=== PATIENT | female | born 1950 | race Caucasian/White ===

== ENCOUNTER 2024-04-08 13:55 | Inpatient (IN) | payer OTHER, MEDICARE ==
--- NOTE | 2024-04-08 14:28 | ED ---
General Adult HPI - General Chief complaint: Neuro Symptoms/Deficit Stated complaint: AMS Time Seen by Provider: 04/08/24 14:03 Source: patient, family Mode of arrival: wheelchair Limitations: no limitations - History of Present Illness Initial comments: Dictation was produced using [employer] dictation software. please excuse any grammatical, word or spelling errors. Chief Complaint: 73-year-old female presents to the emergency department for memory loss History of Present Illness: Patient 73-year-old female. History of present illness obtained from son at the bedside. Apparently couple months ago patient suffered a fall with intracranial bleed. Since then she was [facility]. She has been followed up with neurologist. Patient is pending MRI. Apparently there was concern of patient's memory loss and they were instructed to bring the patient to the ER should she have any worsening symptoms. Patient has been much more forgetful especially as of late. Patient denies any complaints. The ROS documented in this emergency department record has been reviewed and confirmed by me. Those systems with pertinent positive or negative responses have been documented in the HPI. All other systems are other negative and/or noncontributory. - Related Data Home Medications Medication Instructions Recorded Confirmed Albuterol Inhaler [Ventolin Hfa 2 puff INHALATION RT-Q6H PRN 04/08/24 04/08/24 Inhaler] Diphenoxylate HCl/Atropine 1 tab PO QID PRN 04/08/24 04/08/24 [Lomotil 2.5-0.025 mg Tablet] Donepezil [Aricept] 5 mg PO HS 04/08/24 04/08/24 Droxidopa 400 mg PO TID 04/08/24 04/08/24 FLUoxetine HCL 80 mg PO DAILY 04/08/24 04/08/24 Famotidine [Pepcid] 20 mg PO BID 04/08/24 04/08/24 Midodrine HCl [ProAmatine] 10 mg PO TID 04/08/24 04/08/24 Mirtazapine 30 mg PO HS 04/08/24 04/08/24 Rosuvastatin [Crestor] 20 mg PO DAILY 04/08/24 04/08/24 levETIRAcetam [Keppra] 500 mg PO Q12HR 04/08/24 04/08/24 Allergies Allergy/AdvReac Type Severity Reaction Status Date / Time cephalexin [From Keflex] Allergy Rash/Hives Verified 04/08/24 18:10 ciprofloxacin [From Cipro] Allergy Rash/Hives Verified 04/08/24 18:10 iodine Allergy Rash/Hives Verified 04/08/24 18:10 Review of Systems ROS Statement: Those systems with pertinent positive or pertinent negative responses have been documented in the HPI. ROS Other: All systems not noted in ROS Statement are negative. Past Medical History Past Medical History: Cancer, Dementia, Diabetes Mellitus, Hyperlipidemia, Hypertension Additional Past Medical History / Comment(s): tremors, traumatic brain injury Past Surgical History: Appendectomy, Cholecystectomy, Hysterectomy Additional Past Surgical History / Comment(s): left kidney removed Past Psychological History: Depression Smoking Status: Former smoker Past Alcohol Use History: None Reported Past Drug Use History: None Reported General Exam - General Exam Comments Initial Comments: PHYSICAL EXAM: General Impression: Alert and oriented x3, not in acute distress HEENT: Normocephalic atraumatic, extra-ocular movements intact, pupils equal and reactive to light bilaterally, mucous membranes moist. Cardiovascular: Heart regular rate and rhythm Chest: Able to complete full sentences, no retractions, no tachypnea Abdomen: abdomen soft, non-tender, non-distended, no organomegaly Musculoskeletal: Pulses present and equal in all extremities, no peripheral beltran ma Motor: no focal deficits noted Neurological: CN II-XII grossly intact, no focal motor or sensory deficits noted Skin: Intact with no visualized rashes Psych: Normal affect and mood Limitations: no limitations Course Vital Signs 04/08/24 04/08/24 13:59 17:11 Temperature 97.6 F Pulse Rate 62 48 L Respiratory 20 18 Rate Blood Pressure 113/72 173/79 O2 Sat by Pulse 98 100 Oximetry Medical Decision Making - Medical Decision Making Was pt. sent in by a medical professional or institution (, PA, GAS BLENDER, urgent care, hospital, or prison...) When possible be specific @ -No Did you speak to anyone other than the patient for history (EMS, parent, family, police, friend...)? What history was obtained from this source @ -History obtained from family at the bedside Did you review nursing and triage notes (agree or disagree)? Why? @ -I reviewed and agree with nursing and triage notes Were old charts reviewed (outside hosp., previous admission, EMS record, old EKG, old radiological studies, urgent care reports/EKG's, prison records)? Report findings @ -No old charts were reviewed Differential Diagnosis (chest pain, altered mental status, abdominal pain women, abdominal pain men, vaginal bleeding, musculoskeletal, weakness, fever, dyspnea, syncope, headache, dizziness, GI bleed, back pain, seizure, CVA, palpatations, mental health)? @ -Differential Altered Mental Status: Hypoglycemia, DKA, hypercapnia, ETOH, overdose, CO poisoning, trauma, myxedema coma, HTN encephalopathy, infection, encephalitis, psychosis, intercranial hemorrhage, hepatic encephalopathy, meningitis, CVA, this is not meant to be an all-inclusive list EKG interpreted by me (3pts min.). @ -None done X-rays interpreted by me (1pt min.). @ -None done CT interpreted by me (1pt min.). @ -CT Scan of brain shows no acute processes U/S interpreted by me (1pt. min.). @ -None done What testing was considered but not performed or refused? (CT, X-rays, U/S, labs)? Why? @ -None What meds were considered but not given or refused? Why? @ -None Was smoking cessation discussed for >3mins.? @ -No Were there social determinants of health that impacted care today? How? (Homelessness, low income, unemployed, alcoholism, drug addiction, transportation, low edu. Level, literacy, decrease access to med. care, usp, rehab)? @ -No Was there de-escalation of care discussed even if they declined (Discuss DNR or withdrawal of care, Hospice)? DNR status @ -No What co-morbidities impacted this encounter? (DM, HTN, Smoking, COPD, CAD, Cancer, CVA, ARF, Chemo, Hep., AIDS, mental health diagnosis, sleep apnea, morbid obesity)? @ -None Was patient admitted / discharged? Hospital course, mention meds given and route, prescriptions, significant lab abnormalities, going to OR and other pertinent info. @ -73-year-old female presents to the emergency department for worsening mentation. Vital signs upon arrival are within acceptable limits. Patient has no focal neurologic deficits. Laboratory evaluation obtained leukopenia 2.8, hemoglobin 9.6 plate count of 111. Suggest pancytopenia. Patient shows creatinine 2.61. His unclear what is patient's normal baseline renal function. Urinalysis positive for UTI. Ceftriaxone despite being allergy she does not have any severe reaction to it. Patient will be monitored in the ER. Patient will be admitted consultation to cardiology, neurology and nephrology Did you discuss the management of the patient with other professionals (professionals i.e. , PA, GAS BLENDER, lab, RT, psych nurse, long term care social worker, air traffic control supervisor, teacher, education officer, window caser)? Give summary @ -Discussed with hospitalist for admission Was critical care preformed (if so, how long)? @ -No Undiagnosed new problem with uncertain prognosis? @ -No Drug Therapy requiring intensive monitoring for toxicity (Heparin, Nitro, Insulin, Cardizem)? @ -No Were any procedures done? @ -No Diagnosis/symptom? Acute, or Chronic, or Acute on Chronic? Uncomplicated (without systemic symptoms) or Complicated (systemic symptoms)? @ -Altered mental status, UTI, acute kidney injury, pancytopenia Side effects of treatment? @ -No Exacerbation, Progression, or Severe Exacerbation? @ -No Poses a threat to life or bodily function? How? (Chest pain, USA, CT, pneumonia, PE, COPD, DKA, ARF, appy, cholecystitis, CVA, Diverticulitis, Homicidal, Suicidal, threat to staff... and all critical care pts) @ -yes - Lab Data Result diagrams: 04/08/24 14:47 04/08/24 14:47 Lab Results 04/08/24 04/08/24 04/08/24 Range/Units 14:47 14:47 14:47 WBC 2.8 L (3.8-10.6) k/uL RBC 3.08 L (3.80-5.40) m/uL Hgb 9.6 L (11.4-16.0) gm/dL Hct 29.1 L (34.0-46.0) % MCV 94.5 (80.0-100.0) fL MCH 31.1 (25.0-35.0) pg MCHC 32.9 (31.0-37.0) g/dL RDW 13.7 (11.5-15.5) % Plt Count 111 L (150-450) k/uL MPV 8.3 Neutrophils % (Manual) 5 % Lymphocytes % (Manual) 74 % Monocytes % (Manual) 15 % Eosinophils % (Manual) 6 % Basophils % (Manual) 1 % Neutrophils # (Manual) 0.14 L* (1.3-7.7) k/uL Lymphocytes # (Manual) 2.07 (1.0-4.8) k/uL Monocytes # (Manual) 0.42 (0-1.0) k/uL Eosinophils # (Manual) 0.17 (0-0.7) k/uL Basophils # (Manual) 0.03 (0-0.2) k/uL Nucleated RBCs 0 (0-0) /100 WBC Manual Slide Review Performed Hypochromasia Slight Sodium 145 (137-145) mmol/L Potassium 3.5 (3.5-5.1) mmol/L Chloride 114 H (98-107) mmol/L Carbon Dioxide 27 (22-30) mmol/L Anion Gap 4 mmol/L BUN 28 H (7-17) mg/dL Creatinine 2.61 H (0.52-1.04) mg/dL Est GFR (CKD-EPI)AfAm 21 (>60 ml/min/1.73 sqM) Est GFR (CKD-EPI)NonAf 18 (>60 ml/min/1.73 sqM) Glucose 97 (74-99) mg/dL Calcium 9.4 (8.4-10.2) mg/dL Troponin I <0.012 (0.000-0.034) ng/mL Urine Color Urine Appearance (Clear) Urine pH (5.0-8.0) Ur Specific [place] (1.001-1.035) Urine Protein (Negative) Urine Glucose (UA) (Negative) Urine Ketones (Negative) Urine Blood (Negative) Urine Nitrite (Negative) Urine Bilirubin (Negative) Urine Urobilinogen (<2.0) mg/dL Ur Leukocyte Esterase (Negative) Urine RBC (0-5) /hpf Urine WBC (0-5) /hpf Ur Squamous Epith Cells (0-4) /hpf Urine Bacteria (None) /hpf Urine Mucus (None) /hpf 04/08/24 Range/Units 17:19 WBC (3.8-10.6) k/uL RBC (3.80-5.40) m/uL Hgb (11.4-16.0) gm/dL Hct (34.0-46.0) % MCV (80.0-100.0) fL MCH (25.0-35.0) pg MCHC (31.0-37.0) g/dL RDW (11.5-15.5) % Plt Count (150-450) k/uL MPV Neutrophils % (Manual) % Lymphocytes % (Manual) % Monocytes % (Manual) % Eosinophils % (Manual) % Basophils % (Manual) % Neutrophils # (Manual) (1.3-7.7) k/uL Lymphocytes # (Manual) (1.0-4.8) k/uL Monocytes # (Manual) (0-1.0) k/uL Eosinophils # (Manual) (0-0.7) k/uL Basophils # (Manual) (0-0.2) k/uL Nucleated RBCs (0-0) /100 WBC Manual Slide Review Hypochromasia Sodium (137-145) mmol/L Potassium (3.5-5.1) mmol/L Chloride (98-107) mmol/L Carbon Dioxide (22-30) mmol/L Anion Gap mmol/L BUN (7-17) mg/dL Creatinine (0.52-1.04) mg/dL Est GFR (CKD-EPI)AfAm (>60 ml/min/1.73 sqM) Est GFR (CKD-EPI)NonAf (>60 ml/min/1.73 sqM) Glucose (74-99) mg/dL Calcium (8.4-10.2) mg/dL Troponin I (0.000-0.034) ng/mL Urine Color Light Yellow Urine Appearance Cloudy H (Clear) Urine pH 6.0 (5.0-8.0) Ur Specific [place] 1.022 (1.001-1.035) Urine Protein 1+ H (Negative) Urine Glucose (UA) Trace H (Negative) Urine Ketones Negative (Negative) Urine Blood Negative (Negative) Urine Nitrite Positive H (Negative) Urine Bilirubin Negative (Negative) Urine Urobilinogen <2.0 (<2.0) mg/dL Ur Leukocyte Esterase Negative (Negative) Urine RBC <1 (0-5) /hpf Urine WBC 5 (0-5) /hpf Ur Squamous Epith Cells 8 H (0-4) /hpf Urine Bacteria Many H (None) /hpf Urine Mucus Rare H (None) /hpf Disposition Clinical Impression: AMS (altered mental status) Disposition: ADMITTED IP TO THIS HOSP Condition: Fair Referrals: None,Stated [Primary Care Provider] - 1-2 days Decision Time: 18:38
[2024-04-08 15:09] LABS: HCT 29.1 % (34.0-46.0); HGB 9.6 gm/dL (11.4-16.0); Hypochromasia Slight; MCH 31.1 pg (25.0-35.0); MCHC 32.9 g/dL (31.0-37.0); MCV 94.5 fL (80.0-100.0); Mean Platelet Volume 8.3; Platelet Count 111 k/uL (150-450); RBC 3.08 m/uL (3.80-5.40); RDW 13.7 % (11.5-15.5); WBC 2.8 k/uL (3.8-10.6)
[2024-04-08 15:22] LABS: African American GFR (CKD) 21 (>60 ml/min/1.73 sqM); Anion Gap 4 mmol/L; Blood Urea Nitrogen 28 mg/dL (7-17); Calcium 9.4 mg/dL (8.4-10.2); Carbon Dioxide 27 mmol/L (22-30); Chloride 114 mmol/L (98-107); Glucose 97 mg/dL (74-99); Non-African American GFR(CKD) 18 (>60 ml/min/1.73 sqM); Potassium 3.5 mmol/L (3.5-5.1); Sodium 145 mmol/L (137-145)
[2024-04-08 15:41] LABS: Nucleated Red Blood Cells 0 /100 WBC (0-0)
[2024-04-08 15:45] LABS: Basophils # (M) 0.03 k/uL (0-0.2); Eosinophils # (M) 0.17 k/uL (0-0.7); Lymphocytes # (M) 2.07 k/uL (1.0-4.8); Monocytes # (M) 0.42 k/uL (0-1.0); Neutrophils # (M) 0.14 k/uL (1.3-7.7); Neutrophils % (M) 5 %; Total Cells Counted 200
--- NOTE | 2024-04-08 15:50 | CT ---
EXAMINATION TYPE: CT brain wo con DATE OF EXAM: 04/08/2024 COMPARISON: None INDICATION: memory loss/confusion DLP: 1080.2 mGycm, Automated exposure control for dose reduction was used. CONTRAST: None CT of the brain is performed utilizing 3 mm thick sections through the posterior fossa and 3 mm thick sections through the remaining calvarium. Study is performed within 24 hours of arrival to the hosp ital. No abnormal hyperdensity is present to suggest an acute intracranial hemorrhage. No mass lesion is evident. No acute infarcts are evident. Confluent periventricular white matter hypodensity is present, likely chronic white matter ischemic changes. Ventricles and sulci are prominent for the patient age. Paranasal sinuses and mastoid air cells within the oecwp-ra-nghe are clear. IMPRESSION: 1. No acute intracranial process. Follow up MRI can be performed as clinically indicated. 2. Chronic appearing periventricular white matter confluent ischemic type changes with atrophy.
[2024-04-08 17:44] LABS: Appearance,Urine Cloudy (Clear); Bacteria,Urine Many /hpf; Bilirubin,Urine Negative (Negative); Blood,Urine Negative (Negative); Color,Urine Light Yellow; Glucose,Urine (UA) Trace (Negative); Ketones,Urine Negative (Negative); Leukocyte Esterase,Urine Negative (Negative); Mucus,Urine Rare /hpf; Nitrite,Urine Positive (Negative); Protein,Urine 1+ (Negative); RBC,Urine <1 /hpf (0-5); Specific Gravity,Urine 1.022 (1.001-1.035); Squamous Epithelial Cell,Urine 8 /hpf (0-4); Urobilinogen,Urine <2.0 mg/dL (<2.0); WBC,Urine 5 /hpf (0-5)
[2024-04-08] MEDS ORDERED: NALOXONE 0.4 MG/ML 1 ML VIAL IV PRN (18:38)
[2024-04-08] MEDS: cefTRIAXone IN SWFI 1,000 MG/10 ML SYRINGE IVP STA (18:55)
[2024-04-08] MEDS: SODIUM CHLORIDE 0.9% 1,000 ML IV SCH (19:58)
--- NOTE | 2024-04-08 22:26 | P.HPIM ---
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 Most of patient history was given by son that was accompanied at bedside. The son states he noticed a rapid decline in mentation for the past week and a half. States that she would tend to forget things within 5 minutes. He spoke to a neurologist and they wanted to get an brain MRI scheduled for next week, but was advised to come to the ED if patient keeps declining. Son and patient were worried that she may have a UTI but patient denies any urinary symptoms. denies fever, abd pain , hematuria, frequency or dysuria . Patient denies any chest pain, shortness of breath, new focal neuro deficits ,nausea, vomiting, trauma, abdominal pain. Review of systems: Pertinent positives and negatives as discussed in HPI, a complete review of systems was performed and all other systems are negative. Social history: Tobacco: Former smoker Alcohol: Denies alcohol Recreational drugs: Denies illicit drug use Travel: No recent travel Occupation: Retired Physical examination: Vitals: T 97.6 F, SC 50, RR 19, BP 101/55, SaO2 100% on room air General: non toxic, no distress, appears at stated age Derm: no unusual rashes/lesions, warm Head: atraumatic, normocephalic, symmetric Eyes: EOMI, anicteric sclera, pupils equal round reactive to light ENT: Nose and ears atraumatic Cardiovascular: S1S2 bradycardia , no murmur, positive dorsalis pedis pulse bilateral, no peripheral edema Lungs: CTA bilateral, no rhonchi, no rales, no accessory muscle use Abdominal: soft, nontender to palpation, no guarding Ext: muscle strength 4 out of 5 in all 4 extremities grossly, no gross muscle atrophy, Neuro: CN II-XII grossly intact, no gross focal neuro deficits Psych: alert to person and place, not to time. patient waxes and wanes. Assessment/Plan: Patient is a 73-year-old female with dementia, type 2 diabetes, hypertension, CML (in remission) left renal cancer s/p resection, per patient son, neurology recommended obtaining MRI of the brain to rule out mets, if she continues to have a decline in her cognitive abilities, which , per the patient son, she has been demonstrating by increase forgetfulness, generalized weakness, and becoming remarkably slow in her responses and actions, I discussed the case with ED doc and I accepted the admission for VAUGHN, possible UTI and further neurologic workup and evaluation. with an anticipated length of stay < 2 midnight patient does not normally receive her care at our facility, and we have no prior records on her for comparison Active #. Acute metabolic encephalopathy, unclear etiology Septic versus medication induced versus metabolic versus uremic Vitals unremarkable History of dementia Brain CT showed no acute intracranial process. Chronic appearing periventricular white matter confluent ischemic type changes with atrophy UA inconclusive due to high squamous epithelial cell, will repeat UA Patient denies any urinary symptoms Was given 1 g Rocephin IVP once in the ED, will continue to monitor off antibiotics until repeat UA and possibly cultures. Patient allergic to Cephalexin with hives and rashes. Brain MRI ordered Neurology consulted neuro checks fall precautions #. Acute kidney injury History of left kidney nephrectomy due to cancer Patient euvolemic BUN 28, creatinine 2.61 both elevated, unknown baseline Hold nephrotoxic medications increase NS 0.9% to 75 cc per hour Intake output Heart healthy diet Renal/bladder ultrasound ordered Nephrology consulted monitor urine output follow up renal function K 3.5 unremarkable #. 1st degree AV block #. Sinus bradycardia EKG independently interpreted showed normal sinus rhythm first-degree AV block Pulse rate 50 Troponin <0.012 Monitor on telemetry Cardiology consulted #. Pancytopenia Hgb 9.6, WBC 2.8, platelet 111 Likely due to history of CML Continue to monitor CBC Chronic #. Type 2 diabetes, well-controlled Hold home oral medication Monitor glucose insulin sliding scale low scale #. Hypertension #. Hyperlipidemia Continue home medications DVT prophylaxis: Lovenox 40 SQ F: NS at 75 cc/hr E: Replete electrolytes as needed N: Heart healthy diet A: Fall precaution CODE STATUS: Full code Discussed with: Patient Anticipated discharge place: Home Past Medical History Past Medical History: Cancer, Dementia, Diabetes Mellitus, Hyperlipidemia, Hypertension Additional Past Medical History / Comment(s): tremors, traumatic brain injury Past Surgical History: Appendectomy, Cholecystectomy, Hysterectomy Additional Past Surgical History / Comment(s): left kidney removed Past Psychological History: Depression Smoking Status: Former smoker Past Alcohol Use History: None Reported Past Drug Use History: None Reported Medications and Allergies Home Medications Medication Instructions Recorded Confirmed Type Albuterol Inhaler [Ventolin Hfa 2 puff INHALATION RT-Q6H PRN 04/08/24 04/08/24 History Inhaler] Diphenoxylate HCl/Atropine 1 tab PO QID PRN 04/08/24 04/08/24 History [Lomotil 2.5-0.025 mg Tablet] Donepezil [Aricept] 5 mg PO HS 04/08/24 04/08/24 History Droxidopa 400 mg PO TID 04/08/24 04/08/24 History FLUoxetine HCL 80 mg PO DAILY 04/08/24 04/08/24 History Famotidine [Pepcid] 20 mg PO BID 04/08/24 04/08/24 History Midodrine HCl [ProAmatine] 10 mg PO TID 04/08/24 04/08/24 History Mirtazapine 30 mg PO HS 04/08/24 04/08/24 History Rosuvastatin [Crestor] 20 mg PO DAILY 04/08/24 04/08/24 History levETIRAcetam [Keppra] 500 mg PO Q12HR 04/08/24 04/08/24 History Allergies Allergy/AdvReac Type Severity Reaction Status Date / Time cephalexin [From Keflex] Allergy Rash/Hives Verified 04/08/24 18:10 ciprofloxacin [From Cipro] Allergy Rash/Hives Verified 04/08/24 18:10 iodine Allergy Rash/Hives Verified 04/08/24 18:10 Physical Exam Vitals: Vital Signs Temp Pulse Resp BP Pulse Ox 04/08/24 19:27 64 18 113/64 90 L 04/08/24 17:11 48 L 18 173/79 100 04/08/24 13:59 97.6 F 62 20 113/72 98 Intake and Output 04/08/24 04/08/24 04/08/24 06:59 14:59 22:59 Other: Weight 68.039 kg Results CBC & Chem 7: 04/08/24 14:47 04/08/24 14:47 Labs: Abnormal Lab Results - Last 24 Hours (Table) 04/08/24 04/08/24 04/08/24 Range/Units 14:47 14:47 17:19 WBC 2.8 L (3.8-10.6) k/uL RBC 3.08 L (3.80-5.40) m/uL Hgb 9.6 L (11.4-16.0) gm/dL Hct 29.1 L (34.0-46.0) % Plt Count 111 L (150-450) k/uL Neutrophils # (Manual) 0.14 L* (1.3-7.7) k/uL Chloride 114 H (98-107) mmol/L BUN 28 H (7-17) mg/dL Creatinine 2.61 H (0.52-1.04) mg/dL Urine Appearance Cloudy H (Clear) Urine Protein 1+ H (Negative) Urine Glucose (UA) Trace H (Negative) Urine Nitrite Positive H (Negative) Ur Squamous Epith Cells 8 H (0-4) /hpf Urine Bacteria Many H (None) /hpf Urine Mucus Rare H (None) /hpf Assessment and Plan Assessment: I independently saw and examined the patient , I discussed the case with the resident, reviewed the H&P and A&P and amended the note where necessary
[2024-04-08] MEDS: DROXIDOPA 200 MG PO SCH (23:38)
[2024-04-08] MEDS ORDERED: DEXTROSE 50% SYRINGE 50 ML IVP PRN ×2 (23:46)
[2024-04-08] MEDS: FAMOTIDINE 20 MG TAB PO SCH (23:48)
[2024-04-08] MEDS: MIRTAZAPINE 15 MG TAB PO SCH (23:48)
[2024-04-08] MEDS: levETIRAcetam 500 MG TAB PO SCH (23:48)
[2024-04-09 00:02] LABS: Glucose,Whole Blood 101 mg/dL (70-110)
[2024-04-09 06:48] LABS: Appearance,Urine Clear (Clear); Bilirubin,Urine Negative (Negative); Blood,Urine Negative (Negative); Color,Urine Colorless; Glucose,Urine (UA) Trace (Negative); Ketones,Urine Negative (Negative); Leukocyte Esterase,Urine Negative (Negative); Nitrite,Urine Negative (Negative); Protein,Urine Trace (Negative); Specific Gravity,Urine 1.015 (1.001-1.035); Urobilinogen,Urine <2.0 mg/dL (<2.0)
[2024-04-09] MEDS: INSULIN ASPART (NovoLOG) 100 UNIT/ML VIAL SQ SCH (08:04)
[2024-04-09 08:05] LABS: Glucose,Whole Blood 67 mg/dL (70-110)
[2024-04-09] MEDS: FLUoxetine HCL 20 MG CAP PO SCH (09:54)
[2024-04-09] MEDS: MIDODRINE 5 MG TAB PO SCH (09:54)
[2024-04-09] MEDS: ATORVASTATIN 40 MG TAB PO SCH (09:55)
--- NOTE | 2024-04-09 10:17 | P.CRDCN ---
History of Present Illness Consult date: 04/09/24 Reason for Consult (text): Bradycardia History of present illness: This is a 73-year-old female with prior history of seizure disorder, hyperli pidemia, hypotension, dementia. We have been asked to evaluate the patient for bradycardia. Noted that heart rates during the night were documented down to 42 bpm but no rhythm strips are available to review. Blood pressure 104/60, pulse ox 98% on room air. Apparently, patient had a fall with intracranial bleed several months ago. There was some concern about patient's memory loss and decided to bring her in to the emergency center. Apparently patient has been more forgetful. Patient is not on any heart rate rate control medications. Patient denies any chest pain. EKG: Sinus rhythm with first-degree block, ventricular rate 62 bpm CAT scan of the brain showed no acute intracranial process. Laboratory studies: WBC 2.8, hemoglobin 9.6, platelet count 111. BUN 28 creatinine 2.61, potassium 3.5. Troponin negative x 1. Home cardiac medications: Crestor 20 mg daily, patient is also on midodrine 10 mg 3 times daily. Review Of Systems: At the time of my exam: CONSTITUTIONAL: Denies fever or chills. HEENT: Denies blurred vision, vision changes, or eye pain. Denies hemoptysis CARDIOVASCULAR: Denies chest pain. Denies orthopnea. Denies PND. Denies palpitations RESPIRATORY: Denies shortness of breath. GASTROINTESTINAL: Denies abdominal pain. Denies nausea or vomiting. HEMATOLOGIC: Denies bleeding disorders. GENITOURINARY: Denies any blood in urine. SKIN: Denies puritis. Denies rash. Physical examination: Gen: This is a 73-year-old female in no acute distress VS: reviewed HEENT: Head is atraumatic, normocephalic. Pupils equal, round. Sclerae is anicteric. NECK: Supple. No JVD. LUNGS: Clear to auscultation. No wheezes or rhonchi. No intercostal retractions. HEART: Regular rate and rhythm. No murmur. ABDOMEN: Soft No tenderness. EXTREMITIES: No pedal edema. No calf tenderness. NEUROLOGICAL: Patient is awake, alert. Assessment: Consult for bradycardia, no evidence of bradycardia Seizure disorder Recent intracranial bleed Memory loss Hypotension on midodrine Hyperlipidemia Plan: Resume patient's home cardiac medications Discontinue Aricept Obtain TSH and free T4 Telemetry monitoring Obtain 2-D echocardiogram and Doppler study to assess cardiac structure and function Further recommendations to follow based upon clinical course Thank you kindly for this consultation. Nurse practitioner note has been reviewed, I agree with documented findings and plan of care. Patient was seen and examined. Past Medical History Past Medical History: Cancer, Dementia, Diabetes Mellitus, Hyperlipidemia, Hypertension Additional Past Medical History / Comment(s): tremors, traumatic brain injury Past Surgical History: Appendectomy, Cholecystectomy, Hysterectomy Additional Past Surgical History / Comment(s): left kidney removed Past Psychological History: Depression Smoking Status: Former smoker Past Alcohol Use History: None Reported Past Drug Use History: None Reported Medications and Allergies Home Medications Medication Instructions Recorded Confirmed Type Albuterol Inhaler [Ventolin Hfa 2 puff INHALATION RT-Q6H PRN 04/08/24 04/08/24 History Inhaler] Diphenoxylate HCl/Atropine 1 tab PO QID PRN 04/08/24 04/08/24 History [Lomotil 2.5-0.025 mg Tablet] Donepezil [Aricept] 5 mg PO HS 04/08/24 04/08/24 History Droxidopa 400 mg PO TID 04/08/24 04/08/24 History FLUoxetine HCL 80 mg PO DAILY 04/08/24 04/08/24 History Famotidine [Pepcid] 20 mg PO BID 04/08/24 04/08/24 History Midodrine HCl [ProAmatine] 10 mg PO TID 04/08/24 04/08/24 History Mirtazapine 30 mg PO HS 04/08/24 04/08/24 History Rosuvastatin [Crestor] 20 mg PO DAILY 04/08/24 04/08/24 History levETIRAcetam [Keppra] 500 mg PO Q12HR 04/08/24 04/08/24 History Allergies Allergy/AdvReac Type Severity Reaction Status Date / Time cephalexin [From Keflex] Allergy Rash/Hives Verified 04/08/24 18:10 ciprofloxacin [From Cipro] Allergy Rash/Hives Verified 04/08/24 18:10 iodine Allergy Rash/Hives Verified 04/08/24 18:10 Physical Exam Vitals: Vital Signs Temp Pulse Resp BP Pulse Ox 04/09/24 06:33 46 L 18 143/72 98 04/09/24 06:21 97.7 F 04/09/24 05:00 42 L 15 141/66 99 04/09/24 04:00 42 L 16 136/67 100 04/09/24 03:00 42 L 16 119/69 99 04/09/24 02:00 48 L 18 129/66 97 04/09/24 01:00 51 L 16 141/102 96 04/09/24 00:00 16 113/67 98 04/08/24 23:04 98.5 F 50 L 18 113/67 99 04/08/24 23:00 47 L 16 112/64 98 04/08/24 22:00 49 L 19 110/59 98 04/08/24 21:00 50 L 18 101/55 100 04/08/24 20:57 52 L 19 101/55 99 04/08/24 20:56 50 L 19 101/55 100 04/08/24 19:27 64 18 113/64 90 L 04/08/24 17:11 48 L 18 173/79 100 04/08/24 13:59 97.6 F 62 20 113/72 98 Results 04/08/24 14:47 04/08/24 14:47 Cardiac Enzymes 04/08/24 Range/Units 14:47 Troponin I <0.012 (0.000-0.034) ng/mL CBC 04/08/24 Range/Units 14:47 WBC 2.8 L (3.8-10.6) k/uL RBC 3.08 L (3.80-5.40) m/uL Hgb 9.6 L (11.4-16.0) gm/dL Hct 29.1 L (34.0-46.0) % Plt Count 111 L (150-450) k/uL Comprehensive Metabolic Panel 04/08/24 Range/Units 14:47 Sodium 145 (137-145) mmol/L Potassium 3.5 (3.5-5.1) mmol/L Chloride 114 H (98-107) mmol/L Carbon Dioxide 27 (22-30) mmol/L BUN 28 H (7-17) mg/dL Creatinine 2.61 H (0.52-1.04) mg/dL Glucose 97 (74-99) mg/dL Calcium 9.4 (8.4-10.2) mg/dL Current Medications Generic Name Dose Route Start Last Admin Trade Name Tommyq PRN Reason Stop Dose Admin Acetaminophen 650 mg 04/08/24 23:28 Acetaminophen Tab 325 Mg Tab PO Q4HR PRN Fever and/ or Pain Atorvastatin Calcium 40 mg 04/09/24 09:00 Atorvastatin 40 Mg Tab PO DAILY DEE Dextrose/Water 25 ml 04/08/24 23:46 Dextrose 50% Syringe 50 Ml IVP PER PROTOCOL PRN Hypoglycemia Protocol Dextrose/Water 50 ml 04/08/24 23:46 Dextrose 50% Syringe 50 Ml IVP PER PROTOCOL PRN Hypoglycemia Protocol Famotidine 20 mg 04/08/24 23:30 04/08/24 23:48 Famotidine 20 Mg Tab PO 20 mg Q48H DEE Administration Fluoxetine HCl 80 mg 04/09/24 09:00 Fluoxetine Hcl 20 Mg Cap PO DAILY [facility] Sodium Chloride 1,000 mls @ 75 mls/hr 04/08/24 18:45 04/08/24 19:58 Saline 0.9% IV 20 mls/hr .[id number] DEE Administration Insulin Aspart 0 unit 04/09/24 07:30 04/09/24 08:04 Insulin Aspart (Novolog) 100 Unit/Ml Vial SQ Not Given ACHS [facility] Protocol Levetiracetam 500 mg 04/08/24 23:30 04/08/24 23:48 Levetiracetam 500 Mg Tab PO 500 mg Q12HR DEE Administration Midodrine 10 mg 04/09/24 07:30 Midodrine 5 Mg Tab PO AC-TID [facility] Mirtazapine 30 mg 04/08/24 23:30 04/08/24 23:48 Mirtazapine 15 Mg Tab PO 30 mg HS DEE Administration Naloxone HCl 0.2 mg 04/08/24 18:38 Naloxone 0.4 Mg/Ml 1 Ml Vial IV Q2M PRN Opioid Reversal Non-Formulary Medication 400 mg 04/08/24 23:30 04/08/24 23:38 Droxidopa [Droxidopa] PO Not Given TID [facility] 04/08/24 14:47 04/08/24 14:47
[2024-04-09 11:13] LABS: BUN/Creat Ratio 9.68 Ratio (12.00-20.00); Blood Urea Nitrogen 24.2 mg/dL (9.0-27.0); Calcium 9.3 mg/dL (8.7-10.3); Carbon Dioxide 22.8 mmol/L (21.6-31.8); Chloride 114 mmol/L (96-109); Glucose 81 mg/dL (70-110); Potassium 4.1 mmol/L (3.5-5.5); Sodium 150 mmol/L (135-145)
[2024-04-09 11:54] LABS: Glucose,Whole Blood 96 mg/dL (70-110)
--- NOTE | 2024-04-09 12:03 | P.NPCON ---
History of Present Illness - Reason for Consult acute renal failure - History of Present Illness patient is a 73-year-old female with history of hypertension, hyperlipidemia and seizure disorder who is admitted to the hospital with history of mental status changes. Apparently patient has been more forgetful as outpatient. She She was also noted to have bradycardia with heart rate in the 40s. Serum creatinine was 2.61. No previous labs available for comparison. No hypotension noted.. Heart rate noted in the 40s. Patient has been voiding. No NSAIDs noted on home med list. Patient is maintained on IV fluids. Review of Systems as per HPI Past Medical History Past Medical History: Cancer, Dementia, Diabetes Mellitus, Hyperlipidemia, Hypertension Additional Past Medical History / Comment(s): tremors, traumatic brain injury Past Surgical History: Appendectomy, Cholecystectomy, Hysterectomy Additional Past Surgical History / Comment(s): left kidney removed Past Psychological History: Depression Smoking Status: Former smoker Past Alcohol Use History: None Reported Past Drug Use History: None Reported Medications and Allergies Home Medications Medication Instructions Recorded Confirmed Type Albuterol Inhaler [Ventolin Hfa 2 puff INHALATION RT-Q6H PRN 04/08/24 04/08/24 History Inhaler] Diphenoxylate HCl/Atropine 1 tab PO QID PRN 04/08/24 04/08/24 History [Lomotil 2.5-0.025 mg Tablet] Donepezil [Aricept] 5 mg PO HS 04/08/24 04/08/24 History Droxidopa 400 mg PO TID 04/08/24 04/08/24 History FLUoxetine HCL 80 mg PO DAILY 04/08/24 04/08/24 History Famotidine [Pepcid] 20 mg PO BID 04/08/24 04/08/24 History Midodrine HCl [ProAmatine] 10 mg PO TID 04/08/24 04/08/24 History Mirtazapine 30 mg PO HS 04/08/24 04/08/24 History Rosuvastatin [Crestor] 20 mg PO DAILY 04/08/24 04/08/24 History levETIRAcetam [Keppra] 500 mg PO Q12HR 04/08/24 04/08/24 History Allergies Allergy/AdvReac Type Severity Reaction Status Date / Time cephalexin [From Keflex] Allergy Rash/Hives Verified 04/08/24 18:10 ciprofloxacin [From Cipro] Allergy Rash/Hives Verified 04/08/24 18:10 iodine Allergy Rash/Hives Verified 04/08/24 18:10 Physical Exam Vitals: Vital Signs Temp Pulse Resp BP Pulse Ox 04/09/24 10:00 61 20 104/60 98 04/09/24 09:00 60 20 114/67 99 04/09/24 06:33 46 L 18 143/72 98 04/09/24 06:21 97.7 F 04/09/24 05:00 42 L 15 141/66 99 04/09/24 04:00 42 L 16 136/67 100 04/09/24 03:00 42 L 16 119/69 99 04/09/24 02:00 48 L 18 129/66 97 04/09/24 01:00 51 L 16 141/102 96 04/09/24 00:00 16 113/67 98 04/08/24 23:04 98.5 F 50 L 18 113/67 99 04/08/24 23:00 47 L 16 112/64 98 04/08/24 22:00 49 L 19 110/59 98 04/08/24 21:00 50 L 18 101/55 100 04/08/24 20:57 52 L 19 101/55 99 04/08/24 20:56 50 L 19 101/55 100 04/08/24 19:27 64 18 113/64 90 L 04/08/24 17:11 48 L 18 173/79 100 04/08/24 13:59 97.6 F 62 20 113/72 98 patient is awake, comfortable, no acute distress. Examination of the heart S1 and S2 Examination of the lungs bilateral breath sounds are heard Abdomen is soft nontender Examination of lower extremity shows no significant edema [employer] exam shows patient is moving all 4 extremities. Results - Lab Results Most recent lab results Calcium 9.3 mg/dL (8.7-10.3) 04/09/24 06:54 04/08/24 14:47 04/09/24 06:54 Assessment and Plan Assessment: 1. Acute kidney injury, ATN secondary to some degree of hypoperfusion in the setting of bradycardia. No previous labs available for comparison. 2. Rule out chronic kidney disease. 3. Bradycardia being followed by cardiology. 4. Mental status changes with increased forgetfulness 5. History of fall few months ago, details not available Plan: continue with IV fluids. Check ultrasound of the kidneys. Repeat labs in a.m. Try to obtain previous labs to assess patient's baseline renal function. Thank you for the consultation. We will continue to follow the patient with you during her hospitalization
--- NOTE | 2024-04-09 12:39 | US ---
EXAMINATION TYPE: US kidneys/renal and bladder DATE OF EXAM: 04/09/2024 COMPARISON: NONE CLINICAL INDICATION: Female, 73 years old with history of chandrika; Left nephrectomy October 2023 due to can cer; Patient denies any signs, symptoms, or other relevant history EXAM MEASUREMENTS: Right Kidney: 10.5 x 4.8 x 5.4 cm Left Kidney: Surgically absent cm Post Void Residual Volume: NA mL Right Kidney: Prominent renal pelvis Left Kidney: Surgically absent Bladder: No bladder wall thickening or calculus. Bilateral Jets seen: Right jet seen; let not seen due to surgery Normal Post Void Residual: NA Right renal cortical echogenicity and thickness maintained. IMPRESSION: Post left nephrectomy. No evidence of right-sided hydronephrosis, renal mass or nephrolithiasis.
[2024-04-09] MEDS: DEXTROSE 5% IN WATER 1,000 ML IV SCH (12:43)
--- NOTE | 2024-04-09 14:37 | P.PN ---
Subjective Progress Note Date: 04/09/24 Subjective: Patient seen and examined at the bedside. Denies any new complaints All Systems reviewed and pertinent positives and negatives noted in HPI, all other symptoms are negative Objective: Vital signs reviewed. General: non toxic, no distress, appears at stated age Derm: no unusual rashes/lesions, warm Head: atraumatic, normocephalic, symmetric Eyes: EOMI, anicteric sclera, pupils equal round reactive to light ENT: Nose and ears atraumatic Cardiovascular: S1S2 bradycardia , no murmur, positive dorsalis pedis pulse bilateral, no peripheral edema Lungs: CTA bilateral, no rhonchi, no rales, no accessory muscle use Abdominal: soft, nontender to palpation, no guarding Ext: muscle strength 4 out of 5 in all 4 extremities grossly, no gross muscle atrophy, Neuro: CN II-XII grossly intact, no gross focal neuro deficits Psych: alert to person and place, and time. patient waxes and wanes. cannot spell word HOUSE backwards Data reviewed today: Labs: Sodium 150, potassium 4.1, chloride 114, bicarb 22.8, BUN 24.2, creatinine 2.5, EGFR 20, glucose 67 UA: Trace urine protein and urine glucose Images: Renal and bladder ultrasound no evidence of right-sided hydronephrosis, renal mass or nephrolithiasis. Post left nephrectomy Assessment and Plan: Patient is a 73-year-old female with dementia, type 2 diabetes, hypertension, CML (in remission), left renal cancer s/p resection admitted to the hospital for rapidly progressive cognitive dysfunction. Patient is admitted for altered mental status, VAUGHN, bradycardia and further neurologic workup and evaluation. Cardiology, neurology and nephrology on board Patient does not normally receive her care at our facility, and we have no prior records on her for comparison Active #Acute metabolic encephalopathy, unclear etiology History of seizures Septic versus medication induced versus metabolic versus uremic versus seizures Vitals unremarkable History of dementia Brain CT showed no acute intracranial process. Chronic appearing periventricular white matter confluent ischemic type changes with atrophy Repeat UA is unremarkable Patient denies any urinary symptoms Brain MRI ordered Neurology consulted neuro checks fall precautions Seizure precautions Ordered EEG Check vitamin B12 Continue oral Keppra 500 twice daily #Acute kidney injury versus chronic kidney disease History of left kidney nephrectomy due to cancer Patient euvolemic BUN 24, creatinine 2.5 both elevated, unknown baseline Hold nephrotoxic medications Intake output Heart healthy diet Renal and bladder ultrasound no evidence of right-sided hydronephrosis, renal mass or nephrolithiasis. Nephrology consulted monitor urine output follow up renal function with BMP in a.m. K 4.1 unremarkable #Hypernatremia Sodium 150 Free water deficit of 1.1 L: Continue with D5W drip at 100 cc/h (total volume to infuse is 1 L) Monitor BMP #1st degree AV block #Sinus bradycardia EKG independently interpreted showed normal sinus rhythm first-degree AV block Pulse rate 50 Troponin <0.012 Monitor on telemetry Cardiology consulted; note reviewed:Discontinue Aricept, ordered TSH and free T4, echocardiogram #Pancytopenia History of CML Hgb 9.6, WBC 2.8, platelet 111 Continue to monitor CBC Chronic #Type 2 diabetes, well-controlled Hold home oral medication Monitor glucose insulin sliding scale low scale #Hypertension Blood pressure stable and within normal limits #Hyperlipidemia Continue home medications DVT prophylaxis: Lovenox 40 SQ F: D5 W drip at 100 cc/h E: Replete electrolytes as needed N: Heart healthy diet A: Fall precaution and seizure precautions CODE STATUS: Full code Discussed with: Patient Anticipated discharge place: Home I have seen and evaluated the patient today. Discussed with the resident and ag ree with the residents finding and plan as documented in the resident's note. Changes highlighted in blue font. Objective - Vital Signs Vital signs: Vital Signs Temp 97.7 F 04/09/24 06:21 Pulse 46 L 04/09/24 06:33 Resp 18 04/09/24 06:33 BP 143/72 04/09/24 06:33 Pulse Ox 98 04/09/24 06:33 FiO2 Intake & Output 04/08/24 04/09/24 04/09/24 18:59 06:59 18:59 Weight 68.039 kg - Labs CBC & Chem 7: 04/08/24 14:47 04/09/24 06:54 Labs: Abnormal Lab Results - Last 24 Hours (Table) 04/08/24 04/08/24 04/08/24 Range/Units 14:47 14:47 17:19 WBC 2.8 L (3.8-10.6) k/uL RBC 3.08 L (3.80-5.40) m/uL Hgb 9.6 L (11.4-16.0) gm/dL Hct 29.1 L (34.0-46.0) % Plt Count 111 L (150-450) k/uL Neutrophils # (Manual) 0.14 L* (1.3-7.7) k/uL Chloride 114 H (98-107) mmol/L BUN 28 H (7-17) mg/dL Creatinine 2.61 H (0.52-1.04) mg/dL Urine Appearance Cloudy H (Clear) Urine Protein 1+ H (Negative) Urine Glucose (UA) Trace H (Negative) Urine Nitrite Positive H (Negative) Ur Squamous Epith Cells 8 H (0-4) /hpf Urine Bacteria Many H (None) /hpf Urine Mucus Rare H (None) /hpf 04/09/24 Range/Units 06:17 WBC (3.8-10.6) k/uL RBC (3.80-5.40) m/uL Hgb (11.4-16.0) gm/dL Hct (34.0-46.0) % Plt Count (150-450) k/uL Neutrophils # (Manual) (1.3-7.7) k/uL Chloride (98-107) mmol/L BUN (7-17) mg/dL Creatinine (0.52-1.04) mg/dL Urine Appearance (Clear) Urine Protein Trace H (Negative) Urine Glucose (UA) Trace H (Negative) Urine Nitrite (Negative) Ur Squamous Epith Cells (0-4) /hpf Urine Bacteria (None) /hpf Urine Mucus (None) /hpf
[2024-04-09 16:38] LABS: Glucose,Whole Blood 160 mg/dL (70-110)
[2024-04-09 20:35] LABS: Glucose,Whole Blood 93 mg/dL (70-110)
[2024-04-10 06:31] LABS: Glucose,Whole Blood 71 mg/dL (70-110)
[2024-04-10 07:05] LABS: Glucose,Whole Blood 102 mg/dL (70-110)
[2024-04-10 08:19] LABS: African American GFR (CKD) 21 (>60 ml/min/1.73 sqM); Anion Gap 7 mmol/L; Blood Urea Nitrogen 27 mg/dL (7-17); Calcium 9.4 mg/dL (8.4-10.2); Carbon Dioxide 25 mmol/L (22-30); Chloride 109 mmol/L (98-107); Glucose 135 mg/dL (74-99); Non-African American GFR(CKD) 18 (>60 ml/min/1.73 sqM); Potassium 3.1 mmol/L (3.5-5.1); Sodium 141 mmol/L (137-145)
[2024-04-10] MEDS: POTASSIUM CHLORIDE ER 10 MEQ TAB.ER.PRT PO STA (08:59)
[2024-04-10] MEDS ORDERED: ENOXAPARIN 40 MG/0.4 ML SYRINGE SQ SCH (09:00)
[2024-04-10 09:05] LABS: HCT 28.2 % (34.0-46.0); HGB 8.8 gm/dL (11.4-16.0); Hypochromasia Slight; MCH 29.7 pg (25.0-35.0); MCHC 31.2 g/dL (31.0-37.0); Mean Platelet Volume 8.9; Platelet Count 131 k/uL (150-450); RBC 2.97 m/uL (3.80-5.40); RDW 13.8 % (11.5-15.5); WBC 2.2 k/uL (3.8-10.6)
--- NOTE | 2024-04-10 11:12 | CA ---
Transthoracic Echo Report Name: Raquel Fisher Age: 73 Gender: F : 1950 Exam Date: 04/10/2024 09:22 Exam Location: [facility] Ht (in): 63 Wt (lb): 150 Ordering Physician: Celena Ragland Attending/Referring Phys: [id number], [employer] Officer Wilda Villarreal RDCS Procedure CPT: Indications: LVF Cardiac Hx: Technical Quality: Fair Contrast 1: Total Dose (mL): Contrast 2: Total Dose (mL): MEASUREMENTS (Male / Female) Normal Values 2D ECHO LV Diastolic Diameter PLAX 3.2 cm 4.2 - 5.9 / 3.9 - 5.3 cm LV Systolic Diameter PLAX 2.2 cm IVS Diastolic Thickness 1.9 cm 0.6 - 1.0 / 0.6 - 0.9 cm LVPW Diastolic Thickness 1.5 cm 0.6 - 1.0 / 0.6 - 0.9 cm LV Relative Wall Thickness 1.1 LA Volume 27.0 cm??? 18 - 58 / 22 - 52 cm??? LA Volume Index 15.4 cm???/m??? 16 - 28 cm???/m??? DOPPLER AV Peak Velocity 133.9 cm/s AV Peak Gradient 7.2 mmHg AV Mean Velocity 93.4 cm/s AV Mean Gradient 3.8 mmHg AV Velocity Time Integral 21.6 cm AI Peak Velocity 372.6 cm/s AI Peak Gradient 55.5 mmHg AI Pressure Half Time 828.0 ms LVOT Peak Velocity 96.9 cm/s LVOT Peak Gradient 3.8 mmHg LVOT Velocity Time Integral 15.6 cm MV Area PHT 3.4 cm??? Mitral E Point Velocity 79.2 cm/s Mitral A Point Velocity 75.6 cm/s Mitral E to A Ratio 1.0 MV Deceleration Time 222.8 ms MV E' Velocity 4.8 cm/s Mitral E to MV E' Ratio 16.4 TR Peak Velocity 124.5 cm/s TR Peak Gradient 6.2 mmHg FINDINGS Left Ventricle Moderately increased left ventricular wall thickness. Left ventricular cavity size normal. Normal left ventricular systolic function with no obvious regional wall motion abnormalities. Left ventricular ejection fraction is estimated at 55-60 %. Grade 1 diastolic dysfunction. Right Ventricle Right ventricle not well visualized. Right Atrium Right atrium not well visualized. Left Atrium Normal left atrial size. Mitral Valve Mitral valve thickened. Mild mitral annular calcification. Mild mitral regurgitation. Aortic Valve Aortic valve not well visualized. No aortic stenosis. Mild aortic regurgitation. Tricuspid Valve Structurally normal tricuspid valve. Mild tricuspid regurgitation. Pulmonic Valve Pulmonic valve not well visualized. Pericardium No pericardial effusion. Echo free space anterior to the right ventricle likely represents a fat pad. Aorta Mild aortic dilatation at the level of the sinuses of valsalva (root). CONCLUSIONS Technically difficult study. Grossly left ventricular size and systolic function is normal. Mild mitral and tricuspid and trivial aortic insufficiency noted. No pericardial effusion possible fat pad Previewed by: Dr. David Goss MD (Electronically Signed) Final Date: 10 April 2024 11:12
--- NOTE | 2024-04-10 11:22 | P.PN ---
Subjective Progress Note Date: 04/10/24 Patient seen and examined at the bedside. No acute events overnight. Patient denies any new complaints. All Systems reviewed and pertinent positives and negatives noted in HPI, all other symptoms are negative Objective: Vital signs reviewed. General: non toxic, no distress, appears at stated age Derm: no unusual rashes/lesions, warm Head: atraumatic, normocephalic, symmetric Eyes: EOMI, anicteric sclera, pupils equal round reactive to light ENT: Nose and ears atraumatic Cardiovascular: S1S2 bradycardia , no murmur, positive dorsalis pedis pulse bilateral, no peripheral edema Lungs: CTA bilateral, no rhonchi, no rales, no accessory muscle use Abdominal: soft, nontender to palpation, no guarding Ext: muscle strength 4 out of 5 in all 4 extremities grossly, no gross muscle atrophy, Neuro: CN II-XII grossly intact, no gross focal neuro deficits Psych: alert to person and place, and time. patient waxes and wanes. cannot spell word HOUSE backwards Data reviewed today: Labs: WBC 2.2, hemoglobin 8.8, hematocrit 28.2, platelet count 131, sodium 141, potassium 3.1, chloride 109, bicarb 25, BUN 27, creatinine 2.61 Images: No new imaging Assessment and Plan: Patient is a 73-year-old female with dementia, type 2 diabetes, hypertension, CML (in remission), left renal cancer s/p resection admitted to the hospital for rapidly progressive cognitive dysfunction. Patient is admitted for altered mental status, VAUGHN, bradycardia and further neurologic workup and evaluation. Cardiology, neurology and nephrology on board Patient does not normally receive her care at our facility, and we have no prior records on her for comparison Will call son/family to establish her baseline mentation. Active #Acute metabolic encephalopathy, unclear etiology History of seizures Septic versus medication induced versus metabolic versus uremic versus seizures Vitals unremarkable History of dementia Brain CT showed no acute intracranial process. Chronic appearing periventricular white matter confluent ischemic type changes with atrophy Repeat UA is unremarkable Patient denies any urinary symptoms Neurology following Brain MRI ordered MRI C-spine ordered neuro checks fall precautions Seizure precautions Ordered EEG Check vitamin B12 Continue oral Keppra 500 twice daily #Acute kidney injury versus chronic kidney disease History of left kidney nephrectomy due to cancer Patient euvolemic BUN 27, creatinine 2.61 both elevated, unknown baseline Hold nephrotoxic medications Intake output Heart healthy diet Renal and bladder ultrasound no evidence of right-sided hydronephrosis, renal mass or nephrolithiasis. Nephrology consulted monitor urine output follow up renal function with BMP in a.m. #Hypokalemia Potassium 3.1 Ordered potassium chloride 10 mEq P.o. once stat Monitor BMP and mag tomorrow a.m. #Hypernatremia (resolved) Sodium 141 Monitor BMP #1st degree AV block #Sinus bradycardia, asymptomatic EKG independently interpreted showed normal sinus rhythm first-degree AV block Pulse rate 50 Troponin <0.012 Monitor on telemetry Cardiology consulted; note reviewed:Discontinue Aricept, ordered TSH and free T4, echocardiogram pending #Pancytopenia History of CML Continue to monitor CBC Chronic #Type 2 diabetes, well-controlled Hold home oral medication Monitor glucose insulin sliding scale low scale #Hypertension Blood pressure stable and within normal limits #Hyperlipidemia Continue home medications DVT prophylaxis: Lovenox 40 SQ F: None E: Replete electrolytes as needed N: Heart healthy diet A: Fall precaution and seizure precautions CODE STATUS: Full code Discussed with: Patient Anticipated discharge place: Home I have seen and evaluated the patient today. Discussed with the resident and agree with the residents finding and plan as documented in the resident's note. Changes highlighted in blue font. Objective - Vital Signs Vital signs: Vital Signs Temp 98.3 F 04/10/24 01:49 Pulse 62 04/10/24 01:49 Resp 16 04/10/24 01:49 BP 109/62 04/10/24 01:49 Pulse Ox 98 04/10/24 01:49 FiO2 Intake & Output 04/09/24 04/09/24 04/10/24 06:59 18:59 06:59 Intake Total 480 Output Total 700 Balance 480 -700 Weight 68.039 kg Intake: Oral 480 Output: Urine 700 Other: # Voids 2 - Labs CBC & Chem 7: 04/10/24 07:18 04/10/24 07:18 Labs: Abnormal Lab Results - Last 24 Hours (Table) 04/09/24 04/09/24 04/09/24 Range/Units 06:17 06:54 08:03 Sodium 150 H (135-145) mmol/L Chloride 114 H (96-109) mmol/L Anion Gap 13.20 H (4.00-12.00) mmol/L Creatinine 2.5 H (0.6-1.5) mg/dL Est GFR (CKD-EPI) 20 L (>=60) BUN/Creatinine Ratio 9.68 L (12.00-20.00) Ratio POC Glucose (mg/dL) 67 L (70-110) mg/dL Urine Protein Trace H (Negative) Urine Glucose (UA) Trace H (Negative) 04/09/24 Range/Units 16:37 Sodium (135-145) mmol/L Chloride (96-109) mmol/L Anion Gap (4.00-12.00) mmol/L Creatinine (0.6-1.5) mg/dL Est GFR (CKD-EPI) (>=60) BUN/Creatinine Ratio (12.00-20.00) Ratio POC Glucose (mg/dL) 160 H (70-110) mg/dL Urine Protein (Negative) Urine Glucose (UA) (Negative)
--- NOTE | 2024-04-10 11:50 | P.PN ---
Subjective Progress Note Date: 04/10/24 Reason for Consult (text): Bradycardia History of present illness: This is a 73-year-old female with prior history of seizure disorder, hyperlipidemia, hypotension, dementia. We have been asked to evaluate the patient for bradycardia. Noted that heart rates during the night were documented down to 42 bpm but no rhythm strips are available to review. Blood pressure 104/60, pulse ox 98% on room air. Apparently, patient had a fall with intracranial bleed several months ago. There was some concern about patient's memory loss and decided to bring her in to the emergency center. Apparently patient has been more forgetful. Patient is not on any heart rate rate control medications. Patient denies any chest pain. EKG: Sinus rhythm with first-degree block, ventricular rate 62 bpm CAT scan of the brain showed no acute intracranial process. Laboratory studies: WBC 2.8, hemoglobin 9.6, platelet count 111. BUN 28 creatinine 2.61, potassium 3.5. Troponin negative x 1. Home cardiac medications: Crestor 20 mg daily, patient is also on midodrine 10 mg 3 times daily. 04/10 Patient is seen today on the observation unit. Yesterday we discontinued Aricept. Heart rate has been running in the 50s and 60s on telemetry. 7. Echocardiogram reveals EF of 55 to 60%, technically difficult study, mild MR and TR, trivial AI, no pericardial effusion Physical examination: Gen: This is a 73-year-old female in no acute distress VS: reviewed HEENT: Head is atraumatic, normocephalic. Pupils equal, round. Sclerae is anicteric. NECK: Supple. No JVD. LUNGS: Clear to auscultation. No wheezes or rhonchi. No intercostal retractions. HEART: Regular rate and rhythm. No murmur. ABDOMEN: Soft No tenderness. EXTREMITIES: No pedal edema. No calf tenderness. NEUROLOGICAL: Patient is awake, alert. Assessment: Consult for bradycardia, no evidence of bradycardia Seizure disorder Recent intracranial bleed Memory loss Hypotension on midodrine Hyperlipidemia History of left nephrectomy Plan: Continue patient's home cardiac medications Discontinue Aricept No further cardiac workup at this time Cardiology will sign off this case and follow on an as-needed basis. Please reconsult for any new concerns. Patient may follow-up in the office in one to 2 weeks. Nurse practitioner note has been reviewed, I agree with documented findings and plan of care. Patient was seen and examined. Objective - Vital Signs Vital signs: Vital Signs Temp 98.0 F 04/10/24 08:00 Pulse 68 04/10/24 08:00 Resp 18 04/10/24 08:00 BP 101/56 04/10/24 08:00 Pulse Ox 100 04/10/24 08:00 FiO2 Intake & Output 04/09/24 04/10/24 04/10/24 18:59 06:59 18:59 Intake Total 480 Output Total 700 Balance 480 -700 Weight 68.039 kg Intake: Oral 480 Output: Urine 700 Other: # Voids 2 - Labs CBC & Chem 7: 04/10/24 07:18 04/10/24 07:18 Labs: Abnormal Lab Results - Last 24 Hours (Table) 04/09/24 04/09/24 04/10/24 Range/Units 06:54 16:37 07:18 Sodium 150 H (135-145) mmol/L Potassium 3.1 L (3.5-5.1) mmol/L Chloride 114 H 109 H (96-109) mmol/L Anion Gap 13.20 H (4.00-12.00) mmol/L BUN 27 H (7-17) mg/dL Creatinine 2.5 H 2.61 H (0.6-1.5) mg/dL Est GFR (CKD-EPI) 20 L (>=60) BUN/Creatinine Ratio 9.68 L (12.00-20.00) Ratio Glucose 135 H (74-99) mg/dL POC Glucose (mg/dL) 160 H (70-110) mg/dL
[2024-04-10 11:59] LABS: Glucose,Whole Blood 70 mg/dL (70-110)
--- NOTE | 2024-04-10 12:24 | P.PN ---
Subjective patient is seen for follow-up for acute kidney injury versus chronic kidney disease. No previous labs available for comparison. Status post IV fluids on initial admission. Tolerating oral intake. serum creatinine at 2.6 mg/dL. Patient has voided. Objective - Vital Signs Vital signs: Vital Signs Temp 98.0 F 04/10/24 08:00 Pulse 68 04/10/24 08:00 Resp 18 04/10/24 08:00 BP 101/56 04/10/24 08:00 Pulse Ox 100 04/10/24 08:00 FiO2 Intake & Output 04/09/24 04/10/24 04/10/24 18:59 06:59 18:59 Intake Total 480 Output Total 700 Balance 480 -700 Weight 68.039 kg Intake: Oral 480 Output: Urine 700 Other: # Voids 2 - Exam patient is awake, comfortable, no acute distress. Examination of the heart S1 and S2 Examination of the lungs bilateral breath sounds are heard Abdomen is soft nontender Examination of lower extremity shows no significant edema RN CLINICAL RESEARCH exam shows patient is moving all 4 extremities. - Labs CBC & Chem 7: 04/10/24 07:18 04/10/24 07:18 Labs: Abnormal Lab Results - Last 24 Hours (Table) 04/09/24 04/10/24 04/10/24 Range/Units 16:37 07:18 07:18 WBC 2.2 L (3.8-10.6) k/uL RBC 2.97 L (3.80-5.40) m/uL Hgb 8.8 L (11.4-16.0) gm/dL Hct 28.2 L (34.0-46.0) % Plt Count 131 L (150-450) k/uL Potassium 3.1 L (3.5-5.1) mmol/L Chloride 109 H (98-107) mmol/L BUN 27 H (7-17) mg/dL Creatinine 2.61 H (0.52-1.04) mg/dL Glucose 135 H (74-99) mg/dL POC Glucose (mg/dL) 160 H (70-110) mg/dL Assessment and Plan Assessment: 1. Acute kidney injury, ATN secondary to some degree of hypoperfusion in the setting of bradycardia. No previous labs available for comparison. UA is benign, no evidence of obstruction on ultrasound. 2. Rule out chronic kidney disease. 3. Bradycardia being followed by cardiology. 4. Mental status changes with increased forgetfulness 5. History of fall few months ago, details not available Plan: resume IV fluids. Patient will need follow-up as outpatient for possible underlying chronic kidney disease. Continue to encourage increased oral intake.
--- NOTE | 2024-04-10 12:26 | P.CNNES ---
History of Present Illness Consult date: 04/09/24 Requesting physician: Ajith Villareal Reason for Consult: AMS History of Present Illness: Patient is a 73-year-old female came to the hospital yesterday at 1:55 PM for progressive cognitive decline. Patient's son and [id number] are also present, who provided with a detailed history. Patient's son mentions that patient is losing memory exponentially in the last 1-1/2 to 2 weeks. She has been diagnosed with beginning stage of dementia by neurologist Dr. Mike Weems, and started her on Aricept on 04/03/2024. An EEG was performed at [facility] about 4 days ago, which revealed generalized slowing, but left more than right. No seizure activity was seen. CT head was normal. Patient was recommended MRI of the brain and cervical spine, but that could not be done inpatient because of getting worse, now came to the hospital.. Patient's son mentions that she has problems with "working memory" for last couple months. She would be confused with fine details. Patient has stopped driving, because she would drive over the parking spot. Her friends has also noticed that her memory is not right, as last Monday patient's son dropped her to her friend's house, and she would not play games which she always did, and she would be confused about the TV shows. Patient's son has noticed that her memory gets better and worse at times. She has weakness in the legs, difficulty from whe elchair to couch. No reported history of strokes or TIA. Vital signs on arrival blood pressure 113/72, pulse is 62 temperature 97.6. Blood test shows WBC 2.8 hemoglobin 9.6, platelets 111. Electrolytes are normal, BUN 28 creatinine 2.61. Hemoglobin A1c 5.2. Troponin negative. UA shows positive nitrite, and negative leukocytes esterase. Many bacteria. 8 squamous epithelial cells. Repeat sodium is 150 BUN 24.2 and creatinine 2.5. Repeat UA is negative. CT head revealed no acute intracranial process. Chronic appearing periventricular white matter confluent ischemic type changes with atrophy. I personally reviewed CT head, agree with the findings. On my review, there is slight prominence of the ventricles. EKG shows sinus rhythm with first-degree AV block. Home medications include Pepcid, Prozac 80 mg, Crestor 20 mg, donepezil 5 mg, droxidopa 400 mg 3 times daily Keppra 5 mg every 12 hour, mirtazapine 30 mg at bedtime, midodrine 10 mg 3 times daily and albuterol. Patient's son mentioned that she was diagnosed with "absent seizures" in the past in . She was placed on some seizure medication, but she stopped having seizure. She was without seizure medication for almost 30 years. Until about 6 months ago patient had a seizure-like spell while at her oncologist office, and she was started back on Keppra 500 mg twice daily. She has not had any more seizures since then. Patient's son describes her seizures as she would not respond, and if someone was to touch her, she would get terrified like "7-year-old". When she comes out off it, she has no memory of it. The event would last about 3 to 5 minutes. Patient has history of hypertension, denies diabetes. Patient has smoked 1 pack/day for 40 years, quit in 2009. Denies any alcohol use. Patient has history of subdural hematoma in November 2023, which was treated conservatively. Patient has history of left complete nephrectomy for renal cancer, in October 2023. 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 Review of Systems All pertinent positive and negatives mentioned in HPI. Patient denies any chest pain, shortness of breath. No fever or chills. No headaches at this time. Past Medical History Past Medical History: Cancer, Dementia, Diabetes Mellitus, Hyperlipidemia, Hypertension Additional Past Medical History / Comment(s): tremors, traumatic brain injury Past Surgical History: Appendectomy, Cholecystectomy, Hysterectomy Additional Past Surgical History / Comment(s): left kidney removed Past Psychological History: Depression Smoking Status: Former smoker Past Alcohol Use History: None Reported Past Drug Use History: None Reported Medications and Allergies Home Medications Medication Instructions Recorded Confirmed Type Albuterol Inhaler [Ventolin Hfa 2 puff INHALATION RT-Q6H PRN 04/08/24 04/08/24 History Inhaler] Diphenoxylate HCl/Atropine 1 tab PO QID PRN 04/08/24 04/08/24 History [Lomotil 2.5-0.025 mg Tablet] Donepezil [Aricept] 5 mg PO HS 04/08/24 04/08/24 History Droxidopa 400 mg PO TID 04/08/24 04/08/24 History FLUoxetine HCL 80 mg PO DAILY 04/08/24 04/08/24 History Famotidine [Pepcid] 20 mg PO BID 04/08/24 04/08/24 History Midodrine HCl [ProAmatine] 10 mg PO TID 04/08/24 04/08/24 History Mirtazapine 30 mg PO HS 04/08/24 04/08/24 History Rosuvastatin [Crestor] 20 mg PO DAILY 04/08/24 04/08/24 History levETIRAcetam [Keppra] 500 mg PO Q12HR 04/08/24 04/08/24 History Allergies Allergy/AdvReac Type Severity Reaction Status Date / Time cephalexin [From Keflex] Allergy Rash/Hives Verified 04/08/24 18:10 ciprofloxacin [From Cipro] Allergy Rash/Hives Verified 04/08/24 18:10 iodine Allergy Rash/Hives Verified 04/08/24 18:10 Physical Examination - Vital Signs Vital Signs: Vital Signs Temp Pulse Resp BP Pulse Ox 04/09/24 13:59 52 L 18 118/62 97 04/09/24 11:41 98.0 F 49 L 16 117/71 97 04/09/24 10:00 61 20 104/60 98 04/09/24 09:00 60 20 114/67 99 04/09/24 06:33 46 L 18 143/72 98 04/09/24 06:21 97.7 F 04/09/24 05:00 42 L 15 141/66 99 04/09/24 04:00 42 L 16 136/67 100 04/09/24 03:00 42 L 16 119/69 99 04/09/24 02:00 48 L 18 129/66 97 04/09/24 01:00 51 L 16 141/102 96 04/09/24 00:00 16 113/67 98 04/08/24 23:04 98.5 F 50 L 18 113/67 99 04/08/24 23:00 47 L 16 112/64 98 04/08/24 22:00 49 L 19 110/59 98 04/08/24 21:00 50 L 18 101/55 100 04/08/24 20:57 52 L 19 101/55 99 09/02/24 20:56 50 L 19 101/55 100 04/08/24 19:27 64 18 113/64 90 L 04/08/24 17:11 48 L 18 173/79 100 Patient is an elderly female, in no acute distress. Patient is alert awake. Patient states it is October, then said it is not October and then said was probably January. She believes it is 2022 but then with prompting was able to say is 24. She knows that she is in [facility] in [place]. Regarding president, she says "it is not Trump". On prompting, she was able to tell and recognize Javier Blair. Speech and language functions are normal. Patient can name and repeat very well. No aphasia or dysarthria. Attention, concentration is intact and fund of knowledge is limited patient has. Positive visual spatial apraxia, mildly positive palmomental reflex on the left. Patient has mild right left confusion. On cranial nerve examination, pupils are equal, round and reacting to light, visual dasilva are full on confrontation, with no neglect on double simultaneous stimulation. Extraocular muscles are intact with no nystagmus. Face is symmetric, tongue protrudes to the midline. Palatal elevation and sensation normal, hearing and shoulder shrug normal, facial sensation normal. On muscle strength testing, there is no pronator drift and the strength is normal in arms and legs distally and proximally. Deep tendon reflexes are symmetric to all over in the arms and legs, except left ankle which is trace related to previous torn left Achilles tendon. Sensory to touch is equal with no neglect on double simultaneous stimulation. Cerebellar function showed no ataxia for zyjfec-my-ecjo testing. No dysdiadochokinesia. No ataxia for [id number] testing on either side. Tone and bulk of muscles normal. Gait deferred.. On general examination, there is no carotid bruit or murmur, S1-S2 audible. Chest is clear on consultation. Abdomen is soft nontender. No organomegaly, bowel sounds present. Peripheral pulses are present. No peripheral edema. Results - Laboratory Findings CBC and BMP: 04/10/24 07:18 04/10/24 07:18 Abnormal Lab Findings: Abnormal Labs 04/08/24 04/08/24 04/08/24 14:47 14:47 17:19 WBC 2.8 L RBC 3.08 L Hgb 9.6 L Hct 29.1 L Plt Count 111 L Neutrophils # (Manual) 0.14 L* Sodium Chloride 114 H Anion Gap BUN 28 H Creatinine 2.61 H Est GFR (CKD-EPI) BUN/Creatinine Ratio POC Glucose (mg/dL) Urine Appearance Cloudy H Urine Protein 1+ H Urine Glucose (UA) Trace H Urine Nitrite Positive H Ur Squamous Epith Cells 8 H Urine Bacteria Many H Urine Mucus Rare H 04/09/24 04/09/24 04/09/24 06:17 06:54 08:03 WBC RBC Hgb Hct Plt Count Neutrophils # (Manual) Sodium 150 H Chloride 114 H Anion Gap 13.20 H BUN Creatinine 2.5 H Est GFR (CKD-EPI) 20 L BUN/Creatinine Ratio 9.68 L POC Glucose (mg/dL) 67 L Urine Appearance Urine Protein Trace H Urine Glucose (UA) Trace H Urine Nitrite Ur Squamous Epith Cells Urine Bacteria Urine Mucus Assessment and Plan Assessment: * Rapidly progressive cognitive decline for last 1-1/2 to 2 weeks, unclear cause. Rule out structural abnormality. Rule out toxic metabolic encephalopathy due to reasons mentioned below. * Recent history of left nephrectomy for renal cell carcinoma, in October 2023 * History of CML, in remission * History of recurrent falls * History of seizures in , has been in remission for 30 years, off medication, but had recurrence of seizure x 1, about 6 months ago. Patient started on Keppra. No seizures recurrence thereafter. * Acute on chronic renal insufficiency * Hypertension * Ex tobacco use Plan: * MRI of the brain with and without contrast, if no medical contraindications. * MRI of the cervical spine without contrast * Patient declined EEG. She had an EEG performed at [facility] 4 days ago, which reported generalized slowing, with left hemispheric more than right. No epileptiform activity was reported. * 2D echo * B12, TSH * Other management as per IM and other specialties. * Discussed with patient's son and [id number]-[id number] in detail. * PT OT, evaluate gait. * Neurology will follow. Thank you for the consult. Time with Patient: Greater than 30
[2024-04-10] MEDS: ENOXAPARIN 30 MG/0.3 ML SYRINGE SQ SCH (13:29)
[2024-04-10 16:49] LABS: Glucose,Whole Blood 100 mg/dL (70-110)
--- NOTE | 2024-04-10 18:28 | P.PN ---
Subjective Progress Note Date: 04/10/24 Patient was seen for a follow-up. Patient is laying comfortably in the bed. Family members were not present. Patient admits to having some memory difficulties, cannot remember sometimes, but is "okay". Objective - Vital Signs Vital signs: Vital Signs Temp 98.1 F 04/10/24 14:00 Pulse 72 04/10/24 14:00 Resp 16 04/10/24 14:00 BP 100/56 04/10/24 14:00 Pulse Ox 100 04/10/24 14:00 FiO2 Intake & Output 04/09/24 04/10/24 04/10/24 18:59 06:59 18:59 Intake Total 480 Output Total 700 Balance 480 -700 Weight 68.039 kg Intake: Oral 480 Output: Urine 700 Other: # Voids 2 - Exam Patient is alert and awake in no distress. Patient states it is April and the year is 2023. She knows she is in [facility] in [place]. Speech and language functions are normal. Rest of the examination is unchanged. - Labs CBC & Chem 7: 04/10/24 07:18 04/10/24 07:18 Labs: Abnormal Lab Results - Last 24 Hours (Table) 04/09/24 04/10/24 04/10/24 Range/Units 16:37 07:18 07:18 WBC 2.2 L (3.8-10.6) k/uL RBC 2.97 L (3.80-5.40) m/uL Hgb 8.8 L (11.4-16.0) gm/dL Hct 28.2 L (34.0-46.0) % Plt Count 131 L (150-450) k/uL Potassium 3.1 L (3.5-5.1) mmol/L Chloride 109 H (98-107) mmol/L BUN 27 H (7-17) mg/dL Creatinine 2.61 H (0.52-1.04) mg/dL Glucose 135 H (74-99) mg/dL POC Glucose (mg/dL) 160 H (70-110) mg/dL Assessment and Plan Assessment: * Rapidly progressive cognitive decline for last 1-1/2 to 2 weeks, unclear cause. Rule out structural abnormality. Rule out toxic metabolic encephalopathy due to reasons mentioned below. * Recent history of left nephrectomy for renal cell carcinoma, in October 2023 * History of CML, in remission * History of recurrent falls * History of seizures in , has been in remission for 30 years, off medication, but had recurrence of seizure x 1, about 6 months ago. Patient started on Keppra. No seizures recurrence thereafter. * Acute on chronic renal insufficiency * Hypertension * Ex tobacco use Plan: * MRI of the brain and cervical spine are completed, results pending. * Patient declined EEG. She had an EEG performed at [facility] 4 days ago, which reported generalized slowing, with left hemispheric more than right. No epileptiform activity was reported. * 2D echo revealed technically difficult study. Moderately increased left ventricular wall thickness. No obvious regional wall motion abnormalities. LVEF 55 to 60%. Grade 1 diastolic dysfunction. Normal left atrial size. * Hemoglobin A1c 5.2, TSH 1.77. B12 pending. * Continue Keppra 500 mg twice daily for history of seizure disorder. * Continue donepezil 5 mg. * Other management as per IM and other specialties. * PT OT, evaluate gait.
[2024-04-10 20:31] LABS: Glucose,Whole Blood 106 mg/dL (70-110)
[2024-04-10] MEDS: DONEPEZIL 5 MG TAB PO SCH (20:36)
[2024-04-10] MEDS: ACETAMINOPHEN TAB 325 MG TAB PO PRN (20:37)
[2024-04-11 06:11] LABS: Glucose,Whole Blood 86 mg/dL (70-110)
[2024-04-11 08:26] LABS: African American GFR (CKD) 20 (>60 ml/min/1.73 sqM); Anion Gap 5 mmol/L; Blood Urea Nitrogen 33 mg/dL (7-17); Calcium 9.4 mg/dL (8.4-10.2); Carbon Dioxide 26 mmol/L (22-30); Chloride 111 mmol/L (98-107); Glucose 79 mg/dL (74-99); Magnesium 1.9 mg/dL (1.6-2.3); Non-African American GFR(CKD) 17 (>60 ml/min/1.73 sqM); Potassium 3.6 mmol/L (3.5-5.1); Sodium 142 mmol/L (137-145)
--- NOTE | 2024-04-11 11:32 | P.PN ---
Subjective patient is seen for follow-up for acute kidney injury versus chronic kidney disease. No previous labs available for comparison. History of left nephrectomy in October 2023 Status post IV fluids on initial admission. Tolerating oral intake. serum creatinine at 2.7 mg/dL. Patient has voided. Objective - Vital Signs Vital signs: Vital Signs Temp 98.2 F 04/11/24 07:57 Pulse 55 L 04/11/24 07:57 Resp 16 04/11/24 07:57 BP 108/62 04/11/24 07:57 Pulse Ox 99 04/11/24 07:57 FiO2 Intake & Output 04/10/24 04/11/24 04/11/24 18:59 06:59 18:59 Intake Total 960 Output Total 200 300 Balance 760 -300 Intake: Oral 960 Output: Urine 200 300 Other: Voiding Method Bedside Commode Bedside Commode # Voids 3 - Exam patient is awake, comfortable, no acute distress. Examination of the heart S1 and S2 Examination of the lungs bilateral breath sounds are heard Abdomen is soft nontender Examination of lower extremity shows no significant edema SALES AND SERVICE CONSULTANT exam shows patient is moving all 4 extremities. - Labs CBC & Chem 7: 04/10/24 07:18 04/11/24 07:51 Labs: Abnormal Lab Results - Last 24 Hours (Table) 04/11/24 Range/Units 07:51 Chloride 111 H (98-107) mmol/L BUN 33 H (7-17) mg/dL Creatinine 2.71 H (0.52-1.04) mg/dL Assessment and Plan Assessment: 1. Acute kidney injury, ATN secondary to some degree of hypoperfusion in the setting of bradycardia. Solitary kidney. No previous labs available for comparison. UA is benign, no evidence of obstruction on ultrasound. 2. Chronic kidney disease, baseline renal function not known 3. Bradycardia being followed by cardiology. 4. Mental status changes with increased forgetfulness 5. History of fall few months ago, details not available 6. History of left nephrectomy few months ago Plan: resume IV fluids. Try to obtain baseline renal function. If renal function is at baseline patient could be discharged from nephrology standpoint. Patient will need follow-up as outpatient for possible underlying chronic kidney disease. Continue to encourage increased oral intake.
[2024-04-11 11:47] LABS: Glucose,Whole Blood 95 mg/dL (70-110)
--- NOTE | 2024-04-11 11:58 | P.PN ---
Subjective Progress Note Date: 04/11/24 Patient seen and examined at the bedside. No acute events overnight. Patient denies any new complaints. All Systems reviewed and pertinent positives and negatives noted in HPI, all other symptoms are negative Objective: Vital signs reviewed. General: non toxic, no distress, appears at stated age Derm: no unusual rashes/lesions, warm Head: atraumatic, normocephalic, symmetric Eyes: EOMI, anicteric sclera, pupils equal round reactive to light ENT: Nose and ears atraumatic Cardiovascular: S1S2 bradycardia , no murmur, positive dorsalis pedis pulse bilateral, no peripheral edema Lungs: CTA bilateral, no rhonchi, no rales, no accessory muscle use Abdominal: soft, nontender to palpation, no guarding Ext: muscle strength 4 out of 5 in all 4 extremities grossly, no gross muscle atrophy, Neuro: CN II-XII grossly intact, no gross focal neuro deficits Psych: alert to person and place, and time. patient waxes and wanes. cannot spell word HOUSE backwards Data reviewed today: Labs: Sodium 142, potassium 4.6, chloride 111, bicarb 26, BUN 33, creatinine 2.7, glucose 86, calcium 9.4, magnesium 1.9 Images: Brain/cervical MRIs showed remote injury to the left occipital/parietal region, no evidence of disc herniation or significant spinal canal stenosis, no acute changes Assessment and Plan: Patient is a 73-year-old female with dementia, type 2 diabetes, hypertension, CML (in remission), left renal cancer s/p resection admitted to the hospital for rapidly progressive cognitive dysfunction. Patient is admitted for altered mental status, VAUGHN, bradycardia and further neurologic workup and evaluation. Cardiology, neurology and nephrology on board Patient does not normally receive her care at our facility, and we have no prior records on her for comparison Will call son/family to establish her baseline mentation. Active #Acute metabolic encephalopathy, unclear etiology History of seizures Septic versus medication induced versus metabolic versus uremic versus seizures Vitals unremarkable History of dementia Brain CT showed no acute intracranial process. Chronic appearing periventricular white matter confluent ischemic type changes with atrophy Repeat UA is unremarkable Patient denies any urinary symptoms Neurology following Brain MRI/C-spine MRI does not show any acute process neuro checks fall precautions Seizure precautions EEG performed at [facility] prior to this hospital admission shows generalized slowing with left hemispheric more than right. No epileptiform a ctivity was reported. Vitamin B12 is 664.0 Continue oral Keppra 500 twice daily Continue with donepezil 5 mg p.o. at bedtime Physical therapy ordered #Acute kidney injury versus chronic kidney disease History of left kidney nephrectomy due to cancer Patient euvolemic Creatinine elevated, unknown baseline, however her creatinine levels since admission has been around 2.5-2.6 Hold nephrotoxic medications Intake output Heart healthy diet Renal and bladder ultrasound no evidence of right-sided hydronephrosis, renal mass or nephrolithiasis. Nephrology note reviewed monitor urine output follow up renal function with BMP in a.m. Continue with IV normal saline at 75 cc/h per nephrology #Hypokalemia (resolved) Potassium 3.6 Monitor BMP and mag tomorrow a.m. #Hypernatremia (resolved) Sodium 141 Monitor BMP #1st degree AV block #Sinus bradycardia, asymptomatic EKG independently interpreted showed normal sinus rhythm first-degree AV block Pulse rate 50 Troponin <0.012 Monitor on telemetry Cardiology following #Pancytopenia History of CML Continue to monitor CBC Chronic #Type 2 diabetes, well-controlled Hold home oral medication Monitor glucose insulin sliding scale low scale #Hypertension Blood pressure stable and within normal limits #Hyperlipidemia Continue home medications DVT prophylaxis: Subcu heparin F: IV normal saline 75 cc/h E: Replete electrolytes as needed N: Heart healthy diet A: Fall precaution and seizure precautions CODE STATUS: Full code Discussed with: Patient Anticipated discharge place: Home I have seen and evaluated the patient today. Discussed with the resident and agree with the residents finding and plan as documented in the resident's note. Changes highlighted in blue font. Objective - Vital Signs Vital signs: Vital Signs Temp 97.7 F 04/11/24 01:04 Pulse 58 L 04/11/24 01:04 Resp 16 04/11/24 01:04 BP 110/63 04/11/24 01:04 Pulse Ox 100 04/11/24 01:04 FiO2 Intake & Output 04/10/24 04/10/24 04/11/24 06:59 18:59 06:59 Intake Total 960 Output Total 700 200 300 Balance -700 760 -300 Weight 68.039 kg Intake: Oral 960 Output: Urine 700 200 300 Other: Voiding Method Bedside Commode # Voids 3 - Labs CBC & Chem 7: 04/10/24 07:18 04/11/24 07:51 Labs: Abnormal Lab Results - Last 24 Hours (Table) 04/10/24 04/10/24 Range/Units 07:18 07:18 WBC 2.2 L (3.8-10.6) k/uL RBC 2.97 L (3.80-5.40) m/uL Hgb 8.8 L (11.4-16.0) gm/dL Hct 28.2 L (34.0-46.0) % Plt Count 131 L (150-450) k/uL Potassium 3.1 L (3.5-5.1) mmol/L Chloride 109 H (98-107) mmol/L BUN 27 H (7-17) mg/dL Creatinine 2.61 H (0.52-1.04) mg/dL Glucose 135 H (74-99) mg/dL
--- NOTE | 2024-04-11 12:11 | MR ---
EXAMINATION TYPE: MR brain/cspine wo DATE OF EXAM: 04/10/2024 1:17 PM CLINICAL INDICATION: Female, 73 years old with history of Memory loss, Memory loss, weakness, falls. COMPARISON: 04/08/2024. TECHNIQUE: Multi planar, multi sequence imaging was performed through the brain including: T1, T2, Inversion rec overy, Diffusion weighted imaging, and gradient echo imaging. No gadolinium was given. Multi planar, multi sequence imaging was performed utilizing: T1-weighted, T2-weighted, and turbo inv ersion recovery imaging of the cervical spine. IV Contrast: cc FINDINGS: Remote injury to the left occipital/parietal region with T2 shine through on diffusion-weig hted imaging. The gil-white junctions, ventricular system, basal cisterns appear unremarkable. Patchy areas of h igh T2 signal intensity are seen within the periventricular white matter. Midline structures show no abnormality. Diffusion-weighted imaging shows no evidence of restricted diffusion. The susceptibility weighted images do not reveal any evidence for micro-hemorrhage. The bone marrow signal is within normal limits. Paranasal sinuses and mastoid air cells: No significant paranasal sinus disease. Visualized orbits: Orbital contents are intact. Alignment: The cervical vertebral bodies have preserved heights. Postsurgical alignment cervical spin e. Bones: Bone signal is within normal limits. No abnormal bone marrow edema on inversion recovery seque nces. Post fixation changes to C4 C5 C6 and C7. There is osseous fusion at these levels. Mild facet j oint arthropathy and disc space narrowing at the nonsurgical levels. Cord: The spinal cord is unremarkable with regards to their signal intensity and morphology. Discs: Intervertebral disc signal is maintained. C2-C3: No significant disc pathology. The spinal canal is patent. No neural foraminal stenosis. C3-C4: A disc osteophyte complex is present with mild spinal canal stenosis. No neural foraminal mara nosis. C4-C5: The spinal canal is patent. No neural foraminal stenosis. C5-C6: The spinal canal is patent. No neural foraminal stenosis. C6-C7: The spinal canal is patent. No neural foraminal stenosis. C7-T1: No significant disc pathology. The spinal canal is patent. No neural foraminal stenosis. Other: None. IMPRESSION: 1. No evidence for disc herniation or significant spinal canal stenosis. 2. Postsurgical changes to the spine with mild disc degeneration with associated osteoarthritic house ges. 3. No evidence of intracranial mass or acute/subacute infarct. 4. Nonspecific white matter changes, likely secondary to small vessel ischemic disease.
[2024-04-11] MEDS: DROXIDOPA 200 MG PO SCH (13:19)
[2024-04-11] MEDS: SODIUM CHLORIDE 0.9% 1,000 ML IV SCH (13:22)
--- NOTE | 2024-04-11 15:17 | P.PN ---
Subjective Progress Note Date: 04/11/24 Patient was seen for a follow-up. Patient is laying comfortably in the bed. Family members were not present. Patient denies any headache or dizziness. Offers no complaints. Objective - Vital Signs Vital signs: Vital Signs Temp 98.2 F 04/11/24 07:57 Pulse 55 L 04/11/24 07:57 Resp 16 04/11/24 07:57 BP 108/62 04/11/24 07:57 Pulse Ox 99 04/11/24 07:57 FiO2 Intake & Output 04/10/24 04/11/24 04/11/24 18:59 06:59 18:59 Intake Total 960 Output Total 200 300 Balance 760 -300 Intake: Oral 960 Output: Urine 200 300 Other: Voiding Method Bedside Commode Bedside Commode # Voids 3 - Exam Patient is alert and awake in no distress. Patient states it is April and the year is 2023. She knows she is in [facility] in [place]. Speech and language functions are normal. Patient's visual dasilva are full, no neglect on double simultaneous stimulation. Extraocular muscles are intact. Face is symmetric. On muscle strength testing there is no pronator drift. And the strength is normal in arms and legs, distally and proximally. Sensations are equal. - Labs CBC & Chem 7: 04/10/24 07:18 04/11/24 07:51 Labs: Abnormal Lab Results - Last 24 Hours (Table) 04/11/24 Range/Units 07:51 Chloride 111 H (98-107) mmol/L BUN 33 H (7-17) mg/dL Creatinine 2.71 H (0.52-1.04) mg/dL Assessment and Plan Assessment: * Rapidly progressive cognitive decline for last 1-1/2 to 2 weeks. MRI of the brain revealed possible subacute to chronic stroke involving the left posterior parietal region. PML also in the differential. Radiologist concerned about PRES, but her sodium is normal, blood pressure is completely normal. * Recent history of left nephrectomy for renal cell carcinoma, in October 2023 * History of CML, in remission * History of recurrent falls * History of seizures in , has been in remission for 30 years, off medication, but had recurrence of seizure x 1, about 6 months ago. Patient started on Keppra. No seizures recurrence thereafter. * Acute on chronic renal insufficiency * Hypertension * Ex tobacco use Plan: * MRI of the brain reported as no evidence of intracranial mass or acute/subacute infarct. Nonspecific white matter changes, likely secondary to small vessel ischemic disease. I personally reviewed MRI, and it appears t here is an abnormal signal on DWI and FLAIR signal in the left posterior parietal region. However ADC mapping revealed also hyperintensity. Differential diagnosis included subacute to chronic CVA, versus PML from her history of immunosuppression from CML. I spoke to Dr. Sarmiento, who discussed with Dr. Corley as well. They agreed with abnormal signal, and concerned about CVA. They also reported some tubular structure noted along the dura on the left. MRV of the brain was recommended. Also recommended MRI of the brain with contrast if cleared by nephrology. In my review, there was some c oncern about possible small subdural hematoma, but radiologist do not believe any evidence of subdural hematoma. * I spoke to the pug machine operator, who will review the records and let us know if patient can have MRI of the brain with contrast. * Patient started on aspirin 81 mg and Plavix 75 mg by internal medicine based upon above results. * MRI of the cervical spine revealed no evidence for disc herniation or significant spinal canal stenosis. Postsurgical changes to the spine with mild disc degeneration with associated osteoarthritic changes. * Patient declined EEG. She had an EEG performed at [facility] 4 days ago, which reported generalized slowing, with left hemispheric more than right. No epileptiform activity was reported. * 2D echo revealed technically difficult study. Moderately increased left ventricular wall thickness. No obvious regional wall motion abnormalities. LVEF 55 to 60%. Grade 1 diastolic dysfunction. Normal left atrial size. * Hemoglobin A1c 5.2, TSH 1.77. B12 644 normal. * Continue Keppra 500 mg twice daily for history of seizure disorder. * Continue donepezil 5 mg. * Other management as per IM and other specialties. * PT OT, evaluate gait. Time with Patient: Greater than 30
[2024-04-11] MEDS: ASPIRIN 81 MG PO SCH (16:12)
[2024-04-11] MEDS: HEPARIN SODIUM,PORCINE 5,000 UNIT/ML 1 ML VIAL SQ SCH (16:12)
[2024-04-11] MEDS: CLOPIDOGREL 75 MG TAB PO SCH (16:12)
[2024-04-11 16:36] LABS: Glucose,Whole Blood 151 mg/dL (70-110)
[2024-04-11 21:09] LABS: Glucose,Whole Blood 102 mg/dL (70-110)
[2024-04-12 06:36] LABS: Glucose,Whole Blood 118 mg/dL (70-110)
[2024-04-12 06:36] LABS: African American GFR (CKD) 18 (>60 ml/min/1.73 sqM); Anion Gap 7 mmol/L; Blood Urea Nitrogen 39 mg/dL (7-17); Calcium 9.3 mg/dL (8.4-10.2); Carbon Dioxide 26 mmol/L (22-30); Chloride 111 mmol/L (98-107); Glucose 74 mg/dL (74-99); Non-African American GFR(CKD) 15 (>60 ml/min/1.73 sqM); Potassium 3.9 mmol/L (3.5-5.1); Sodium 144 mmol/L (137-145)
[2024-04-12 06:36] LABS: Glucose,Whole Blood 86 mg/dL (70-110)
[2024-04-12 07:13] LABS: HCT 28.2 % (34.0-46.0); HGB 9.3 gm/dL (11.4-16.0); MCH 31.3 pg (25.0-35.0); MCHC 32.9 g/dL (31.0-37.0); MCV 95.2 fL (80.0-100.0); Mean Platelet Volume 8.9; Platelet Count 76 k/uL (150-450); RBC 2.96 m/uL (3.80-5.40); RDW 14.1 % (11.5-15.5); WBC 2.9 k/uL (3.8-10.6)
[2024-04-12 08:45] LABS: Band Neutrophils % 2 %; Eosinophils # (M) 0.17 k/uL (0-0.7); Lymphocytes # (M) 2.35 k/uL (1.0-4.8); Monocytes # (M) 0.12 k/uL (0-1.0); Neutrophils % (M) 7 %
[2024-04-12 08:46] LABS: Nucleated Red Blood Cells 0 /100 WBC (0-0); Total Cells Counted 100
[2024-04-12 11:32] LABS: Glucose,Whole Blood 120 mg/dL (70-110)
--- NOTE | 2024-04-12 12:42 | MR ---
EXAMINATION TYPE: MR venography head wo con DATE OF EXAM: 04/12/2024 12:30 PM CLINICAL INDICATION: Female, 73 years old with history of CVA, r/o sinus thrombosis; COMPARISON: MRI previous day TECHNIQUE: MRV of the brain was performed utilizing two-dimensional [id number]-[id number] technique. FINDINGS: There is no evidence of venous occlusion or collateral circulation. There is no evidence of sinus th rombosis. Other findings are high T1 signal lesions in the dural space series 201 image 4 as well as multiple l esions along the dura on the left which demonstrate high FLAIR signal and high T2 signal these have s omewhat tubular structure. IMPRESSION: No evidence of venous sinus thrombosis. There remains abnormal high signal along the cerebral cortex on the left possibly relating to slow flow within the cortical veins with cortical vein thrombosis no t excluded. Short-term follow-up recommended.
--- NOTE | 2024-04-12 14:19 | P.PN ---
Subjective patient is seen for follow-up for acute kidney injury versus chronic kidney disease. No previous labs available for comparison. History of left nephrectomy in October 2023 Status post IV fluids on initial admission. Tolerating oral intake. serum creatinine increased to 2.9 mg/dL. Discussed with neurology yesterday regarding possible need for gadolinium for MRI/MRA. Even though the newer generation of gadolinium contrast agents are much less ne phrotoxic, given the patient's advanced renal failure and worsening renal function this may be not an ideal contrast agent. We could consider CT angiogram with IV iodinated contrast if absolutely indicated. Objective - Vital Signs Vital signs: Vital Signs Temp 97.7 F 04/12/24 07:07 Pulse 60 04/12/24 07:07 Resp 17 04/12/24 07:07 BP 127/72 04/12/24 07:07 Pulse Ox 100 04/12/24 07:07 FiO2 Intake & Output 04/11/24 04/12/24 04/12/24 18:59 06:59 18:59 Intake Total 750 Balance 750 Intake: Intake, IV Titration 750 Amount Sodium Chloride 0.9% 1, 750 000 ml @ 75 mls/hr IV . [id number] [facility] Rx#:[id number] Other: Voiding Method Bedside Commode # Voids 1 - Exam patient is awake, comfortable, no acute distress. Examination of the heart S1 and S2 Examination of the lungs bilateral breath sounds are heard Abdomen is soft nontender Examination of lower extremity shows no significant edema COST CLERK exam shows patient is moving all 4 extremities. - Labs CBC & Chem 7: 04/12/24 05:07 04/12/24 05:07 Labs: Abnormal Lab Results - Last 24 Hours (Table) 04/11/24 04/12/24 04/12/24 Range/Units 16:35 05:07 05:07 WBC 2.9 L (3.8-10.6) k/uL RBC 2.96 L (3.80-5.40) m/uL Hgb 9.3 L (11.4-16.0) gm/dL Hct 28.2 L (34.0-46.0) % Plt Count 76 L (150-450) k/uL Neutrophils # (Manual) 0.20 L* (1.3-7.7) k/uL Chloride 111 H (98-107) mmol/L BUN 39 H (7-17) mg/dL Creatinine 2.96 H (0.52-1.04) mg/dL POC Glucose (mg/dL) 151 H (70-110) mg/dL 04/12/24 04/12/24 Range/Units 06:34 11:31 WBC (3.8-10.6) k/uL RBC (3.80-5.40) m/uL Hgb (11.4-16.0) gm/dL Hct (34.0-46.0) % Plt Count (150-450) k/uL Neutrophils # (Manual) (1.3-7.7) k/uL Chloride (98-107) mmol/L BUN (7-17) mg/dL Creatinine (0.52-1.04) mg/dL POC Glucose (mg/dL) 118 H 120 H (70-110) mg/dL Assessment and Plan Assessment: 1. Acute kidney injury, ATN secondary to some degree of hypoperfusion in the setting of bradycardia. Solitary kidney. No previous labs available for comparison. UA is benign, no evidence of obstruction on ultrasound.. Patient is maintained on IVfluids 2. Chronic kidney disease, baseline renal function not known. No urine retention. 3. Bradycardia being followed by cardiology. 4. Mental status changes with increased forgetfulness, being followed by neurology with need for possible MRA and gadolinium based contrast 5. History of fall few months ago, details not available 6. History of left nephrectomy few months ago Plan: continue with IV fluids. Recommend to avoid gadolinium based contrast given the advanced renal failure and worsening acute kidney injury. We can consider using CT angiogram with iodinated IV contrast if absolutely indicated.
--- NOTE | 2024-04-12 15:23 | P.PN ---
Subjective Progress Note Date: 04/12/24 Patient seen and examined at the bedside. No acute events overnight. Patient denies any new complaints. All Systems reviewed and pertinent positives and negatives noted in HPI, all other symptoms are negative Objective: Vital signs reviewed. General: non toxic, no distress, appears at stated age Derm: no unusual rashes/lesions, warm Head: atraumatic, normocephalic, symmetric Eyes: EOMI, anicteric sclera, pupils equal round reactive to light ENT: Nose and ears atraumatic Cardiovascular: S1S2 bradycardia , no murmur, positive dorsalis pedis pulse bilateral, no peripheral edema Lungs: CTA bilateral, no rhonchi, no rales, no accessory muscle use Abdominal: soft, nontender to palpation, no guarding Ext: muscle strength 4 out of 5 in all 4 extremities grossly, no gross muscle atrophy, Neuro: CN II-XII grossly intact, no gross focal neuro deficits Psych: alert to person and place, and time. patient waxes and wanes. cannot spell word HOUSE backwards Data reviewed today: Labs: WBC 2.9, hemoglobin 9.3, hematocrit 28.2, MCV 95.2, platelet count 76, band neutrophils 2, neutrophil count 0.2 Sodium 144, potassium 3.9, chloride under 11, bicarb 26, anion gap 7, BUN 39, creatinine 2.96, GFR 15, glucose 74. Images: Brain MRV shows no evidence of venous sinus thrombosis. Abnormal high signal along the cerebral cortex on the left possibly relating to slow flow within the cortical veins with cortical vein thrombosis not excluded. Assessment and Plan: Patient is a 73-year-old female with dementia, type 2 diabetes, hypertension, CML (in remission), left renal cancer s/p resection admitted to the hospital for rapidly progressive cognitive dysfunction. Patient is admitted for altered mental status, VAUGHN, bradycardia and further neurologic workup and evaluation. Cardiology, neurology, nephrology and heme-onc on board Active #Acute metabolic encephalopathy, resolved #History of seizures, stable #History of CML, in remission #History of dementia #Subacute left parietal region CVA Brain CT showed no acute intracranial process. Chronic appearing periventricular white matter confluent ischemic type changes with atrophy Brain/cervical MRIs showed remote injury to the left occipital/parietal region, no evidence of disc herniation or significant spinal canal stenosis, no acute changes MRV shows no evidence of venous sinus thrombosis Repeat UA is unremarkable Patient denies any urinary symptoms neuro checks fall precautions Seizure precautions EEG performed at [facility] prior to this hospital admission shows generalized slowing with left hemispheric more than right. No epileptiform activity was reported. Vitamin B12 is 664.0 Continue oral Keppra 500 twice daily Continue with donepezil 5 mg p.o. at bedtime Physical therapy recommending home care Discussed with neurology, outpatient follow-up of brain MRI in 2 to 3 months or earlier if needed Likely need event monitor to rule out A-fib as a cause of ischemic CVA #Pancytopenia severe neutropenia Bandemia History of CML WBC 2.9, RBC 2.96, platelet count 76, band neutrophils 2, neutrophil count 0.2 Oncology consulted Continue to monitor CBC #Acute kidney injury versus chronic kidney disease History of left kidney nephrectomy due to cancer Creatinine level trending upward to 2.96 unknown baseline, however her creatinine levels since admission has been around 2.5-2.6 Hold nephrotoxic medications Intake output Heart healthy diet Renal and bladder ultrasound no evidence of right-sided hydronephrosis, renal mass or nephrolithiasis. Nephrology note reviewed monitor urine output follow up renal function with BMP in a.m. Continue with IV normal saline at 75 cc/h per nephrology #Hypokalemia (resolved) Potassium 3.9 Monitor BMP and mag tomorrow a.m. #Hypernatremia (resolved) Sodium 144 Monitor BMP #1st degree AV block #Sinus bradycardia, asymptomatic EKG independently interpreted showed normal sinus rhythm first-degree AV block Pulse rate 50 Troponin <0.012 Monitor on telemetry Cardiology following Chronic #Type 2 diabetes, well-controlled Hold home oral medication Monitor glucose insulin sliding scale low scale #Hypertension Blood pressure stable and within normal limits #Hyperlipidemia Continue home medications DVT prophylaxis: Subcu heparin F: IV normal saline 75 cc/h E: Replete electrolytes as needed N: Heart healthy diet A: Fall precaution and seizure precautions CODE STATUS: Full code Discussed with: Patient Anticipated discharge place: Home I have seen and evaluated the patient today. Discussed with the resident and agree with the residents finding and plan as documented in the resident's note. Changes highlighted in blue font. Objective - Vital Signs Vital signs: Vital Signs Temp 97.7 F 04/12/24 07:07 Pulse 60 04/12/24 07:07 Resp 17 04/12/24 07:07 BP 127/72 04/12/24 07:07 Pulse Ox 100 04/12/24 07:07 FiO2 Intake & Output 04/11/24 04/12/24 04/12/24 18:59 06:59 18:59 Intake Total 750 Balance 750 Intake: Intake, IV Titration 750 Amount Sodium Chloride 0.9% 1, 750 000 ml @ 75 mls/hr IV . [id number] DEE Rx#:[id number] Other: Voiding Method Bedside Commode # Voids 1 - Labs CBC & Chem 7: 04/12/24 05:07 04/12/24 05:07 Labs: Abnormal Lab Results - Last 24 Hours (Table) 04/11/24 04/12/24 04/12/24 Range/Units 16:35 05:07 05:07 WBC 2.9 L (3.8-10.6) k/uL RBC 2.96 L (3.80-5.40) m/uL Hgb 9.3 L (11.4-16.0) gm/dL Hct 28.2 L (34.0-46.0) % Plt Count 76 L (150-450) k/uL Neutrophils # (Manual) 0.20 L* (1.3-7.7) k/uL Chloride 111 H (98-107) mmol/L BUN 39 H (7-17) mg/dL Creatinine 2.96 H (0.52-1.04) mg/dL POC Glucose (mg/dL) 151 H (70-110) mg/dL 04/12/24 04/12/24 Range/Units 06:34 11:31 WBC (3.8-10.6) k/uL RBC (3.80-5.40) m/uL Hgb (11.4-16.0) gm/dL Hct (34.0-46.0) % Plt Count (150-450) k/uL Neutrophils # (Manual) (1.3-7.7) k/uL Chloride (98-107) mmol/L BUN (7-17) mg/dL Creatinine (0.52-1.04) mg/dL POC Glucose (mg/dL) 118 H 120 H (70-110) mg/dL
[2024-04-12 16:00] LABS: Partial Thromboplastin Time 24.1 sec (22.0-30.0); Prothrombin Time 10.5 sec (10.0-12.5)
--- NOTE | 2024-04-12 16:03 | P.CONS ---
History of Present Illness - Reason for Consult Consult date: 04/12/24 neutropenia, hx CLL Requesting physician: Alvarez Zamudio - Chief Complaint Confusion - History of Present Illness Patient is a 73 year old female with a history of CLL. Consult placed for neutropenia. Pt states she follows with Dr. Myers at [facility]. She states she follows up every couple months, and her disease has been stable, but stated "my blood counts are always low." She can not recall if she has been on treatment for her CLL. Per pt she had a fall causing an intracranial bleed, and has been in a nursing facilty and missed her last f/u with her oncologist. Patient presented to emergency room for progressing cognitive decline over the last 1 to 2 weeks. Patient states yesterday she is was looking at her phone for hours and forgot how to turn it on. Patient denies slurred speech, facial droop and unilateral weakness. On admission CT brain showed no acute intercranial processes. MRI brain was obtained and addended report revealed high T1 signal lesions in the dural space as well as multiple lesions along the dura on the left which demonstrate high FLAIR signal. And findings within the left posterior parietal region is felt to represent ischemia. Neurology is following and MRV has been ordered. Labs reviewed, WBC 2.9, ANC 200, otherwise differential showing no significant abnormalities. Hemoglobin 9.3, MCV 95.2, platelets 76,000. Upon review of EMR there are no previous labs to trend. Patient was also noted to have a VAUGHN, creatinine 2.96, GFR 15. Review of Systems 10 point ROS is negative except as stated in the HPI Past Medical History Past Medical History: Cancer, Dementia, Diabetes Mellitus, Hyperlipidemia, Hypertension Additional Past Medical History / Comment(s): tremors, traumatic brain injury History of Any Multi-Drug Resistant Organisms: None Reported Past Surgical History: Appendectomy, Cholecystectomy, Hysterectomy Additional Past Surgical History / Comment(s): left kidney removed Past Anesthesia/Blood Transfusion Reactions: No Reported Reaction Past Psychological History: Depression Smoking Status: Former smoker Past Alcohol Use History: None Reported Past Drug Use History: None Reported Medications and Allergies Home Medications Medication Instructions Recorded Confirmed Type Albuterol Inhaler [Ventolin Hfa 2 puff INHALATION RT-Q6H PRN 04/08/24 04/08/24 History Inhaler] Diphenoxylate HCl/Atropine 1 tab PO QID PRN 04/08/24 04/08/24 History [Lomotil 2.5-0.025 mg Tablet] Donepezil [Aricept] 5 mg PO HS 04/08/24 04/08/24 History Droxidopa 400 mg PO TID 04/08/24 04/08/24 History FLUoxetine HCL 80 mg PO DAILY 04/08/24 04/08/24 History Famotidine [Pepcid] 20 mg PO BID 04/08/24 04/08/24 History Midodrine HCl [ProAmatine] 10 mg PO TID 04/08/24 04/08/24 History Mirtazapine 30 mg PO HS 04/08/24 04/08/24 History Rosuvastatin [Crestor] 20 mg PO DAILY 04/08/24 04/08/24 History levETIRAcetam [Keppra] 500 mg PO Q12HR 04/08/24 04/08/24 History Allergies Allergy/AdvReac Type Severity Reaction Status Date / Time cephalexin [From Keflex] Allergy Rash/Hives Verified 04/08/24 18:10 ciprofloxacin [From Cipro] Allergy Rash/Hives Verified 04/08/24 18:10 iodine Allergy Rash/Hives Verified 04/08/24 18:10 Physical Exam Vitals: Vital Signs Temp Pulse Pulse Resp BP Pulse Ox 04/12/24 07:07 97.7 F 60 17 127/72 100 04/12/24 02:00 98.2 F 60 18 135/71 100 04/11/24 18:44 98.2 F 56 L 17 133/66 99 Intake and Output 04/11/24 04/12/24 04/12/24 22:59 06:59 14:59 Intake Total 750 Balance 750 Intake: Intake, IV Titration 750 Amount Sodium Chloride 0.9% 1, 750 000 ml @ 75 mls/hr IV . [id number] DEE Rx#:[id number] Other: # Voids 1 - Constitutional General appearance: average body habitus, no acute distress - EENT Eyes: anicteric sclerae, EOMI ENT: hearing grossly normal - Respiratory Respiratory: bilateral: CTA - Cardiovascular Rhythm: regular Heart sounds: normal: S1, S2 - Gastrointestinal General gastrointestinal: soft, no tenderness - Integumentary Integumentary: no cyanotic, no jaundiced - Neurologic grossly intact, A&Ox3, but has some short term memory issues with recalling medical history - Musculoskeletal Musculoskeletal: strength equal bilaterally - Psychiatric Psychiatric: A&O x's 3 Results CBC & Chem 7: 04/12/24 05:07 04/12/24 05:07 Labs: Abnormal Lab Results - Last 24 Hours (Table) 04/11/24 04/12/24 04/12/24 Range/Units 16:35 05:07 05:07 WBC 2.9 L (3.8-10.6) k/uL RBC 2.96 L (3.80-5.40) m/uL Hgb 9.3 L (11.4-16.0) gm/dL Hct 28.2 L (34.0-46.0) % Plt Count 76 L (150-450) k/uL Neutrophils # (Manual) 0.20 L* (1.3-7.7) k/uL Chloride 111 H (98-107) mmol/L BUN 39 H (7-17) mg/dL Creatinine 2.96 H (0.52-1.04) mg/dL POC Glucose (mg/dL) 151 H (70-110) mg/dL 04/12/24 04/12/24 Range/Units 06:34 11:31 WBC (3.8-10.6) k/uL RBC (3.80-5.40) m/uL Hgb (11.4-16.0) gm/dL Hct (34.0-46.0) % Plt Count (150-450) k/uL Neutrophils # (Manual) (1.3-7.7) k/uL Chloride (98-107) mmol/L BUN (7-17) mg/dL Creatinine (0.52-1.04) mg/dL POC Glucose (mg/dL) 118 H 120 H (70-110) mg/dL CT Scan - head: report reviewed MRI - head: report reviewed Assessment and Plan (1) CLL (chronic lymphocytic leukemia) Current Visit: Yes Status: Acute Priority: Medium Code(s): C91.10 - CHRONIC LYMPHOCYTIC LEUK OF B-CELL TYPE NOT ACHIEVE REMIS SNOMED Code(s): 90225382 (2) VAUGHN (acute kidney injury) Current Visit: Yes Status: Acute Priority: High Code(s): N17.9 - ACUTE KIDNEY FAILURE, UNSPECIFIED SNOMED Code(s): 08961492 (3) AMS (altered mental status) Current Visit: Yes Status: Acute Priority: High Code(s): R41.82 - ALTERED MENTAL STATUS, UNSPECIFIED SNOMED Code(s): 729995902 Plan: CLL Presented to the ER for decline in cognition. MRI showing lesions within dura and possible ischemia in the left posterior parietal region. Patient reports she has have had CLL for years and follows with Dr. Myers at [facility]. She states she follows up every couple months, and her disease has been stable, but stated, "my blood counts are always low." She can not recall if she has been on treatment for her CLL. Per pt she had a fall causing an intracranial bleed, and has been in a nursing facility and missed her last f/u with her oncologist. -Labs reviewed, WBC 2.9, ANC 200, otherwise differential showing no significant abnormalities. Hemoglobin 9.3, MCV 95.2, platelets 76,000. Upon review of EMR there are no previous labs to trend -Will obtain anemia labs, paraproteinemia workup, and DIC labs -Will request records from her oncologist to further review diagnosis, recent labs and treatment plan -Continue to monitor CBC. No need for G-CSF at this time attests: I have seen and examined patient, performed H&P, developed impression and plan of care. Discussed with dictator. Agree with documentation, dictated as a scribe
[2024-04-12 16:52] LABS: Glucose,Whole Blood 115 mg/dL (70-110)
[2024-04-12 19:18] LABS: % Iron Saturation 25.78 (12.00-45.00)
--- NOTE | 2024-04-12 20:44 | P.PN ---
Subjective Progress Note Date: 04/12/24 Patient was seen for a follow-up. Patient is laying comfortably in the bed. Family members were not present. Patient denies any headache or dizziness. Offers no complaints. Objective - Vital Signs Vital signs: Vital Signs Temp 98.2 F 04/12/24 19:32 Pulse 70 04/12/24 19:32 Resp 16 04/12/24 19:32 BP 107/65 04/12/24 19:32 Pulse Ox 99 04/12/24 19:32 FiO2 Intake & Output 04/12/24 04/12/24 04/13/24 06:59 18:59 06:59 Output Total 75 Balance -75 Output: Post Void Residual 75 Other: # Voids 2 - Exam Patient is alert and awake in no distress. Patient states it is April and the year is 2023. She knows she is in [facility] in [place]. Speech and language functions are normal. Patient's visual dasivla are full, no neglect on double simultaneous stimulation. Extraocular muscles are intact. Face is symmetric. On muscle strength testing there is no pronator drift. And the strength is normal in arms and legs, distally and proximally. Sensations are equal. - Labs CBC & Chem 7: 04/12/24 05:07 04/12/24 05:07 Labs: Abnormal Lab Results - Last 24 Hours (Table) 04/12/24 04/12/24 04/12/24 Range/Units 05:07 05:07 06:34 WBC 2.9 L (3.8-10.6) k/uL RBC 2.96 L (3.80-5.40) m/uL Hgb 9.3 L (11.4-16.0) gm/dL Hct 28.2 L (34.0-46.0) % Plt Count 76 L (150-450) k/uL Neutrophils # (Manual) 0.20 L* (1.3-7.7) k/uL Chloride 111 H (98-107) mmol/L BUN 39 H (7-17) mg/dL Creatinine 2.96 H (0.52-1.04) mg/dL POC Glucose (mg/dL) 118 H (70-110) mg/dL TIBC (228-460) UG/DL Transferrin (204.0-354.0) mg/dL Ferritin (10.0-291.0) ng/mL 04/12/24 04/12/24 04/12/24 Range/Units 11:31 15:32 16:51 WBC (3.8-10.6) k/uL RBC (3.80-5.40) m/uL Hgb (11.4-16.0) gm/dL Hct (34.0-46.0) % Plt Count (150-450) k/uL Neutrophils # (Manual) (1.3-7.7) k/uL Chloride (98-107) mmol/L BUN (7-17) mg/dL Creatinine (0.52-1.04) mg/dL POC Glucose (mg/dL) 120 H 115 H (70-110) mg/dL TIBC 225 L (228-460) UG/DL Transferrin 161.0 L (204.0-354.0) mg/dL Ferritin 384.0 H (10.0-291.0) ng/mL Assessment and Plan Assessment: * Rapidly progressive cognitive decline for last 1-1/2 to 2 weeks. MRI of the brain revealed possible subacute to chronic stroke involving the left posterior parietal region. PML also in the differential. Radiologist concerned about PRES, but her sodium is normal, blood pressure is completely normal. * Recent history of left nephrectomy for renal cell carcinoma, in October 2023 * History of CML, in remission * History of recurrent falls * History of seizures in , has been in remission for 30 years, off medication, but had recurrence of seizure x 1, about 6 months ago. Patient started on Keppra. No seizures recurrence thereafter. * Acute on chronic renal insufficiency * Hypertension * Ex tobacco use Plan: * MRI of the brain reported as no evidence of intracranial mass or acute/subacute infarct. Nonspecific white matter changes, likely secondary to small vessel ischemic disease. I personally reviewed MRI, and it appears there is an abnormal signal on DWI and FLAIR signal in the left posterior parietal region. However ADC mapping revealed also hyperintensity. Differential diagnosis included subacute to chronic CVA, versus PML from her history of immunosuppression from CML. I spoke to Dr. Sarmiento, who discussed with Dr. Corley as well. They agreed with abnormal signal, and concerned about CVA. They also reported some tubular structure noted along the dura on the left. MRV of the brain was recommended. * MRV of the brain revealed no evidence of venous sinus thrombosis. There remains abnormal high signal along the cerebral cortex on the left, possibly relating to slow flow within the cortical veins with cortical vein thrombosis not excluded. Short-term follow-up recommended. * I spoke to the pharmacist hospital, did not recommend MRI of the brain with contrast because of deteriorating renal functions. * Patient started on aspirin 81 mg and Plavix 75 mg by internal medicine based upon above results. * Recommend patient undergo a follow-up MRI of the brain (if possible with and without contrast) in 3 months, earlier if needed. * Recommend patient follow-up with neurologist outpatient. * MRI of the cervical spine revealed no evidence for disc herniation or significant spinal canal stenosis. Postsurgical changes to the spine with mild disc degeneration with associated osteoarthritic changes. * Patient declined EEG. She had an EEG performed at [facility] 4 days ago, which reported generalized slowing, with left hemispheric more than right. No epileptiform activity was reported. * 2D echo revealed technically difficult study. Moderately increased left ventricular wall thickness. No obvious regional wall motion abnormalities. LVEF 55 to 60%. Grade 1 diastolic dysfunction. Normal left atrial size. * Hemoglobin A1c 5.2, TSH 1.77. B12 644 normal. * Continue Keppra 500 mg twice daily for history of seizure disorder. * Continue donepezil 5 mg. * Other management as per IM and other specialties. * PT OT, evaluate gait. * Dr. Magdy Vyas to resume neurology service from the morning.
[2024-04-12 20:57] LABS: Glucose,Whole Blood 128 mg/dL (70-110)
[2024-04-13 05:46] LABS: Glucose,Whole Blood 80 mg/dL (70-110)
[2024-04-13 05:51] LABS: HCT 24.2 % (34.0-46.0); HGB 8.2 gm/dL (11.4-16.0); Hypochromasia Slight; MCH 31.9 pg (25.0-35.0); MCHC 33.8 g/dL (31.0-37.0); MCV 94.5 fL (80.0-100.0); Mean Platelet Volume 8.3; RBC 2.56 m/uL (3.80-5.40); RDW 13.8 % (11.5-15.5); WBC 2.1 k/uL (3.8-10.6)
[2024-04-13 06:11] LABS: Platelet Count 70 k/uL (150-450)
[2024-04-13 06:23] LABS: African American GFR (CKD) 21 (>60 ml/min/1.73 sqM); Anion Gap 5 mmol/L; Blood Urea Nitrogen 39 mg/dL (7-17); Calcium 8.9 mg/dL (8.4-10.2); Carbon Dioxide 24 mmol/L (22-30); Chloride 114 mmol/L (98-107); Glucose 77 mg/dL (74-99); Magnesium 1.8 mg/dL (1.6-2.3); Non-African American GFR(CKD) 18 (>60 ml/min/1.73 sqM); Sodium 143 mmol/L (137-145)
[2024-04-13 06:48] LABS: Neutrophils % (M) 2 %
[2024-04-13 06:50] LABS: Basophils # (M) 0.02 k/uL (0-0.2); Eosinophils # (M) 0.17 k/uL (0-0.7); Monocytes # (M) 0.17 k/uL (0-1.0); Nucleated Red Blood Cells 0 /100 WBC (0-0); Total Cells Counted 100
[2024-04-13 06:52] LABS: Neutrophils # (M) 0.04 k/uL (1.3-7.7)
[2024-04-13 06:54] LABS: RBC Morphology Normal
[2024-04-13 08:35] VITALS: RESP 18
[2024-04-13 11:26] LABS: Immunoglobulin M 79.6 mg/dL (40.0-280.0)
[2024-04-13 11:45] LABS: Glucose,Whole Blood 91 mg/dL (70-110)
--- NOTE | 2024-04-13 13:19 | P.PN ---
Subjective patient is seen for follow-up for acute kidney injury versus chronic kidney disease. No previous labs available for comparison. History of left nephrectomy in October 2023 Status post IV fluids on initial admission. Tolerating oral intake. Discussed with neurology regarding possible need for gadolinium for MRI/MRA. Even though the newer generation of gadolinium contrast agents are much less nephrotoxic, given the patient's advanced renal failure and worsening renal function this may be not an ideal contrast agent. We could consider CT shady ogram with IV iodinated contrast if absolutely indicated. Serum creatinine decreased to 2.5 today. Son is present at bedside and states that patient follows with Dr. Aguilera from nephrology. Objective - Vital Signs Vital signs: Vital Signs Temp 97.8 F 04/13/24 07:19 Pulse 66 04/13/24 07:19 Resp 18 04/13/24 07:19 BP 119/72 04/13/24 07:19 Pulse Ox 100 04/13/24 07:19 FiO2 Intake & Output 04/12/24 04/13/24 04/13/24 18:59 06:59 18:59 Output Total 75 200 Balance -75 -200 Output: Urine 200 Post Void Residual 75 Other: Voiding Method Toilet # Voids 2 1 1 # Bowel Movements 1 - Exam patient is awake, comfortable, no acute distress. Examination of the heart S1 and S2 Examination of the lungs bilateral breath sounds are heard Abdomen is soft nontender Examination of lower extremity shows no significant edema [employer] exam shows patient is moving all 4 extremities. - Labs CBC & Chem 7: 04/13/24 05:26 04/13/24 05:26 Labs: Abnormal Lab Results - Last 24 Hours (Table) 04/12/24 04/12/24 04/12/24 Range/Units 15:32 16:51 20:56 WBC (3.8-10.6) k/uL RBC (3.80-5.40) m/uL Hgb (11.4-16.0) gm/dL Hct (34.0-46.0) % Plt Count (150-450) k/uL Neutrophils # (Manual) (1.3-7.7) k/uL Chloride (98-107) mmol/L BUN (7-17) mg/dL Creatinine (0.52-1.04) mg/dL POC Glucose (mg/dL) 115 H 128 H (70-110) mg/dL TIBC 225 L (228-460) UG/DL Transferrin 161.0 L (204.0-354.0) mg/dL Ferritin 384.0 H (10.0-291.0) ng/mL IgG (700.0-1600.0) mg/dL 04/13/24 04/13/24 04/13/24 Range/Units 05:26 05:26 05:26 WBC 2.1 L (3.8-10.6) k/uL RBC 2.56 L (3.80-5.40) m/uL Hgb 8.2 L (11.4-16.0) gm/dL Hct 24.2 L (34.0-46.0) % Plt Count 70 L (150-450) k/uL Neutrophils # (Manual) 0.04 L* (1.3-7.7) k/uL Chloride 114 H (98-107) mmol/L BUN 39 H (7-17) mg/dL Creatinine 2.59 H (0.52-1.04) mg/dL POC Glucose (mg/dL) (70-110) mg/dL TIBC (228-460) UG/DL Transferrin (204.0-354.0) mg/dL Ferritin (10.0-291.0) ng/mL IgG 373.0 L (700.0-1600.0) mg/dL Assessment and Plan Assessment: 1. Acute kidney injury, ATN secondary to some degree of hypoperfusion in the setting of bradycardia. Solitary kidney. No previous labs available for comparison. Patient follows with Dr. Aguilera as outpatient. UA is benign, no evidence of obstruction on ultrasound.. Patient is maintained on IVfluids 2. Chronic kidney disease, baseline renal function not known. No urine retention. 3. Bradycardia being followed by cardiology. 4. Mental status changes with increased forgetfulness, being followed by neurology with need for possible MRA and gadolinium based contrast 5. History of fall few months ago, details not available 6. History of left nephrectomy few months ago Plan: Okay to discharge patient from nephrology standpoint. Maintain close follow-up as outpatient with her primary residential team leader. Recommend to avoid gadolinium based contrast given the advanced renal failure and worsening acute kidney injury. We can consider using CT angiogram with iodinated IV contrast if absolutely indicated.
--- NOTE | 2024-04-13 13:41 | P.DS ---
Providers Date of admission: 04/08/24 18:38 Expected date of discharge: 04/13/24 Attending physician: Mario Owens MD Consults: 04/08/24 18:38 Consult Physician Routine Consulting Provider: Alvaro Norris Consult Reason/Comments: bradycardia Do you want consulting provider notified?: Yes Consult Physician Routine Consulting Provider: Danny Wray Consult Reason/Comments: ams Do you want consulting provider notified?: Yes 04/08/24 18:39 Consult Physician Routine Consulting Provider: Janiya Richardson Consult Reason/Comments: vaughn Do you want consulting provider notified?: Yes 04/12/24 10:27 Consult Physician Routine Consulting Provider: Tomas Jacobson Consult Reason/Comments: neutropenic, hx of CML Do you want consulting provider notified?: Yes Primary care physician: Stated None Hospital Course: Discharge Diagnosis: 1. Acute metabolic encephalopathy 2. Suspected subacute left parietal region CVA 3. History of CLL, in remission 4. History of dementia 5. History of seizure 6. Pancytopenia 7. Severe neutropenia 8. VAUGHN on CKD 9. Hypokalemia 10. Hypernatremia 11. First-degree AV block Hospital Course: 73-year-old female with dementia, type 2 diabetes, hypertension, CLL in remission, left renal cancer status post resection was admitted to the hospital on 04/08/2024 for rapidly progressive urinary dysfunction. WBC 2.8, hemoglobin 9.6, hematocrit 29.1, platelet count 111, neutrophil count 0.14. Sodium 145, potassium 3.5, chloride 114, bicarb 27, BUN 28, creatinine 2.61. Patient is admitted for acute metabolic encephalopathy and acute kidney injury. Brain CT on 04/08/2024 showed no acute intracranial process. Chronic appearing periventricular white matter confluent ischemic type changes with atrophy. Renal ultrasound on 04/09/2023 showed no evidence of right-sided hydronephrosis, renal mass or nephrolithiasis. EKG showed sinus rhythm with first-degree AV block. Neurology, nephrology, cardiology were consulted. Echocardiogram on 04/10/2024 showed ejection fraction of 55 to 60% with normal left ventricular systolic function with no obvious regional wall motion abnormalities. Cardiology signed off with no further recommendations. In the interim, patient continues show improvement. Her renal function tests continue to improve. Her baseline creatinine at this admission was established as 2.5. Brain/cervical MRIs showed recent left parietal occipital region CVA, no evidence of disc herniation or significant spinal canal stenosis, no acute changes. MRV shows no evidence of venous sinus thrombosis. No clear etiology was established behind acute metabolic encephalopathy. However, patient returned to her baseline mentation. Patient to follow-up with oncology outpatient for CLL. Stable to be discharged. She will continue dual antiplatelet for 90 days, and then continue aspirin. Further neurological workup to be done outpatient. She needs repeat MRI in 3 months. Patient is advised to follow-up with oncology within 1 week, neurology within 1 week, nephrology within 1 week and PCP within 1 week Patient advised to continue his regular home medications and new medication clopidogrel 75 mg p.o. and aspirin 81 mg. Patient is provided with instructions/handouts on CKD, CLL and encephalopathy. Patient to be discharged home with home health services. Vital signs reviewed. Gen: in no apparent distress, resting comfortably in bed Eyes: PERRL, no scleral injection or icterus HENT: normocephalic, atraumatic, good hearing acuity, moist mucous membranes Neck: full range of motion Resp: CTAB, no rales, rhonchi, or wheezes CVS: normal S1 and S2, no murmurs, rubs or gallops, no edema GI: soft, NTTP, ND, no hepatosplenomegaly : no suprapubic tenderness, no CVAT, de souza catheter is not present MSK: no clubbing, no cyanosis, no noted contractures of extremities Skin: no noted rashes, petechiae; temperature of skin is appropriate Neuro: moving all extremities without signs of weakness, CN II-XII intact Psych: cooperative, euthymic mood, insight and judgment intact A total of 33 minutes of time were spent preparing this complex discharge summary. Patient was discharged on 04/13/2024 at 1219. I have seen and evaluated the patient today. Discussed with the resident and agree with the residents finding and plan as documented in the resident's note. Changes highlighted in blue font. Patient Condition at Discharge: Stable Plan - Discharge Summary Discharge Rx Participant: Yes New Discharge Prescriptions: New Clopidogrel [Plavix] 75 mg PO DAILY #90 tab Aspirin 81 mg PO DAILY #90 tab Continue Famotidine [Pepcid] 20 mg PO BID FLUoxetine HCL 80 mg PO DAILY Rosuvastatin [Crestor] 20 mg PO DAILY Donepezil [Aricept] 5 mg PO HS Droxidopa 400 mg PO TID Diphenoxylate HCl/Atropine [Lomotil 2.5-0.025 mg Tablet] 1 tab PO QID PRN PRN Reason: Diarrhea levETIRAcetam [Keppra] 500 mg PO Q12HR Mirtazapine 30 mg PO HS Midodrine HCl [ProAmatine] 10 mg PO TID Albuterol Inhaler [Ventolin Hfa Inhaler] 2 puff INHALATION RT-Q6H PRN PRN Reason: Shortness Of Breath Discharge Medication List Albuterol Inhaler [Ventolin Hfa Inhaler] 2 puff INHALATION RT-Q6H PRN 04/08/24 [History] Diphenoxylate HCl/Atropine [Lomotil 2.5-0.025 mg Tablet] 1 tab PO QID PRN 04/08/24 [History] Donepezil [Aricept] 5 mg PO HS 04/08/24 [History] Droxidopa 400 mg PO TID 04/08/24 [History] FLUoxetine HCL 80 mg PO DAILY 04/08/24 [History] Famotidine [Pepcid] 20 mg PO BID 04/08/24 [History] Midodrine HCl [ProAmatine] 10 mg PO TID 04/08/24 [History] Mirtazapine 30 mg PO HS 04/08/24 [History] Rosuvastatin [Crestor] 20 mg PO DAILY 04/08/24 [History] levETIRAcetam [Keppra] 500 mg PO Q12HR 04/08/24 [History] Aspirin 81 mg PO DAILY #90 tab 04/13/24 [Rx] Clopidogrel [Plavix] 75 mg PO DAILY #90 tab 04/13/24 [Rx] Follow up Appointment(s)/Referral(s): Tomas Jacobson [STAFF PHYSICIAN] - 1 Week Janiya Richardson MD [STAFF PHYSICIAN] - 1 Week Shad Duron MD [REFERRING] - 1 Week [facility] [NON-STAFF] - As Needed August Madison MD [REFERRING] - As Needed Patient Instructions/Handouts: Chronic Kidney Disease (DC), Chronic Lymphocytic Leukemia (DC), Encephalopathy (DC) Activity/Diet/Wound Care/Special Instructions: Please see your PCP, neurology, oncology, and nephrology. Discharge/Stand Alone Forms: Who Do I Call?, Adult Foster Fpc List, Assisted Living Facilities, Area PCPs Discharge Disposition: HOME WITH HOME HEALTH SERVICES
[2024-04-13 14:31] VITALS: TEMP 98.1
[2024-04-13 16:31] VITALS: BP 106/64; PULSE 64
[2024-04-13 16:40] LABS: Glucose,Whole Blood 111 mg/dL (70-110)
[2024-04-16 15:26] LABS: Albumin 3.05 g/dL (3.80-4.90); Free Kappa Lt Chain Qnt, Serum 20.34 mg/dL (0.33-1.94); Free Lambda Lt Chain Qnt, Seru 2.46 mg/dL (0.57-2.63)
== END 2024-04-13 18:42 | disposition home health service (06) | DRG 70 ==
LOC: EC 13:55 → 4SSUR 18:38 → 1SOBS 04-09 13:40 → 4SSUR 04-11 17:28
PROVIDERS: ADMIT Family Medicine; ATTEND Family Medicine
DX: G93.41 Metabolic encephalopathy (principal); N17.0 Acute kidney failure with tubular necrosis; D61.818 Other pancytopenia; E87.0 Hyperosmolality and hypernatremia; F03.93 Unspecified dementia, unspecified severity, with mood disturbance; C91.11 Chronic lymphocytic leukemia of B-cell type in remission; G40.909 Epilepsy, unspecified, not intractable, without status epilepticus; I95.9 Hypotension, unspecified; E11.22 Type 2 diabetes mellitus with diabetic chronic kidney disease; I12.9 Hypertensive chronic kidney disease with stage 1 through stage 4 chronic kidney disease, or unspecified chronic kidney disease; N18.9 Chronic kidney disease, unspecified; F32.A Depression, unspecified; I44.0 Atrioventricular block, first degree; E78.5 Hyperlipidemia, unspecified; E87.6 Hypokalemia; Z90.5 Acquired absence of kidney; Z88.1 Allergy status to other antibiotic agents; Z79.899 Other long term (current) drug therapy; Z79.02 Long term (current) use of antithrombotics/antiplatelets; Z79.82 Long term (current) use of aspirin; Z85.528 Personal history of other malignant neoplasm of kidney; Z87.891 Personal history of nicotine dependence; Z87.820 Personal history of traumatic brain injury; Z86.73 Personal history of transient ischemic attack (TIA), and cerebral infarction without residual deficits; Z90.710 Acquired absence of both cervix and uterus; Z91.81 History of falling; Z79.84 Long term (current) use of oral hypoglycemic drugs
CPT/HCPCS: 36415; 70450; 70544; 70551; 72141; 76770; 80048; 81001; 81003; 82607; 82728; 82747; 82784; 83036; 83540; 83550; 83735; 83883; 84165; 84443; 84484; 85025; 85384; 85610; 85730; 86334; 93005; 93306; 96361; 96374; 99285

== ENCOUNTER 2024-05-15 21:46 | Inpatient (IN) | payer OTHER, MEDICARE ==
--- NOTE | 2024-05-15 22:04 | ED ---
General Adult HPI - General Chief complaint: Fall Stated complaint: AMS Time Seen by Provider: 05/15/24 21:48 Source: EMS Mode of arrival: EMS - History of Present Illness Initial comments: Dictation was produced using [employer] dictation software. please excuse any grammatical, word or spelling errors. Chief Complaint: 74-year-old female presents with altered mental status History of Present Illness: Patient 74-year-old female with significant comorbidities presents to the emergency department by EMS from senior living. Apparently EMS was called for altered mental status. EMS noted upon arrival that patient did have a hematoma to her front forehead. Is unclear if patient had fallen. According to EMS patient is evaluated daily around the time when she gets vitals. Apparently she does have some meaningful conversation. She was having vitals done at the senior living today and she was found to be lethargic. She was when EMS was called. EMS states that patient had normal vitals and normal blood sugar. Per EMS patient was last at baseline around 7 PM. It is unclear what patient's normal baseline is. She does have history of dementia. Per EMS patient is verbal but unclear if patient is comprehensive Unable to obtain ROS secondary to mental status - Related Data Home Medications Medication Instructions Recorded Confirmed Albuterol Inhaler [Ventolin Hfa 2 puff INHALATION RT-Q6H PRN 04/08/24 04/08/24 Inhaler] Diphenoxylate HCl/Atropine 1 tab PO QID PRN 04/08/24 04/08/24 [Lomotil 2.5-0.025 mg Tablet] Donepezil [Aricept] 5 mg PO HS 04/08/24 04/08/24 Droxidopa 400 mg PO TID 04/08/24 04/08/24 FLUoxetine HCL 80 mg PO DAILY 04/08/24 04/08/24 Famotidine [Pepcid] 20 mg PO BID 04/08/24 04/08/24 Midodrine HCl [ProAmatine] 10 mg PO TID 04/08/24 04/08/24 Mirtazapine 30 mg PO HS 04/08/24 04/08/24 Rosuvastatin [Crestor] 20 mg PO DAILY 04/08/24 04/08/24 levETIRAcetam [Keppra] 500 mg PO Q12HR 04/08/24 04/08/24 Previous Rx's Medication Instructions Recorded Aspirin 81 mg PO DAILY #90 tab 04/13/24 Clopidogrel [Plavix] 75 mg PO DAILY #90 tab 04/13/24 Allergies Allergy/AdvReac Type Severity Reaction Status Date / Time cephalexin [From Keflex] Allergy Rash/Hives Verified 05/15/24 21:59 ciprofloxacin [From Cipro] Allergy Rash/Hives Verified 05/15/24 21:59 iodine Allergy Rash/Hives Verified 05/15/24 21:59 Review of Systems ROS Statement: Those systems with pertinent positive or pertinent negative responses have been documented in the HPI. ROS Other: All systems not noted in ROS Statement are negative. Past Medical History Past Medical History: Cancer, Dementia, Diabetes Mellitus, Hyperlipidemia, Hypertension Additional Past Medical History / Comment(s): tremors, traumatic brain injury History of Any Multi-Drug Resistant Organisms: None Reported Past Surgical History: Appendectomy, Cholecystectomy, Hysterectomy Additional Past Surgical History / Comment(s): left kidney removed Past Anesthesia/Blood Transfusion Reactions: No Reported Reaction Past Psychological History: Depression Smoking Status: Former smoker Past Alcohol Use History: None Reported Past Drug Use History: None Reported General Exam - General Exam Comments Initial Comments: PHYSICAL EXAM: General Impression: Malaise, lethargic, responsive to noxious stimuli HEENT: Small 2 x 2 cm hematoma over the right forehead extra-ocular movements intact, pupils equal and reactive to light bilaterally, mucous membranes moist. Cardiovascular: Heart regular rate and rhythm Chest: no retractions, no tachypnea Abdomen: abdomen soft, non-tender, non-distended, no organomegaly Musculoskeletal: Pulses present and equal in all extremities, no peripheral edema Motor: no focal deficits noted Neurological: CN II-XII grossly intact, no focal motor or sensory deficits noted Skin: Intact with no visualized rashes Psych: Normal affect and mood Course Vital Signs 05/15/24 21:51 Temperature 97 F L Pulse Rate 56 L Respiratory 20 Rate Blood Pressure 114/83 O2 Sat by Pulse 100 Oximetry EKG Findings - EKG Comments: EKG Findings:: My EKG interpretation: Ventricular rate 56, sinus bradycardia, period of old 222, QRS 89, QTc 447. No CA prolongation, no QTC prolongation, no ST or T-wave changes noted. EKG compared to 2023 showing no changes. Overall, this EKG is unremarkable Medical Decision Making - Medical Decision Making Was pt. sent in by a medical professional or institution (, PA, [employer], urgent care, hospital, or senior living...) When possible be specific @ -long-term Did you speak to anyone other than the patient for history (EMS, parent, family, police, friend...)? What history was obtained from this source @ -EMS as described above Did you review nursing and triage notes (agree or disagree)? Why? @ -I reviewed and agree with nursing and triage notes Were old charts reviewed (outside hosp., previous admission, EMS record, old EKG, old radiological studies, urgent care reports/EKG's, senior living records)? Report findings @ -No old charts were reviewed Differential Diagnosis (chest pain, altered mental status, abdominal pain women, abdominal pain men, vaginal bleeding, musculoskeletal, weakness, fever, dyspnea, syncope, headache, dizziness, GI bleed, back pain, seizure, CVA, palpatations, mental health)? @ -Differential Altered Mental Status: Hypoglycemia, DKA, hypercapnia, ETOH, overdose, CO poisoning, trauma, myxedema coma, HTN encephalopathy, infection, encephalitis, psychosis, intercranial h emorrhage, hepatic encephalopathy, meningitis, CVA, this is not meant to be an all-inclusive list EKG interpreted by me (3pts min.). @ -See above X-rays interpreted by me (1pt min.). @ -Chest x-ray, pelvis x-ray, hip x-ray shows no acute processes CT interpreted by me (1pt min.). @ -Brain and C-spine shows no acute processes U/S interpreted by me (1pt. min.). @ -None done What testing was considered but not performed or refused? (CT, X-rays, U/S, labs)? Why? @ -None What meds were considered but not given or refused? Why? @ -None Was smoking cessation discussed for >3mins.? @ -No Were there social determinants of health that impacted care today? How? (Homelessness, low income, unemployed, alcoholism, drug addiction, transportation, low edu. Level, literacy, decrease access to med. care, care home, rehab)? @ -No Was there de-escalation of care discussed even if they declined (Discuss DNR or withdrawal of care, Hospice)? DNR status @ -No What co-morbidities impacted this encounter? (DM, HTN, Smoking, COPD, CAD, Cancer, CVA, ARF, Chemo, Hep., AIDS, mental health diagnosis, sleep apnea, morbid obesity)? @ -mental debility Was patient admitted / discharged? Hospital course, mention meds given and route, prescriptions, significant lab abnormalities, going to OR and other pertinent info. @ -74-year-old female with worsening mental debility presents to the ER for alleged fall. Patient was activated level 2 trauma due to signs of head injury and altered mental status. EMS provides history present illness states that she did appear to be altered and minimally arousable. She did however slightly improved. She had normal vitals and blood glucose prehospital. Vital signs u kenyon arrival are within acceptable limits. Patient moving all extremities grossly. It is unclear what patient's normal baseline is. After several minutes in the ER she is reevaluated found to be back to normal baseline. Family at the bedside states that she has been having these episodes with no cause. Laboratory evaluation is unremarkable. Slight UTI with 14 white blood cells. Patient given ceftriaxone will be admitted to observation for monitoring. With hospitalist for admission Did you discuss the management of the patient with other professionals (professionals i.e. , PA, [employer], lab, RT, psych nurse, social worker psychiatric, industrial relations analyst, teacher, military source operations officer, test case developer)? Give summary @ -See above Was critical care preformed (if so, how long)? @ -Yes, 33 minutes for activated level 2 trauma Undiagnosed new problem with uncertain prognosis? @ -No Drug Therapy requiring intensive monitoring for toxicity (Heparin, Nitro, Insulin, Cardizem)? @ -No Were any procedures done? @ -No Diagnosis/symptom? Acute, or Chronic, or Acute on Chronic? Uncomplicated (without systemic symptoms) or Complicated (systemic symptoms)? @ -Altered mental status Side effects of treatment? @ -No Exacerbation, Progression, or Severe Exacerbation? @ -No Poses a threat to life or bodily function? How? (Chest pain, USA, IA, pneumonia, PE, COPD, DKA, ARF, appy, cholecystitis, CVA, Diverticulitis, Homicidal, Suicidal, threat to staff... and all critical care pts) @ -No - Lab Data Result diagrams: 05/15/24 21:55 05/15/24 21:55 Lab Results 05/15/24 05/15/24 05/15/24 Range/Units 21:54 21:55 21:55 WBC 6.4 (3.8-10.6) k/uL RBC 2.99 L (3.80-5.40) m/uL Hgb 9.8 L D (11.4-16.0) gm/dL Hct 28.3 L (34.0-46.0) % MCV 94.7 (80.0-100.0) fL MCH 32.7 (25.0-35.0) pg MCHC 34.5 (31.0-37.0) g/dL RDW 15.4 (11.5-15.5) % Plt Count 104 L (150-450) k/uL MPV 8.8 Neutrophils % (Manual) 34 % Band Neuts % (Manual) 2 % Lymphocytes % (Manual) 57 % Monocytes % (Manual) 5 % Eosinophils % (Manual) 2 % Neutrophils # (Manual) 2.30 (1.3-7.7) k/uL Lymphocytes # (Manual) 3.65 (1.0-4.8) k/uL Monocytes # (Manual) 0.32 (0-1.0) k/uL Eosinophils # (Manual) 0.13 (0-0.7) k/uL Nucleated RBCs 0 (0-0) /100 WBC Manual Slide Review Performed Ovalocytes Present PT (10.0-12.5) sec INR (<1.2) APTT (22.0-30.0) sec Sodium 145 (137-145) mmol/L Potassium 4.4 (3.5-5.1) mmol/L Chloride 114 H (98-107) mmol/L Carbon Dioxide 23 (22-30) mmol/L Anion Gap 8 mmol/L BUN 43 H (7-17) mg/dL Creatinine 2.79 H (0.52-1.04) mg/dL Est GFR (CKD-EPI)AfAm 19 (>60 ml/min/1.73 sqM) Est GFR (CKD-EPI)NonAf 16 (>60 ml/min/1.73 sqM) Glucose 94 (74-99) mg/dL POC Glucose (mg/dL) 88 (70-110) mg/dL POC Glu Smoking Pipe Driller And [employer]er ID Demond Candi Plasma Lactic Acid El (0.7-2.0) mmol/L Calcium 10.0 (8.4-10.2) mg/dL Magnesium 1.9 (1.6-2.3) mg/dL Total Bilirubin 0.5 (0.2-1.3) mg/dL AST 21 (14-36) U/L ALT 23 (4-34) U/L Alkaline Phosphatase 57 (38-126) U/L Troponin I (0.000-0.034) ng/mL Total Protein 6.5 (6.3-8.2) g/dL Albumin 4.4 (3.5-5.0) g/dL Urine Color Urine Appearance (Clear) Urine pH (5.0-8.0) Ur Specific [place] (1.001-1.035) Urine Protein (Negative) Urine Glucose (UA) (Negative) Urine Ketones (Negative) Urine Blood (Negative) Urine Nitrite (Negative) Urine Bilirubin (Negative) Urine Urobilinogen (<2.0) mg/dL Ur Leukocyte Esterase (Negative) Urine RBC (0-5) /hpf Urine WBC (0-5) /hpf Ur Squamous Epith Cells (0-4) /hpf Urine Bacteria (None) /hpf Urine Mucus (None) /hpf 05/15/24 05/15/24 05/15/24 Range/Units 21:55 21:55 21:55 WBC (3.8-10.6) k/uL RBC (3.80-5.40) m/uL Hgb (11.4-16.0) gm/dL Hct (34.0-46.0) % MCV (80.0-100.0) fL MCH (25.0-35.0) pg MCHC (31.0-37.0) g/dL RDW (11.5-15.5) % Plt Count (150-450) k/uL MPV Neutrophils % (Manual) % Band Neuts % (Manual) % Lymphocytes % (Manual) % Monocytes % (Manual) % Eosinophils % (Manual) % Neutrophils # (Manual) (1.3-7.7) k/uL Lymphocytes # (Manual) (1.0-4.8) k/uL Monocytes # (Manual) (0-1.0) k/uL Eosinophils # (Manual) (0-0.7) k/uL Nucleated RBCs (0-0) /100 WBC Manual Slide Review Ovalocytes PT 10.0 (10.0-12.5) sec INR 0.9 (<1.2) APTT 19.6 L (22.0-30.0) sec Sodium (137-145) mmol/L Potassium (3.5-5.1) mmol/L Chloride (98-107) mmol/L Carbon Dioxide (22-30) mmol/L Anion Gap mmol/L BUN (7-17) mg/dL Creatinine (0.52-1.04) mg/dL Est GFR (CKD-EPI)AfAm (>60 ml/min/1.73 sqM) Est GFR (CKD-EPI)NonAf (>60 ml/min/1.73 sqM) Glucose (74-99) mg/dL POC Glucose (mg/dL) (70-110) mg/dL POC Glu Smoking Pipe Driller And [employer]er ID Plasma Lactic Acid El 1.0 (0.7-2.0) mmol/L Calcium (8.4-10.2) mg/dL Magnesium (1.6-2.3) mg/dL Total Bilirubin (0.2-1.3) mg/dL AST (14-36) U/L ALT (4-34) U/L Alkaline Phosphatase (38-126) U/L Troponin I <0.012 (0.000-0.034) ng/mL Total Protein (6.3-8.2) g/dL Albumin (3.5-5.0) g/dL Urine Color Urine Appearance (Clear) Urine pH (5.0-8.0) Ur Specific [place] (1.001-1.035) Urine Protein (Negative) Urine Glucose (UA) (Negative) Urine Ketones (Negative) Urine Blood (Negative) Urine Nitrite (Negative) Urine Bilirubin (Negative) Urine Urobilinogen (<2.0) mg/dL Ur Leukocyte Esterase (Negative) Urine RBC (0-5) /hpf Urine WBC (0-5) /hpf Ur Squamous Epith Cells (0-4) /hpf Urine Bacteria (None) /hpf Urine Mucus (None) /hpf 05/15/24 Range/Units 22:04 WBC (3.8-10.6) k/uL RBC (3.80-5.40) m/uL Hgb (11.4-16.0) gm/dL Hct (34.0-46.0) % MCV (80.0-100.0) fL MCH (25.0-35.0) pg MCHC (31.0-37.0) g/dL RDW (11.5-15.5) % Plt Count (150-450) k/uL MPV Neutrophils % (Manual) % Band Neuts % (Manual) % Lymphocytes % (Manual) % Monocytes % (Manual) % Eosinophils % (Manual) % Neutrophils # (Manual) (1.3-7.7) k/uL Lymphocytes # (Manual) (1.0-4.8) k/uL Monocytes # (Manual) (0-1.0) k/uL Eosinophils # (Manual) (0-0.7) k/uL Nucleated RBCs (0-0) /100 WBC Manual Slide Review Ovalocytes PT (10.0-12.5) sec INR (<1.2) APTT (22.0-30.0) sec Sodium (137-145) mmol/L Potassium (3.5-5.1) mmol/L Chloride (98-107) mmol/L Carbon Dioxide (22-30) mmol/L Anion Gap mmol/L BUN (7-17) mg/dL Creatinine (0.52-1.04) mg/dL Est GFR (CKD-EPI)AfAm (>60 ml/min/1.73 sqM) Est GFR (CKD-EPI)NonAf (>60 ml/min/1.73 sqM) Glucose (74-99) mg/dL POC Glucose (mg/dL) (70-110) mg/dL POC Glu Smoking Pipe Driller And Threader ID Plasma Lactic Acid El (0.7-2.0) mmol/L Calcium (8.4-10.2) mg/dL Magnesium (1.6-2.3) mg/dL Total Bilirubin (0.2-1.3) mg/dL AST (14-36) U/L ALT (4-34) U/L Alkaline Phosphatase (38-126) U/L Troponin I (0.000-0.034) ng/mL Total Protein (6.3-8.2) g/dL Albumin (3.5-5.0) g/dL Urine Color Colorless Urine Appearance Clear (Clear) Urine pH 6.0 (5.0-8.0) Ur Specific [place] 1.014 (1.001-1.035) Urine Protein Trace H (Negative) Urine Glucose (UA) Negative (Negative) Urine Ketones Negative (Negative) Urine Blood Negative (Negative) Urine Nitrite Negative (Negative) Urine Bilirubin Negative (Negative) Urine Urobilinogen <2.0 (<2.0) mg/dL Ur Leukocyte Esterase Small H (Negative) Urine RBC 2 (0-5) /hpf Urine WBC 14 H (0-5) /hpf Ur Squamous Epith Cells 3 (0-4) /hpf Urine Bacteria Rare H (None) /hpf Urine Mucus Rare H (None) /hpf Disposition Clinical Impression: AMS (altered mental status), UTI (urinary tract infection) Disposition: [facility] Condition: Fair Referrals: None,Stated [Primary Care Provider] - 1-2 days Decision Time: 00:08
[2024-05-15 22:05] LABS: Glucose,Whole Blood 88 mg/dL (70-110)
[2024-05-15 22:15] LABS: HCT 28.3 % (34.0-46.0); MCH 32.7 pg (25.0-35.0); MCHC 34.5 g/dL (31.0-37.0); MCV 94.7 fL (80.0-100.0); Mean Platelet Volume 8.8; Platelet Count 104 k/uL (150-450); RBC 2.99 m/uL (3.80-5.40); RDW 15.4 % (11.5-15.5); WBC 6.4 k/uL (3.8-10.6)
[2024-05-15 22:19] LABS: Appearance,Urine Clear (Clear); Bacteria,Urine Rare /hpf; Bilirubin,Urine Negative (Negative); Blood,Urine Negative (Negative); Color,Urine Colorless; Glucose,Urine (UA) Negative (Negative); Ketones,Urine Negative (Negative); Leukocyte Esterase,Urine Small (Negative); Mucus,Urine Rare /hpf; Nitrite,Urine Negative (Negative); Protein,Urine Trace (Negative); RBC,Urine 2 /hpf (0-5); Specific Gravity,Urine 1.014 (1.001-1.035); Squamous Epithelial Cell,Urine 3 /hpf (0-4); Urobilinogen,Urine <2.0 mg/dL (<2.0); WBC,Urine 14 /hpf (0-5)
--- NOTE | 2024-05-15 22:21 | XR ---
EXAMINATION TYPE: XR pelvis AP view DATE OF EXAM: 05/15/2024 CLINICAL HISTORY: Fall with altered mental status TECHNIQUE: A single AP view of the pelvis is obtained. COMPARISON: None. FINDINGS: There is no acute displaced fracture evident in the pelvis. Moderate to severe narrowing o f both hip joints is seen. Pubic symphysis is intact. Some vascular calcification overlies the pelvis . IMPRESSION: There is no acute displaced fracture in the pelvis. [facility], , 05/15/2024 10:19 PM
--- NOTE | 2024-05-15 22:22 | XR ---
EXAMINATION TYPE: XR chest 1V portable DATE OF EXAM: 05/15/2024 COMPARISON: NONE HISTORY: Fall with altered mental status TECHNIQUE: Single frontal view of the chest is obtained. FINDINGS: There is no focal air space opacity, pleural effusion, or pneumothorax seen. The cardiac silhouette size is within normal limits with ectatic and atherosclerotic thoracic aorta is seen. Surg ical changes in the cervical spine are present. IMPRESSION: No acute cardiopulmonary process. [facility], , 05/15/2024 10:19 PM
[2024-05-15 22:24] LABS: HGB 9.8 gm/dL (11.4-16.0)
--- NOTE | 2024-05-15 22:27 | CT ---
EXAMINATION TYPE: CT brain cspine wo con DATE OF EXAM: 05/15/2024 COMPARISON: CT brain April 08, 2024 HISTORY: Fall. AMS. CT DLP: 1324.7 mGycm. Automated Exposure Control for Dose Reduction was Utilized. TECHNIQUE: CT scan of the head and cervical spine are performed without contrast. FINDINGS: There is no acute intracranial hemorrhage or midline shift identified. Mild ventricular a nd sulcal prominence redemonstrated. Moderate to severe low-attenuation in the deep and periventricul ar white matter is redemonstrated. 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 The calvar ium is intact. Cervical spine is visualized in its entirety from C1 through upper thoracic levels and demonstrates s atisfactory alignment without evidence of acute fracture or dislocation. Prevertebral soft tissue ap pears within normal limits. The C1-C2 articulation is within normal limits on the coronal images. T here is anterior fusion plate C4-C7 levels. There is moderate disc space narrowing at C3-C4 level. Ax ial images show multilevel uncovertebral facet degenerative changes more prominent on the left. Lung apices show no pneumothorax. Patchy areas of groundglass opacity in the right upper lung are noted. C orrelate clinically for developing infectious process. IMPRESSION: 1. There is no acute fracture or dislocation evident in the cervical spine. 2. No acute intracranial hemorrhage or midline shift is seen. [facility], , 05/15/2024 10:24 PM
[2024-05-15 22:28] LABS: INR 0.9 (<1.2)
[2024-05-15 22:33] LABS: Partial Thromboplastin Time 19.6 sec (22.0-30.0)
[2024-05-15 22:41] LABS: Band Neutrophils % 2 %; Eosinophils # (M) 0.13 k/uL (0-0.7); Lymphocytes # (M) 3.65 k/uL (1.0-4.8); Monocytes # (M) 0.32 k/uL (0-1.0); Neutrophils % (M) 34 %; Nucleated Red Blood Cells 0 /100 WBC (0-0); Total Cells Counted 100
[2024-05-15 22:42] LABS: Ovalocytes Present
[2024-05-15 22:45] LABS: ALT 23 U/L (4-34); AST 21 U/L (14-36); African American GFR (CKD) 19 (>60 ml/min/1.73 sqM); Albumin 4.4 g/dL (3.5-5.0); Alkaline Phosphatase 57 U/L (38-126); Anion Gap 8 mmol/L; Blood Urea Nitrogen 43 mg/dL (7-17); Carbon Dioxide 23 mmol/L (22-30); Chloride 114 mmol/L (98-107); Glucose 94 mg/dL (74-99); Magnesium 1.9 mg/dL (1.6-2.3); Non-African American GFR(CKD) 16 (>60 ml/min/1.73 sqM); Potassium 4.4 mmol/L (3.5-5.1); Sodium 145 mmol/L (137-145); Total Bilirubin 0.5 mg/dL (0.2-1.3); Total Protein 6.5 g/dL (6.3-8.2)
--- NOTE | 2024-05-15 23:40 | XR ---
EXAMINATION TYPE: XR Hip Limited RT DATE OF EXAM: 05/15/2024 CLINICAL HISTORY: Hip pain TECHNIQUE: Single AP view of the right hip is obtained. COMPARISON: Pelvic x-ray earlier today. FINDINGS: There is no acute displaced fracture in the right hip. Overlying clothing or blanket mater ial is present. Moderate to severe axial joint space loss is again seen. IMPRESSION: As above. [facility], , 05/15/2024 11:37 PM
[2024-05-15] MEDS ORDERED: HYDROcodone/APAP 5-325MG 1 EACH TAB PO PRN (23:57)
[2024-05-15] MEDS ORDERED: NALOXONE 0.4 MG/ML 1 ML VIAL IV PRN (23:57)
[2024-05-16] MEDS: cefTRIAXone IN SWFI 1,000 MG/10 ML SYRINGE IVP STA (00:02)
[2024-05-16] MEDS: HYDROcodone/APAP 5-325MG 1 EACH TAB PO STA (00:04)
[2024-05-16] MEDS: SODIUM CHLORIDE 0.9% 1,000 ML IV SCH ×2 (00:07→12:03)
[2024-05-16 02:27] LABS: Glucose,Whole Blood 81 mg/dL (70-110)
[2024-05-16] MEDS ORDERED: ALBUTEROL HFA INHALER INHALATION PRN (08:07)
[2024-05-16] MEDS ORDERED: DIPHENOX-ATROP 2.5-0.025 MG 1 EACH TAB PO PRN (08:07)
--- NOTE | 2024-05-16 08:14 | P.HPIM ---
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 Patient has recent admission at the beginning of last month with similar symptoms of being altered. During time of interview patient was unaccompanied by any family, could only give minimal history. Per ER note EMS was called to the patient's detention for altered mental status and upon arrival found she had a hematoma on the front of her forehead. It was unclear if she had fallen. Per ER notes patient is able to have some meaningful conversation but yesterday when she was having her vitals done she was found to be lethargic. Per ER note EMS reported the patient had normal vitals and blood sugars when they arrived. They also report the patient was at her baseline mentation around 7 PM yesterday. In the ED patient received pelvic, chest, and hip x-ray which showed no acute fracture. Patient also received an EKG which showed sinus bradycardia with a ventricular rate of 56. Patient also received a head/cervical spine CT which showed no acute fracture or dislocation evident in the cervical spine nor acute intracranial hemorrhage or midline shift seen. Labs in the ED were significant for hemoglobin 9.8, MCV 94.7, sodium 145, potassium 4.4, chloride 114, BUN 43, creatinine 2.79, troponin less than 0.012. UA in the ED showed trace protein, small leukocyte esterase, 14 urine WBC, rare bacteria and mucus. Review of systems: Unable to obtain ROS secondary to mental status. Social history: Tobacco: Former smoker Alcohol: Denies alcohol Physical examination: General: non toxic, no distress, appears at stated age Derm: no unusual rashes/lesions, warm Head: atraumatic, normocephalic, symmetric Eyes: EOMI, anicteric sclera, pupils equal round reactive to light ENT: Nose and ears atraumatic Cardiovascular: S1S2 bradycardia , no murmur, positive dorsalis pedis pulse bilateral, no peripheral edema Lungs: CTA bilateral, no rhonchi, no rales, no accessory muscle use Abdominal: soft, nontender to palpation, no guarding Ext: muscle strength 4 out of 5 in all 4 extremities grossly, no gross muscle atrophy, Neuro: CN II-XII grossly intact, no gross focal neuro deficits Psych: alert to person and place, not to time. patient waxes and wanes. Assessment/Plan: Patient is a 73-year-old female with dementia, type 2 diabetes, hypertension, CML (in remission) left renal cancer s/p resection presents from the detention with altered mental status. Patient had similar symptoms on previous admission for which she was treated for altered mental status and VAUGHN. On the previous admission they were not able to find a source of the altered mental status, but with steady hydration throughout the admission her mental status returned to baseline. We will continue to hydrate the patient and monitor her vitals and monitor her mentation to see if there are improvements. Active # Acute metabolic encephalopathy, unclear etiology Septic versus medication induced versus metabolic versus uremic Vitals unremarkable History of dementia Brain CT showed no acute intracranial process. UA showed trace protein, small leukocyte esterase, urine WBC 14, rare bacteria, and rare mucus. Patient denies any urinary symptoms Was given 1 g Rocephin IVP once in the ED, will continue to monitor off antibiotics. Patient allergic to Cephalexin with hives and rashes. Neurology consulted Neuro checks Fall precautions # Acute kidney injury History of left kidney nephrectomy due to cancer Patient euvolemic BUN 43, creatinine 2.79 both elevated, baseline from last admission on 04/10 was creatinine 2.5 Hold nephrotoxic medications Continue NS 75 cc/h Monitor intake output Heart healthy diet Renal/bladder ultrasound ordered Monitor urine output Follow up renal function K 4.5 unremarkable # 1st degree AV block # Sinus bradycardia EKG independently interpreted showed normal sinus rhythm first-degree AV block Echo from 04/10/2024 showed ejection fraction of 55 to 60% with normal left ventricular systolic function and no obvious regional wall motion abnormalities, was seen by cardiology here during last visit Pulse rate 56 Troponin <0.012 Monitor on telemetry # Pancytopenia Hgb 9.8 platelet 104 Likely due to history of CML Continue to monitor CBC Chronic #Type 2 diabetes, well-controlled Hold home oral medication Monitor glucose Insulin sliding scale low scale # Hypertension # Hyperlipidemia Continue home medications DVT prophylaxis: Lovenox 40 SQ F: NS at 75 cc/hr E: Replete electrolytes as needed N: Heart healthy diet A: Fall precaution CODE STATUS: Full code Discussed with: Patient Anticipated discharge place: skilled nursing Dispo: Pending clinical course Attestation I have seen and examined this patient with my resident , discussed the same with the resident/TRENT, and agree with the dictator's assessment and plan as written Dr. Anjum kimbrough Past Medical History Past Medical History: Cancer, Dementia, Diabetes Mellitus, Hyperlipidemia, Hypertension Additional Past Medical History / Comment(s): tremors, traumatic brain injury History of Any Multi-Drug Resistant Organisms: None Reported Past Surgical History: Appendectomy, Cholecystectomy, Hysterectomy Additional Past Surgical History / Comment(s): left kidney removed Past Anesthesia/Blood Transfusion Reactions: No Reported Reaction Past Psychological History: Depression Smoking Status: Former smoker Past Alcohol Use History: None Reported Past Drug Use History: None Reported Medications and Allergies Home Medications Medication Instructions Recorded Confirmed Type Albuterol Inhaler [Ventolin Hfa 2 puff INHALATION RT-Q6H PRN 04/08/24 05/16/24 H istory Inhaler] Diphenoxylate HCl/Atropine 1 tab PO QID PRN 04/08/24 05/16/24 History [Lomotil 2.5-0.025 mg Tablet] Donepezil [Aricept] 5 mg PO HS 04/08/24 05/16/24 History Droxidopa 400 mg PO TID@0800,1400,2200 04/08/24 05/16/24 History FLUoxetine HCL 80 mg PO DAILY 04/08/24 05/16/24 History Famotidine [Pepcid] 20 mg PO BID 04/08/24 05/16/24 History Midodrine HCl [ProAmatine] 10 mg PO TID@0700,1300,1800 04/08/24 05/16/24 History Mirtazapine 30 mg PO HS 04/08/24 05/16/24 History levETIRAcetam [Keppra] 500 mg PO BID 04/08/24 05/16/24 History Aspirin 81 mg PO DAILY #90 tab 04/13/24 05/16/24 Rx Clopidogrel [Plavix] 75 mg PO DAILY #90 tab 04/13/24 05/16/24 Rx Atorvastatin [Lipitor] 40 mg PO HS 05/16/24 05/16/24 History Allergies Allergy/AdvReac Type Severity Reaction Status Date / Time cephalexin [From Keflex] Allergy Rash/Hives Verified 05/16/24 07:54 ciprofloxacin [From Cipro] Allergy Rash/Hives Verified 05/16/24 07:54 iodine Allergy Rash/Hives Verified 05/16/24 07:54 Sulfa (Sulfonamide Allergy Unknown Verified 05/16/24 07:54 Antibiotics) Physical Exam Vitals: Vital Signs Temp Pulse Pulse Resp BP BP Pulse Ox 05/16/24 06:57 97.9 F 62 16 162/76 100 05/16/24 02:00 98.2 F 61 16 136/67 94 L 05/16/24 01:49 61 16 05/16/24 01:39 63 18 104/57 98 05/15/24 21:51 97 F L 56 L 20 114/83 100 Intake and Output 05/15/24 05/16/24 05/16/24 22:59 06:59 14:59 Other: Voiding Method Diaper Incontinent # Voids 3 Weight 67.585 kg 67.585 kg Results CBC & Chem 7: 05/17/24 04:50 05/17/24 04:50 Labs: Abnormal Lab Results - Last 24 Hours (Table) 05/15/24 05/15/24 05/15/24 Range/Units 21:55 21:55 21:55 RBC 2.99 L (3.80-5.40) m/uL Hgb 9.8 L D (11.4-16.0) gm/dL Hct 28.3 L (34.0-46.0) % Plt Count 104 L (150-450) k/uL APTT 19.6 L (22.0-30.0) sec Chloride 114 H (98-107) mmol/L BUN 43 H (7-17) mg/dL Creatinine 2.79 H (0.52-1.04) mg/dL Urine Protein (Negative) Ur Leukocyte Esterase (Negative) Urine WBC (0-5) /hpf Urine Bacteria (None) /hpf Urine Mucus (None) /hpf 05/15/24 Range/Units 22:04 RBC (3.80-5.40) m/uL Hgb (11.4-16.0) gm/dL Hct (34.0-46.0) % Plt Count (150-450) k/uL APTT (22.0-30.0) sec Chloride (98-107) mmol/L BUN (7-17) mg/dL Creatinine (0.52-1.04) mg/dL Urine Protein Trace H (Negative) Ur Leukocyte Esterase Small H (Negative) Urine WBC 14 H (0-5) /hpf Urine Bacteria Rare H (None) /hpf Urine Mucus Rare H (None) /hpf Thrombosis Risk Factor Assmnt - Choose All That Apply Any of the Below Risk Factors Present?: No Other Risk Factors: Yes Other congenital or acquired thrombophilia - If yes, enter type in comment: No
--- NOTE | 2024-05-16 08:50 | US ---
EXAMINATION TYPE: US kidneys/renal and bladder DATE OF EXAM: 05/16/2024 COMPARISON: NONE CLINICAL INDICATION: Female, 74 years old with history of confusion, ams, left kidney removed TECHNIQUE: Grayscale and color Doppler imaging of the bilateral kidneys and urinary bladder: FINDINGS: EXAM MEASUREMENTS: Right Kidney: 9.5 x 3.9 x 4.0 cm Left Kidney: Surgically absent Right Kidney: No hydronephrosis or masses seen. There is limitation of the lower pole is partially ob scured by bowel gas shadowing. Left Kidney: Surgically absent Bladder: Partially distended bladder shows no gross abnormality. Bilateral Jets seen: No IMPRESSION: Left kidney surgically absent. No hydronephrosis seen on the right. [facility], , 05/16/2024 8:48 AM
[2024-05-16] MEDS: ENOXAPARIN 30 MG/0.3 ML SYRINGE SQ SCH (09:20)
[2024-05-16] MEDS: CLOPIDOGREL 75 MG TAB PO SCH (09:20)
[2024-05-16] MEDS: FLUoxetine HCL 20 MG CAP PO SCH (09:20)
[2024-05-16] MEDS: ASPIRIN 81 MG PO SCH (09:20)
[2024-05-16] MEDS: FAMOTIDINE 20 MG TAB PO SCH (09:20)
[2024-05-16] MEDS: levETIRAcetam 500 MG TAB PO SCH (09:21)
[2024-05-16 12:29] LABS: Glucose,Whole Blood 96 mg/dL (70-110)
[2024-05-16] MEDS: INSULIN ASPART (NovoLOG) 100 UNIT/ML VIAL SQ SCH (12:55)
[2024-05-16] MEDS: DROXIDOPA 200 MG PO SCH (12:56)
[2024-05-16 17:14] LABS: Glucose,Whole Blood 101 mg/dL (70-110)
[2024-05-16 20:19] LABS: Glucose,Whole Blood 94 mg/dL (70-110)
[2024-05-16] MEDS: ATORVASTATIN 40 MG TAB PO SCH (20:33)
[2024-05-16] MEDS: MIRTAZAPINE 15 MG TAB PO SCH (20:33)
[2024-05-16] MEDS: DONEPEZIL 5 MG TAB PO SCH (20:33)
[2024-05-17 07:11] LABS: Glucose,Whole Blood 88 mg/dL (70-110)
--- NOTE | 2024-05-17 08:43 | P.PN ---
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 Patient has recent admission at the beginning of last month with similar symptoms of being altered. During time of interview patient was unaccompanied by any family, could only give minimal history. Per ER note EMS was called to the patient's assisted for altered mental status and upon arrival found she had a hematoma on the front of her forehead. It was unclear if she had fallen. Per ER notes patient is able to have some meaningful conversation but yesterday when she was having her vitals done she was found to be lethargic. Per ER note EMS reported the patient had normal vitals and blood sugars when they arrived. They also report the patient was at her baseline mentation around 7 PM yesterday. In the ED patient received pelvic, chest, and hip x-ray which showed no acute fracture. Patient also received an EKG which showed sinus bradycardia with a ventricular rate of 56. Patient also received a head/cervical spine CT which showed no acute fracture or dislocation evident in the cervical spine nor acute intracranial hemorrhage or midline shift seen. Labs in the ED were significant for hemoglobin 9.8, MCV 94.7, sodium 145, potassium 4.4, chloride 114, BUN 43, creatinine 2.79, troponin less than 0.012. UA in the ED showed trace protein, small leukocyte esterase, 14 urine WBC, rare bacteria and mucus. Subjective: 05/17/2024: Patient seen at bedside. No significant overnight events. Pertinent positives and negatives discussed above, a complete review of systems was preformed and all the other sytems were negative. Vitals Signs Reveiwed. General: non toxic, no distress, appears at stated age, normal weight Derm: no unusual rashes/lesions, warm Head: atraumatic, normocephalic, symmetric Eyes: EOMI, no lid lag, anicteric sclera, pupils equal round reactive to light ENT: Nose and ears atraumatic Neck: No cervical lymphadenopathy, trachea midline, supple Mouth: no lip lesion, mucus membranes moist Cardiovascular: S1S2 reg, no murmur, positive dorsalis pedis pulse bilateral, no edema Lungs: Decreased air entry bilaterally, no rhonchi, no rales, no accessory muscle use Abdominal: soft, nontender to palpation, no guarding Ext: muscle strength 5 out of 5 in all 4 extremities grossly, no gross muscle atrophy, no contractures, Neuro: CN II-XI grossly intact, no gross focal neuro deficits Psych: Alert, oriented, appropriate affect Data Reveiwed Today: Patient Labs: Pending labs from this morning Imaging: Abdominal/bladder ultrasound shows surgically removed left kidney and no hydronephrosis on the right kidney. Assesment and Plan: Patient is a 73-year-old female with dementia, type 2 diabetes, hypertension, CML (in remission) left renal cancer s/p resection presents from the assisted with altered mental status. Patient had similar symptoms on previous admission for which she was treated for altered mental status and VAUGHN. On the previous admission they were not able to find a source of the altered mental status, but with steady hydration throughout the admission her mental status returned to baseline. We will continue to hydrate the patient and monitor her vitals and monitor her mentation to see if there are improvements. Active # Acute metabolic encephalopathy, unclear etiology Septic versus medication induced versus metabolic versus uremic Vitals unremarkable History of dementia Brain CT showed no acute intracranial process. Fall precautions #UTI: Preliminary urine culture shows gram-negative bacilli ID consulted, agree with current antibiotic course Started on Rocephin 2 g IVPB every 24 (day 1) Upon admission patient received 1 g Rocephin IVP once UA showed trace protein, small leukocyte esterase, urine WBC 14, rare bacteria, and rare mucus. Patient denies any urinary symptoms Continue to follow-up cultures after 48 hours #Cutaneous yeast infection: Located in the right lower abdomen/right groin/right pelvic area, erythematous area with a pungent scent ID on consult, recommend nystatin powder Continue to monitor # Acute kidney injury: Improved History of left kidney nephrectomy due to cancer Patient euvolemic Hold nephrotoxic medications Discontinue fluids Monitor intake output Renal/bladder ultrasound showed left kidney surgically absent and no hydronephrosis on the right kidney. Monitor urine output Follow up renal function # 1st degree AV block # Sinus bradycardia EKG independently interpreted showed normal sinus rhythm first-degree AV block Echo from 04/10/2024 showed ejection fraction of 55 to 60% with normal left ventricular systolic function and no obvious regional wall motion abnormalities, was seen by cardiology here during last visit Pulse rate 56 Troponin <0.012 Monitor on telemetry # Pancytopenia Hgb 9.8 platelet 104 Likely due to history of CML Continue to monitor CBC Chronic #Type 2 diabetes, well-controlled Hold home oral medication Monitor glucose Insulin sliding scale low scale # Hypertension # Hyperlipidemia Continue home medications DVT prophylaxis: Lovenox 40 SQ F: NS at 75 cc/hr E: Replete electrolytes as needed N: Heart healthy diet A: Fall precaution CODE STATUS: Full code Anticipated discharge place[facility] Dispo: Pending clinical course Attestation I have seen and examined this patient with my resident , discussed the same with the resident/TRENT, and agree with the dictator's assessment and plan as written Dr. Anjum kimbrough Objective - Vital Signs Vital signs: Vital Signs Temp 98.3 F 05/17/24 07:12 Pulse 79 05/17/24 07:12 Resp 16 05/17/24 07:12 BP 124/64 05/17/24 07:12 Pulse Ox 99 05/17/24 07:12 FiO2 Intake & Output 05/16/24 05/17/24 05/17/24 18:59 06:59 18:59 Intake Total 450 Balance 450 Intake: Intake, IV Titration 450 Amount Sodium Chloride 0.9% 1, 450 000 ml @ 75 mls/hr IV . [id number] [facility] Rx#:[id number] Other: Voiding Method Diaper Diaper Incontinent Incontinent # Voids 1 3 - Labs CBC & Chem 7: 05/17/24 04:50 05/17/24 04:50 Labs: Microbiology - Last 24 Hours (Table) 05/15/24 22:04 Urine Culture - Preliminary Urine,Voided Gram Neg Bacilli
[2024-05-17] MEDS: FAMOTIDINE 20 MG TAB PO SCH (08:45)
[2024-05-17 08:48] LABS: HGB 7.5 g/dL (12.0-15.0); MCH 32.1 pg (27.0-32.0); MCHC 32.6 g/dL (32.0-37.0); MCV 98.3 FL (80.0-97.0); NRBC Per 100 WBC 0 X 10*3/uL (0.00-0.01); Platelet Count 85 X 10*3/uL (140-440); RBC 2.34 X 10*6/uL (4.10-5.20); RDW 14.6 % (11.5-14.5); WBC 4.45 X 10*3/uL (4.50-10.00)
[2024-05-17 08:55] LABS: BUN/Creat Ratio 14.78 Ratio (12.00-20.00); Calcium 8.7 mg/dL (8.7-10.3); Carbon Dioxide 22.9 mmol/L (21.6-31.8); Chloride 113 mmol/L (96-109); Glucose 84 mg/dL (70-110); Potassium 4.4 mmol/L (3.5-5.5); Sodium 145 mmol/L (135-145)
[2024-05-17 12:11] LABS: Glucose,Whole Blood 107 mg/dL (70-110)
[2024-05-17] MEDS: NYSTATIN 100,000 UNIT/GM POWD 15 GM TOPICAL SCH (12:59)
[2024-05-17 17:36] LABS: Glucose,Whole Blood 85 mg/dL (70-110)
[2024-05-17 20:16] LABS: Glucose,Whole Blood 107 mg/dL (70-110)
[2024-05-18 07:17] LABS: Glucose,Whole Blood 96 mg/dL (70-110)
[2024-05-18 09:12] LABS: HCT 21.8 % (34.0-46.0); MCH 32.8 pg (25.0-35.0); MCHC 34.4 g/dL (31.0-37.0); MCV 95.3 fL (80.0-100.0); Mean Platelet Volume 8.5; RBC 2.29 m/uL (3.80-5.40); RDW 15.5 % (11.5-15.5); WBC 3.3 k/uL (3.8-10.6)
[2024-05-18 09:14] LABS: African American GFR (CKD) 23 (>60 ml/min/1.73 sqM); Anion Gap 6 mmol/L; Blood Urea Nitrogen 36 mg/dL (7-17); Calcium 9.3 mg/dL (8.4-10.2); Carbon Dioxide 24 mmol/L (22-30); Chloride 113 mmol/L (98-107); Glucose 84 mg/dL (74-99); Non-African American GFR(CKD) 20 (>60 ml/min/1.73 sqM); Potassium 3.8 mmol/L (3.5-5.1); Sodium 143 mmol/L (137-145)
[2024-05-18 09:16] LABS: HGB 7.5 gm/dL (11.4-16.0)
[2024-05-18 09:18] LABS: Platelet Count 88 k/uL (150-450)
--- NOTE | 2024-05-18 09:41 | P.CONS ---
History of Present Illness - Reason for Consult Consult date: 05/17/24 Urinary tract infection Requesting physician: Yudelka Pritchett - Chief Complaint Mental status changes x few days on admission - History of Present Illness Patient is a 74-year-old female with a past medical history significant for diabetes mellitus hypertension hyperlipidemia and dementia patient has been brought into the hospital 2 days ago from the local snf concerning for mental status changes and the patient also noticed to be lethargic and there was concern for possible hematoma to the forehead and possible fall on presentation to the hospital patient was afebrile and no fever have been recorded subsequently patient was not tachycardic hypotensive or hypoxic patient did have a white count of 6.4 diabetes 4.45 BUN/creatinine has been mildly elevated patient did have a positive UA however it is very hard to get any urinary symptoms history from the slightly patient has been diagnosed with a UTI started on Rocephin infectious disease was consulted for further management of antibiotic therapy nursing staff is also noted significant excoria tion of the right groin area Review of Systems Positive point and negatives has been mentioned in the HPI, complete review of systems was performed and all other systems are negative Past Medical History Past Medical History: Cancer, Dementia, Diabetes Mellitus, Hyperlipidemia, Hypertension Additional Past Medical History / Comment(s): tremors, traumatic brain injury History of Any Multi-Drug Resistant Organisms: None Reported Past Surgical History: Appendectomy, Cholecystectomy, Hysterectomy Additional Past Surgical History / Comment(s): left kidney removed Past Anesthesia/Blood Transfusion Reactions: No Reported Reaction Past Psychological History: Depression Smoking Status: Former smoker Past Alcohol Use History: None Reported Past Drug Use History: None Reported Medications and Allergies Home Medications Medication Instructions Recorded Confirmed Type Albuterol Inhaler [Ventolin Hfa 2 puff INHALATION RT-Q6H PRN 04/08/24 05/16/24 History Inhaler] Diphenoxylate HCl/Atropine 1 tab PO QID PRN 04/08/24 05/16/24 History [Lomotil 2.5-0.025 mg Tablet] Donepezil [Aricept] 5 mg PO HS 04/08/24 05/16/24 History Droxidopa 400 mg PO TID@0800,1400,2200 04/08/24 05/16/24 History FLUoxetine HCL 80 mg PO DAILY 04/08/24 05/16/24 History Famotidine [Pepcid] 20 mg PO BID 04/08/24 05/16/24 History Midodrine HCl [ProAmatine] 10 mg PO TID@0700,1300,1800 04/08/24 05/16/24 History Mirtazapine 30 mg PO HS 04/08/24 05/16/24 History levETIRAcetam [Keppra] 500 mg PO BID 04/08/24 05/16/24 History Aspirin 81 mg PO DAILY #90 tab 04/13/24 05/16/24 Rx Clopidogrel [Plavix] 75 mg PO DAILY #90 tab 04/13/24 05/16/24 Rx Atorvastatin [Lipitor] 40 mg PO HS 05/16/24 05/16/24 History Allergies Allergy/AdvReac Type Severity Reaction Status Date / Time cephalexin [From Keflex] Allergy Rash/Hives Verified 05/16/24 07:54 ciprofloxacin [From Cipro] Allergy Rash/Hives Verified 05/16/24 07:54 iodine Allergy Rash/Hives Verified 05/16/24 07:54 Sulfa (Sulfonamide Allergy Unknown Verified 05/16/24 07:54 Antibiotics) Physical Exam Vitals: Vital Signs Temp Pulse Resp BP Pulse Ox 05/17/24 07:12 98.3 F 79 16 124/64 99 05/17/24 01:38 98.6 F 79 16 109/72 100 05/16/24 19:52 98.7 F 83 16 122/77 97 05/16/24 12:23 98.1 F 75 16 117/66 98 Intake and Output 05/16/24 05/17/24 05/17/24 22:59 06:59 14:59 Intake Total 450 Balance 450 Intake: Intake, IV Titration 450 Amount Sodium Chloride 0.9% 1, 450 000 ml @ 75 mls/hr IV . [id number] [facility] Rx#:[id number] Other: Voiding Method Diaper Incontinent # Voids 1 3 GENERAL DESCRIPTION: M elderly female lying in bed, no distress. No tachypnea or accessory muscle of respiration use. HEENT: Shows Pallor , no scleral icterus. Oral mucous membrane is dry. No pharyngeal erythema or thrush NECK: Trachea central, no thyromegaly. LUNGS: Unlabored breathing. Clear to auscultation anteriorly. No wheeze or crackle. HEART: S1, S2, regular rate and rhythm. No loud murmur ABDOMEN: Soft, no tenderness , guarding or rigidity, no organomegaly EXTREMITIES: No edema of feet. SKIN: Excoriation to the right groin area no open wound or drainage NEUROLOGICAL: The patient is awake, alert, oriented x2, mood and affect normal. Results CBC & Chem 7: 05/18/24 08:11 05/18/24 08:11 Labs: Abnormal Lab Results - Last 24 Hours (Table) 05/17/24 05/17/24 Range/Units 04:50 04:50 WBC 4.45 L (4.50-10.00) X 10*3/uL RBC 2.34 L (4.10-5.20) X 10*6/uL Hgb 7.5 L (12.0-15.0) g/dL Hct 23.0 L (37.2-46.3) % MCV 98.3 H (80.0-97.0) FL MCH 32.1 H (27.0-32.0) pg RDW 14.6 H (11.5-14.5) % Plt Count 85 L (140-440) X 10*3/uL Chloride 113 H (96-109) mmol/L BUN 34.0 H (9.0-27.0) mg/dL Creatinine 2.3 H (0.6-1.5) mg/dL Est GFR (CKD-EPI) 22 L (>=60) Microbiology - Last 24 Hours (Table) 05/15/24 22:04 Urine Culture - Preliminary Urine,Voided Gram Neg Bacilli Assessment and Plan (1) Cutaneous candidiasis Current Visit: Yes Status: Acute Code(s): B37.2 - CANDIDIASIS OF SKIN AND NAIL SNOMED Code(s): 59247252 (2) Allergy to multiple antibiotics Current Visit: Yes Status: Acute Code(s): Z88.1 - ALLERGY STATUS TO OTHER ANTIBIOTIC AGENTS SNOMED Code(s): 682940453 (3) UTI (urinary tract infection) Current Visit: Yes Status: Acute Code(s): N39.0 - URINARY TRACT INFECTION, SITE NOT SPECIFIED SNOMED Code(s): 62504913 Plan: 1patient presenting to the hospital with mental status changes in this patient did have a significantly positive UA a complaint of UTI from enteric gram- negative pathogen not entirely excluded patient did have elevated creatinine however ultrasound with no hydronephrosis on the right left kidney surgically absent 2groin area cutaneous candidiasis but no secondary cellulitis 3-patient with multiple antibiotic ALLERGIES that would limit the number of antibiotic safe to use 4-patient to continue with Rocephin while waiting for the culture to finalize We will follow on clinical condition and cultures to further adjust medication if needed Thank you for this consultation we will follow the patient along with you Dictation was produced using icomas[employer] dictation software. please excuse any grammatical, word or spelling errors. Time with Patient: Greater than 30
--- NOTE | 2024-05-18 09:57 | P.PN ---
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 Patient has recent admission at the beginning of last month with similar symptoms of being altered. During time of interview patient was unaccompanied by any family, could only give minimal history. Per ER note EMS was [facility]'s [facility] for altered mental status and upon arrival found she had a hematoma on the front of her forehead. It was unclear if she had fallen. Per ER notes patient is able to have some meaningful conversation but yesterday when she was having her vitals done she was found to be lethargic. Per ER note EMS reported the patient had normal vitals and blood sugars when they arrived. They also report the patient was at her baseline mentation around 7 PM yesterday. In the ED patient received pelvic, chest, and hip x-ray which showed no acute fracture. Patient also received an EKG which showed sinus bradycardia with a ventricular rate of 56. Patient also received a head/cervical spine CT which showed no acute fracture or dislocation evident in the cervical spine nor acute intracranial hemorrhage or midline shift seen. Labs in the ED were significant for hemoglobin 9.8, MCV 94.7, sodium 145, potassium 4.4, chloride 114, BUN 43, creatinine 2.79, troponin less than 0.012. UA in the ED showed trace protein, small leukocyte esterase, 14 urine WBC, rare bacteria and mucus. Subjective: 05/17/2024: Patient seen at bedside. No significant overnight events. 05/18/2024: Patient seen at bedside, no significant overnight events. Patient reports she is not in any pain and does not have any other complaints. Pertinent positives and negatives discussed above, a complete review of systems was preformed and all the other sytems were negative. Vitals Signs Reveiwed. General: non toxic, no distress, appears at stated age, normal weight Derm: no unusual rashes/lesions, warm Head: atraumatic, normocephalic, symmetric Eyes: EOMI, no lid lag, anicteric sclera, pupils equal round reactive to light ENT: Nose and ears atraumatic Neck: No cervical lymphadenopathy, trachea midline, supple Mouth: no lip lesion, mucus membranes moist Cardiovascular: S1S2 reg, no murmur, positive dorsalis pedis pulse bilateral, no edema Lungs: Decreased air entry bilaterally, no rhonchi, no rales, no accessory muscle use Abdominal: soft, nontender to palpation, no guarding Ext: muscle strength 5 out of 5 in all 4 extremities grossly, no gross muscle atrophy, no contractures, Neuro: CN II-XI grossly intact, no gross focal neuro deficits Psych: Alert, oriented, appropriate affect Data Reveiwed Today: Patient Labs: Hemoglobin 7.5, MCV 95.3, creatinine 2.37 Imaging: No new imaging Assesment and Plan: Patient is a 73-year-old female with dementia, type 2 diabetes, hypertension, CML (in remission) left renal cancer s/p resection [facility] with altered mental status. Patient had similar symptoms on previous admission for which she was treated for altered mental status and VAUGHN. On the previous admission they were not able to find a source of the altered mental status, but with steady hydration throughout the admission her mental status returned to baseline. We will continue to hydrate the patient and monitor her vitals and monitor her mentation to see if there are improvements. Active # Acute metabolic encephalopathy, unclear etiology Septic versus medication induced versus metabolic versus uremic Vitals unremarkable History of dementia Brain CT showed no acute intracranial process. Fall precautions #UTI: Final culture grows E. coli sensitive to many antibiotics including Rocephin ID consulted, agree with current antibiotic course, and will transition patient to oral Ceftin on discharge Continue Rocephin 2 g IVPB every 24 (day 2) Upon admission patient received 1 g Rocephin IVP once UA showed trace protein, small leukocyte esterase, urine WBC 14, rare bacteria, and rare mucus. 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 Monitor urine output Follow up renal function # 1st degree AV block # Sinus bradycardia EKG independently interpreted showed normal sinus rhythm first-degree AV block Echo from 04/10/2024 showed ejection fraction of 55 to 60% with normal left ventricular systolic function and no obvious regional wall motion abnormalities, was seen by cardiology here during last visit Pulse rate 56 Troponin <0.012 Monitor on telemetry # Pancytopenia WBC 3.3, hemoglobin 7.5, platelet count 88 Likely due to history of CML Continue to monitor CBC Chronic #Type 2 diabetes, well-controlled Hold home oral medication Monitor glucose Insulin sliding scale low scale # Hypertension # Hyperlipidemia Continue home medications DVT prophylaxis: Lovenox 40 SQ F: None E: Replete electrolytes as needed N: Heart healthy diet A: Fall precaution CODE STATUS: Full code Anticipated discharge place: long term Dispo: Pending clinical course Attestation I have seen and examined this patient with my resident , discussed the same with the resident/TRENT, and agree with the dictator's assessment and plan as written Dr. Anjum kimbrough Objective - Vital Signs Vital signs: Vital Signs Temp 98.2 F 05/18/24 07:28 Pulse 70 05/18/24 07:28 Resp 16 05/18/24 07:28 BP 118/69 05/18/24 07:28 Pulse Ox 100 05/18/24 07:28 FiO2 Intake & Output 05/17/24 05/18/24 05/18/24 18:59 06:59 18:59 Intake Total 936 120 Balance 936 120 Intake: Intake, IV Titration 500 Amount Sodium Chloride 0.9% 1, 450 000 ml @ 75 mls/hr IV . [id number] [facility] Rx#:[id number] cefTRIAXone 2 gm In 50 Sodium Chloride 0.9% 50 ml @ 100 mls/hr IVPB Q24HR [facility] Rx#:[id number] Oral 436 120 Other: Voiding Method Diaper Diaper Incontinent Incontinent # Voids 1 2 - Labs CBC & Chem 7: 05/18/24 08:11 05/18/24 08:11 Labs: Abnormal Lab Results - Last 24 Hours (Table) 05/18/24 05/18/24 Range/Units 08:11 08:11 WBC 3.3 L (3.8-10.6) k/uL RBC 2.29 L (3.80-5.40) m/uL Hgb 7.5 L D (11.4-16.0) gm/dL Hct 21.8 L (34.0-46.0) % Plt Count 88 L (150-450) k/uL Chloride 113 H (98-107) mmol/L BUN 36 H (7-17) mg/dL Creatinine 2.37 H (0.52-1.04) mg/dL Microbiology - Last 24 Hours (Table) 05/15/24 22:04 Urine Culture - Final Urine,Voided Escherichia coli
[2024-05-18 12:14] LABS: Glucose,Whole Blood 107 mg/dL (70-110)
--- NOTE | 2024-05-18 14:57 | P.PN ---
Subjective Progress Note Date: 05/18/24 Principal diagnosis: Reason for follow-up is E. coli UTI and groin area cutaneous candidiasis Patient is a 74-year-old female with a past medical history significant for diabetes mellitus hypertension hyperlipidemia and dementia patient has been brought into the hospital from a local senior living concerning for mental status changes patient did have a positive UA concerning for a symptomatic UTI and also evidence of right groin area cutaneous candidiasis. On today's evaluation that is 05/18/2024,the patient denies any fever or any chills, patient is breathing comfortably on room air, the patient denies chest pain shortness of breath and no significant cough, patient denies abdominal pain, no nausea vomiting or diarrhea. Patient white count is 3.3, creatinine is 2.37 urine is growing E. coli that is a sensitive pathogen Objective - Vital Signs Vital signs: Vital Signs Temp 98.4 F 05/18/24 13:44 Pulse 80 05/18/24 13:44 Resp 16 05/18/24 13:44 BP 117/63 05/18/24 13:44 Pulse Ox 100 05/18/24 13:44 FiO2 Intake & Output 05/17/24 05/18/24 05/18/24 18:59 06:59 18:59 Intake Total 936 120 Balance 936 120 Intake: Intake, IV Titration 500 Amount Sodium Chloride 0.9% 1, 450 000 ml @ 75 mls/hr IV . [id number] [facility] Rx#:[id number] cefTRIAXone 2 gm In 50 Sodium Chloride 0.9% 50 ml @ 100 mls/hr IVPB Q24HR [facility] Rx#:[id number] Oral 436 120 Other: Voiding Method Diaper Diaper Incontinent Incontinent # Voids 1 2 - Exam GENERAL DESCRIPTION: An elderly female lying in bed in no distress RESPIRATORY SYSTEM: Unlabored breathing , decreased breath sounds at bases HEART: S1 S2 regular rate and rhythm , ABDOMEN: Soft , no tenderness EXTREMITIES: No edema feet - Labs CBC & Chem 7: 05/18/24 08:11 05/18/24 08:11 Labs: Abnormal Lab Results - Last 24 Hours (Table) 05/18/24 05/18/24 Range/Units 08:11 08:11 WBC 3.3 L (3.8-10.6) k/uL RBC 2.29 L (3.80-5.40) m/uL Hgb 7.5 L D (11.4-16.0) gm/dL Hct 21.8 L (34.0-46.0) % Plt Count 88 L (150-450) k/uL Chloride 113 H (98-107) mmol/L BUN 36 H (7-17) mg/dL Creatinine 2.37 H (0.52-1.04) mg/dL Microbiology - Last 24 Hours (Table) 05/15/24 22:04 Urine Culture - Final Urine,Voided Escherichia coli Assessment and Plan (1) Cutaneous candidiasis Current Visit: Yes Status: Acute Code(s): B37.2 - CANDIDIASIS OF SKIN AND N AIL SNOMED Code(s): 00740883 (2) Allergy to multiple antibiotics Current Visit: Yes Status: Acute Code(s): Z88.1 - ALLERGY STATUS TO OTHER ANTIBIOTIC AGENTS SNOMED Code(s): 183327982 (3) UTI (urinary tract infection) Current Visit: Yes Status: Acute Code(s): N39.0 - URINARY TRACT INFECTION, SITE NOT SPECIFIED SNOMED Code(s): 97359504 Plan: 1patient presenting to the hospital with mental status changes in this patient did have a significantly positive UA a complaint of UTI from enteric gram- negative pathogen not entirely excluded patient did have elevated creatinine however ultrasound with no hydronephrosis on the right left kidney surgically absent 2groin area cutaneous candidiasis but no secondary cellulitis 3-patient with multiple antibiotic ALLERGIES that would limit the number of antibiotic safe to use 4-patient urine has been finalized with E. coli that is a sensitive pathogen, continue with Rocephin will transition to oral Ceftin on discharge Dictation was produced using [employer] dictation software. please excuse any grammatical, word or spelling errors. Time with Patient: Less than 30
[2024-05-18 17:22] LABS: Glucose,Whole Blood 103 mg/dL (70-110)
[2024-05-18] MEDS: FAMOTIDINE 20 MG TAB PO SCH (17:41)
[2024-05-18 20:16] LABS: Glucose,Whole Blood 106 mg/dL (70-110)
[2024-05-19 07:25] LABS: Glucose,Whole Blood 83 mg/dL (70-110)
[2024-05-19 09:49] LABS: HCT 22.6 % (37.2-46.3); HGB 7.3 g/dL (12.0-15.0); MCH 31.1 pg (27.0-32.0); MCHC 32.3 g/dL (32.0-37.0); MCV 96.2 FL (80.0-97.0); Mean Platelet Volume 10.6 FL (9.5-12.2); NRBC Per 100 WBC 0 X 10*3/uL (0.00-0.01); Platelet Count 87 X 10*3/uL (140-440); RBC 2.35 X 10*6/uL (4.10-5.20); RDW 14.7 % (11.5-14.5)
[2024-05-19 12:21] LABS: Glucose,Whole Blood 96 mg/dL (70-110)
[2024-05-19 12:33] LABS: BUN/Creat Ratio 12.84 Ratio (12.00-20.00); Blood Urea Nitrogen 32.1 mg/dL (9.0-27.0); Calcium 9.1 mg/dL (8.7-10.3); Carbon Dioxide 19.9 mmol/L (21.6-31.8); Chloride 113 mmol/L (96-109); Glucose 74 mg/dL (70-110); Potassium 3.7 mmol/L (3.5-5.5); Sodium 148 mmol/L (135-145)
--- NOTE | 2024-05-19 13:52 | P.PN ---
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 Patient has recent admission at the beginning of last month with similar symptoms of being altered. During time of interview patient was unaccompanied by any family, could only give minimal history. Per ER note EMS was called to the patient's custodial for altered mental status and upon arrival found she had a hematoma on the front of her forehead. It was unclear if she had fallen. Per ER notes patient is able to have some meaningful conversation but yesterday when she was having her vitals done she was found to be lethargic. Per ER note EMS reported the patient had normal vitals and blood sugars when they arrived. They also report the patient was at her baseline mentation around 7 PM yesterday. In the ED patient received pelvic, chest, and hip x-ray which showed no acute fracture. Patient also received an EKG which showed sinus bradycardia with a ventricular rate of 56. Patient also received a head/cervical spine CT which showed no acute fracture or dislocation evident in the cervical spine nor acute intracranial hemorrhage or midline shift seen. Labs in the ED were significant for hemoglobin 9.8, MCV 94.7, sodium 145, potassium 4.4, chloride 114, BUN 43, creatinine 2.79, troponin less than 0.012. UA in the ED showed trace protein, small leukocyte esterase, 14 urine WBC, rare bacteria and mucus. Subjective: 05/17/2024: Patient seen at bedside. No significant overnight events. 05/18/2024: Patient seen at bedside, no significant overnight events. Patient reports she is not in any pain and does not have any other complaints. 05/19. Patient seen and examined. Blood work done this morning showed WBC 3.60, hemoglobin 7.3, sodium 140, potassium 3.7, BUN 32.1, creatinine 2.5 GENERAL: The patient is alert HEENT: Pupils are round and equally reacting to light. EOMI. No scleral icterus. No conjunctival pallor. Normocephalic, atraumatic. No pharyngeal erythema. No thyromegaly. CARDIOVASCULAR: S1 and S2 present. No murmurs, rubs, or gallops. PULMONARY: Chest is clear to auscultation, no wheezing or crackles. ABDOMEN: Soft, nontender, nondistended, normoactive bowel sounds. No palpable organomegaly. MUSCULOSKELETAL: No joint swelling or deformity. EXTREMITIES: No cyanosis, clubbing, or pedal edema. NEUROLOGICAL: Gross neurological examination did not reveal any focal deficits. SKIN: No rashes. no petechiae. # Acute metabolic encephalopathy, unclear etiology #UTI: Final culture grows E. 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 Patient euvolemic Hold nephrotoxic medications Monitor BMP # 1st degree AV block # Sinus bradycardia Monitor telemetry # Pancytopenia Monitor CBC Chronic #Type 2 diabetes, well-controlled Hold home oral medication Monitor glucose Insulin sliding scale low scale # Hypertension # Hyperlipidemia Continue home medications Objective - Vital Signs Vital signs: Vital Signs Temp 98.6 F 05/19/24 13:34 Pulse 87 05/19/24 13:34 Resp 16 05/19/24 13:34 BP 135/71 05/19/24 13:34 Pulse Ox 100 05/19/24 13:34 FiO2 Intake & Output 05/18/24 05/19/24 05/19/24 18:59 06:59 18:59 Other: Voiding Method Diaper Diaper Diaper Incontinent Incontinent Incontinent # Voids 1 1 - Labs CBC & Chem 7: 05/19/24 06:47 05/19/24 06:47 Labs: Abnormal Lab Results - Last 24 Hours (Table) 05/19/24 05/19/24 Range/Units 06:47 06:47 WBC 3.60 L (4.50-10.00) X 10*3/uL RBC 2.35 L (4.10-5.20) X 10*6/uL Hgb 7.3 L (12.0-15.0) g/dL Hct 22.6 L (37.2-46.3) % RDW 14.7 H (11.5-14.5) % Plt Count 87 L (140-440) X 10*3/uL Sodium 148 H (135-145) mmol/L Chloride 113 H (96-109) mmol/L Carbon Dioxide 19.9 L (21.6-31.8) mmol/L Anion Gap 15.10 H (4.00-12.00) mmol/L BUN 32.1 H (9.0-27.0) mg/dL Creatinine 2.5 H (0.6-1.5) mg/dL Est GFR (CKD-EPI) 20 L (>=60)
--- NOTE | 2024-05-19 16:21 | P.PN ---
Subjective Progress Note Date: 05/19/24 Principal diagnosis: Reason for follow-up is E. coli UTI and groin area cutaneous candidiasis Patient is a 74-year-old female with a past medical history significant for diabetes mellitus hypertension hyperlipidemia and dementia patient has been brought into the [facility] a local [facility] concerning for mental status changes patient did have a positive UA concerning for a symptomatic UTI and also evidence of right groin area cutaneous candidiasis. On today's evaluation that is 05/19/2024,the patient remains to be afebrile, patient is on room air not requiring supplemental oxygen and denies any shortness of breath no chest pain or cough.Patient denies having any nausea or vomiting, no abdominal pain and no diarrhea has been reported. Patient white count is 3.60 creatinine is 2.5 urine with an E. coli Objective - Vital Signs Vital signs: Vital Signs Temp 98.6 F 05/19/24 13:34 Pulse 87 05/19/24 13:34 Resp 16 05/19/24 13:34 BP 135/71 05/19/24 13:34 Pulse Ox 100 05/19/24 13:34 FiO2 Intake & Output 05/18/24 05/19/24 05/19/24 18:59 06:59 18:59 Other: Voiding Method Diaper Diaper Diaper Incontinent Incontinent Incontinent # Voids 1 1 - Exam GENERAL DESCRIPTION: An elderly female lying in bed in no distress RESPIRATORY SYSTEM: Unlabored breathing , decreased breath sounds at bases HEART: S1 S2 regular rate and rhythm , ABDOMEN: Soft , no tenderness EXTREMITIES: No edema feet - Labs CBC & Chem 7: 05/19/24 06:47 05/19/24 06:47 Labs: Abnormal Lab Results - Last 24 Hours (Table) 05/19/24 05/19/24 Range/Units 06:47 06:47 WBC 3.60 L (4.50-10.00) X 10*3/uL RBC 2.35 L (4.10-5.20) X 10*6/uL Hgb 7.3 L (12.0-15.0) g/dL Hct 22.6 L (37.2-46.3) % RDW 14.7 H (11.5-14.5) % Plt Count 87 L (140-440) X 10*3/uL Sodium 148 H (135-145) mmol/L Chloride 113 H (96-109) mmol/L Carbon Dioxide 19.9 L (21.6-31.8) mmol/L Anion Gap 15.10 H (4.00-12.00) mmol/L BUN 32.1 H (9.0-27.0) mg/dL Creatinine 2.5 H (0.6-1.5) mg/dL Est GFR (CKD-EPI) 20 L (>=60) Assessment and Plan (1) Cutaneous candidiasis Current Visit: Yes Status: Acute Code(s): B37.2 - CANDIDIASIS OF SKIN AND NAIL SNOMED Code(s): 13759006 (2) Allergy to multiple antibiotics Current Visit: Yes Status: Acute Code(s): Z88.1 - ALLERGY STATUS TO OTHER ANTIBIOTIC AGENTS SNOMED Code(s): 369162720 (3) UTI (urinary tract infection) Current Visit: Yes Status: Acute Code(s): N39.0 - URINARY TRACT INFECTION, SITE NOT SPECIFIED SNOMED Code(s): 83032487 Plan: 1patient presenting to the hospital with mental status changes in this patient did have a significantly positive UA a complaint of UTI from enteric gram- negative pathogen not entirely excluded patient did have elevated creatinine however ultrasound with no hydronephrosis on the right left kidney surgically absent 2groin area cutaneous candidiasis but no secondary cellulitis, continue with the nystatin powder twice a day 3-patient with multiple antibiotic ALLERGIES that would limit the number of antibiotic safe to use 4-patient urine has been finalized with E. coli that is a sensitive pathogen, patient has shown clinical improvement continue with Rocephin while inpatient finishing therapy with oral Ceftin Dictation was produced using [employer] dictation software. please excuse any grammatical, word or spelling errors. Time with Patient: Less than 30
[2024-05-19 17:05] LABS: Glucose,Whole Blood 90 mg/dL (70-110)
[2024-05-19 20:27] LABS: Glucose,Whole Blood 84 mg/dL (70-110)
[2024-05-20 07:05] LABS: Glucose,Whole Blood 79 mg/dL (70-110)
--- NOTE | 2024-05-20 12:46 | P.PN ---
Subjective Progress Note Date: 05/20/24 Principal diagnosis: Reason for follow-up is E. coli UTI and groin area cutaneous candidiasis Patient is a 74-year-old female with a past medical history significant for diabetes mellitus hypertension hyperlipidemia and dementia patient has been brought into the hospital from a local detention concerning for mental status changes patient did have a positive UA concerning for a symptomatic UTI and also evidence of right groin area cutaneous candidiasis. On today's evaluation that is 05/20/2024, the patient continues to be afebrile, the patient is on room air and breathing comfortably, the Pt seem to be slightly confused and the patient has ripped out her IV denies any chest pain shortness with or cough no abdominal pain and no diarrhea has been reported. No new lab has been repeated today urine with an E. coli Objective - Vital Signs Vital signs: Vital Signs Temp 98.2 F 05/20/24 07:00 Pulse 78 05/20/24 07:00 Resp 16 05/20/24 07:00 BP 124/71 05/20/24 07:00 Pulse Ox 100 05/20/24 07:00 FiO2 Intake & Output 05/19/24 05/20/24 05/20/24 18:59 06:59 18:59 Intake Total 590 0 Balance 590 0 Intake: Intake, IV Titration 50 Amount cefTRIAXone 2 gm In 50 Sodium Chloride 0.9% 50 ml @ 100 mls/hr IVPB Q24HR [facility] Rx#:[id number] Oral 540 0 Other: Voiding Method Diaper Diaper Diaper Incontinent Incontinent Incontinent # Voids 3 3 - Exam GENERAL DESCRIPTION: An elderly female lying in bed in no distress RESPIRATORY SYSTEM: Unlabored breathing , decreased breath sounds at bases HEART: S1 S2 regular rate and rhythm , ABDOMEN: Soft , no tenderness EXTREMITIES: No edema feet - Labs CBC & Chem 7: 05/19/24 06:47 05/19/24 06:47 Assessment and Plan (1) Cutaneous candidiasis Current Visit: Yes Status: Acute Code(s): B37.2 - CANDIDIASIS OF SKIN AND NAIL SNOMED Code(s): 17501223 (2) Allergy to multiple antibiotics Current Visit: Yes Status: Acute Code(s): Z88.1 - ALLERGY STATUS TO OTHER ANTIBIOTIC AGENTS SNOMED Code(s): 723133785 (3) UTI (urinary tract infection) Current Visit: Yes Status: Acute Code(s): N39.0 - URINARY TRACT INFECTION, SITE NOT SPECIFIED SNOMED Code(s): 26641734 Plan: 1patient presenting to the hospital with mental status changes in this patient did have a significantly positive UA a complaint of UTI from enteric gram- negative pathogen not entirely excluded patient did have elevated creatinine however ultrasound with no hydronephrosis on the right left kidney surgically absent 2groin area cutaneous candidiasis but no secondary cellulitis, continue with the nystatin powder twice a day 3-patient with multiple antibiotic ALLERGIES that would limit the number of antibiotic safe to use 4-patient urine has been finalized with E. coli that is a sensitive pathogen, patient seem to be pulling her IV out recommending short course of oral Ceftin on discharge Dictation was produced using [employer] dictation software. please excuse any grammatical, word or spelling errors. Time with Patient: Less than 30
[2024-05-20] MEDS: MULTIVITAMINS, THERA LIQUID 237 ML BOTTLE PO SCH (13:17)
[2024-05-20] MEDS: QUEtiapine 25 MG TAB PO SCH (13:18)
[2024-05-20 13:53] LABS: Glucose,Whole Blood 91 mg/dL (70-110)
[2024-05-20] MEDS: HALOPERIDOL LACTATE 5 MG/ML 1 ML VIAL IM PRN (14:29)
--- NOTE | 2024-05-20 17:01 | P.PN ---
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 Patient has recent admission at the beginning of last month with similar symptoms of being altered. During time of interview patient was unaccompanied by any family, could only give minimal history. Per ER note EMS was called to the patient's [facility] for altered mental status and upon arrival found she had a hematoma on the front of her forehead. It was unclear if she had fallen. Per ER notes patient is able to have some meaningful conversation but yesterday when she was having her vitals done she was found to be lethargic. Per ER note EMS reported the patient had normal vitals and blood sugars when they arrived. They also report the patient was at her baseline mentation around 7 PM yesterday. In the ED patient received pelvic, chest, and hip x-ray which showed no acute fracture. Patient also received an EKG which showed sinus bradycardia with a ventricular rate of 56. Patient also received a head/cervical spine CT which showed no acute fracture or dislocation evident in the cervical spine nor acute intracranial hemorrhage or midline shift seen. Labs in the ED were significant for hemoglobin 9.8, MCV 94.7, sodium 145, potassium 4.4, chloride 114, BUN 43, creatinine 2.79, troponin less than 0.012. UA in the ED showed trace protein, small leukocyte esterase, 14 urine WBC, rare bacteria and mucus. Subjective: 05/17/2024: Patient seen at bedside. No significant overnight events. 05/18/2024: Patient seen at bedside, no significant overnight events. Patient reports she is not in any pain and does not have any other complaints. 05/19. Patient seen and examined. Blood work done this morning showed WBC 3.60, hemoglobin 7.3, sodium 140, potassium 3.7, BUN 32.1, creatinine 2.5 05/20: Patient seen at bedside. Patient is significantly altered compared to how she was since admission. Patient keeps stating that she is waiting for a phone call and that nobody believes her. Patient continues to pull out her IVs constantly. GENERAL: The patient is alert HEENT: Pupils are round and equally reacting to light. EOMI. No scleral icterus. No conjunctival pallor. Normocephalic, atraumatic. No pharyngeal erythema. No thyromegaly. CARDIOVASCULAR: S1 and S2 present. No murmurs, rubs, or gallops. PULMONARY: Chest is clear to auscultation, no wheezing or crackles. ABDOMEN: Soft, nontender, nondistended, normoactive bowel sounds. No palpable organomegaly. MUSCULOSKELETAL: No joint swelling or deformity. EXTREMITIES: No cyanosis, clubbing, or pedal edema. NEUROLOGICAL: Gross neurological examination did not reveal any focal deficits. SKIN: No rashes. no petechiae. # Acute metabolic encephalopathy, unclear etiology #UTI: Final culture grows E. coli sensitive to many antibiotics including Rocephin ID consulted, agree with current antibiotic course, and will transition patient to oral Ceftin on discharge Continue Rocephin 2 g IVPB every 24, will discuss with ID tomorrow as patient continues to pull out her IV due to being altered, was able to receive morning dose of Rocephin today (05/20) #Cutaneous yeast infection: Continue nystatin # Acute kidney injury: Improved History of left kidney nephrectomy due to cancer Patient euvolemic Hold nephrotoxic medications Monitor BMP # 1st degree AV block # Sinus bradycardia Monitor telemetry # Pancytopenia Monitor CBC Chronic #Type 2 diabetes, well-controlled Hold home oral medication Monitor glucose Insulin sliding scale low scale # Hypertension # Hyperlipidemia Continue home medications Objective - Vital Signs Vital signs: Vital Signs Temp 98.2 F 05/20/24 07:00 Pulse 78 05/20/24 07:00 Resp 16 05/20/24 07:00 BP 124/71 05/20/24 07:00 Pulse Ox 100 05/20/24 07:00 FiO2 Intake & Output 05/19/24 05/20/24 05/20/24 18:59 06:59 18:59 Intake Total 590 0 240 Balance 590 0 240 Intake: Intake, IV Titration 50 Amount cefTRIAXone 2 gm In 50 Sodium Chloride 0.9% 50 ml @ 100 mls/hr IVPB Q24HR [facility] Rx#:[id number] Oral 540 0 240 Other: Voiding Method Diaper Diaper Diaper Incontinent Incontinent Incontinent # Voids 3 3 - Labs CBC & Chem 7: 05/19/24 06:47 05/19/24 06:47
[2024-05-20] MEDS: DEXTROSE 5%-0.9% NACL 1,000 ML IV SCH (18:06)
[2024-05-20] MEDS ORDERED: FLUoxetine HCL 20 MG CAP PO SCH (21:00)
[2024-05-20 21:35] LABS: Glucose,Whole Blood 101 mg/dL (70-110)
[2024-05-20 21:52] LABS: African American GFR (CKD) 22 (>60 ml/min/1.73 sqM); Anion Gap 11 mmol/L; Blood Urea Nitrogen 32 mg/dL (7-17); Calcium 9.5 mg/dL (8.4-10.2); Carbon Dioxide 19 mmol/L (22-30); Chloride 112 mmol/L (98-107); Glucose 94 mg/dL (74-99); Non-African American GFR(CKD) 19 (>60 ml/min/1.73 sqM); Potassium 3.9 mmol/L (3.5-5.1); Sodium 142 mmol/L (137-145)
[2024-05-20 21:54] LABS: HCT 23.6 % (34.0-46.0); HGB 8.1 gm/dL (11.4-16.0); MCH 32.4 pg (25.0-35.0); MCHC 34.2 g/dL (31.0-37.0); MCV 94.6 fL (80.0-100.0); Mean Platelet Volume 8.7; Platelet Count 101 k/uL (150-450); RBC 2.49 m/uL (3.80-5.40); RDW 15.6 % (11.5-15.5); WBC 4.5 k/uL (3.8-10.6)
[2024-05-20 22:48] LABS: Band Neutrophils % 5 %; Lymphocytes # (M) 1.85 k/uL (1.0-4.8); Monocytes # (M) 0.18 k/uL (0-1.0); Neutrophils % (M) 50 %; Nucleated Red Blood Cells 0 /100 WBC (0-0); Total Cells Counted 100
[2024-05-20 22:52] LABS: Ovalocytes Present
[2024-05-21 07:37] LABS: Glucose,Whole Blood 82 mg/dL (70-110)
[2024-05-21 08:08] VITALS: TEMP 98.2
[2024-05-21 09:34] LABS: HCT 23.2 % (37.2-46.3); HGB 7.6 g/dL (12.0-15.0); MCH 31.1 pg (27.0-32.0); MCHC 32.8 g/dL (32.0-37.0); MCV 95.1 FL (80.0-97.0); Mean Platelet Volume 10.7 FL (9.5-12.2); NRBC Per 100 WBC 0 X 10*3/uL (0.00-0.01); Platelet Count 109 X 10*3/uL (140-440); RBC 2.44 X 10*6/uL (4.10-5.20); RDW 14.5 % (11.5-14.5); WBC 5.25 X 10*3/uL (4.50-10.00)
[2024-05-21 09:36] LABS: BUN/Creat Ratio 13.32 Ratio (12.00-20.00); Blood Urea Nitrogen 33.3 mg/dL (9.0-27.0); Calcium 9.2 mg/dL (8.7-10.3); Carbon Dioxide 17.4 mmol/L (21.6-31.8); Chloride 108 mmol/L (96-109); Glucose 66 mg/dL (70-110); Potassium 3.8 mmol/L (3.5-5.5); Sodium 145 mmol/L (135-145)
[2024-05-21 11:07] LABS: Basophils # (A) 0.02 X 10*3/uL (0.00-0.10); Basophils % (A) 0.4 %; Eosinophils # (A) 0.07 X 10*3/uL (0.04-0.35); Eosinophils % (A) 1.3 %; Lymphocytes # (A) 1.97 X 10*3/uL (0.90-5.00); Lymphocytes % (A) 37.5 %; Monocytes # (A) 1.47 X 10*3/uL (0.20-1.00); Neutrophils % (A) 32.4 %
[2024-05-21 12:17] LABS: Glucose,Whole Blood 129 mg/dL (70-110)
[2024-05-21 12:55] VITALS: BP 112/67; PULSE 91; RESP 18
--- NOTE | 2024-05-21 14:33 | P.DS ---
Providers Date of admission: 05/20/24 08:50 Expected date of discharge: 05/21/24 Attending physician: Betsy Ortiz Consults: 05/17/24 08:31 Consult Physician Routine Consulting Provider: Tamy Poon Consult Reason/Comments: UTI Do you want consulting provider notified?: Yes Primary care physician: Stated None Hospital Course: Final diagnosis -Acute metabolic encephalopathy, likely secondary to acute urinary tract infection. Cultures positive for E. coli with sensitivities -Cutaneous yeast infection in bilateral groin area -Acute kidney injury: Improved History of left kidney nephrectomy due to cancer -History of dementia -History of depression -Sinus bradycardia -Pancytopenia -Type 2 diabetes, well-controlled -Hypertension -Hyperlipidemia GI prophylaxis -DVT prophylaxis -Full code Discharge disposition Patient is being discharged in a stable condition with guarded prognosis to [facility]. Patient will follow-up with Dr. Ott in the outpatient setting upon discharge. Patient is to continue with oral ceftin 500mg bid for 5 days and outpatient as scheduled. Recommend follow-up labs to monitor kidney functions along with electrolytes. Total time taken is greater than 35 minutes. Hospital course This is a 74-year-old female who was recently admitted with acute metabolic encephalopathy likely secondary to acute urinary tract infection. Patient's urine cultures finalized with E. coli with sensitivities and maintained on ceftriaxone showing improvement and will transition to oral Ceftin on discharge for a 5-day course to complete the course. Infectious disease has evaluated the patient with these recommendations. Recommend to continue with current medication regimen and close outpatient follow-up with repeat labs to monitor kidney functions. Currently no reports of chest pain, shortness of breath, or palpitations. Patient is afebrile. No reports of nausea or vomiting and patient is tolerating diet. Patient will be discharged to [facility] today. Overall guarded prognosis given significant comorbidities. Physical exam: Gen: This is a 74-year-old female who is awake, alert and oriented x 1, thin build, elderly appearing HEENT: Head is atraumatic, normocephalic. Pupils equal, round. Sclerae is anicteric. NECK: Supple. No JVD. No lymphadenopathy. No thyromegaly. LUNGS: Diminished breath sounds bilaterally otherwise clear to auscultation. No wheezes or rhonchi. No intercostal retractions. HEART: S1, S2 are muffled ABDOMEN: Soft. Bowel sounds are present. No masses. No tenderness. EXTREMITIES: No pedal edema. No calf tenderness. NEUROLOGICAL: Patient is awake, alert and oriented x1, baseline. Cranial nerves 2 through 12 are grossly intact. Diffusely weak Please refer to medication reconciliation sheet for a list of medications. The impression and plan of care has been dictated by Melody Hong, Nurse Practitioner as directed. Dr. Angel MD I have performed a history and examination and MDM of this patient, discussed the same with the dictator, and agree with the dictator's assessment and plan as written ,documented as a scribe. Based on total visit time, I have performed more than 50% of the visit. Patient Condition at Discharge: Fair Plan - Discharge Summary Discharge Rx Participant: Yes New Discharge Prescriptions: New cefUROXime axetiL [Ceftin] 500 mg PO BID 5 Days #10 tab Enoxaparin [Lovenox] 30 mg SQ DAILY each Nystatin 100,000 Unit/gm Powd [Mycostatin Powder] 1 applic TOPICAL TID each QUEtiapine [SEROquel] 12.5 mg PO BID tab Multivitamins, Thera Liquid [Theragran Liquid (formulary)] 15 ml PO DAILY ml Folic Acid 1 mg PO DAILY #30 tablet Thiamine [Vitamin B-1] 100 mg PO DAILY #30 tablet Continue Famotidine [Pepcid] 20 mg PO BID FLUoxetine HCL 80 mg PO DAILY Donepezil [Aricept] 5 mg PO HS Clopidogrel [Plavix] 75 mg PO DAILY #90 tab Droxidopa 400 mg PO TID@0800,1400,2200 levETIRAcetam [Keppra] 500 mg PO BID Mirtazapine 30 mg PO HS Midodrine HCl [ProAmatine] 10 mg PO TID@0700,1300,1800 Albuterol Inhaler [Ventolin Hfa Inhaler] 2 puff INHALATION RT-Q6H PRN PRN Reason: Shortness Of Breath Aspirin 81 mg PO DAILY #90 tab Atorvastatin [Lipitor] 40 mg PO HS Diphenoxylate HCl/Atropine [Lomotil 2.5-0.025 mg Tablet] 1 tab PO QID PRN #2 tab PRN Reason: Diarrhea Discharge Medication List Albuterol Inhaler [Ventolin Hfa Inhaler] 2 puff INHALATION RT-Q6H PRN 04/08/24 [History] Donepezil [Aricept] 5 mg PO HS 04/08/24 [History] Droxidopa 400 mg PO TID@0800,1400,2200 04/08/24 [History] FLUoxetine HCL 80 mg PO DAILY 04/08/24 [History] Famotidine [Pepcid] 20 mg PO BID 04/08/24 [History] Midodrine HCl [ProAmatine] 10 mg PO TID@0700,1300,1800 04/08/24 [History] Mirtazapine 30 mg PO HS 04/08/24 [History] levETIRAcetam [Keppra] 500 mg PO BID 04/08/24 [History] Aspirin 81 mg PO DAILY #90 tab 04/13/24 [Rx] Clopidogrel [Plavix] 75 mg PO DAILY #90 tab 04/13/24 [Rx] Atorvastatin [Lipitor] 40 mg PO HS 05/16/24 [History] Diphenoxylate HCl/Atropine [Lomotil 2.5-0.025 mg Tablet] 1 tab PO QID PRN #2 tab 05/21/24 [Rx] Enoxaparin [Lovenox] 30 mg SQ DAILY each 05/21/24 [Rx] Folic Acid 1 mg PO DAILY #30 tablet 05/21/24 [Rx] Multivitamins, Thera Liquid [Theragran Liquid (formulary)] 15 ml PO DAILY ml 05/21/24 [Rx] Nystatin 100,000 Unit/gm Powd [Mycostatin Powder] 1 applic TOPICAL TID each 05/21/24 [Rx] QUEtiapine [SEROquel] 12.5 mg PO BID tab 05/21/24 [Rx] Thiamine [Vitamin B-1] 100 mg PO DAILY #30 tablet 05/21/24 [Rx] cefUROXime axetiL [Ceftin] 500 mg PO BID 5 Days #10 tab 05/21/24 [Rx] Follow up Appointment(s)/Referral(s): Minesh Ott MD [STAFF PHYSICIAN] - 1 Week Activity/Diet/Wound Care/Special Instructions: Patient is going [facility] on the lin Activity as tolerated Continue with Ceftin twice daily for 5 days Follow-up with primary care provider on discharge Discharge Disposition: TRANSFER TO SNF/ECF
[2024-05-21] MEDS ORDERED: FLUoxetine HCL 20 MG CAP PO SCH (15:00)
--- NOTE | 2024-05-21 16:04 | P.PN ---
Subjective Progress Note Date: 05/21/24 Principal diagnosis: Reason for follow-up is E. coli UTI and groin area cutaneous candidiasis Patient is a 74-year-old female with a past medical history significant for diabetes mellitus hypertension hyperlipidemia and dementia patient has been brought into the hospital from a local long-term concerning for mental status changes patient did have a positive UA concerning for a symptomatic UTI and also evidence of right groin area cutaneous candidiasis. On today's evaluation that is 05/21/2024, Patient is afebrile patient is currently on room air and is breathing comfortably patient did have a sitter at the bedside no further agitation vomiting or diarrhea has been reported. The patient white count is 5.25, creatinine is 2.5 Objective - Vital Signs Vital signs: Vital Signs Temp 98.2 F 05/21/24 12:38 Pulse 91 05/21/24 12:38 Resp 18 05/21/24 12:38 BP 112/67 05/21/24 12:38 Pulse Ox 99 05/21/24 12:38 FiO2 Intake & Output 05/20/24 05/21/24 05/21/24 18:59 06:59 18:59 Intake Total 240 360 Output Total 1 Balance 240 -1 360 Intake: Oral 240 360 Output: Urine/Stool Mix 1 Other: Voiding Method Diaper Diaper Bedside Commode Incontinent Incontinent Diaper Incontinent # Voids 3 1 # Bowel Movements 1 - Exam GENERAL DESCRIPTION: An elderly female lying in bed in no distress RESPIRATORY SYSTEM: Unlabored breathing , decreased breath sounds at bases HEART: S1 S2 regular rate and rhythm , ABDOMEN: Soft , no tenderness EXTREMITIES: No edema feet - Labs CBC & Chem 7: 05/21/24 04:33 05/21/24 04:33 Labs: Abnormal Lab Results - Last 24 Hours (Table) 05/20/24 05/20/24 05/21/24 Range/Units 21:30 21:30 04:33 RBC 2.49 L 2.44 L (3.80-5.40) m/uL Hgb 8.1 L 7.6 L (11.4-16.0) gm/dL Hct 23.6 L 23.2 L (34.0-46.0) % RDW 15.6 H (11.5-15.5) % Plt Count 101 L 109 L (150-450) k/uL Neutrophils # 1.70 L (1.80-7.70) X 10*3/uL Monocytes # 1.47 H (0.20-1.00) X 10*3/uL Chloride 112 H (98-107) mmol/L Carbon Dioxide 19 L (22-30) mmol/L Anion Gap (4.00-12.00) mmol/L BUN 32 H (7-17) mg/dL Creatinine 2.46 H (0.52-1.04) mg/dL Est GFR (CKD-EPI) (>=60) Glucose (70-110) mg/dL POC Glucose (mg/dL) (70-110) mg/dL 05/21/24 05/21/24 Range/Units 04:33 12:15 RBC (3.80-5.40) m/uL Hgb (11.4-16.0) gm/dL Hct (34.0-46.0) % RDW (11.5-15.5) % Plt Count (150-450) k/uL Neutrophils # (1.80-7.70) X 10*3/uL Monocytes # (0.20-1.00) X 10*3/uL Chloride (98-107) mmol/L Carbon Dioxide 17.4 L (22-30) mmol/L Anion Gap 19.60 H (4.00-12.00) mmol/L BUN 33.3 H (7-17) mg/dL Creatinine 2.5 H (0.52-1.04) mg/dL Est GFR (CKD-EPI) 20 L (>=60) Glucose 66 L (70-110) mg/dL POC Glucose (mg/dL) 129 H (70-110) mg/dL Assessment and Plan (1) Cutaneous candidiasis Status: Acute Code(s): B37.2 - CANDIDIASIS OF SKIN AND NAIL SNOMED Code(s): 44496835 (2) Allergy to multiple antibiotics Status: Acute Code(s): Z88.1 - ALLERGY STATUS TO OTHER ANTIBIOTIC AGENTS SNOMED Code(s): 841636051 (3) UTI (urinary tract infection) Status: Acute Code(s): N39.0 - URINARY TRACT INFECTION, SITE NOT SPECIFIED SNOMED Code(s): 69378898 Plan: 1patient presenting to the hospital with mental status changes in this patient did have a significantly positive UA a complaint of UTI from enteric gram- negative pathogen not entirely excluded patient did have elevated creatinine however ultrasound with no hydronephrosis on the right left kidney surgically absent 2groin area cutaneous candidiasis but no secondary cellulitis, continue with the nystatin powder twice a day 3-patient with multiple antibiotic ALLERGIES that would limit the number of antibiotic safe to use 4-patient urine has been finalized with E. coli that is a sensitive pathogen, patient to finish therapy with 7-day course of oral Ceftin on discharge Dictation was produced using [employer] dictation software. please excuse any grammatical, word or spelling errors. Time with Patient: Less than 30
== END 2024-05-21 15:35 | DRG 689 ==
LOC: EC 21:46 → 5NMEDONC 23:58 → OBSVTOIN 05-20 08:50
PROVIDERS: ADMIT Hospitalist; ATTEND Hospitalist
DX: N39.0 Urinary tract infection, site not specified (principal); G93.41 Metabolic encephalopathy; C92.11 Chronic myeloid leukemia, BCR/ABL-positive, in remission; D61.818 Other pancytopenia; F03.93 Unspecified dementia, unspecified severity, with mood disturbance; N17.9 Acute kidney failure, unspecified; B37.2 Candidiasis of skin and nail; B96.20 Unspecified Escherichia coli [E. coli] as the cause of diseases classified elsewhere; R00.1 Bradycardia, unspecified; E11.9 Type 2 diabetes mellitus without complications; E78.5 Hyperlipidemia, unspecified; F32.A Depression, unspecified; F03.90 Unspecified dementia, unspecified severity, without behavioral disturbance, psychotic disturbance, mood disturbance, and anxiety; I10 Essential (primary) hypertension; I44.0 Atrioventricular block, first degree; Z79.02 Long term (current) use of antithrombotics/antiplatelets; Z79.82 Long term (current) use of aspirin; Z79.899 Other long term (current) drug therapy; Z87.891 Personal history of nicotine dependence; Z88.1 Allergy status to other antibiotic agents; Z90.5 Acquired absence of kidney; Z90.710 Acquired absence of both cervix and uterus; Z88.0 Allergy status to penicillin; Z88.2 Allergy status to sulfonamides; Z90.49 Acquired absence of other specified parts of digestive tract; Z85.528 Personal history of other malignant neoplasm of kidney; Z91.041 Radiographic dye allergy status
CPT/HCPCS: 36415; 70450; 71045; 72125; 72170; 73501; 76770; 80048; 80053; 81001; 83605; 83735; 84484; 85025; 85027; 85610; 85730; 87077; 87086; 87186; 93005; 96374; 99285

== ENCOUNTER 2024-06-12 10:21 | Inpatient (IN) | payer MEDICARE, OTHER ==
[2024-06-12 11:09] LABS: HCT 24.5 % (34.0-46.0); HGB 8.3 gm/dL (11.4-16.0); Hypochromasia Slight; MCH 33.8 pg (25.0-35.0); MCHC 34.1 g/dL (31.0-37.0); MCV 99.2 fL (80.0-100.0); Macrocytosis Slight; Mean Platelet Volume 8.1; Platelet Count 103 k/uL (150-450); RBC 2.47 m/uL (3.80-5.40); WBC 3.8 k/uL (3.8-10.6)
--- NOTE | 2024-06-12 11:22 | XR ---
EXAMINATION TYPE: XR chest 1V DATE OF EXAM: 06/12/2024 COMPARISON: 05/15/2024 CLINICAL INDICATION: Female, 74 years old with history of weakness; , TECHNIQUE: XR chest 1V views of the chest. FINDINGS: The lungs are clear and there is no pneumothorax, pleural effusion, or focal pneumonia. No overt lotus lure. Osseous structures demonstrate hypertrophic and degenerative changes of the spine. Ectasia of t he thoracic aorta with mild cardiomegaly. Arthropathy of the shoulders and generalized demineralizati on. Postsurgical change overlying the cervical spine. IMPRESSION: 1. No acute process. [facility], , 06/12/2024 11:20 AM
[2024-06-12 11:25] LABS: African American GFR (CKD) 27 (>60 ml/min/1.73 sqM); Anion Gap 8 mmol/L; Blood Urea Nitrogen 35 mg/dL (7-17); Carbon Dioxide 25 mmol/L (22-30); Chloride 107 mmol/L (98-107); Glucose 143 mg/dL (74-99); Potassium 3.4 mmol/L (3.5-5.1); Sodium 140 mmol/L (137-145)
[2024-06-12 11:26] LABS: ALT 14 U/L (4-34); AST 19 U/L (14-36); Albumin 3.5 g/dL (3.5-5.0); Alkaline Phosphatase 40 U/L (38-126); Magnesium 1.8 mg/dL (1.6-2.3); Non-African American GFR(CKD) 23 (>60 ml/min/1.73 sqM); Total Bilirubin 0.6 mg/dL (0.2-1.3); Total Protein 5.5 g/dL (6.3-8.2)
--- NOTE | 2024-06-12 11:48 | CT ---
EXAMINATION TYPE: CT brain cspine wo con CT DLP: 1300.9 mGycm, Automated exposure control for dose reduction was used. DATE OF EXAM: 06/12/2024 11:23 AM COMPARISON: CT brain C-spine 05/15/2024, MRI brain C-spine 04/10/2024, MR venogram 04/12/2024, CT brain 04/08/2024. CLINICAL INDICATION:Female, 74 years old with history of pain; Pain, Fall TECHNIQUE: Brain: Multiple axial CT images of the brain were obtained without IV contrast. Cspine: Axial CT images from the skull base to the inferior aspect of T2 we obtained without intraven ous contrast. Coronal and sagittal reformatted images were also reviewed. FINDINGS: Brain: Motion degraded exam. Extra-axial spaces: No abnormal extra-axial fluid collections. Ventricular system: Within normal limits Cerebral parenchyma: No acute intraparenchymal hemorrhage or mass effect. The gil-white junction is well differentiated. Scattered hypoattenuating areas are seen within the periventricular and subcort ical white matter. Regions of low density identified within the left frontal, left parietal lobes, an d right occipital with preservation of the cortex. Cerebellum: Unremarkable. Mass effect: No evidence of midline shift. Intracranial vasculature: Atherosclerotic calcifications of the intracranial vessels. Soft tissues: Normal. Calvarium/osseous structures: No depressed skull fracture. Paranasal sinuses and mastoid air cells: Clear. Visualized orbits: Bilateral aphakia Cervical spine: Fracture: None. Osseous structures: Multilevel degenerative disc disease changes with endplate spurring. Anterior fus ion plate C4-C7. Hardware appears intact. Vertebral alignment: Within normal limits. Spinal canal/Neural Foramina: Moderate disc space narrowing at C3-C4. Multilevel uncovertebral facet degenerative changes. Neck soft tissues: Prevertebral soft tissues are within normal limits. Multiple subcentimeter lymph n odes identified within the bilateral neck. Multiple mildly enlarged mediastinal lymph nodes identifie d measuring up to 1.1 cm. Other: The airway is patent. Patchy right posterior lung groundglass opacities. IMPRESSION: 1. No acute intracranial bleed. 2. Regions of low attenuation within the left frontal, left parietal, right occipital lobes with pres ervation of the cortices. This is slightly more prominent from prior exams. May represent evolving in farcts with underlying demyelination or neoplastic process is not excluded. Further evaluation with M RI with IV contrast is recommended 3. Nonspecific white matter changes, likely secondary to chronic small vessel ischemic disease. 4. No evidence of cervical spine fracture. 5. Multilevel degenerative disc disease. Postsurgical changes from ACDF C4-C7. Hardware appears intac t. 6. Multiple nonspecific mildly enlarged mediastinal lymph nodes with additional mildly prominent neck lymph nodes. Further workup is recommended. 7. Visualized right upper lung patchy groundglass opacities which may represent developing infectious process. [facility], , 06/12/2024 11:45 AM
[2024-06-12 11:52] LABS: Appearance,Urine Clear (Clear); Bacteria,Urine Many /hpf; Bilirubin,Urine Negative (Negative); Blood,Urine Negative (Negative); Color,Urine Colorless; Eosinophils # (M) 0.04 k/uL (0-0.7); Glucose,Urine (UA) Negative (Negative); Hyaline Casts,Urine 1 /lpf (0-2); Ketones,Urine Negative (Negative); Leukocyte Esterase,Urine Negative (Negative); Lymphocytes # (M) 1.37 k/uL (1.0-4.8); Monocytes # (M) 0.42 k/uL (0-1.0); Mucus,Urine Rare /hpf; Neutrophils # (M) 2.01 k/uL (1.3-7.7); Neutrophils % (M) 53 %; Nitrite,Urine Positive (Negative); Nucleated Red Blood Cells 0 /100 WBC (0-0); PH, Urine 5.5 (5.0-8.0); Protein,Urine Trace (Negative); RBC,Urine 1 /hpf (0-5); Specific Gravity,Urine 1.006 (1.001-1.035); Squamous Epithelial Cell,Urine 2 /hpf (0-4); Total Cells Counted 200; Urobilinogen,Urine <2.0 mg/dL (<2.0); WBC,Urine 4 /hpf (0-5)
--- NOTE | 2024-06-12 12:19 | ED ---
Fall HPI - General Chief Complaint: Fall Stated Complaint: Fall-head injury Time Seen by Provider: 06/12/24 10:25 Source: EMS, RN notes reviewed, old records reviewed Mode of arrival: EMS Limitations: altered mental status - History of Present Illness Initial Comments: 74-year-old female presents emergency department with chief complaint of head injury, agitation. Patient really had a head injury yesterday was scheduled for CT of her brain today but became agitated this morning in which they gave her Haldol. Patient is unable to provide any information at this time as she is sleeping, altered. Patient reportedly has had a history of CLL and prior stroke and has been at [facility]. Patient has no obvious extremity injuries she does have diffuse bruising. Patient reportedly had head injury. No reports of blood thinners recently stopped Plavix. - Related Data Home Medications Medication Instructions Recorded Confirmed Albuterol Inhaler [Ventolin Hfa 2 puff INHALATION RT-Q6H PRN 04/08/24 06/12/24 Inhaler] Donepezil [Aricept] 5 mg PO HS 04/08/24 06/12/24 Droxidopa 400 mg PO TID@0800,1400,2200 04/08/24 06/12/24 FLUoxetine HCL 80 mg PO DAILY 04/08/24 06/12/24 Famotidine [Pepcid] 20 mg PO BID@0900,1700 04/08/24 06/12/24 Midodrine HCl [ProAmatine] 10 mg PO TID@0700,1300,1800 04/08/24 06/12/24 levETIRAcetam [Keppra] 500 mg PO BID@0900,1700 04/08/24 06/12/24 Atorvastatin [Lipitor] 40 mg PO HS 05/16/24 06/12/24 Lactose-Reduced Food [Ensure Plus] 1 can PO BID@0900,1700 06/12/24 06/12/24 Previous Rx's Medication Instructions Recorded Aspirin 81 mg PO DAILY #90 tab 04/13/24 Diphenoxylate HCl/Atropine 1 tab PO QID PRN #2 tab 05/21/24 [Lomotil 2.5-0.025 mg Tablet] Folic Acid 1 mg PO DAILY #30 tablet 05/21/24 Multivitamins, Thera Liquid 15 ml PO DAILY ml 05/21/24 [Theragran Liquid (formulary)] Thiamine [Vitamin B-1] 100 mg PO DAILY #30 tablet 05/21/24 Allergies Allergy/AdvReac Type Severity Reaction Status Date / Time cephalexin [From Keflex] Allergy Rash/Hives Verified 06/12/24 12:21 ciprofloxacin [From Cipro] Allergy Rash/Hives Verified 06/12/24 12:21 iodine Allergy Rash/Hives Verified 06/12/24 12:21 Sulfa (Sulfonamide Allergy Unknown Verified 06/12/24 12:21 Antibiotics) Review of Systems ROS Statement: Those systems with pertinent positive or pertinent negative responses have been documented in the HPI. ROS Other: All systems not noted in ROS Statement are negative. Past Medical History Past Medical History: Cancer, CVA/TIA, Dementia, Diabetes Mellitus, GERD/Reflux, Hyperlipidemia, Hypertension, Seizure Disorder Additional Past Medical History / Comment(s): tremors, traumatic brain injury, metabolic encephalopathy, CLL B cell Type, R sided weakness History of Any Multi-Drug Resistant Organisms: None Reported Past Surgical History: Appendectomy, Cholecystectomy, Hysterectomy Additional Past Surgical History / Comment(s): left kidney removed Past Anesthesia/Blood Transfusion Reactions: No Reported Reaction Past Psychological History: Depression Smoking Status: Unknown if ever smoked Past Alcohol Use History: Unable to Obtain Past Drug Use History: Unable to Obtain General Exam Limitations: altered mental status General appearance: alert, in no apparent distress Head exam: Present: atraumatic, normocephalic, normal inspection Eye exam: Present: normal appearance, PERRL, EOMI. Absent: scleral icterus, c onjunctival injection, periorbital swelling Neck exam: Present: normal inspection, full ROM. Absent: tenderness, meningismus, lymphadenopathy Respiratory exam: Present: normal lung sounds bilaterally. Absent: respiratory distress, wheezes, rales, rhonchi, stridor Cardiovascular Exam: Present: regular rate, normal rhythm, normal heart sounds. Absent: systolic murmur, diastolic murmur, rubs, gallop, clicks GI/Abdominal exam: Present: soft, normal bowel sounds. Absent: distended, tenderness, guarding, rebound, rigid Neurological exam: Present: altered. Absent: oriented X3 Skin exam: Present: warm, dry, intact, normal color. Absent: rash Course Vital Signs 06/12/24 06/12/24 10:24 13:00 Temperature 97.9 F Pulse Rate 79 76 Respiratory 18 18 Rate Blood Pressure 100/59 109/57 O2 Sat by Pulse 98 95 Oximetry Medical Decision Making - Medical Decision Making Was pt. sent in by a medical professional or institution (SHIELA Swartz, [employer], urgent care, hospital, or [facility]...) When possible be specific @ -half-way Did you speak to anyone other than the patient for history (EMS, parent, family, police, friend...)? What history was obtained from this source @ -No Did you review nursing and triage notes (agree or disagree)? Why? @ -I reviewed and agree with nursing and triage notes Were old charts reviewed (outside hosp., previous admission, EMS record, old EKG, old radiological studies, urgent care reports/EKG's, [facility] records)? Report findings @ -No old charts were reviewed Differential Diagnosis (chest pain, altered mental status, abdominal pain women, abdominal pain men, vaginal bleeding, weakness, fever, dyspnea, syncope, headache, dizziness, GI bleed, back pain, seizure, CVA, palpatations, mental health, musculoskeletal)? @ -Differential Altered Mental Status: Hypoglycemia, DKA, hypercapnia, ETOH, overdose, CO poisoning, trauma, myxedema coma, HTN encephalopathy, infection, encephalitis, psychosis, intercranial hemorrhage, hepatic encephalopathy, meningitis, CVA, this is not meant to be an all-inclusive list EKG interpreted by me (3pts min.). @ -As above X-rays interpreted by me (1pt min.). @ -Chest x-ray shows no acute cardiopulmonary process. CT interpreted by me (1pt min.). @ -CT shows no acute intracranial hemorrhage, there is evolving stroke over area of prior or metastatic disease U/S interpreted by me (1pt. min.). @ -None done What testing was considered but not performed or refused? (CT, X-rays, U/S, labs)? Why? @ -None What meds were considered but not given or refused? Why? @ -None Did you discuss the management of the patient with other professionals (professionals i.e. SHIELA Swartz, [employer], lab, RT, psych nurse, social human services assistants, skirt clipper, teacher, training systems officer, shoe parts caser)? Give summary @ -Sound physician group for admission Was smoking cessation discussed for >3mins.? @ -No Was critical care preformed (if so, how long)? @ -No Were there social determinants of health that impacted care today? How? (Homelessness, low income, unemployed, alcoholism, drug addiction, transportation, low edu. Level, literacy, decrease access to med. care, residential, rehab)? @ -No Was there de-escalation of care discussed even if they declined (Discuss DNR or withdrawal of care, Hospice)? DNR status @ -No What co-morbidities impacted this encounter? (DM, HTN, Smoking, COPD, CAD, Cancer, CVA, ARF, Chemo, Hep., AIDS, mental health diagnosis, sleep apnea, morbid obesity)? @ -CVA, CLL Was patient admitted / discharged? Hospital course, mention meds given and route, prescriptions, significant lab abnormalities, going to OR and other pertinent info. @ -Admitted patient presented from [facility] for altered mental status, increased agitation mental decline. Patient still sleeping may be from medication induced CT concerning for metastatic disease versus evolving CVA. Patient be admitted with neurology consult Undiagnosed new problem with uncertain prognosis? @ -No Drug Therapy requiring intensive monitoring for toxicity (Heparin, Nitro, Insulin, Cardizem)? @ -No Were any procedures done? @ -No Diagnosis/symptom? @ -CVA, AMS, UTI Acute, or Chronic, or Acute on Chronic? @ -acute Uncomplicated (without systemic symptoms) or Complicated (systemic symptoms)? @ -complicated Side effects of treatment? @ -No Exacerbation, Progression, or Severe Exacerbation? @ -No Poses a threat to life or bodily function? How? (Chest pain, [place], AL, pneumonia, PE, COPD, DKA, ARF, appy, cholecystitis, CVA, Diverticulitis, Homicidal, Suicidal, threat to staff... and all critical care pts) @ -No - Lab Data Result diagrams: 06/12/24 10:51 06/12/24 10:51 Lab Results 06/12/24 06/12/24 06/12/24 Range/Units 10:51 10:51 10:51 WBC 3.8 (3.8-10.6) k/uL RBC 2.47 L (3.80-5.40) m/uL Hgb 8.3 L (11.4-16.0) gm/dL Hct 24.5 L (34.0-46.0) % MCV 99.2 (80.0-100.0) fL MCH 33.8 (25.0-35.0) pg MCHC 34.1 (31.0-37.0) g/dL RDW 16.0 H (11.5-15.5) % Plt Count 103 L (150-450) k/uL MPV 8.1 Neutrophils % (Manual) 53 % Lymphocytes % (Manual) 36 % Monocytes % (Manual) 11 % Eosinophils % (Manual) 1 % Neutrophils # (Manual) 2.01 (1.3-7.7) k/uL Lymphocytes # (Manual) 1.37 (1.0-4.8) k/uL Monocytes # (Manual) 0.42 (0-1.0) k/uL Eosinophils # (Manual) 0.04 (0-0.7) k/uL Nucleated RBCs 0 (0-0) /100 WBC Manual Slide Review Performed Hypochromasia Slight Macrocytosis Slight Sodium 140 (137-145) mmol/L Potassium 3.4 L (3.5-5.1) mmol/L Chloride 107 (98-107) mmol/L Carbon Dioxide 25 (22-30) mmol/L Anion Gap 8 mmol/L BUN 35 H (7-17) mg/dL Creatinine 2.10 H (0.52-1.04) mg/dL Est GFR (CKD-EPI)AfAm 27 (>60 ml/min/1.73 sqM) Est GFR (CKD-EPI)NonAf 23 (>60 ml/min/1.73 sqM) Glucose 143 H (74-99) mg/dL Plasma Lactic Acid El (0.7-2.0) mmol/L Calcium 9.0 (8.4-10.2) mg/dL Magnesium 1.8 (1.6-2.3) mg/dL Total Bilirubin 0.6 (0.2-1.3) mg/dL AST 19 (14-36) U/L ALT 14 (4-34) U/L Alkaline Phosphatase 40 (38-126) U/L Troponin I (0.000-0.034) ng/mL Total Protein 5.5 L (6.3-8.2) g/dL Albumin 3.5 (3.5-5.0) g/dL Urine Color Colorless Urine Appearance Clear (Clear) Urine pH 5.5 (5.0-8.0) Ur Specific [place] 1.006 (1.001-1.035) Urine Protein Trace H (Negative) Urine Glucose (UA) Negative (Negative) Urine Ketones Negative (Negative) Urine Blood Negative (Negative) Urine Nitrite Positive H (Negative) Urine Bilirubin Negative (Negative) Urine Urobilinogen <2.0 (<2.0) mg/dL Ur Leukocyte Esterase Negative (Negative) Urine RBC 1 (0-5) /hpf Urine WBC 4 (0-5) /hpf Ur Squamous Epith Cells 2 (0-4) /hpf Urine Bacteria Many H (None) /hpf Hyaline Casts 1 (0-2) /lpf Urine Mucus Rare H (None) /hpf 06/12/24 06/12/24 Range/Units 10:51 10:51 WBC (3.8-10.6) k/uL RBC (3.80-5.40) m/uL Hgb (11.4-16.0) gm/dL Hct (34.0-46.0) % MCV (80.0-100.0) fL MCH (25.0-35.0) pg MCHC (31.0-37.0) g/dL RDW (11.5-15.5) % Plt Count (150-450) k/uL MPV Neutrophils % (Manual) % Lymphocytes % (Manual) % Monocytes % (Manual) % Eosinophils % (Manual) % Neutrophils # (Manual) (1.3-7.7) k/uL Lymphocytes # (Manual) (1.0-4.8) k/uL Monocytes # (Manual) (0-1.0) k/uL Eosinophils # (Manual) (0-0.7) k/uL Nucleated RBCs (0-0) /100 WBC Manual Slide Review Hypochromasia Macrocytosis Sodium (137-145) mmol/L Potassium (3.5-5.1) mmol/L Chloride (98-107) mmol/L Carbon Dioxide (22-30) mmol/L Anion Gap mmol/L BUN (7-17) mg/dL Creatinine (0.52-1.04) mg/dL Est GFR (CKD-EPI)AfAm (>60 ml/min/1.73 sqM) Est GFR (CKD-EPI)NonAf (>60 ml/min/1.73 sqM) Glucose (74-99) mg/dL Plasma Lactic Acid El 1.7 (0.7-2.0) mmol/L Calcium (8.4-10.2) mg/dL Magnesium (1.6-2.3) mg/dL Total Bilirubin (0.2-1.3) mg/dL AST (14-36) U/L ALT (4-34) U/L Alkaline Phosphatase (38-126) U/L Troponin I <0.012 (0.000-0.034) ng/mL Total Protein (6.3-8.2) g/dL Albumin (3.5-5.0) g/dL Urine Color Urine Appearance (Clear) Urine pH (5.0-8.0) Ur Specific [place] (1.001-1.035) Urine Protein (Negative) Urine Glucose (UA) (Negative) Urine Ketones (Negative) Urine Blood (Negative) Urine Nitrite (Negative) Urine Bilirubin (Negative) Urine Urobilinogen (<2.0) mg/dL Ur Leukocyte Esterase (Negative) Urine RBC (0-5) /hpf Urine WBC (0-5) /hpf Ur Squamous Epith Cells (0-4) /hpf Urine Bacteria (None) /hpf Hyaline Casts (0-2) /lpf Urine Mucus (None) /hpf - EKG Data -: EKG Interpreted by Me EKG Comments: EKG performed at 10: 31 sinus rhythm rate of 78 OH 196 QRS 92 QT/QTc 409/442 Disposition Clinical Impression: AMS (altered mental status), UTI (urinary tract infection), CLL (chronic lymphocytic leukemia), CVA (cerebral vascular accident) Disposition: ADMITTED IP TO THIS [facility] Condition: Fair Referrals: Nonstaff,Physician [Primary Care Provider] - 1-2 days Time of Disposition: 13:22
[2024-06-12] MEDS: PIPERACILLIN-TAZOBACTAM 3.375 GM in SODIUM CHLORIDE 0.9% 100 ML IVPB STA (12:58)
[2024-06-12] MEDS ORDERED: ONDANSETRON 4 MG/2 ML VIAL IVP PRN (13:06)
[2024-06-12] MEDS ORDERED: ACETAMINOPHEN TAB 325 MG TAB PO PRN (13:06)
[2024-06-12] MEDS ORDERED: NALOXONE 0.4 MG/ML 1 ML VIAL IV PRN (13:06)
[2024-06-12] MEDS ORDERED: ALBUTEROL NEBULIZED 2.5 MG/3 ML INHALATION PRN (13:08)
--- NOTE | 2024-06-12 13:41 | P.HPIM ---
History of Present Illness H&P Date: 06/12/24 History of Presenting Illness: Patient is a pleasant 74-year-old female with a past medical history of advanced dementia, CLL, hypertension, hyperlipidemia, recent CVA with right sided deficits along with visual and speech deficits, CKD stage IIIb, and seizure disorder. Patient recently suffered from a left frontal stroke with right sided deficits along with visual and speech deficits in April 2024 and has been at [facility] for correction rehab. She presented to our facility with reports of agitation and worsening confusion status post fall from bed at nursing facility yesterday. Patient was scheduled for CT head today outpatient but due to worsening agitation and confusion and concerns of head injury she was sent to our emergency department for evaluation. Patient with advanced dementia and significant aphasia information was obtained from ED provider, documentation in chart, and via telephone conversation with patient's son Matt. On arrival to our facility, patient underwent evaluation in the emergency department. Vital signs upon arrival show blood pressure 100/59, heart rate 79, respiratory rate 18, temp 97.9 F, and SpO2 of 90% on room air. EKG completed showing normal sinus rhythm at [address] head and cervical spine showing regions of low- attenuation within the left frontal, left parietal, right occipital lobes with preservation of the cortices reported to be more prominent from prior exams possibly representing evolving infarcts with underlying demyelination however neoplastic process cannot be ruled out. CT cervical spine negative for acute process showing no evidence of cervical spine fracture revealing multiple nonspecific mildly enlarged mediastinal lymph nodes with additional mildly prominent neck lymph nodes and concerns of right upper lung patchy groundglass opacities. Labs completed and reviewed. CBC showing bicytopenia with hemoglobin of 8.3 and platelet count of 103. BMP showing hypokalemia with potassium of 3.4 and elevated renal function with BUN of 35, creatinine 2.10, GFR of 23 at baseline. Blood glucose 143. Lactic acid 1.7. Magnesium 1.8. Liver profile unremarkable. Troponin less than 0.012. Urinalysis positive for nitrites. Patient started on antibiotics with Zosyn. She was admitted under our services with consultation to neurology and hematology/oncology. Review of systems: Pertinent positives and negatives as discussed in HPI, a complete review of systems was performed and all other systems are negative. Physical exam: Vital signs reviewed and stable. General: Nontoxic, no distress and appears stated age. Derm: Skin warm and dry, normal coloration for ethnicity. Patient with multiple significant areas of bruising to bilateral upper and lower extremities in different stages of healing. Head: Atraumatic, normocephalic and symmetric. Eyes: EOM's intact, no lid lag, and anicteric sclera Mouth: no lip lesions, mucus membranes moist Cardiovascular: regular rate and rhythm with normal S1S2, no murmur, positive posterior tibial pulses bilaterally, and cap refill < 2 seconds. Lungs: Respirations even, regular, and unlabored on room air. Lungs CTA bilaterally, no rhonchi, no rales, no wheezing, and no accessory muscle usage. Abdominal: soft, nontender to palpation, no guarding, no appreciable organomegaly Ext: ROM intact. No gross muscle atrophy, no edema, no contractures Neuro: Patient with significant aphasia, unable to follow commands. Right upper extremity tremor. Psych: Alert and oriented to person only. Confused and appears slightly agitated. Assessment and Plan of Care: Metabolic encephalopathy, possibly multifactorial secondary to infectious process vs evolving stroke Nitrite positive UTI Groundglass opacities right upper lobe, unable to rule out infectious process Reported fall with head injury Advanced dementia with agitation and aggressive behaviors History of recent CVA with multiple deficits History of seizure disorder -Consult neurology -MRI brain without contrast -NIH stroke scale with neuro checks every 4 hours and as needed -Daily aspirin 81 mg daily and atorvastatin 40 mg daily. -warping machine operator brought to bedside secondary to agitation and confusion -PT/OT consult -Fall precautions and provide pt with assistance as needed -Patient to remain on continuous telemetry monitoring. -Patient started on IV antibiotics with Zosyn 3.375 g every 12 hours for treatment of nitrite positive UTI and groundglass opacities of right upper lobe. -Patient to continue with Aricept 5 mg nightly droxidopa 400 mg 3 times daily, and Keppra 500 mg twice daily. CLL Bicytopenia, secondary to above Enlarged mediastinal lymph nodes with additional mildly prominent neck lymph nodes, likely secondary to CLL -Patient's son reports patient follows with scalper operator/oncologist and undergoes monthly transfusions. -Per patient's son scalper operator states patient is not to receive any blood thinners. -Hematology/oncology consulted. Chronic kidney disease stage IIIb -Renal function showing BUN of 35, creatinine 2.10, GFR of 23 and renal function appears to be stable at patient's baseline. Data and imaging reviewed: As stated above in HPI The patient is admitted with an anticipated greater than 2 midnight stay for evaluation of acute metabolic encephalopathy possibly worsening CVA versus acute CVA. CODE STATUS: DNR/DNI per discussion with patient's sonLuis DVT prophylaxis: DAMION andre and SCDs as patient's son stated patient is not to receive any anticoagulation per her scalper operator as she has "severe reactions to any blood thinners". Anticipated discharge date: Pending clinical course Anticipated discharge place: Pending clinical course Patient was seen independently by Nurse Practitioner. This document was prepared using [employer] dictation software. Please allow for errors in split leather mosser while rare they do occur. Hakeem Pleitez NP rendered care for this patient independently, reviewed the findings and plan as documented in the note above and agree with plan. I did not physically speak with or examine the patient on this date. Past Medical History Past Medical History: Cancer, CVA/TIA, Dementia, Diabetes Mellitus, GERD/Reflux, Hyperlipidemia, Hypertension, Seizure Disorder Additional Past Medical History / Comment(s): tremors, traumatic brain injury, metabolic encephalopathy, CLL B cell Type, R sided weakness History of Any Multi-Drug Resistant Organisms: None Reported Past Surgical History: Appendectomy, Cholecystectomy, Hysterectomy Additional Past Surgical History / Comment(s): left kidney removed Past Anesthesia/Blood Transfusion Reactions: No Reported Reaction Past Psychological History: Depression Smoking Status: Unknown if ever smoked Past Alcohol Use History: Unable to Obtain Past Drug Use History: Unable to Obtain Medications and Allergies Home Medications Medication Instructions Recorded Confirmed Type Albuterol Inhaler [Ventolin Hfa 2 puff INHALATION RT-Q6H PRN 04/08/24 06/12/24 History Inhaler] Donepezil [Aricept] 5 mg PO HS 04/08/24 06/12/24 History Droxidopa 400 mg PO TID@0800,1400,2200 04/08/24 06/12/24 History FLUoxetine HCL 80 mg PO DAILY 04/08/24 06/12/24 History Famotidine [Pepcid] 20 mg PO BID@0900,1700 04/08/24 06/12/24 History Midodrine HCl [ProAmatine] 10 mg PO TID@0700,1300,1800 04/08/24 06/12/24 History levETIRAcetam [Keppra] 500 mg PO BID@0900,1700 04/08/24 06/12/24 History Aspirin 81 mg PO DAILY #90 tab 04/13/24 06/12/24 Rx Atorvastatin [Lipitor] 40 mg PO HS 05/16/24 06/12/24 History Diphenoxylate HCl/Atropine 1 tab PO QID PRN #2 tab 05/21/24 06/12/24 Rx [Lomotil 2.5-0.025 mg Tablet] Folic Acid 1 mg PO DAILY #30 tablet 05/21/24 06/12/24 Rx Multivitamins, Thera Liquid 15 ml PO DAILY ml 05/21/24 06/12/24 Rx [Theragran Liquid (formulary)] Thiamine [Vitamin B-1] 100 mg PO DAILY #30 tablet 05/21/24 06/12/24 Rx Lactose-Reduced Food [Ensure Plus] 1 can PO BID@0900,1700 06/12/24 06/12/24 History Allergies Allergy/AdvReac Type Severity Reaction Status Date / Time cephalexin [From Keflex] Allergy Rash/Hives Verified 06/12/24 12:21 ciprofloxacin [From Cipro] Allergy Rash/Hives Verified 06/12/24 12:21 clopidogrel [From Plavix] Allergy Unknown Verified 06/12/24 18:05 iodine Allergy Rash/Hives Verified 06/12/24 12:21 Sulfa (Sulfonamide Allergy Unknown Verified 06/12/24 12:21 Antibiotics) Physical Exam Vitals: Vital Signs Temp Pulse Resp BP Pulse Ox 06/12/24 13:00 76 18 109/57 95 06/12/24 10:24 97.9 F 79 18 100/59 98 Intake and Output 06/11/24 06/12/24 06/12/24 22:59 06:59 14:59 Other: Weight 61.552 kg Results CBC & Chem 7: 06/12/24 10:51 06/12/24 10:51 Labs: Abnormal Lab Results - Last 24 Hours (Table) 06/12/24 06/12/24 06/12/24 Range/Units 10:51 10:51 10:51 RBC 2.47 L (3.80-5.40) m/uL Hgb 8.3 L (11.4-16.0) gm/dL Hct 24.5 L (34.0-46.0) % RDW 16.0 H (11.5-15.5) % Plt Count 103 L (150-450) k/uL Potassium 3.4 L (3.5-5.1) mmol/L BUN 35 H (7-17) mg/dL Creatinine 2.10 H (0.52-1.04) mg/dL Glucose 143 H (74-99) mg/dL Total Protein 5.5 L (6.3-8.2) g/dL Urine Protein Trace H (Negative) Urine Nitrite Positive H (Negative) Urine Bacteria Many H (None) /hpf Urine Mucus Rare H (None) /hpf
[2024-06-12] MEDS: HALOPERIDOL LACTATE 5 MG/ML 1 ML VIAL IM STA (14:31)
[2024-06-12] MEDS: DROXIDOPA 200 MG PO SCH (15:37)
[2024-06-12] MEDS ORDERED: NON FORMULARY DRUG (Lactose-Reduced Food [Ensure Plus] 237 ML Ml) PO SCH (17:00)
[2024-06-12] MEDS: MIDODRINE 5 MG TAB PO SCH (17:57)
[2024-06-12] MEDS: levETIRAcetam 500 MG TAB PO SCH (17:57)
[2024-06-12] MEDS: OLANZapine 10 MG VIAL IM STA (20:30)
[2024-06-12] MEDS: PIPERACILLIN-TAZOBACTAM 3.375 GM in SODIUM CHLORIDE 0.9% 100 ML IVPB SCH (20:47)
[2024-06-12] MEDS ORDERED: HEPARIN SODIUM,PORCINE 5,000 UNIT/ML 1 ML VIAL SQ SCH (21:00)
[2024-06-12] MEDS: ATORVASTATIN 40 MG TAB PO SCH (22:12)
[2024-06-12] MEDS: DONEPEZIL 5 MG TAB PO SCH (22:19)
[2024-06-13] MEDS: HALOPERIDOL LACTATE 5 MG/ML 1 ML VIAL IM STA ×2 (00:09→23:31)
[2024-06-13] MEDS: QUEtiapine 50 MG TAB PO STA (00:36)
[2024-06-13] MEDS: LORazepam 2 MG/ML INJ IV PRN (00:54)
[2024-06-13 07:50] LABS: HCT 25.2 % (34.0-46.0); HGB 8.4 gm/dL (11.4-16.0); MCH 33.3 pg (25.0-35.0); MCHC 33.2 g/dL (31.0-37.0); MCV 100.3 fL (80.0-100.0); RBC 2.52 m/uL (3.80-5.40); WBC 4.8 k/uL (3.8-10.6)
[2024-06-13 07:51] LABS: Hypochromasia Slight; Macrocytosis Slight; Platelet Count 113 k/uL (150-450); RDW 15.7 % (11.5-15.5)
[2024-06-13 08:07] LABS: ALT 14 U/L (4-34); AST 24 U/L (14-36); African American GFR (CKD) 29 (>60 ml/min/1.73 sqM); Albumin 3.7 g/dL (3.5-5.0); Alkaline Phosphatase 46 U/L (38-126); Anion Gap 6 mmol/L; Blood Urea Nitrogen 31 mg/dL (7-17); Calcium 9.3 mg/dL (8.4-10.2); Carbon Dioxide 27 mmol/L (22-30); Chloride 109 mmol/L (98-107); Glucose 85 mg/dL (74-99); Magnesium 1.8 mg/dL (1.6-2.3); Non-African American GFR(CKD) 25 (>60 ml/min/1.73 sqM); Potassium 3.9 mmol/L (3.5-5.1); Sodium 142 mmol/L (137-145); Total Bilirubin 0.9 mg/dL (0.2-1.3); Total Protein 5.8 g/dL (6.3-8.2)
[2024-06-13] MEDS: FLUoxetine HCL 20 MG CAP PO SCH (09:18)
[2024-06-13] MEDS: ASPIRIN 81 MG PO SCH (09:18)
[2024-06-13] MEDS: FAMOTIDINE 20 MG TAB PO SCH (09:19)
[2024-06-13] MEDS: MULTIVITAMINS, THERA 1 EACH TAB PO SCH (09:24)
[2024-06-13] MEDS: THIAMINE 100 MG TAB PO SCH (09:24)
[2024-06-13] MEDS: FOLIC ACID 1 MG TAB PO SCH (09:24)
[2024-06-13 11:01] LABS: T4, Free (Free Thyroxine) 0.98 ng/dL (0.78-2.19)
[2024-06-13] MEDS: DARBEPOETIN ALFA 25 MCG/0.42 ML SYRINGE SQ SCH (12:33)
--- NOTE | 2024-06-13 13:37 | P.PN ---
Subjective Progress Note Date: 06/13/24 Hospital course: Patient is a pleasant 74-year-old female with a past medical history of advanced dementia, CLL, hypertension, hyperlipidemia, recent CVA with right sided deficits along with visual and speech deficits, CKD stage IIIb, and seizure disorder. Patient recently suffered from a left frontal stroke with right sided deficits along with visual and speech deficits in April 2024 and has been at [facility] for [facility] rehab. She presented to our facility with reports of agitation and worsening confusion status post fall from bed at nursing facility yesterday. Patient was scheduled for CT head today outpatient but due to worsening agitation and confusion and concerns of head injury she was sent to our emergency department for evaluation. Patient with advanced dementia and significant aphasia information was obtained from ED provider, documentation in chart, and via telephone conversation with patient's son Matt. On arrival to our facility, patient underwent evaluation in the emergency department. Vital signs upon arrival show blood pressure 100/59, heart rate 79, respiratory rate 18, temp 97.9 F, and SpO2 of 90% on room air. EKG completed showing normal sinus rhythm at [address] head and cervical spine showing regions of low- attenuation within the left frontal, left parietal, right occipital lobes with preservation of the cortices reported to be more prominent from prior exams possibly representing evolving infarcts with underlying demyelination however neoplastic process cannot be ruled out. CT cervical spine negative for acute process showing no evidence of cervical spine fracture revealing multiple nonspecific mildly enlarged mediastinal lymph nodes with additional mildly prominent neck lymph nodes and concerns of right upper lung patchy groundglass opacities. Labs completed and reviewed. CBC showing bicytopenia with hemoglobin of 8.3 and platelet count of 103. BMP showing hypokalemia with potassium of 3.4 and elevated renal function with BUN of 35, creatinine 2.10, GFR of 23 at baseline. Blood glucose 143. Lactic acid 1.7. Magnesium 1.8. Liver profile unremarkable. Troponin less than 0.012. Urinalysis positive for nitrites. Patient started on antibiotics with Zosyn. She was admitted under our services with consultation to neurology and hematology/oncology. Physical exam: Patient seen and fully evaluated at bedside this morning. Condition remains unchanged. She remains alert to self only and easily agitated and fidgety. Awaiting MRI to be completed. Vital signs reviewed and stable. General: Nontoxic, no distress and appears stated age. Derm: Skin warm and dry, normal coloration for ethnicity. Patient with multiple significant areas of bruising to bilateral upper and lower extremities in different stages of healing. Head: Atraumatic, normocephalic and symmetric. Eyes: EOM's intact, no lid lag, and anicteric sclera Mouth: no lip lesions, mucus membranes moist Cardiovascular: regular rate and rhythm with normal S1S2, no murmur, positive posterior tibial pulses bilaterally, and cap refill < 2 seconds. Lungs: Respirations even, regular, and unlabored on room air. Lungs CTA b ilaterally, no rhonchi, no rales, no wheezing, and no accessory muscle usage. Abdominal: soft, nontender to palpation, no guarding, no appreciable organomegaly Ext: ROM intact. No gross muscle atrophy, no edema, no contractures Neuro: Patient with significant aphasia, unable to follow commands. Right upper extremity and facial tremor. Psych: Alert and oriented to person only. Confused and appears slightly agitated. Assessment and Plan of Care: Metabolic encephalopathy, possibly multifactorial secondary to infectious process vs evolving stroke Nitrite positive UTI Groundglass opacities right upper lobe, unable to rule out infectious process Reported fall with head injury Advanced dementia with agitation and aggressive behaviors History of recent CVA with multiple deficits History of seizure disorder -Consult neurology and discussed case in detail with neurologist, Dr. Vyas, who reports in agreement with obtaining MRI brain and recommending EEG as well.. -MRI brain without contrast was ordered and awaiting completion. -NIH stroke scale with neuro checks every 4 hours and as needed -Daily aspirin 81 mg daily and atorvastatin 40 mg daily. -dog or animal sitter to remain at bedside secondary to agitation and confusion -PT/OT consult -Fall precautions and provide pt with assistance as needed -Patient to remain on continuous telemetry monitoring. -Continue IV antibiotics with Zosyn 3.375 g every 12 hours for treatment of nitrite positive UTI and groundglass opacities of right upper lobe concerning for possible atypical pneumonia. -Patient to continue with Aricept 5 mg nightly droxidopa 400 mg 3 times daily, and Keppra 500 mg twice daily. CLL Bicytopenia, secondary to above Enlarged mediastinal lymph nodes with additional mildly prominent neck lymph nodes, likely secondary to CLL -Patient's son reports patient follows with vice president for philanthropy/oncologist and undergoes monthly transfusions. -Per patient's son vice president for philanthropy states patient is not to receive any blood thinners. -Hematology/oncology consulted discussed case with both vice president for philanthropy/oncologist and Heme/Onc POLITICAL CONSULTANT in detail. Chronic kidney disease stage IIIb -Renal function showing BUN of 31, creatinine 1.98, and GFR of 25 and renal function appears to be stable at patient's baseline. Data and imaging reviewed: -Morning labs reviewed. CBC showing stable bicytopenia with hemoglobin of 8.4 and platelet count of 113. BMP showing hyperchloremia with chloride of 109, BUN of 31, creatinine 1.98, and GFR of 25. Blood glucose 85. Magnesium 1.8. Liver profile normal findings. TSH 7.830 with normal free T4 of 0.98. -Vital signs reviewed. Blood pressure 113/71, heart rate 68, respiratory rate 16, temp 97.8 F, and SpO2 of 97% on room air. CODE STATUS: DNR/DNI per discussion with patient's sonLuis DVT prophylaxis: DAMION andre and SCDs as patient's son stated patient is not to receive any anticoagulation per her vice president for philanthropy as she has "severe reactions to any blood thinners". Anticipated discharge date: Pending clinical course Anticipated discharge place: Pending clinical course Patient was seen independently by Nurse Practitioner. This document was prepared using [employer] dictation software. Please allow for er rors in [place] while rare they do occur. Hakeem Pleitez NP rendered care for this patient independently, reviewed the findings and plan as documented in the note above and agree with plan. I did not physically speak with or examine the patient on this date. Objective - Vital Signs Vital signs: Vital Signs Temp 97.8 F 06/13/24 08:06 Pulse 68 06/13/24 08:06 Resp 16 06/13/24 08:06 BP 113/71 06/13/24 08:06 Pulse Ox 97 06/13/24 08:06 FiO2 Intake & Output 06/12/24 06/13/24 06/13/24 18:59 06:59 18:59 Weight 61.552 kg - Labs CBC & Chem 7: 06/13/24 07:34 06/13/24 07:29 Labs: Abnormal Lab Results - Last 24 Hours (Table) 06/12/24 06/12/24 06/12/24 Range/Units 10:51 10:51 10:51 RBC 2.47 L (3.80-5.40) m/uL Hgb 8.3 L (11.4-16.0) gm/dL Hct 24.5 L (34.0-46.0) % MCV (80.0-100.0) fL RDW 16.0 H (11.5-15.5) % Plt Count 103 L (150-450) k/uL Potassium 3.4 L (3.5-5.1) mmol/L Chloride (98-107) mmol/L BUN 35 H (7-17) mg/dL Creatinine 2.10 H (0.52-1.04) mg/dL Glucose 143 H (74-99) mg/dL Total Protein 5.5 L (6.3-8.2) g/dL Urine Protein Trace H (Negative) Urine Nitrite Positive H (Negative) Urine Bacteria Many H (None) /hpf Urine Mucus Rare H (None) /hpf 06/13/24 06/13/24 Range/Units 07:29 07:34 RBC 2.52 L (3.80-5.40) m/uL Hgb 8.4 L (11.4-16.0) gm/dL Hct 25.2 L (34.0-46.0) % MCV 100.3 H (80.0-100.0) fL RDW 15.7 H (11.5-15.5) % Plt Count 113 L (150-450) k/uL Potassium (3.5-5.1) mmol/L Chloride 109 H (98-107) mmol/L BUN 31 H (7-17) mg/dL Creatinine 1.98 H (0.52-1.04) mg/dL Glucose (74-99) mg/dL Total Protein 5.8 L (6.3-8.2) g/dL Urine Protein (Negative) Urine Nitrite (Negative) Urine Bacteria (None) /hpf Urine Mucus (None) /hpf
--- NOTE | 2024-06-13 15:32 | P.CONS ---
History of Present Illness - Reason for Consult Consult date: 06/13/24 hx CLL, lymphadenopathy Requesting physician: Hakeem Pleitez - Chief Complaint altered mental status - History of Present Illness Patient is a 74 year old female with a reported history of CLL. Consult placed for hx of CLL and lymphadenopathy. Pt follows with Dr. Tafoya at [facility]. HPI is limited due to patients acute confusion. During last admit patient stated she follows up every couple months with her pst manager, and her disease has been stable, but stated "my blood counts are always low." She can not recall if she has been on treatment for her CLL. Patient presented to emergency room for altered mental status, agitation and fall. Of note patient had admission 2 months ago for altered mentation/confusion. On admission CT head and cervical spine showed no acute intracranial bleed. Regions of low-attenuation within the left frontal, left parietal, right occipital lobes with preservation of the cortices. Slightly more prominent from prior exams. May represent evolving infarcts with underlying demyelination or neoplastic process. Nonspecific white matter changes. No evidence of cervical spine fracture. Multiple nonspecific mildly enlarged mediastinal lymph nodes with additional mildly prominent neck lymph nodes. Visualized right upper lobe patchy groundglass opacities. UA suspicious for UTI, Zosyn started. WBC 4.8, hemoglobin 8.4, platelets 113,000. Creatinine 1.98, GFR 25. During last admission MRI brain revealed high T1 signal lesions in the dural space as well as multiple lesions along the dura on the left which demonstrate high FLAIR signal. And findings within the left posterior parietal region is felt to represent ischemia. MRV brain was then obtained showing no evidence of venous sinus thrombosis. There remains high signal along the cerebral cortex on the left possibly related to slow flow within the cortical veins. During previous anemia workup in 04/2024, no nutritional deficiencies were noted, anemia related to inflammation. Immunofixation showing IgM kappa paraprotein, M spike 0.14, kappa lambda ratio 8.26. Review of Systems Limited due to mental status, no family at bedside Past Medical History Past Medical History: Cancer, CVA/TIA, Dementia, Diabetes Mellitus, GERD/Reflux, Hyperlipidemia, Hypertension, Seizure Disorder Additional Past Medical History / Comment(s): tremors, traumatic brain injury, metabolic encephalopathy, CLL B cell Type, R sided weakness History of Any Multi-Drug Resistant Organisms: None Reported Past Surgical History: Appendectomy, Cholecystectomy, Hysterectomy Additional Past Surgical History / Comment(s): left kidney removed Past Anesthesia/Blood Transfusion Reactions: No Reported Reaction Past Psychological History: Depression Smoking Status: Unknown if ever smoked Past Alcohol Use History: Unable to Obtain Past Drug Use History: Unable to Obtain Medications and Allergies Home Medications Medication Instructions Recorded Confirmed Type Albuterol Inhaler [Ventolin Hfa 2 puff INHALATION RT-Q6H PRN 04/08/24 06/12/24 History Inhaler] Donepezil [Aricept] 5 mg PO HS 04/08/24 06/12/24 History Droxidopa 400 mg PO TID@0800,1400,2200 04/08/24 06/12/24 History FLUoxetine HCL 80 mg PO DAILY 04/08/24 06/12/24 History Famotidine [Pepcid] 20 mg PO BID@0900,1700 04/08/24 06/12/24 History Midodrine HCl [ProAmatine] 10 mg PO TID@0700,1300,1800 04/08/24 06/12/24 History levETIRAcetam [Keppra] 500 mg PO BID@0900,1700 04/08/24 06/12/24 History Aspirin 81 mg PO DAILY #90 tab 04/13/24 06/12/24 Rx Atorvastatin [Lipitor] 40 mg PO HS 05/16/24 06/12/24 History Diphenoxylate HCl/Atropine 1 tab PO QID PRN #2 tab 05/21/24 06/12/24 Rx [Lomotil 2.5-0.025 mg Tablet] Folic Acid 1 mg PO DAILY #30 tablet 05/21/24 06/12/24 Rx Multivitamins, Thera Liquid 15 ml PO DAILY ml 05/21/24 06/12/24 Rx [Theragran Liquid (formulary)] Thiamine [Vitamin B-1] 100 mg PO DAILY #30 tablet 05/21/24 06/12/24 Rx Lactose-Reduced Food [Ensure Plus] 1 can PO BID@0900,1700 06/12/24 06/12/24 History Allergies Allergy/AdvReac Type Severity Reaction Status Date / Time cephalexin [From Keflex] Allergy Rash/Hives Verified 06/12/24 12:21 ciprofloxacin [From Cipro] Allergy Rash/Hives Verified 11/06/24 12:21 clopidogrel [From Plavix] Allergy Unknown Verified 06/12/24 18:05 iodine Allergy Rash/Hives Verified 06/12/24 12:21 Sulfa (Sulfonamide Allergy Unknown Verified 06/12/24 12:21 Antibiotics) Physical Exam Vitals: Vital Signs Temp Pulse Resp BP Pulse Ox 06/13/24 08:06 97.8 F 68 16 113/71 97 06/13/24 07:11 94 102/92 99 06/13/24 02:04 79 16 103/71 99 06/13/24 01:08 68 16 102/61 97 06/12/24 23:28 20 97 06/12/24 22:19 78 120/82 97 06/12/24 20:46 74 16 132/70 98 06/12/24 19:20 18 101/65 06/12/24 13:00 76 18 109/57 95 - Constitutional General appearance: no acute distress, thin - Respiratory breathing is even and unlabored - Cardiovascular skin warm and dry - Integumentary extensive bruising Integumentary: no cyanotic - Psychiatric somnolent Results CBC & Chem 7: 06/13/24 07:34 06/13/24 07:29 Labs: Abnormal Lab Results - Last 24 Hours (Table) 06/12/24 06/12/24 06/12/24 Range/Units 10:51 10:51 10:51 RBC 2.47 L (3.80-5.40) m/uL Hgb 8.3 L (11.4-16.0) gm/dL Hct 24.5 L (34.0-46.0) % MCV (80.0-100.0) fL RDW 16.0 H (11.5-15.5) % Plt Count 103 L (150-450) k/uL Potassium 3.4 L (3.5-5.1) mmol/L Chloride (98-107) mmol/L BUN 35 H (7-17) mg/dL Creatinine 2.10 H (0.52-1.04) mg/dL Glucose 143 H (74-99) mg/dL Total Protein 5.5 L (6.3-8.2) g/dL TSH (0.465-4.680) mIU/L Urine Protein Trace H (Negative) Urine Nitrite Positive H (Negative) Urine Bacteria Many H (None) /hpf Urine Mucus Rare H (None) /hpf 06/13/24 06/13/24 06/13/24 Range/Units 07:29 07:34 07:34 RBC 2.52 L (3.80-5.40) m/uL Hgb 8.4 L (11.4-16.0) gm/dL Hct 25.2 L (34.0-46.0) % MCV 100.3 H (80.0-100.0) fL RDW 15.7 H (11.5-15.5) % Plt Count 113 L (150-450) k/uL Potassium (3.5-5.1) mmol/L Chloride 109 H (98-107) mmol/L BUN 31 H (7-17) mg/dL Creatinine 1.98 H (0.52-1.04) mg/dL Glucose (74-99) mg/dL Total Protein 5.8 L (6.3-8.2) g/dL TSH 7.830 H (0.465-4.680) mIU/L Urine Protein (Negative) Urine Nitrite (Negative) Urine Bacteria (None) /hpf Urine Mucus (None) /hpf CT Scan - head: report reviewed MRI - head: report reviewed Assessment and Plan (1) AMS (altered mental status) Current Visit: Yes Status: Acute Priority: High Code(s): R41.82 - ALTERED MENTAL STATUS, UNSPECIFIED SNOMED Code(s): 701848615 (2) CLL (chronic lymphocytic leukemia) Current Visit: Yes Status: Acute Priority: Medium Code(s): C91.10 - CHRONIC LYMPHOCYTIC LEUK OF B-CELL TYPE NOT ACHIEVE REMIS SNOMED Code(s): 67893935 (3) CVA (cerebral vascular accident) Current Visit: Yes Status: Acute Priority: High Code(s): I63.9 - CEREBRAL INFARCTION, UNSPECIFIED SNOMED Code(s): 264760209 (4) UTI (urinary tract infection) Current Visit: Yes Status: Acute Priority: High Code(s): N39.0 - URINARY TRACT INFECTION, SITE NOT SPECIFIED SNOMED Code(s): 31255098 Plan: Altered mental status: Presented for altered mental status, agitation, fall. Patient was admitted two months ago for confusion, CVA - On admission CT head and cervical spine showed no acute intracranial bleed. Regions of low-attenuation within the left frontal, left parietal, right occipital lobes with preservation of the cortices. Slightly more prominent from prior exams. May represent evolving infarcts with underlying demyelination or neoplastic process. Nonspecific white matter changes. No evidence of cervical spine fracture. Multiple nonspecific mildly enlarged mediastinal lymph nodes with additional mildly prominent neck lymph nodes. Visualized right upper lobe patchy groundglass opacities. -Noted lympadenopathy is non-specific, and can be related to infectious/inflammatory processes. Would recommend repeat imaging in 2-3 to reevaluate -UA suspicious for UTI, Zosyn started. -During last admission MRI brain revealed high T1 signal lesions in the dural space as well as multiple lesions along the dura on the left which demonstrate high FLAIR signal. And findings within the left posterior parietal region is felt to represent ischemia. MRV brain was then obtained showing no evidence of venous sinus thrombosis. There remains high signal along the cerebral cortex on the left possibly related to slow flow within the cortical veins. -Neurology consulted -MRI brain and EEG ordered CLL During last admit, patient reported a history of CLL, and follows with Dr. Tafoya at [facility]. She stated she follows up every couple months, and her disease has been stable, but stated, "my blood counts are always low." She was not sure if she has been on treatment for her CLL. -Labs reviewed,WBC 4.8, hemoglobin 8.4, platelets 113,000. Differential showing no significant abnormalities or lymphocytosis. Upon trending labs, no previous lymphocytosis has been noted, so not sure at this time, if patient actually has CLL. Will request records from her pst manager to further clarify -During previous workup in 04/2024, no nutritional deficiencies were noted, consistent with anemia of inflammation r/t CKD. Creatinine 1.98, GFR 25. Will start aranesp injections once weekly -Immunofixation showed IgM kappa paraprotein, small M spike 0.14, elevated kappa lambda ratio 8.26. Will need to see what workup she has had with Dr. Tafoya, pending review of records -F/u with Dr. Tafoya upon discharge Case discussed with admitting team attests: I have seen and examined patient, performed H&P, developed impression and plan of care. Discussed with dictator. Agree with documentation, dictated as a scribe
--- NOTE | 2024-06-13 15:50 | P.CNNES ---
History of Present Illness Consult date: 06/23/24 Requesting physician: Jeff Rodriguez Reason for Consult: cva, ams History of Present Illness: This is a 74-year-old woman with multiple medical issues some consisting of dementia, recent stroke with speech deficit as well as right visual deficit, seizure CLL, hypertension, chronic kidney presents from her nursing home rehab facility because of worsening confusion status post fall from bed. History is obtained from medical record. Per the primary team nurse practitioner she stated that the patient seems that had a recent stroke in April 2024 over the left frontal and she had residual right visual deficit as well as speech deficit. Seems the patient has advanced dementia with significant aphasia and her mentation is declining. For her seizure the patient is on Keppra 500 mg twice daily. For her dementia she is on Aricept. Some of the workup during this hospital visit consisted of: TSH is 7.83 and the free T4 is 0.98. Her creatinine is 2.1 and the BUN is 35. CT of the head and cervical spine is reported as no acute intracranial bleed. Region of low-attenuation in the left frontal left parietal and right occipital lobe were preservation of the cortices. There is slightly more prominent from prior exam may represent evolving infarct with underlying demyelination or neoplastic process is not excluded. Further evaluation with MRI with IV contrast is recommended. Nonspecific white matter changes, likely secondary due to chronic small vessel ischemic disease. No evidence of cervical spine fracture. Multilevel degenerative disc disease. Postsurgical changes from ACDF C4-C7. Hardware appears intact. Visualized right upper lung patchy groundglass opacity which may represent developing infection process. I personally reviewed the CT do not appreciate any acute or subacute stroke. Patient has old strokes predominantly left more than the right. Its predominantly in the posterior region bilaterally but the left also involves the left frontal as well. Review of Systems Limited. Past Medical History Past Medical History: Cancer, CVA/TIA, Dementia, Diabetes Mellitus, GERD/Reflux, Hyperlipidemia, Hypertension, Seizure Disorder Additional Past Medical History / Comment(s): tremors, traumatic brain injury, metabolic encephalopathy, CLL B cell Type, R sided weakness History of Any Multi-Drug Resistant Organisms: None Reported Past Surgical History: Appendectomy, Cholecystectomy, Hysterectomy Additional Past Surgical History / Comment(s): left kidney removed Past Anesthesia/Blood Transfusion Reactions: No Reported Reaction Past Psychological History: Depression Smoking Status: Unknown if ever smoked Past Alcohol Use History: Unable to Obtain Past Drug Use History: Unable to Obtain Medications and Allergies Home Medications Medication Instructions Recorded Confirmed Type Albuterol Inhaler [Ventolin Hfa 2 puff INHALATION RT-Q6H PRN 04/08/24 06/12/24 History Inhaler] Donepezil [Aricept] 5 mg PO HS 04/08/24 06/12/24 History Droxidopa 400 mg PO TID@0800,1400,2200 04/08/24 06/12/24 History FLUoxetine HCL 80 mg PO DAILY 04/08/24 06/12/24 History Famotidine [Pepcid] 20 mg PO BID@0900,1700 04/08/24 06/12/24 History Midodrine HCl [ProAmatine] 10 mg PO TID@0700,1300,1800 04/08/24 06/12/24 History levETIRAcetam [Keppra] 500 mg PO BID@0900,1700 04/08/24 06/12/24 History Aspirin 81 mg PO DAILY #90 tab 04/13/24 06/12/24 Rx Atorvastatin [Lipitor] 40 mg PO HS 05/16/24 06/12/24 History Diphenoxylate HCl/Atropine 1 tab PO QID PRN #2 tab 05/21/24 06/12/24 Rx [Lomotil 2.5-0.025 mg Tablet] Folic Acid 1 mg PO DAILY #30 tablet 05/21/24 06/12/24 Rx Multivitamins, Thera Liquid 15 ml PO DAILY ml 05/21/24 06/12/24 Rx [Theragran Liquid (formulary)] Thiamine [Vitamin B-1] 100 mg PO DAILY #30 tablet 05/21/24 06/12/24 Rx Lactose-Reduced Food [Ensure Plus] 1 can PO BID@0900,1700 06/12/24 06/12/24 History Allergies Allergy/AdvReac Type Severity Reaction Status Date / Time cephalexin [From Keflex] Allergy Rash/Hives Verified 06/12/24 12:21 ciprofloxacin [From Cipro] Allergy Rash/Hives Verified 06/12/24 12:21 clopidogrel [From Plavix] Allergy Unknown Verified 06/12/24 18:05 iodine Allergy Rash/Hives Verified 06/12/24 12:21 Sulfa (Sulfonamide Allergy Unknown Verified 06/12/24 12:21 Antibiotics) Physical Examination - Vital Signs Vital Signs: Vital Signs Temp Pulse Resp BP Pulse Ox 06/13/24 12:51 97.7 F 67 17 118/66 98 06/13/24 08:06 97.8 F 68 16 113/71 97 06/13/24 07:11 94 102/92 99 06/13/24 02:04 79 16 103/71 99 06/13/24 01:08 68 16 102/61 97 06/12/24 23:28 20 97 06/12/24 22:19 78 120/82 97 06/12/24 20:46 74 16 132/70 98 06/12/24 19:20 18 101/65 Intake and Output 06/13/24 06/13/24 06/13/24 06:59 14:59 22:59 Other: Voiding Method Diaper # Voids 1 # Bowel Movements 0 General: Lying in bed and is not in acute distress. HENT: Supple neck. Neuro: Patient is severely encephalopathic. Opens eyes to painful stimuli. She would say ouch. Otherwise not verbalizing or following commands. Pupils are 4mm and reactive to light. Has roving eyes. No apparent facial weakness. Otherwise limited. Results - Laboratory Findings CBC and BMP: 06/13/24 07:34 06/13/24 07:29 Abnormal Lab Findings: Abnormal Labs 06/12/24 06/12/24 06/12/24 10:51 10:51 10:51 RBC 2.47 L Hgb 8.3 L Hct 24.5 L MCV RDW 16.0 H Plt Count 103 L Potassium 3.4 L Chloride BUN 35 H Creatinine 2.10 H Glucose 143 H Total Protein 5.5 L TSH Urine Protein Trace H Urine Nitrite Positive H Urine Bacteria Many H Urine Mucus Rare H 06/13/24 06/13/24 06/13/24 07:29 07:34 07:34 RBC 2.52 L Hgb 8.4 L Hct 25.2 L MCV 100.3 H RDW 15.7 H Plt Count 113 L Potassium Chloride 109 H BUN 31 H Creatinine 1.98 H Glucose Total Protein 5.8 L TSH 7.830 H Urine Protein Urine Nitrite Urine Bacteria Urine Mucus Assessment and Plan Assessment: This is a 74-year-old woman with multiple medical issues including advanced dementia with aphasia, recent stroke in April 2024 in which the patient had left frontal stroke with residual right visual deficit and speech difficulty, seizure who presents from her nursing home facility because of worsening con fusion status post fall from bed. Acute on chronic encephalopathy and I am concerned about seizure especially with her history of seizure. Rule out stroke that is acute/subacute which I feel is unlikely Underlying history of stroke and it seems the patient has bilateral hemispheric stroke more on the left than the right with residual right visual deficit as well as speech difficulty Advanced dementia Underlying history of seizure and is on Keppra Chronic kidney insufficiency CLL. Underlying history of hypertension that is ongoing. Hyperlipidemia Plan: I ordered a routine EEG which cannot be completed today since there is no electroencephalograph technologist. MRI of the brain is ordered by the primary team and it is ordered without Gadolinium since the patient has chronic kidney insufficiency I increase the patient's Keppra from 500 to 1000 mg twice daily for concern about seizure and route is IV for now. Placed on seizure precaution and pads. Patient is on aspirin 81 mg, Lipitor 40 mg nightly. Oncology is consulted for patient CLL Will defer the rest of the medical management to primary and other specialist The plan is discussed with the primary team nurse practitioner Thank you for the consultation Time with Patient: Greater than 30
[2024-06-13] MEDS: PIPERACILLIN-TAZOBACTAM 3.375 GM in SODIUM CHLORIDE 0.9% 100 ML IVPB SCH (16:23)
[2024-06-13] MEDS: levETIRAcetam IV 500 MG/5 ML VIAL IVP STA (16:23)
[2024-06-13] MEDS: levETIRAcetam IV 500 MG/5 ML VIAL IVP SCH (21:29)
[2024-06-13] MEDS: ALPRAZolam 0.5 MG TAB PO STA (23:31)
[2024-06-14] MEDS: QUEtiapine 50 MG TAB PO STA (02:50)
[2024-06-14 07:44] LABS: HCT 23.3 % (34.0-46.0); HGB 7.6 gm/dL (11.4-16.0); Hypochromasia Slight; MCH 32.8 pg (25.0-35.0); MCHC 32.5 g/dL (31.0-37.0); MCV 101.1 fL (80.0-100.0); Macrocytosis Slight; Mean Platelet Volume 8.2; Platelet Count 115 k/uL (150-450); RBC 2.31 m/uL (3.80-5.40); RDW 15.7 % (11.5-15.5); WBC 4.9 k/uL (3.8-10.6)
[2024-06-14 08:09] LABS: ALT 11 U/L (4-34); AST 18 U/L (14-36); African American GFR (CKD) 28 (>60 ml/min/1.73 sqM); Albumin 3.1 g/dL (3.5-5.0); Alkaline Phosphatase 39 U/L (38-126); Anion Gap 10 mmol/L; Blood Urea Nitrogen 29 mg/dL (7-17); Calcium 8.9 mg/dL (8.4-10.2); Carbon Dioxide 23 mmol/L (22-30); Chloride 109 mmol/L (98-107); Glucose 77 mg/dL (74-99); Magnesium 1.9 mg/dL (1.6-2.3); Non-African American GFR(CKD) 24 (>60 ml/min/1.73 sqM); Potassium 3.6 mmol/L (3.5-5.1); Sodium 142 mmol/L (137-145); Total Bilirubin 0.9 mg/dL (0.2-1.3); Total Protein 5.8 g/dL (6.3-8.2)
--- NOTE | 2024-06-14 13:07 | XR ---
EXAMINATION TYPE: XR knee limited RT DATE OF EXAM: 06/14/2024 COMPARISON: NONE CLINICAL INDICATION: Female, 74 years old with history of rule out fracture/hematoma; TECHNIQUE: Two views are submitted. FINDINGS: Severe narrowing of patellofemoral and medial compartment of the knee joint. Generalized osteopenia. Vascular calcifications. Marginal spurring. No erosive changes. IMPRESSION: 1. Severe osteoarthritis. [facility], , 06/14/2024 1:05 PM
--- NOTE | 2024-06-14 14:32 | P.PN ---
Subjective Progress Note Date: 06/14/24 Hospital course: Patient is a pleasant 74-year-old female with a past medical history of advanced dementia, CLL, hypertension, hyperlipidemia, recent CVA with right sided deficits along with visual and speech deficits, CKD stage IIIb, and seizure disorder. Patient recently suffered from a left frontal stroke with right sided deficits along with visual and speech deficits in April 2024 and has been at [facility] for detention rehab. She presented to our facility with reports of agitation and worsening confusion status post fall from bed at nursing facility yesterday. Patient was scheduled for CT head today outpatient but due to worsening agitation and confusion and concerns of head injury she was sent to our emergency department for evaluation. Patient with advanced dementia and significant aphasia information was obtained from ED provider, documentation in chart, and via telephone conversation with patient's son Matt. On arrival to our facility, patient underwent evaluation in the emergency department. Vital signs upon arrival show blood pressure 100/59, heart rate 79, respiratory rate 18, temp 97.9 F, and SpO2 of 90% on room air. EKG completed showing normal sinus rhythm at [address] head and cervical spine showing regions of low- attenuation within the left frontal, left parietal, right occipital lobes with preservation of the cortices reported to be more prominent from prior exams possibly representing evolving infarcts with underlying demyelination however neoplastic process cannot be ruled out. CT cervical spine negative for acute process showing no evidence of cervical spine fracture revealing multiple nonspecific mildly enlarged mediastinal lymph nodes with additional mildly prominent neck lymph nodes and concerns of right upper lung patchy groundglass opacities. Labs completed and reviewed. CBC showing bicytopenia with hemoglobin of 8.3 and platelet count of 103. BMP showing hypokalemia with potassium of 3.4 and elevated renal function with BUN of 35, creatinine 2.10, GFR of 23 at baseline. Blood glucose 143. Lactic acid 1.7. Magnesium 1.8. Liver profile unremarkable. Troponin less than 0.012. Urinalysis positive for nitrites. Patient started on antibiotics with Zosyn. She was admitted under our services with consultation to neurology and hematology/oncology. Physical exam: Patient seen and fully evaluated at bedside this morning. Condition remains unchanged if not slightly worsened. Pt continues to be easily agitated and fidgety and requiring continuous health/safety job titles at bedside. Conitnue to await MRI and EEG to be completed. Vital signs reviewed and stable. General: Nontoxic, no distress and appears stated age. Derm: Skin warm and dry, normal coloration for ethnicity. Patient with multiple areas of significant bruising to bilateral upper and lower extremities in different stages of healing. Head: Atraumatic, normocephalic and symmetric. Eyes: EOM's intact, no lid lag, and anicteric sclera Mouth: no lip lesions, mucus membranes moist Cardiovascular: regular rate and rhythm with normal S1S2, no murmur, positive posterior tibial pulses bilaterally, and cap refill < 2 seconds. Lungs: Respirations even, regular, and unlabored on room air. Lungs CTA bilaterally, no rhonchi, no rales, no wheezing, and no accessory muscle usage. Abdominal: soft, nontender to palpation, no guarding, no appreciable organomegaly Ext: ROM intact. No gross muscle atrophy, no edema, no contractures Neuro: Patient with significant aphasia, unable to follow commands. Right upper extremity and facial tremor. Psych: Alert and oriented to person only. Confused and appears slightly agitated. Assessment and Plan of Care: Metabolic encephalopathy, possibly multifactorial secondary to infectious process vs evolving stroke Nitrite positive UTI Groundglass opacities right upper lobe, unable to rule out infectious process Reported fall with head injury Advanced dementia with agitation and aggressive behaviors History of recent CVA with multiple deficits History of seizure disorder -Neurology following and discussed case in detail with neurologist, Dr. Vyas, who increased Keppra to 1000 mg twice daily -MRI brain without contrast was ordered and awaiting completion. -NIH stroke scale with neuro checks every 4 hours and as needed -Daily aspirin 81 mg daily and atorvastatin 40 mg daily. -denitrator to remain at bedside secondary to agitation and confusion -PT/OT consult -Maintain Seizure and Fall precautions. -Continue to provide pt with assistance as needed -Patient to remain on continuous telemetry monitoring. -Continue IV antibiotics with Zosyn 3.375 g every 8 hours for treatment of nitrite positive UTI and groundglass opacities of right upper lobe concerning for possible atypical pneumonia. (Day 3 of antibiotics) -Patient to continue with Aricept 5 mg nightly droxidopa 400 mg 3 times daily, and Keppra 1000 mg twice daily. CLL Bicytopenia, secondary to above Enlarged mediastinal lymph nodes with additional mildly prominent neck lymph nodes, likely secondary to CLL -Patient's son reports patient follows with sales force developer/oncologist and undergoes monthly transfusions. -Per patient's son sales force developer states patient is not to receive any blood thinners. -Hematology/oncology consulted discussed case with both sales force developer/oncologist and Heme/Onc OIL AND GAS DRAFTER in detail. Chronic kidney disease stage IIIb -Renal function showing BUN of 31, creatinine 1.98, and GFR of 25 and renal func tion appears to be stable at patient's baseline. Data and imaging reviewed: -Morning labs reviewed. CBC showing stable bicytopenia with hemoglobin of 8.4 and platelet count of 113. BMP showing hyperchloremia with chloride of 109, BUN of 31, creatinine 1.98, and GFR of 25. Blood glucose 85. Magnesium 1.8. Liver profile normal findings. TSH 7.830 with normal free T4 of 0.98. -Vital signs reviewed. Blood pressure 113/53, heart rate 58, respiratory rate 16, temp 97.6 F, and SpO2 of 97% on room air. CODE STATUS: DNR/DNI per discussion with patient's sonLuis DVT prophylaxis: DAMION andre and SCDs as patient's son stated patient is not to receive any anticoagulation per her sales force developer as she has "severe reactions to any blood thinners". Anticipated discharge date: Pending clinical course Anticipated discharge place: Pending clinical course Patient was seen independently by Nurse Practitioner. This document was prepared using [employer] dictation software. Please allow for errors in air brush operator while rare they do occur. Hakeem Pleitez NP rendered care for this patient independently, reviewed the findings and plan as documented in the note above and agree with plan. I did not physically speak with or examine the patient on this date. Objective - Vital Signs Vital signs: Vital Signs Temp 97.6 F 06/14/24 07:00 Pulse 58 L 06/14/24 07:00 Resp 16 06/14/24 07:00 BP 113/53 06/14/24 07:00 Pulse Ox 97 06/14/24 07:00 FiO2 Intake & Output 06/13/24 06/14/24 06/14/24 18:59 06:59 18:59 Weight 61.552 kg 62 kg Other: Voiding Method Diaper Diaper External Catheter # Voids 1 1 # Bowel Movements 0 - Labs CBC & Chem 7: 06/14/24 07:06 06/14/24 07:06 Labs: Abnormal Lab Results - Last 24 Hours (Table) 06/13/24 06/14/24 06/14/24 Range/Units 07:34 07:06 07:06 RBC 2.31 L (3.80-5.40) m/uL Hgb 7.6 L (11.4-16.0) gm/dL Hct 23.3 L (34.0-46.0) % MCV 101.1 H (80.0-100.0) fL RDW 15.7 H (11.5-15.5) % Plt Count 115 L (150-450) k/uL Chloride 109 H (98-107) mmol/L BUN 29 H (7-17) mg/dL Creatinine 2.04 H (0.52-1.04) mg/dL Total Protein 5.8 L (6.3-8.2) g/dL Albumin 3.1 L (3.5-5.0) g/dL TSH 7.830 H (0.465-4.680) mIU/L Microbiology - Last 24 Hours (Table) 06/12/24 10:51 Urine Culture - Preliminary Urine,Voided Gram Neg Bacilli
[2024-06-14] MEDS: LORazepam 2 MG/ML INJ IV PRN (14:54)
[2024-06-14] MEDS: HALOPERIDOL LACTATE 5 MG/ML 1 ML VIAL IM STA (15:37)
--- NOTE | 2024-06-14 17:12 | MR ---
EXAMINATION TYPE: MR brain wo con DATE OF EXAM: 06/14/2024 4:14 PM COMPARISON: 04/10/2024 624. CLINICAL INDICATION: Female, 74 years old with history of CVA worsening vs acute and r/o metastatic p rocess, CVA worsening vs acute and R/O metastatic process TECHNIQUE: Multi planar, multi sequence imaging was performed through the brain including: T1, T2, In version recovery, Diffusion weighted imaging, and gradient echo imaging. No gadolinium was given. FINDINGS: Extensive motion limited exam. There is curvilinear restricted diffusion along the edge of the vasoge oneal edema noted with high FLAIR signal which has progressed in the left cerebrum and has new area in the right parietal region. No definitive mass visualized however this could be obscured by the vasoge oneal edema and lack of contrast. The high FLAIR signal along the left cerebrum is not as well apprecia roberto on today's exam which was seen on prior. Additionally on T2-weighted sequences there is double li ne along the right cerebrum which may be artifactual due to motion extra-axial fluid collection. The ventricles are dilated in proportion to cerebral atrophy. Lobes and orbits are intact. High signal se en within the CSF space along the left cerebral hemisphere is not definitively visualized on FLAIR im aging in today's exam. IMPRESSION: 1. Extensive motion limited exam. 2. Worsening vasogenic edema bilaterally , left greater than right. There is rim of curvilinear rest ricted diffusion bilaterally worse on the left. Correlating with prior imaging of suggested cortical vein thrombosis and now with infarct is the favored diagnosis. Mass effect excluded given motion lack of IV contrast. Other etiologies could be considered such as PRES. 3. T2-weighted sequences demonstrates a double line along the right cerebrum which may be artifactua l due to motion extra-axial fluid collection versus extra-axial fluid collection [facility], , 06/14/2024 5:10 PM
--- NOTE | 2024-06-14 19:56 | P.PN ---
Subjective Progress Note Date: 06/14/24 I am following-up with patient and she continues to be severely confused and not verbally responsive. Objective - Vital Signs Vital signs: Vital Signs Temp 97.4 F L 06/14/24 12:41 Pulse 84 06/14/24 17:47 Resp 20 06/14/24 17:47 BP 132/47 06/14/24 17:47 Pulse Ox 100 06/14/24 17:47 FiO2 Intake & Output 06/14/24 06/14/24 06/15/24 06:59 18:59 06:59 Output Total 400 Balance -400 Weight 62 kg Output: Urine 400 Other: Voiding Method Diaper Diaper External Catheter External Catheter # Voids 1 - Exam General: Lying in bed and is not in acute distress. HENT: Supple neck. Neuro: Patient is severely encephalopathic. Opens eyes to painful stimuli. She would say ouch. Otherwise not verbalizing or following commands. Pupils are 4mm and reactive to light. Has roving eyes. No apparent facial weakness. Motor: Strength is limited but has tremors of the uppers. Otherwise limited. Some of the workup during this hospital visit consisted of: TSH is 7.83 and the free T4 is 0.98. Her creatinine is 2.1 and the BUN is 35. CT of the head and cervical spine is reported as no acute intracranial bleed. Region of low-attenuation in the left frontal left parietal and right occipital lobe were preservation of the cortices. There is slightly more prominent from prior exam may represent evolving infarct with underlying demyelination or neoplastic process is not excluded. Further evaluation with MRI with IV contrast is recommended. Nonspecific white matter changes, likely secondary due to chronic small vessel ischemic disease. No evidence of cervical spine fracture. Multilevel degenerative disc disease. Postsurgical changes from ACDF C4-C7. Hardware appears intact. Visualized right upper lung patchy groundglass opacity which may represent developing infection process. I personally reviewed the CT do not appreciate any acute or subacute stroke. Patient has old strokes predominantly left more than the right. Its predominantly in the posterior region bilaterally but the left also involves the left frontal as well. - Labs CBC & Chem 7: 06/14/24 07:06 06/14/24 07:06 Labs: Abnormal Lab Results - Last 24 Hours (Table) 06/14/24 06/14/24 Range/Units 07:06 07:06 RBC 2.31 L (3.80-5.40) m/uL Hgb 7.6 L (11.4-16.0) gm/dL Hct 23.3 L (34.0-46.0) % MCV 101.1 H (80.0-100.0) fL RDW 15.7 H (11.5-15.5) % Plt Count 115 L (150-450) k/uL Chloride 109 H (98-107) mmol/L BUN 29 H (7-17) mg/dL Creatinine 2.04 H (0.52-1.04) mg/dL Total Protein 5.8 L (6.3-8.2) g/dL Albumin 3.1 L (3.5-5.0) g/dL Microbiology - Last 24 Hours (Table) 06/12/24 10:51 Urine Culture - Preliminary Urine,Voided Gram Neg Bacilli Assessment and Plan Assessment: This is a 74-year-old woman with multiple medical issues including advanced dementia with aphasia, recent stroke in April 2024 in which the patient had left frontal stroke with residual right visual deficit and speech difficulty, seizure who presents from her intermediate facility because of worsening confusion status post fall from bed. Acute on chronic encephalopathy and I am concerned about seizure especially with her history of seizure. Rule out stroke that is acute/subacute which I feel is unlikely Underlying history of stroke and it seems the patient has bilateral hemispheric stroke more on the left than the right with residual right visual deficit as well as speech difficulty Advanced dementia Underlying history of seizure and is on Keppra Chronic kidney insufficiency CLL. Underlying history of hypertension that is ongoing. Hyperlipidemia Plan: Pending routine EEG MRI of the brain is ordered by the primary team and it is ordered without Gadolinium since the patient has chronic kidney insufficiency. I increase the patient's Keppra from 500 to 1000 mg twice daily on 06/13/2024 for concern about seizure and route is IV for now. Placed on seizure precaution and pads. Patient is on aspirin 81 mg, Lipitor 40 mg nightly. Oncology is consulted for patient CLL Will defer the rest of the medical management to primary and other specialist The plan is discussed with the primary team nurse practitioner Time with Patient: Less than 30
--- NOTE | 2024-06-14 21:15 | P.PN ---
Progress Note - Text Progress Note Date: 06/14/24 MRI of the brain without is reported as extensive motion limited exam. Worsening vasogenic edema bilaterally, left greater than the right. There is rim of curvilinear restriction diffusion bilaterally worse on the left. Correlating with prior imaging of suggested cortical vein thrombosis and now with infarct is the favored diagnosis. Mass effect excluded given motion lack of IV contracts. Other etiologies could be considered such as press. I personally contacted the reading radiologist (Dr. Sarmiento) and he thinks this is most likely stroke as a result of venous thrombosis. He is aware that MRV a month ago was unremarkable but feels this is more cortical vein thrombosis causing this. He later stated that he cannot exclude small brain mets and recommends MRI of the brain with gadolinium. The primary team (Dr. Viri Owens) and myself spoke with the patient's son via phone and he stated the patient condition has be declining drastically for past 4 weeks. We updated him about the MRI finding and he wants to proceed with MRI with gadolinium. He is aware that gadolinium can increase her kidney issues. We ordered a stat MRI Brain w/. The son stated that he just wants answers and he is aware of her overall condition that seems to be poor at this time. He stated in the past maybe about 10 years ago when she was on blood thinners patient had a bleed and was notified to avoid any blood thinners because of the bleed. If MRI is negative for any brain mets we will pursue with stat CT venogram. As I stated earlier a month ago she had MRI of the venogram and was negative for any venous thrombosis. On states that if the patient does not have any improvement then he will consider hospice.
[2024-06-14] MEDS: LORazepam 2 MG/ML INJ IV ONE (22:49)
--- NOTE | 2024-06-15 00:12 | EEG ---
ELECTROENCEPHALOGRAM REPORT CLINICAL HISTORY: This is a 74-year-old woman, history of seizure, dementia with altered mental status. The video EEG is obtained to evaluate for seizure epileptiform activity. RELEVANT MEDICATION: Keppra. EEG TYPE: This is a routine 21-channel EEG with video using the 10/20 electrode placement system. DESCRIPTION: Wakefulness and drowsiness are obtained. During awake state, the background consists of [id number] voltage of 6 to 6.5 hertz activity intermixed with delta activity. There was no physiological stage 2 sleep architecture. There is no focal slowing. There is mild to moderate diffuse myogenic artifact. Interictal and ictal is none. ACTIVATION PROCEDURE: Photic stimulation did not evoke a posterior driving response. There is no abnormality during the photic stimulation. Hyperventilation is not performed. CLINICAL INTERPRETATION: This is an abnormal routine EEG. The background slowing is suggestive of moderate to severe encephalopathy. Otherwise, there is no focal slowing, epileptiform discharge, or seizure on the EEG. Clinical correlation is recommended. ANIRUDH / ISABELLAN: [id number] / BRADLEY
--- NOTE | 2024-06-15 01:03 | P.PN ---
Progress Note - Text Progress Note Date: 06/15/24 Informed by the RN that MRI is down until 06/17. Case was discussed with neurology on-call Dr. Vyas. He recommended that in light of patient's gradual clinical deterioration, that the patient may benefit from transfer to tertiary care facility for MRI brain with contrast and neurology/neurointensivist consult. This was also discussed with the patient's son who was in agreement and requested for transfer to [facility] as he states that the patient has been there multiple times in the past. The case was presented to the transfer center at [facility] and subsequently discussed with neurologist on- call. They recommended that in light of patient's advanced dementia and venous thrombosis, it is unlikely that the patient will need or undergo any interventions such as thrombectomy. Neurology at [facility] recommended that the patient may be able to receive MRI brain with contrast at [facility] and subsequently be transferred back to [facility]. This plan was agreed upon. Currently awaiting callback for next episode of delivery.
[2024-06-15] MEDS: HALOPERIDOL LACTATE 5 MG/ML 1 ML VIAL IM STA (05:01)
--- NOTE | 2024-06-15 08:27 | P.PN ---
Subjective Progress Note Date: 06/15/24 Hospital course: Patient is a pleasant 74-year-old female with a past medical history of advanced dementia, CLL, hypertension, hyperlipidemia, recent CVA with right sided deficits along with visual and speech deficits, CKD stage IIIb, and seizure disorder. Patient recently suffered from a left frontal stroke with right sided deficits along with visual and speech deficits in April 2024 and has been at [facility] for [facility] rehab. She presented to our facility with reports of agitation and worsening confusion status post fall from bed at nursing facility yesterday. Patient was scheduled for CT head today outpatient but due to worsening agitation and confusion and concerns of head injury she was sent to our emergency department for evaluation. Patient with advanced dementia and significant aphasia information was obtained from ED provider, documentation in chart, and via telephone conversation with patient's son Matt. On arrival to our facility, patient underwent evaluation in the emergency department. Vital signs upon arrival show blood pressure 100/59, heart rate 79, respiratory rate 18, temp 97.9 F, and SpO2 of 90% on room air. EKG completed showing normal sinus rhythm at [address] head and cervical spine showing regions of low- attenuation within the left frontal, left parietal, right occipital lobes with preservation of the cortices reported to be more prominent from prior exams possibly representing evolving infarcts with underlying demyelination however neoplastic process cannot be ruled out. CT cervical spine negative for acute process showing no evidence of cervical spine fracture revealing multiple nonspecific mildly enlarged mediastinal lymph nodes with additional mildly prominent neck lymph nodes and concerns of right upper lung patchy groundglass opacities. Labs completed and reviewed. CBC showing bicytopenia with hemoglobin of 8.3 and platelet count of 103. BMP showing hypokalemia with potassium of 3.4 and elevated renal function with BUN of 35, creatinine 2.10, GFR of 23 at baseline. Blood glucose 143. Lactic acid 1.7. Magnesium 1.8. Liver profile unremarkable. Troponin less than 0.012. Urinalysis positive for nitrites. Patient started on antibiotics with Zosyn. She was admitted under our services with consultation to neurology and hematology/oncology. Physical exam: Patient seen and fully evaluated at bedside this morning. Patient's condition continues to slightly worsen. She is non verbal only moaning and remains confused and agitated. Vital signs reviewed and stable. General: Nontoxic, no distress and appears stated age. Derm: Skin warm and dry, normal coloration for ethnicity. Patient with multiple areas of significant bruising to bilateral upper and lower extremities in different stages of healing. Head: Atraumatic, normocephalic and symmetric. Eyes: EOM's intact, no lid lag, and anicteric sclera Mouth: no lip lesions, mucus membranes moist Cardiovascular: regular rate and rhythm with normal S1S2, no murmur, positive posterior tibial pulses bilaterally, and cap refill < 2 seconds. Lungs: Respirations even, regular, and unlabored on room air. Lungs CTA bilaterally, no rhonchi, no rales, no wheezing, and no accessory muscle usage. Abdominal: soft, nontender to palpation, no guarding, no appreciable organomegaly Ext: ROM intact. No gross muscle atrophy, no edema, no contractures Neuro: Patient nonverbal and unable to follow commands. Bilateral upper extrem ities and facial tremor. Psych: Nonverbal, moaning. Confused and appears slightly agitated. Assessment and Plan of Care: Metabolic encephalopathy, possibly multifactorial secondary to infectious process vs evolving stroke Nitrite positive UTI Groundglass opacities right upper lobe, unable to rule out infectious process Reported fall with head injury Advanced dementia with agitation and aggressive behaviors History of recent CVA with multiple deficits History of seizure disorder -Neurology following and discussed case in detail with neurologist, Dr. Vyas. 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 -Initially MRI with and without contrast was ordered stat but unable to be completed at this facility and patient was not accepted for transfer at [facility]. -CT venogram with and without contrast ordered STAT -NIH stroke scale with neuro checks every 4 hours and as needed -Daily aspirin 81 mg daily and atorvastatin 40 mg daily. -rater associate to remain at bedside secondary to agitation and confusion -PT/OT consult -Maintain Seizure and Fall precautions. -Continue to provide pt with assistance as needed -Patient to remain on continuous telemetry monitoring. -Continue IV antibiotics with Zosyn 3.375 g every 8 hours for treatment of nitrite positive UTI and groundglass opacities of right upper lobe concerning for possible atypical pneumonia. (Day 4 of antibiotics) -Patient to continue with Aricept 5 mg nightly droxidopa 400 mg 3 times daily, and Keppra 1000 mg twice daily. CLL Bicytopenia, secondary to above Enlarged mediastinal lymph nodes with additional mildly prominent neck lymph nodes, likely secondary to CLL -Patient's son reports patient follows with regional construction manager/oncologist and undergoes monthly transfusions. -Per patient's son regional construction manager states patient is not to receive any blood thinners. -Hematology/oncology consulted discussed case with both regional construction manager/oncologist and Heme/Onc BACTERIOLOGIST [employer]USTRIAL in detail. Chronic kidney disease stage IIIb -Renal function showing BUN of 31, creatinine 1.98, and GFR of 25 and renal function appears to be stable at patient's baseline. Data and imaging reviewed: -MRI brain without contrast was completed showing worsening vasogenic edema bilaterally left greater than right with a rim of curvilinear restricted diffusion bilaterally worse on the left concerning for cortical vein thrombosis and now with infarct versus metastasis. -Initially MRI with and without contrast was ordered to be completed stat but unable to be completed at this facility and patient was not accepted for transfer at [facility]. -Morning labs reviewed. CBC showing stable bicytopenia with hemoglobin of 7.9 and platelet count of 102. BMP showing high anion gap metabolic acidosis with chloride of 111, bicarb of 17, and anion gap of 14 and renal function remains at baseline with BUN of 27, creatinine of 2.17, GFR of 22. Blood glucose 77. Magnesium 1.9. -Vital signs reviewed. Blood pressure 159/45, heart rate 95, respiratory rate 18, temp 97.0 F, and SpO2 of 100% on room air. CODE STATUS: DNR/DNI per discussion with patient's sonLuis DVT prophylaxis: DAMION andre and SCDs as patient's son stated patient is not to receive any anticoagulation per her regional construction manager as she has "severe reactions to any blood thinners". Anticipated discharge date: Pending clinical course Anticipated discharge place: Pending clinical course Patient was seen independently by Nurse Practitioner. This document was prepared using [employer] dictation software. Please allow for errors in forensic psychiatrist while rare they do occur. Hakeem Pleitez NP rendered care for this patient independently, reviewed the findings and plan as documented in the note above and agree with plan. I did not physically speak with or examine the patient on this date. Objective - Vital Signs Vital signs: Vital Signs Temp 97.6 F 06/15/24 05:00 Pulse 90 06/15/24 05:00 Resp 20 06/15/24 05:00 BP 107/60 06/15/24 05:00 Pulse Ox 99 06/15/24 05:00 FiO2 Intake & Output 06/14/24 06/15/24 06/15/24 18:59 06:59 18:59 Output Total 400 Balance -400 Output: Urine 400 Other: Voiding Method Diaper Diaper External Catheter External Catheter # Voids 1 - Labs CBC & Chem 7: 06/15/24 11:44 06/14/24 07:06 Labs: Microbiology - Last 24 Hours (Table) 06/12/24 10:51 Urine Culture - Final Urine,Voided Escherichia coli
[2024-06-15] MEDS ORDERED: LORazepam 2 MG/ML INJ IV PRN (09:16)
[2024-06-15] MEDS: FAMOTIDINE 20 MG/2 ML VIAL IV STA (09:35)
[2024-06-15] MEDS: methylPREDNISolone SOD SUCCI 125 MG/2 ML VIAL IV STA (09:35)
[2024-06-15] MEDS: diphenhydrAMINE 50 MG/ML 1 ML VIAL IVP STA ×2 (09:35→10:04)
--- NOTE | 2024-06-15 10:43 | CT ---
EXAMINATION TYPE: CT brain wo con DATE OF EXAM: 06/15/2024 COMPARISON: 06/12/2024 CLINICAL INDICATION: Female, 74 years old with history of venogram without contrast; PHH, Cortical ve in thrombosis vs mass CT DLP: 1154.4 mGycm Automated exposure control for dose reduction was used. Findings: The ventricles, basal cisterns and sulci over the convexities are within normal limits and there is n o mass effect or shift of midline structures. There is diffuse decreased density in the periventricul ar white matter consistent with chronic ischemic white matter demyelination. There is no change in the multiple focal areas of vasogenic edema in the left posterior frontal lobe, left parietal lobe and right occipital lobe. There is no acute intra or extra-axial hemorrhage.. The posterior fossa including the brainstem, fourth ventricle and cerebellar pontine angles appear no rmal. Intraorbital contents appear normal and symmetric. Visualized paranasal sinuses and mastoid air cells are well aerated. The calvarium is intact. IMPRESSION: 1. No acute bleed or mass effect. 2. No change in the scattered areas of vasogenic edema in both cerebral hemispheres as described abov e. Findings raise the question of metastatic disease and post contrast CT or MRI with contrast is rec ommended. [facility], Workstation: [id number] 06/15/2024 10:41 AM
--- NOTE | 2024-06-15 10:47 | CT ---
CT venogram. HISTORY: Cortical vein thrombosis versus mass. COMPARISON: None. TECHNIQUE: CT venogram was performed according to department protocol. FINDINGS: Multifocal areas of vasogenic edema are seen in the posterior left frontal lobe, left parietal lobe a nd right occipital lobe. Within the right occipital lobe edema and there is a suggestion of a small f ocal enhancing mass which measures approximate millimeters raising the suspicion for metastatic disea se. The cerebral veins and dural venous sinuses are patent without thrombosis. IMPRESSION: 1. No cerebral vein thrombosis. Mid to multifocal areas of vasogenic edema as described above. There is a suggestion of an 8 mm enhancing nodule in the right occipital vasogenic edema raising the questi on of metastatic disease. MRI of the brain with contrast is recommended for further evaluation. [facility], Workstation: [id number] 06/15/2024 10:44 AM
--- NOTE | 2024-06-15 11:11 | P.PN ---
Progress Note - Text Progress Note Date: 06/15/24 Advanced Care Planning: Diagnoses: Suspected brain metastasis with mid to multifocal areas of vasogenic edema Discussion: Pt's conditinon continues to deteriorate and she appears unconfortable and agitated. CT venogram with and without contrast completed showing no cerebral vein thrombosis with mid to multifocal areas of vasogenic edema and there is a suggestion of an 8 mm enhancing nodule in the right occipital vasogenic edema concerning for metastatic process. These findings in depth with neurologist and then discussed thoroughly with pt's son. Pt's son states they have made the decision to put her in hospice. He would like to meet with hospice team regarding their recommendations for Hospice house vs home hospice vs inpatient hospice. Pt will likely need inpatient hospice based on her level of agiation. Plam: -Consult placed to [facility], discussed case with on-call hospice nurse and is coming to evaluate patient for [facility] hospice. Patient's family notified and states they cannot be at the hospital until after 5:30 PM. RN updated on plan at this time we will continue with current medication regimen. -Orders placed for morphine 4 mg IVP every 4 hours and Ativan 1 mg every 4 hours as needed for agitation at this time. A total of 39 minutes of time was spent discussing advanced care planning.
[2024-06-15 12:14] LABS: HCT 24.9 % (34.0-46.0); HGB 7.9 gm/dL (11.4-16.0); Hypochromasia Moderate; MCH 32.4 pg (25.0-35.0); MCHC 31.7 g/dL (31.0-37.0); MCV 102.3 fL (80.0-100.0); Macrocytosis Slight; Mean Platelet Volume 7.8; Platelet Count 102 k/uL (150-450); RBC 2.44 m/uL (3.80-5.40); RDW 15.5 % (11.5-15.5); WBC 4.2 k/uL (3.8-10.6)
[2024-06-15 13:04] LABS: ALT 11 U/L (4-34); AST 23 U/L (14-36); African American GFR (CKD) 25 (>60 ml/min/1.73 sqM); Albumin 3.5 g/dL (3.5-5.0); Alkaline Phosphatase 44 U/L (38-126); Anion Gap 14 mmol/L; Blood Urea Nitrogen 27 mg/dL (7-17); Calcium 9.2 mg/dL (8.4-10.2); Carbon Dioxide 17 mmol/L (22-30); Chloride 111 mmol/L (98-107); Glucose 77 mg/dL (74-99); Magnesium 1.9 mg/dL (1.6-2.3); Non-African American GFR(CKD) 22 (>60 ml/min/1.73 sqM); Potassium 3.8 mmol/L (3.5-5.1); Sodium 142 mmol/L (137-145); Total Bilirubin 0.9 mg/dL (0.2-1.3); Total Protein 5.6 g/dL (6.3-8.2)
[2024-06-15] MEDS: LORazepam 2 MG/ML INJ IV PRN (14:47)
--- NOTE | 2024-06-15 14:51 | P.PN ---
Subjective Progress Note Date: 06/15/24 I am following up with the patient and that yesterday I was notified by the primary attending at night, that MRI is down and will be back up this coming Monday possibly. Therefore was decided to transfer the patient for escalation of care to obtain MRI but she was rejected by [facility]. Continues to be severely altered. Objective - Vital Signs Vital signs: Vital Signs Temp 97 F L 06/15/24 09:02 Pulse 91 06/15/24 11:31 Resp 17 06/15/24 11:31 BP 122/60 06/15/24 11:31 Pulse Ox 99 06/15/24 11:31 FiO2 Intake & Output 06/14/24 06/15/24 06/15/24 18:59 06:59 18:59 Output Total 400 Balance -400 Output: Urine 400 Other: Voiding Method Diaper Diaper Diaper External Catheter External Catheter # Voids 1 1 - Exam General: Lying in bed and is not in acute distress. HENT: Supple neck. Neuro: Patient is severely encephalopathic. Opens eyes to painful stimuli. She would say ouch. Otherwise not verbalizing or following commands. Pupils are 4mm and reactive to light. Primary gaze is midline and would look slight to right with eye No apparent facial weakness. Motor: Strength is limited but spontaneously lifted up right upper extremity. Otherwise limited. Some of the workup during this hospital visit consisted of: TSH is 7.83 and the free T4 is 0.98. Her creatinine is 2.1 and the BUN is 35. CT of the head and cervical spine is reported as no acute intracranial bleed. Region of low-attenuation in the left frontal left parietal and right occipital lobe were preservation of the cortices. There is slightly more prominent from prior exam may represent evolving infarct with underlying demyelination or neoplastic process is not excluded. Further evaluation with MRI with IV contrast is recommended. Nonspecific white matter changes, likely secondary due to chronic small vessel ischemic disease. No evidence of cervical spine fracture. Multilevel degenerative disc disease. Postsurgical changes from ACDF C4-C7. Hardware appears intact. Visualized right upper lung patchy groundglass opacity which may represent developing infection process. I personally reviewed the CT do not appreciate any acute or subacute stroke. Patient has old strokes predominantly left more than the right. Its predominantly in the posterior region bilaterally but the left also involves the left frontal as well. MRI Brain w/o: MRI of the brain without is reported as extensive motion limited exam. Worsening vasogenic edema bilaterally, left greater than the right. There is rim of curvilinear restriction diffusion bilaterally worse on the left. Correlating with prior imaging of suggested cortical vein thrombosis and now with infarct is the favored diagnosis. Mass effect excluded given motion lack of IV contracts. Other etiologies could be considered such as press. CTV: No cerebral vein thrombosis. Mild to multifocal area of vasogenic edema as described above. There is suggestion of 8 mm enhancing nodule in the right occipital vasogenic edema raising the question of metastatic disease. MRI of the brain with contrast is recommended for further evaluation. Routine EEG: Is abnormal. The background slowing is suggestive of moderate to severe encephalopathy. Otherwise there is no focal slowing, [employer] discharge or seizure on the EEG. - Labs CBC & Chem 7: 06/15/24 11:44 06/15/24 11:44 Labs: Abnormal Lab Results - Last 24 Hours (Table) 06/15/24 06/15/24 Range/Units 11:44 11:44 RBC 2.44 L (3.80-5.40) m/uL Hgb 7.9 L (11.4-16.0) gm/dL Hct 24.9 L (34.0-46.0) % MCV 102.3 H (80.0-100.0) fL Plt Count 102 L (150-450) k/uL Chloride 111 H (98-107) mmol/L Carbon Dioxide 17 L (22-30) mmol/L BUN 27 H (7-17) mg/dL Creatinine 2.17 H (0.52-1.04) mg/dL Total Protein 5.6 L (6.3-8.2) g/dL Microbiology - Last 24 Hours (Table) 06/12/24 10:51 Urine Culture - Final Urine,Voided Escherichia coli Assessment and Plan Assessment: This is a 74-year-old woman with multiple medical issues including advanced dementia with aphasia, recent stroke in April 2024 in which the patient had left frontal stroke with residual right visual deficit and speech difficulty, seizure who presents from her detention facility because of worsening confusion status post fall from bed. Concern for metastatic disease. On CT Venogram has possible 8mm enhacing nodule right occipital with vasogenic edema. No venous thrombosis. Acute on chronic encephalopathy and I am concerned about seizure especially with her history of seizure with concern about brain mets. Underlying history of stroke and it seems the patient has bilateral hemispheric stroke more on the left than the right with residual right visual deficit as well as speech difficulty Advanced dementia Underlying history of seizure and is on Keppra Chronic kidney insufficiency CLL. Underlying history of hypertension that is ongoing. Hyperlipidemia Plan: MRI Brain w/o: MRI of the brain without is reported as extensive motion limited exam. Worsening vasogenic edema bilaterally, left greater than the right. There is rim of curvilinear restriction diffusion bilaterally worse on the left. Correlating with prior imaging of suggested cortical vein thrombosis and now with infarct is the favored diagnosis. Mass effect excluded given motion lack of IV contracts. Other etiologies could be considered such as press. CTV: No cerebral vein thrombosis. Mild to multifocal area of vasogenic edema as described above. There is suggestion of 8 mm enhancing nodule in the right occipital vasogenic edema raising the question of metastatic disease. MRI of the brain with contrast is recommended for further evaluation. Unable to obtain MRI w/ since currently machine is down. Keppra from 500 to 1000 mg twice daily on 06/13/2024 for concern about seizure and route is IV for now. According to the primary team N.P. she informed the son and he wants her to be hospice. On seizure precaution and pads. Patient is on aspirin 81 mg, Lipitor 40 mg nightly. Oncology is consulted for patient CLL Will defer the rest of the medical management to primary and other specialist As stated above the son wants her hospice. There is no further neurological work-up. Will sign off. Please reconsult if needed.
[2024-06-15] MEDS: MORPHINE SULFATE 4 MG/ML SYRINGE IV PRN (16:02)
--- NOTE | 2024-06-16 11:24 | P.PN ---
Subjective Progress Note Date: 06/16/24 Hospital course: Patient is a pleasant 74-year-old female with a past medical history of advanced dementia, CLL, hypertension, hyperlipidemia, recent CVA with right sided deficits along with visual and speech deficits, CKD stage IIIb, and seizure disorder. Patient recently suffered from a left frontal stroke with right sided deficits along with visual and speech deficits in April 2024 and has been at [facility] for halfway rehab. She presented to our facility with reports of agitation and worsening confusion status post fall from bed at nursing facility yesterday. Patient was scheduled for CT head today outpatient but due to worsening agitation and confusion and concerns of head injury she was sent to our emergency department for evaluation. Patient with advanced dementia and significant aphasia information was obtained from ED provider, documentation in chart, and via telephone conversation with patient's son Matt. On arrival to our facility, patient underwent evaluation in the emergency department. Vital signs upon arrival show blood pressure 100/59, heart rate 79, respiratory rate 18, temp 97.9 F, and SpO2 of 90% on room air. EKG completed showing normal sinus rhythm at [address] head and cervical spine showing regions of low- attenuation within the left frontal, left parietal, right occipital lobes with preservation of the cortices reported to be more prominent from prior exams possibly representing evolving infarcts with underlying demyelination however neoplastic process cannot be ruled out. CT cervical spine negative for acute process showing no evidence of cervical spine fracture revealing multiple nonspecific mildly enlarged mediastinal lymph nodes with additional mildly prominent neck lymph nodes and concerns of right upper lung patchy groundglass opacities. Labs completed and reviewed. CBC showing bicytopenia with hemoglobin of 8.3 and platelet count of 103. BMP showing hypokalemia with potassium of 3.4 and elevated renal function with BUN of 35, creatinine 2.10, GFR of 23 at baseline. Blood glucose 143. Lactic acid 1.7. Magnesium 1.8. Liver profile unremarkable. Troponin less than 0.012. Urinalysis positive for nitrites. Patient started on antibiotics with Zosyn. She was admitted under our services with consultation to neurology and hematology/oncology. Physical exam: Patient seen and fully evaluated at bedside this morning. Patient resting comfortably at this moment, however nursing staff reports patient continues to be agitated and combative with any attempts at movement turning and upon assessing vitals. Patient's son at bedside and discussed in detail patient's decline. He reports this has been a very rapid decline over the past 3 weeks. seed cleaning machine operator at bedside to discuss likely plans for hospice. Vital signs reviewed and stable. General: Nontoxic, no distress and appears stated age. Derm: Skin warm and dry, normal coloration for ethnicity. Patient with multiple areas of significant bruising to bilateral upper and lower extremities in different stages of healing. Head: Atraumatic, normocephalic and symmetric. Eyes: EOM's intact, no lid lag, and anicteric sclera Mouth: no lip lesions, mucus membranes moist Cardiovascular: regular rate and rhythm with normal S1S2, no murmur, positive posterior tibial pulses bilaterally, and cap refill < 2 seconds. Lungs: Respirations even, regular, and unlabored on room air. Lungs CTA bilaterally, no rhonchi, no rales, no wheezing, and no accessory muscle usage. Abdominal: soft, nontender to palpation, no guarding, no appreciable organomegaly Ext: ROM intact. No gross muscle atrophy, no edema, no contractures Neuro: Patient nonverbal and unable to follow commands. Bilateral upper extremities and facial tremor. Psych: Nonverbal, moaning. Confused and appears slightly agitated. Assessment and Plan of Care: Metabolic encephalopathy, possibly multifactorial secondary to infectious process vs evolving stroke Nitrite positive UTI Groundglass opacities right upper lobe, unable to rule out infectious process Reported fall with head injury Advanced dementia with agitation and aggressive behaviors History of recent CVA with multiple deficits History of seizure disorder -Hospice consulted, meeting with family at this time. -Neurology following and discussed case in detail with neurologist, Dr. Vyas. 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 -Initially MRI with and without contrast was ordered stat but unable to be comp leted at this facility and patient was not accepted for transfer at [facility]. -CT venogram with and without contrast ordered STAT -NIH stroke scale with neuro checks every 4 hours and as needed -Daily aspirin 81 mg daily and atorvastatin 40 mg daily. -transit manager to remain at bedside secondary to agitation and confusion -PT/OT consult -Maintain Seizure and Fall precautions. -Continue to provide pt with assistance as needed -Patient to remain on continuous telemetry monitoring. -Continue IV antibiotics with Zosyn 3.375 g every 8 hours for treatment of nitrite positive UTI and groundglass opacities of right upper lobe concerning for possible atypical pneumonia. (Day 4 of antibiotics) -Patient to continue with Aricept 5 mg nightly droxidopa 400 mg 3 times daily, and Keppra 1000 mg twice daily. CLL Bicytopenia, secondary to above Enlarged mediastinal lymph nodes with additional mildly prominent neck lymph nodes, likely secondary to CLL -Patient's son reports patient follows with assembler camper/oncologist and undergoes monthly transfusions. -Per patient's son assembler camper states patient is not to receive any blood th inners. -Hematology/oncology consulted discussed case with both assembler camper/oncologist and Heme/Onc BIOSTATISTICIAN in detail. Chronic kidney disease stage IIIb -Renal function showing BUN of 31, creatinine 1.98, and GFR of 25 and renal function appears to be stable at patient's baseline. Data and imaging reviewed: -Vitals reviewed. Blood pressure 149/73, heart rate 93, respiratory rate 21, temp 97.2 F and SpO2 of 100% on room air. -No new labs for review today. - [facility] hospice meeting with family this morning. Patient will likely be placed [facility] hospice. Will follow-up with family's decision and place additional orders if indicated based on their decision. CODE STATUS: DNR/DNI per discussion with patient's sonLuis DVT prophylaxis: DAMION andre and Linda as patient's son stated patient is not to receive any anticoagulation per her assembler camper as she has "severe reactions to any blood thinners". Anticipated discharge date: Pending clinical course Anticipated discharge place: Pending clinical course Patient was seen independently by Nurse Practitioner. This document was prepared using Ygle dictation software. Please allow for errors in land acquisition manager while rare they do occur. Hakeem Pleitez NP rendered care for this patient independently, reviewed the findings and plan as documented in the note above and agree with plan. I did not physically speak with or examine the patient on this date. . Objective - Vital Signs Vital signs: Vital Signs Temp 97.2 F L 06/16/24 07:39 Pulse 93 06/16/24 07:39 Resp 15 06/16/24 08:00 BP 149/73 06/16/24 07:39 Pulse Ox 100 06/16/24 07:39 FiO2 Intake & Output 06/15/24 06/16/24 06/16/24 18:59 06:59 18:59 Other: Voiding Method Diaper Diaper Diaper External Catheter # Voids 1 1 - Labs CBC & Chem 7: 06/15/24 11:44 06/15/24 11:44 Labs: Abnormal Lab Results - Last 24 Hours (Table) 06/15/24 06/15/24 Range/Units 11:44 11:44 RBC 2.44 L (3.80-5.40) m/uL Hgb 7.9 L (11.4-16.0) gm/dL Hct 24.9 L (34.0-46.0) % MCV 102.3 H (80.0-100.0) fL Plt Count 102 L (150-450) k/uL Chloride 111 H (98-107) mmol/L Carbon Dioxide 17 L (22-30) mmol/L BUN 27 H (7-17) mg/dL Creatinine 2.17 H (0.52-1.04) mg/dL Total Protein 5.6 L (6.3-8.2) g/dL
[2024-06-16] MEDS ORDERED: DEXTROSE 50% SYRINGE 50 ML IVP PRN ×2 (13:18)
[2024-06-16 13:36] LABS: HCT 25.1 % (34.0-46.0); HGB 8.2 gm/dL (11.4-16.0); Hypochromasia Moderate; MCH 33.1 pg (25.0-35.0); MCHC 32.7 g/dL (31.0-37.0); MCV 101.3 fL (80.0-100.0); Macrocytosis Slight; Mean Platelet Volume 9.4; Platelet Count 104 k/uL (150-450); RBC 2.48 m/uL (3.80-5.40); RDW 15.6 % (11.5-15.5); WBC 6.1 k/uL (3.8-10.6)
[2024-06-16] MEDS: DEXTROSE 5%-0.45% NACL 1,000 ML IV SCH (13:38)
[2024-06-16 13:47] LABS: ALT 13 U/L (4-34); AST 18 U/L (14-36); African American GFR (CKD) 22 (>60 ml/min/1.73 sqM); Albumin 3.6 g/dL (3.5-5.0); Alkaline Phosphatase 42 U/L (38-126); Anion Gap 9 mmol/L; Blood Urea Nitrogen 34 mg/dL (7-17); Calcium 9.2 mg/dL (8.4-10.2); Carbon Dioxide 25 mmol/L (22-30); Chloride 114 mmol/L (98-107); Glucose 78 mg/dL (74-99); Magnesium 2.1 mg/dL (1.6-2.3); Non-African American GFR(CKD) 19 (>60 ml/min/1.73 sqM); Potassium 3.8 mmol/L (3.5-5.1); Sodium 148 mmol/L (137-145); Total Bilirubin 0.7 mg/dL (0.2-1.3); Total Protein 5.7 g/dL (6.3-8.2)
[2024-06-16 17:36] LABS: Glucose,Whole Blood 109 mg/dL (70-110)
[2024-06-16] MEDS: DEXAMETHASONE SOD PHOSPHATE 4 MG/ML 1 ML VIAL IVP SCH (17:39)
[2024-06-16] MEDS: PIPERACILLIN-TAZOBACTAM 3.375 GM in SODIUM CHLORIDE 0.9% 100 ML IVPB SCH (20:28)
[2024-06-16 23:46] LABS: Glucose,Whole Blood 126 mg/dL (70-110)
[2024-06-17 06:23] LABS: Glucose,Whole Blood 154 mg/dL (70-110)
[2024-06-17 06:42] LABS: HCT 25.5 % (34.0-46.0); HGB 8.2 gm/dL (11.4-16.0); Hypochromasia Moderate; MCH 32.8 pg (25.0-35.0); MCV 102.5 fL (80.0-100.0); Macrocytosis Slight; Mean Platelet Volume 7.7; Platelet Count 111 k/uL (150-450); RBC 2.49 m/uL (3.80-5.40); RDW 15.3 % (11.5-15.5); WBC 5.5 k/uL (3.8-10.6)
[2024-06-17 07:08] LABS: ALT 13 U/L (4-34); AST 19 U/L (14-36); African American GFR (CKD) 24 (>60 ml/min/1.73 sqM); Albumin 3.6 g/dL (3.5-5.0); Alkaline Phosphatase 40 U/L (38-126); Anion Gap 11 mmol/L; Blood Urea Nitrogen 32 mg/dL (7-17); Calcium 9.2 mg/dL (8.4-10.2); Carbon Dioxide 21 mmol/L (22-30); Chloride 115 mmol/L (98-107); Glucose 135 mg/dL (74-99); Magnesium 1.9 mg/dL (1.6-2.3); Non-African American GFR(CKD) 21 (>60 ml/min/1.73 sqM); Sodium 147 mmol/L (137-145); Total Bilirubin 0.4 mg/dL (0.2-1.3); Total Protein 5.8 g/dL (6.3-8.2)
--- NOTE | 2024-06-17 09:28 | P.GSCN ---
History of Present Illness Consult date: 06/17/24 Reason for Consult: Malnutrition, altered mental status History of present illness: 74-year-old female hospitalized with progressive decline in overall health. Patient with history of CLL and traumatic brain injury. Patient being evaluated by medical and neurology services. Patient confused and nonverbal at this time. She has not had any sufficient oral nutrition in the last week or so. Over the weekend there was discussion about possible hospice however family has decided to continue with medical care and for that reason we were consulted yesterday for PEG tube placement. No history of previous PEG tube in the past. No blood thinners currently. Review of Systems ROS unobtainable: due to mental status Past Medical History Past Medical History: Cancer, CVA/TIA, Dementia, Diabetes Mellitus, GERD/Reflux, Hyperlipidemia, Hypertension, Seizure Disorder Additional Past Medical History / Comment(s): tremors, traumatic brain injury, metabolic encephalopathy, CLL B cell Type, R sided weakness History of Any Multi-Drug Resistant Organisms: None Reported Past Surgical History: Appendectomy, Cholecystectomy, Hysterectomy Additional Past Surgical History / Comment(s): left kidney removed Past Anesthesia/Blood Transfusion Reactions: No Reported Reaction Smoking Status: Former smoker Medications and Allergies Home Medications Medication Instructions Recorded Confirmed Type Albuterol Inhaler [Ventolin Hfa 2 puff INHALATION RT-Q6H PRN 04/08/24 06/12/24 History Inhaler] Donepezil [Aricept] 5 mg PO HS 04/08/24 06/12/24 History Droxidopa 400 mg PO TID@0800,1400,2200 04/08/24 06/12/24 History FLUoxetine HCL 80 mg PO DAILY 04/08/24 06/12/24 History Famotidine [Pepcid] 20 mg PO BID@0900,1700 04/08/24 06/12/24 History Midodrine HCl [ProAmatine] 10 mg PO TID@0700,1300,1800 04/08/24 06/12/24 History levETIRAcetam [Keppra] 500 mg PO BID@0900,1700 04/08/24 06/12/24 History Aspirin 81 mg PO DAILY #90 tab 04/13/24 06/12/24 Rx Atorvastatin [Lipitor] 40 mg PO HS 05/16/24 06/12/24 History Diphenoxylate HCl/Atropine 1 tab PO QID PRN #2 tab 05/21/24 06/12/24 Rx [Lomotil 2.5-0.025 mg Tablet] Folic Acid 1 mg PO DAILY #30 tablet 05/21/24 06/12/24 Rx Multivitamins, Thera Liquid 15 ml PO DAILY ml 05/21/24 06/12/24 Rx [Theragran Liquid (formulary)] Thiamine [Vitamin B-1] 100 mg PO DAILY #30 tablet 05/21/24 06/12/24 Rx Lactose-Reduced Food [Ensure Plus] 1 can PO BID@0900,1700 06/12/24 06/12/24 History Allergies Allergy/AdvReac Type Severity Reaction Status Date / Time cephalexin [From Keflex] Allergy Rash/Hives Verified 06/12/24 12:21 ciprofloxacin [From Cipro] Allergy Rash/Hives Verified 06/12/24 12:21 clopidogrel [From Plavix] Allergy Unknown Verified 06/12/24 18:05 iodine Allergy Rash/Hives Verified 06/12/24 12:21 Sulfa (Sulfonamide Allergy Unknown Verified 06/12/24 12:21 Antibiotics) Surgical - Exam Vital Signs Temp Pulse Resp BP Pulse Ox 97.9 F 79 18 100/59 98 06/12/24 10:24 06/12/24 10:24 06/12/24 10:24 06/12/24 10:24 06/12/24 10:24 Physical exam: General: Well-developed, well-nourished elderly female, nonresponsive HEENT: Normocephalic, sclerae nonicteric Abdomen: Nontender, nondistended Extremities: Mild bilateral lower extremity edema Neuro: Confused, agitated Results - Labs 06/17/24 06:22 06/17/24 06:24 Abnormal Lab Results - Last 24 Hours (Table) 06/16/24 06/16/24 06/16/24 Range/Units 13:22 13:22 23:44 RBC 2.48 L (3.80-5.40) m/uL Hgb 8.2 L (11.4-16.0) gm/dL Hct 25.1 L (34.0-46.0) % MCV 101.3 H (80.0-100.0) fL RDW 15.6 H (11.5-15.5) % Plt Count 104 L (150-450) k/uL Sodium 148 H (137-145) mmol/L Chloride 114 H (98-107) mmol/L Carbon Dioxide (22-30) mmol/L BUN 34 H (7-17) mg/dL Creatinine 2.42 H (0.52-1.04) mg/dL Glucose (74-99) mg/dL POC Glucose (mg/dL) 126 H (70-110) mg/dL Total Protein 5.7 L (6.3-8.2) g/dL 06/17/24 06/17/24 06/17/24 Range/Units 06:21 06:22 06:24 RBC 2.49 L (3.80-5.40) m/uL Hgb 8.2 L (11.4-16.0) gm/dL Hct 25.5 L (34.0-46.0) % MCV 102.5 H (80.0-100.0) fL RDW (11.5-15.5) % Plt Count 111 L (150-450) k/uL Sodium 147 H (137-145) mmol/L Chloride 115 H (98-107) mmol/L Carbon Dioxide 21 L (22-30) mmol/L BUN 32 H (7-17) mg/dL Creatinine 2.28 H (0.52-1.04) mg/dL Glucose 135 H (74-99) mg/dL POC Glucose (mg/dL) 154 H (70-110) mg/dL Total Protein 5.8 L (6.3-8.2) g/dL Diabetes panel 06/16/24 06/17/24 06/17/24 Range/Units 13:22 06:19 06:24 Sodium 148 H 147 H (137-145) mmol/L Potassium 3.8 4.0 (3.5-5.1) mmol/L Chloride 114 H 115 H (98-107) mmol/L Carbon Dioxide 25 21 L (22-30) mmol/L BUN 34 H 32 H (7-17) mg/dL Creatinine 2.42 H 2.28 H (0.52-1.04) mg/dL Glucose 78 135 H (74-99) mg/dL Hemoglobin A1c 4.9 (<=6.0) % Calcium 9.2 9.2 (8.4-10.2) mg/dL AST 18 19 (14-36) U/L ALT 13 13 (4-34) U/L Alkaline Phosphatase 42 40 (38-126) U/L Total Protein 5.7 L 5.8 L (6.3-8.2) g/dL Albumin 3.6 3.6 (3.5-5.0) g/dL Calcium panel 06/16/24 06/17/24 Range/Units 13: 06:24 Calcium 9.2 9.2 (8.4-10.2) mg/dL Albumin 3.6 3.6 (3.5-5.0) g/dL Pituitary panel 06/16/24 06/17/24 Range/Units 13: 06:24 Sodium 148 H 147 H (137-145) mmol/L Potassium 3.8 4.0 (3.5-5.1) mmol/L Chloride 114 H 115 H (98-107) mmol/L Carbon Dioxide 25 21 L (22-30) mmol/L BUN 34 H 32 H (7-17) mg/dL Creatinine 2.42 H 2.28 H (0.52-1.04) mg/dL Glucose 78 135 H (74-99) mg/dL Calcium 9.2 9.2 (8.4-10.2) mg/dL Adrenal panel 06/16/24 06/17/24 Range/Units 13: 06:24 Sodium 148 H 147 H (137-145) mmol/L Potassium 3.8 4.0 (3.5-5.1) mmol/L Chloride 114 H 115 H (98-107) mmol/L Carbon Dioxide 25 21 L (22-30) mmol/L BUN 34 H 32 H (7-17) mg/dL Creatinine 2.42 H 2.28 H (0.52-1.04) mg/dL Glucose 78 135 H (74-99) mg/dL Calcium 9.2 9.2 (8.4-10.2) mg/dL Total Bilirubin 0.7 0.4 (0.2-1.3) mg/dL AST 18 19 (14-36) U/L ALT 13 13 (4-34) U/L Alkaline Phosphatase 42 40 (38-126) U/L Total Protein 5.7 L 5.8 L (6.3-8.2) g/dL Albumin 3.6 3.6 (3.5-5.0) g/dL Assessment and Plan (1) Malnutrition Narrative/Plan: Spoke with the patient's son Matt by phone at length. Discussed that no CODE STATUS would have to be changed to full code for the duration of the conscious sedation. He is agreeable with that. Discussed the risks and benefits of EGD with PEG tube placement. These risks include bleeding, infection, bowel injury, catheter misplacement, accidental removal, aspiration. He understands and wishes to proceed. Current Visit: Yes Status: Acute Code(s): E46 - UNSPECIFIED PROTEIN-CALORIE MALNUTRITION SNOMED Code(s): 35760297
[2024-06-17] MEDS ORDERED: ETOMIDATE 2 MG/ML 10 ML VIAL ONE (11:27)
[2024-06-17] MEDS ORDERED: fentaNYL (PF) 50 MCG/ML 2 ML AMP ONE (11:27)
[2024-06-17] MEDS: IV FLUID CONTINUATION 1,000 ML IV ONE (11:29)
--- NOTE | 2024-06-17 12:04 | P.PN ---
Subjective Progress Note Date: 06/17/24 Hospital course: Patient is a pleasant 74-year-old female with a past medical history of advanced dementia, CLL, hypertension, hyperlipidemia, recent CVA with right sided deficits along with visual and speech deficits, CKD stage IIIb, and seizure disorder. Patient recently suffered from a left frontal stroke with right sided deficits along with visual and speech deficits in April 2024 and has been at [facility] for fci rehab. She presented to our facility with reports of agitation and worsening confusion status post fall from bed at nursing facility. Patient with advanced dementia and significant aphasia and information was obtained from ED provider, documentation in chart, and via telephone conversation with patient's son Matt. Pt's son Matt reports his mother has had rapid deterioration of her mental status since suffering her stroke 2 months ago On arrival to our facility, patient underwent evaluation in the emergency department. Vital signs upon arrival show blood pressure 100/59, heart rate 79, respiratory rate 18, temp 97.9 F, and SpO2 of 90% on room air. EKG completed showing normal sinus rhythm at [address] head and cervical spine showing regions of low-attenuation within the left frontal, left parietal, right o ccipital lobes with preservation of the cortices reported to be more prominent from prior exams possibly representing evolving infarcts with underlying demyelination however neoplastic process cannot be ruled out. CT cervical spine negative for acute process showing no evidence of cervical spine fracture revealing multiple nonspecific mildly enlarged mediastinal lymph nodes with additional mildly prominent neck lymph nodes and concerns of right upper lung patchy groundglass opacities. Labs completed and reviewed. CBC showing bicytopenia with hemoglobin of 8.3 and platelet count of 103. BMP showing hypokalemia with potassium of 3.4 and elevated renal function with BUN of 35, creatinine 2.10, GFR of 23 at baseline. Blood glucose 143. Lactic acid 1.7. Magnesium 1.8. Liver profile unremarkable. Troponin less than 0.012. Urinalysis positive for nitrites. Patient started on antibiotics with Zosyn. She was admitted under our services with consultation to neurology and hematology/oncology. Patient's condition continued to decline she was restless, agitated, and appeared uncomfortable. MRI brain without contrast was completed showing worsening vasogenic edema bilaterally left greater than right with a rim of curvilinear restricted diffusion bilaterally worse on the left concerning for cortical vein thrombosis and now with infarct versus metastasis. Initially MRI with and without contrast was ordered but unable to be completed at this facility until 06/17/24 and patient's son requeted transfer to [facility], attempts made at transfer however pt was not accepted for transfer at their facility. Discussed with pt's son and pt to remain at our facility and undergo CT venogram. CT venogram with and without contrast completed showing no cerebral vein thrombosis with mid to multifocal areas of vasogenic edema and there is a suggestion of an 8 mm enhancing nodule in the right occipital vasogenic edema concerning for metastatic process. Discussed these findings with neurologist and patient's son, patient's son initially in agreement to hospice and scheduled meeting on 06/15/24 to discuss options. Pt's son cancelled this meeting and scheduled a new meeting with hospice was rescheduled on 06/16/24. Pt's son made the decision not to sign onto Hospice at this itsc. He is requesting a peg tube to be placed and for patient to begin tube feedings and wants the MRI to be completed prior to making any other decisions. He was informed of pt's very poor prognosis and verbalized understanding. Order was placed for NG tube feeds, however pt's son did not consent to this stating he wants Peg Tube placed and did not want NG tube placed. General Surgeon was consulted for placement of Peg Tube. Physical exam: Patient seen and fully evaluated at bedside this morning. Patient restless and agitated, mentation unchanged and remains A&Ox0. Patient just medicated with morphine 4 mg for signs of discomfort. Sitter remains at bedside to maintain safety. Vital signs reviewed and stable. General: Nontoxic, no distress and appears stated age. Derm: Skin warm and dry, normal coloration for ethnicity. Patient with multiple areas of significant bruising to bilateral upper and lower extremities in different stages of healing. Head: Atraumatic, normocephalic and symmetric. Eyes: EOM's intact, no lid lag, and anicteric sclera Mouth: no lip lesions, mucus membranes moist Cardiovascular: regular rate and rhythm with normal S1S2, no murmur, positive posterior tibial pulses bilaterally, and cap refill < 2 seconds. Lungs: Respirations even, regular, and unlabored on room air. Lungs CTA b ilaterally, no rhonchi, no rales, no wheezing, and no accessory muscle usage. Abdominal: soft, nontender to palpation, no guarding, no appreciable organomegaly Ext: ROM intact. No gross muscle atrophy, no edema, no contractures Neuro: Patient nonverbal and unable to follow commands. Bilateral upper extremities and facial tremor. Psych: Nonverbal, moaning. Confused and appears slightly agitated. Assessment and Plan of Care: Severe Metabolic encephalopathy, Secondary to multifocal areas of vasogenic edema from recent stroke Brain nodule, suspicious for metastasis Advanced dementia with agitation and aggressive behaviors History of recent CVA with multiple deficits History of seizure disorder -Hospice consulted, meeting with family at this time. -Neurology following and discussed case in detail with neurologist, Dr. Vyas. -CT venogram with and without contrast completed showing no cerebral vein thrombosis with mid to multifocal areas of vasogenic edema and there is a suggestion of an 8 mm enhancing nodule in the right occipital vasogenic edema concerning for metastatic process. 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 -Initially MRI with and without contrast was ordered stat but unable to be completed at this facility and patient was not accepted for transfer at [facility]. -CT venogram with and without contrast ordered STAT -NIH stroke scale with neuro checks every 4 hours and as needed -Daily aspirin 81 mg daily and atorvastatin 40 mg daily. -grey roll man to remain at bedside secondary to agitation and confusion -Maintain Seizure and Fall precautions. -Continue to provide pt with assistance as needed -Patient to remain on continuous telemetry monitoring. -Patient to continue with Aricept 5 mg nightly droxidopa 400 mg 3 times daily, and Keppra 1000 mg twice daily. -Per neurologist, patient's son requesting for patient to have MRI with and without contrast completed. He reported that the potential for renal failure from the contrast dye was discussed thoroughly with pt's son and he wants pt to have MRI with contrast despite the risks. Nitrite positive UTI Groundglass opacities right upper lobe -Urine culture was positive for E. coli. -Patient completed 5-day course of IV antibiotics with Zosyn 3.375 g every 8 hours. Hypernatremia Non-anion gap Metabolic acidosis -IV fluids increased, patient on D5 0.45% normal saline and infusion rate increased to 100 cc/h. Reported fall at [facility], possibly hitting head -CT head was negative for acute intracranial injury, no evidence of brain bleed or skull fracture. -Maintain fall precautions CLL Hx of renal cell carcinoma s/p nephrectomy with Stage IIIb CKD Bicytopenia, secondary to above Enlarged mediastinal lymph nodes with additional mildly prominent neck lymph nodes, likely secondary to metastatic process -Patient's son reports patient follows with quarry boss/oncologist and undergoes monthly transfusions. -Per patient's son quarry boss states patient is not to receive any blood thinners. -Hematology/oncology following and discussed case with both quarry boss/oncologist and Heme/Onc COMMAND POST SUPERINTENDENT in detail. Data and imaging reviewed: -Vitals reviewed. Blood pressure 138/69, heart rate 84, respiratory rate 16, temp 97.6 F, and SpO2 of 93% on room air. -Morning labs reviewed. CBC showing stable bicytopenia with hemoglobin of 8.2 and platelet count of 111. BMP showing slight improvement of hypernatremia with sodium decreasing to 147, will increase D5 0.45% normal saline infusion 200 cc/h and continue to monitor closely. -Discussed with Gonzalo hospice nurse practitioner this morning, she reports that she explained to patient's son that patient is showing signs of terminal agitation and restlessness, however her son continues to decline hospice care at this time and states he will discuss further after MRI and PEG tube is placed. Patient with a very poor prognosis. CODE STATUS: DNR/DNI per discussion with patient's sonLuis DVT prophylaxis: DAMION andre and SCDs as patient's son stated patient is not to rec eive any anticoagulation per her quarry boss as she has "severe reactions to any blood thinners". Anticipated discharge date: Pending clinical course Anticipated discharge place: Pending clinical course Patient was seen independently by Nurse Practitioner. This document was prepared using [employer] dictation software. Please allow for errors in billing and insurance coordinator while rare they do occur. Hakeem Pleitez NP rendered care for this patient independently, reviewed the findings and plan as documented in the note above and agree with plan. I did not physically speak with or examine the patient on this date. Objective - Vital Signs Vital signs: Vital Signs Temp 97.7 F 06/17/24 03:08 Pulse 85 06/17/24 03:08 Resp 16 06/17/24 03:08 BP 119/72 06/17/24 03:08 Pulse Ox 93 L 06/17/24 03:08 FiO2 Intake & Output 06/16/24 06/17/24 06/17/24 18:59 06:59 18:59 Output Total 375 100 Balance -375 -100 Output: Urine 375 100 Other: Voiding Method Indwelling Catheter Indwelling Catheter - Labs CBC & Chem 7: 06/17/24 06:22 06/17/24 06:24 Labs: Abnormal Lab Results - Last 24 Hours (Table) 06/16/24 06/16/24 06/16/24 Range/Units 13:22 13:22 23:44 RBC 2.48 L (3.80-5.40) m/uL Hgb 8.2 L (11.4-16.0) gm/dL Hct 25.1 L (34.0-46.0) % MCV 101.3 H (80.0-100.0) fL RDW 15.6 H (11.5-15.5) % Plt Count 104 L (150-450) k/uL Sodium 148 H (137-145) mmol/L Chloride 114 H (98-107) mmol/L Carbon Dioxide (22-30) mmol/L BUN 34 H (7-17) mg/dL Creatinine 2.42 H (0.52-1.04) mg/dL Glucose (74-99) mg/dL POC Glucose (mg/dL) 126 H (70-110) mg/dL Total Protein 5.7 L (6.3-8.2) g/dL 06/17/24 06/17/24 06/17/24 Range/Units 06:21 06:22 06:24 RBC 2.49 L (3.80-5.40) m/uL Hgb 8.2 L (11.4-16.0) gm/dL Hct 25.5 L (34.0-46.0) % MCV 102.5 H (80.0-100.0) fL RDW (11.5-15.5) % Plt Count 111 L (150-450) k/uL Sodium 147 H (137-145) mmol/L Chloride 115 H (98-107) mmol/L Carbon Dioxide 21 L (22-30) mmol/L BUN 32 H (7-17) mg/dL Creatinine 2.28 H (0.52-1.04) mg/dL Glucose 135 H (74-99) mg/dL POC Glucose (mg/dL) 154 H (70-110) mg/dL Total Protein 5.8 L (6.3-8.2) g/dL
--- NOTE | 2024-06-17 12:09 | P.PCN ---
Date of Procedure: 06/17/24 Procedure(s) Performed: PREOPERATIVE DIAGNOSIS: Malnutrition POSTOPERATIVE DIAGNOSIS: Same PROCEDURE: EGD with PEG tube placement SURGEON: Ivana EBL: Minimal ANESTHESIA: Sedation COMPLICATIONS: None OPERATIVE PROCEDURE: The patient was placed in the supine position on the endoscopy table. The patient was sedated per anesthesia that time. The Olympus gastroscope was inserted into the oropharynx and passed under direct visualization to the region of the duodenum. No obstruction was seen. The pylorus was widely patent. The stomach was carefully inspected. The stomach was fully insufflated with air. The abdominal wall was inspected. The light was seen shining through the abdominal wall in the left upper quadrant. This site was chosen for PEG tube placement. The area was prepped in the usual sterile fashion. This area was then localized with lidocaine. No air was evident when aspirating while advancing the localizing needle into the stomach until the stomach was reached. A small vertical incision was made using the scalpel. The Seldinger needle was advanced into the lumen of the stomach the wire was advanced. The wire was grasped with an endoscopic snare. The wire was pulled through the oropharynx. The catheter was then threaded over the guidewire and the guidewire and catheter were pulled anteriorly until the hub of the PEG tube catheter was seated against the anterior wall the stomach. The circular bolster was applied and tightened down to approximately 2.5 cm. The en doscope was then readvanced into the stomach. There was no evidence of any bleeding and there was appropriate tightness on the bolster. The catheter was cut appropriately. The dual port feeding adapter was applied. A single drain sponge was placed beneath the bolster. An ABD was applied over this and an abdominal binder over that. DISPOSITION: Stable to recovery room
[2024-06-17 12:21] LABS: Glucose,Whole Blood 184 mg/dL (70-110)
[2024-06-17] MEDS: LORazepam 2 MG/ML INJ IV STA (15:45)
[2024-06-17 17:12] LABS: Glucose,Whole Blood 130 mg/dL (70-110)
--- NOTE | 2024-06-17 18:03 | MR ---
EXAMINATION TYPE: MR brain w con DATE OF EXAM: 06/17/2024 5:06 PM COMPARISON: None. CLINICAL INDICATION: Female, 74 years old with history of edema r/o brain mets, Edema, R/O brain mets previous abnormal TECHNIQUE: Multiplanar, multiecho imaging on a 3.0 Toma magnet is performed through the brain. Stud y is performed within 24 hours of arrival to the hospital.Multiplanar, multiecho imaging on a 3.0 Claudia la magnet is performed through the brain. Postcontrast imaging is performed with T1 sequences. Exam is Limited due to motion artifact. Best possible imaging was performed. IV Contrast: 6 mL Gadobutrol (None, if empty) FINDINGS: T1 postcontrast imaging is vasogenic type edema within the left parieto-occipital region. Some additi onal subcortical white matter hypodensity is present in the left parietal lobe. Underlying enhancemen t is not identified. In the coronal and sagittal planes inferior medial right occipital lobe vasogeni c edema is better appreciated Ventricles and sulci are prominent for the patient age. Ventricles are somewhat more prominent sulci. Significant temporal horns however is not readily apparent IMPRESSION: 1. Vasogenic edema within the left parietal-occipital region, posterior centrum semiovale left pariet al lobe and inferior medial right occipital lobe. Underlying enhancing lesions are not identified. Co rrelation with patient blood pressure recommended. Hypertensive crisis could be considered.. Recent v accination with subsequent ADEM could be considered less likely. 2. Radiologic etiology is not readily apparent given limitation on the examination with excessive mot ion artifact. [facility], , 06/17/2024 6:01 PM
[2024-06-18 00:04] LABS: Glucose,Whole Blood 140 mg/dL (70-110)
[2024-06-18 06:12] LABS: Glucose,Whole Blood 129 mg/dL (70-110)
[2024-06-18 07:38] LABS: HGB 8.6 gm/dL (11.4-16.0); Hypochromasia Marked; MCHC 31.8 g/dL (31.0-37.0); MCV 103.8 fL (80.0-100.0); Macrocytosis Moderate; Mean Platelet Volume 7.9; Platelet Count 120 k/uL (150-450); RDW 15.1 % (11.5-15.5); WBC 7.1 k/uL (3.8-10.6)
[2024-06-18 07:54] LABS: ALT 12 U/L (4-34); AST 20 U/L (14-36); African American GFR (CKD) 34 (>60 ml/min/1.73 sqM); Albumin 3.4 g/dL (3.5-5.0); Alkaline Phosphatase 42 U/L (38-126); Anion Gap 6 mmol/L; Blood Urea Nitrogen 28 mg/dL (7-17); Calcium 9.4 mg/dL (8.4-10.2); Carbon Dioxide 23 mmol/L (22-30); Chloride 115 mmol/L (98-107); Glucose 127 mg/dL (74-99); Magnesium 1.8 mg/dL (1.6-2.3); Non-African American GFR(CKD) 29 (>60 ml/min/1.73 sqM); Potassium 3.4 mmol/L (3.5-5.1); Sodium 144 mmol/L (137-145); Total Bilirubin 0.5 mg/dL (0.2-1.3); Total Protein 5.6 g/dL (6.3-8.2)
--- NOTE | 2024-06-18 08:16 | P.PN ---
Progress Note - Text Progress Note Date: 06/18/24 Still pending receipt of notes from pt primary Oncologist, 3rd request Serum viscosity, SPEP, immunofixation and K/L light chains labs ordered
--- NOTE | 2024-06-18 09:33 | P.PN ---
Subjective Progress Note Date: 06/17/24 Patient initially seen by Dr. Magdy Vyas. Please refer to his note for details. Patient is a 74-year-old female with worsening mentation. Patient had an MRI of the brain with and without done and has vasogenic edema and was reported as stroke due to venous thrombosis. That head CT and CTV with and without reported as no venous thrombosis and has concern for brain mets. Initially the son wanted hospice per primary and now he wants to pursue with more medical management. Bradley Muñiz has rejected for transfer. Patient was seen for a follow-up. Patient's son and [id number] were present. They mentioned that patient fell out of the wheelchair when she tried to get up. He mentions that about a month ago, she was having conversation. She then started with forgetting the words and then forgetting sentences which progressed. For 7 to 8 days she was only seeing yes/no and mumbling. However in the last 4 days she has become completely nonverbal. She is not doing well, very uncomfortable, combative, altered mental status. She does have history of tremors for about 25 years. Some of the workup during this hospital visit consisted of: TSH is 7.83 and the free T4 is 0.98. Her creatinine is 2.1 and the BUN is 35. CT of the head and cervical spine is reported as no acute intracranial bleed. Region of low-attenuation in the left frontal left parietal and right occipital lobe were preservation of the cortices. There is slightly more prominent from prior exam may represent evolving infarct with underlying demyelination or neoplastic process is not excluded. Further evaluation with MRI with IV contrast is recommended. Nonspecific white matter changes, likely secondary due to chronic small vessel ischemic disease. No evidence of cervical spine f racture. Multilevel degenerative disc disease. Postsurgical changes from ACDF C4-C7. Hardware appears intact. Visualized right upper lung patchy groundglass opacity which may represent developing infection process. I personally reviewed the CT do not appreciate any acute or subacute stroke. Patient has old strokes predominantly left more than the right. Its predominantly in the posterior re gion bilaterally but the left also involves the left frontal as well. MRI Brain w/o: MRI of the brain without is reported as extensive motion limited exam. Worsening vasogenic edema bilaterally, left greater than the right. There is rim of curvilinear restriction diffusion bilaterally worse on the left. Correlating with prior imaging of suggested cortical vein thrombosis and now with infarct is the favored diagnosis. Mass effect excluded given motion lack of IV contracts. Other etiologies could be considered such as press. CTV: No cerebral vein thrombosis. Mild to multifocal area of vasogenic edema as described above. There is suggestion of 8 mm enhancing nodule in the right occipital vasogenic edema raising the question of metastatic disease. MRI of the brain with contrast is recommended for further evaluation. Routine EEG: Is abnormal. The background slowing is suggestive of moderate to severe encephalopathy. Otherwise there is no focal slowing, OptiForm discharge or seizure on the EEG. Objective - Vital Signs Vital signs: Vital Signs Temp 97.6 F 06/17/24 08:00 Pulse 90 06/17/24 16:00 Resp 16 06/17/24 14:00 BP 148/69 06/17/24 16:00 Pulse Ox 94 L 06/17/24 12:00 FiO2 Intake & Output 06/17/24 06/17/24 06/18/24 06:59 18:59 06:59 Intake Total 550 Output Total 100 50 Balance -100 500 Weight 62 kg Intake: IV 200 Intake, IV Titration 200 Amount Dextrose 5%-0.45% NaCl 1, 200 000 ml @ 100 mls/hr IV . Q10H [facility] Rx#:[id number] Oral 150 Output: Chest Tube Drainage 50 Right 50 Urine 100 Other: Voiding Method Indwelling Catheter Indwelling Catheter # Bowel Movements 1 - Exam On examination patient is severely encephalopathic, appears uncomfortable, rolling in the bed [id number], has bruises in the legs. Patient not able to answer any question, just some moaning. Her face is symmetric, pupils are equal. She moves her extremities equally. She is not following any commands. - Labs CBC & Chem 7: 06/18/24 06:54 06/18/24 06:54 Labs: Abnormal Lab Results - Last 24 Hours (Table) 06/16/24 06/17/24 06/17/24 Range/Units 23:44 06:21 06:22 RBC 2.49 L (3.80-5.40) m/uL Hgb 8.2 L (11.4-16.0) gm/dL Hct 25.5 L (34.0-46.0) % MCV 102.5 H (80.0-100.0) fL Plt Count 111 L (150-450) k/uL Sodium (137-145) mmol/L Chloride (98-107) mmol/L Carbon Dioxide (22-30) mmol/L BUN (7-17) mg/dL Creatinine (0.52-1.04) mg/dL Glucose (74-99) mg/dL POC Glucose (mg/dL) 126 H 154 H (70-110) mg/dL Total Protein (6.3-8.2) g/dL 06/17/24 06/17/24 06/17/24 Range/Units 06:24 12:20 17:08 RBC (3.80-5.40) m/uL Hgb (11.4-16.0) gm/dL Hct (34.0-46.0) % MCV (80.0-100.0) fL Plt Count (150-450) k/uL Sodium 147 H (137-145) mmol/L Chloride 115 H (98-107) mmol/L Carbon Dioxide 21 L (22-30) mmol/L BUN 32 H (7-17) mg/dL Creatinine 2.28 H (0.52-1.04) mg/dL Glucose 135 H (74-99) mg/dL POC Glucose (mg/dL) 184 H 130 H (70-110) mg/dL Total Protein 5.8 L (6.3-8.2) g/dL Assessment and Plan Assessment: * Rapidly progressive cognitive decline since March 2024. This has rapidly got worse in the last 4 weeks and has been nonverbal, moaning only for the last 3 to 4 days. MRI of the brain with and without contrast revealed vasogenic edema within the left parietal occipital region, posterior centrum semiovale left parietal lobe and inferior medial right occipital lobe. Underlying enhancing lesions are not identified. PML also in the differential. Radiologist concerned about PRES or ADEM, but her sodium is normal, blood pressure is completely normal. Does not appear typical pattern of ADEM. * Recent history of left nephrectomy for renal cell carcinoma, in October 2023 * History of CML, in remission * History of recurrent falls * History of seizures in , has been in remission for 30 years, off medication, but had recurrence of seizure x 1, about 8 months ago. Patient started on Keppra. No seizures recurrence thereafter. * Acute on chronic renal insufficiency * Hypertension * Ex tobacco use Plan: MRI of the brain with contrast revealed vasogenic edema within the left parietal occipital region, posterior centrum semiovale left parietal lobe and inferior medial right occipital lobe. Underlying enhancing lesions are not identified. Correlate with patient's blood pressure recommended. Hypertensive crisis could be considered. ADM also considered by radiologist. 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 MRI of the brain without is reported as extensive motion limited exam. Worsening vasogenic edema bilaterally, left greater than the right. There is rim of curvilinear restriction diffusion bilaterally worse on the left. Correlating with prior imaging of suggested cortical vein thrombosis and now with infarct is the favored diagnosis. Mass effect excluded given motion lack of IV contracts. Other etiologies could be considered such as press. CTV: No cerebral vein thrombosis. Mild to multifocal area of vasogenic edema as described above. There is suggestion of 8 mm enhancing nodule in the right occipital vasogenic edema raising the question of metastatic disease. MRI of the brain with contrast is recommended for further evaluation. Keppra from 500 to 1000 mg twice daily on 06/13/2024 for concern about seizure and route is IV for now. According to the primary team N.P. she informed the son and he wants her to be hospice. On seizure precaution and pads. Patient is on aspirin 81 mg, Lipitor 40 mg nightly. Oncology is consulted for patient CLL Will defer the rest of the medical management to primary and other specialist As stated above the son wants her hospice. We will discuss with oncology to consider diagnosis of PML. Agree with considering hospice at this time. Son is also in agreement.
[2024-06-18] MEDS: POTASSIUM CHLORIDE 10 MEQ in WATER FOR INJECTION 1 100ML.BAG IVPB SCH (09:38)
[2024-06-18] MEDS ORDERED: ACETAMINOPHEN TAB 325 MG TAB PEG/G-TUBE PRN (10:42)
[2024-06-18 11:45] LABS: Glucose,Whole Blood 103 mg/dL (70-110)
[2024-06-18] MEDS: MIDODRINE 5 MG TAB PEG/G-TUBE SCH (12:05)
--- NOTE | 2024-06-18 12:20 | P.PN ---
Subjective Progress Note Date: 06/18/24 Hospital course: Patient is a pleasant 74-year-old female with a past medical history of advanced dementia, CLL, renal cell carcinoma status post nephrectomy, hypertension, hyperlipidemia, recent CVA with right sided deficits along with visual and speech deficits, CKD stage IIIb, and seizure disorder. Patient recently suffered from a left frontal stroke with right sided deficits along with visual and speech deficits in April 2024 and has been at [facility] for senior living rehab. She presented to our facility with reports of agitation and worsening confusion status post fall from bed at nursing facility. Patient with advanced dementia and significant aphasia and information was obtained from ED provider, documentation in chart, and via telephone conversation with patient's son Matt. Pt's son Matt reports his mother has had rapid deterioration of her mental status since suffering her stroke 2 months ago On arrival to our facility, patient underwent evaluation in the emergency department. Vital signs upon arrival show blood pressure 100/59, heart rate 79, respiratory rate 18, temp 97.9 F, and SpO2 of 90% on room air. EKG completed showing normal sinus rhythm at [address] head and cervical spine showing regions of low-attenuation within the left frontal, left parietal, right occipital lobes with preservation of the cortices reported to be more prominent from prior exams possibly representing evolving infarcts with underlying demyelination however neoplastic process cannot be ruled out. CT cervical spine negative for acute process showing no evidence of cervical spine fracture revealing multiple nonspecific mildly enlarged mediastinal lymph nodes with additional mildly prominent neck lymph nodes and concerns of right upper lung patchy groundglass opacities. Labs completed and reviewed. CBC showing bicytopenia with hemoglobin of 8.3 and platelet count of 103. BMP showing hypokalemia with potassium of 3.4 and elevated renal function with BUN of 35, creatinine 2.10, GFR of 23 at baseline. Blood glucose 143. Lactic acid 1.7. Magnesium 1.8. Liver profile unremarkable. Troponin less than 0.012. Urinalysis positive for nitrites. Patient started on antibiotics with Zosyn. She was admitted under our services with consultation to neurology and hematology/oncology. Patient's condition continued to decline she was restless, agitated, and appeared uncomfortable. MRI brain without contrast was completed showing worsening vasogenic edema bilaterally left greater than right with a rim of curvilinear restricted diffusion bilaterally worse on the left concerning for cortical vein thrombosis and now with infarct versus metastasis. Initially MRI with and without contrast was ordered but unable to be completed at this facility until 06/17/24 and patient's son requeted transfer to [facility], attempts made at transfer however pt was not accepted for transfer at their facility. Discussed with pt's son and pt to remain at our facility and undergo CT venogram. CT venogram with and without contrast completed showing no cerebral vein thrombosis with mid to multifocal areas of vasogenic edema and there is a suggestion of an 8 mm enhancing nodule in the right occipital vasogenic edema concerning for metastatic process. Discussed these findings with neurologist and patient's son, patient's son initially in agreement to hospice and scheduled meeting on 06/15/24 to discuss options. Pt's son cancelled this meeting and scheduled a new meeting with hospice was rescheduled on 06/16/24. Pt's son made the decision not to sign onto Hospice at this itme. He is requesting a peg tube to be placed and for patient to begin tube feedings and wants the MRI to be completed prior to making any other decisions. He was informed of pt's very poor prognosis and verbalized understanding. Order was placed for NG tube feeds, however pt's son did not consent to this stating he wants Peg Tube placed and did not want NG tube place d. General Surgeon was consulted and patient underwent placement of Peg Tube on 06/17/2024. MRI brain with contrast was completed on 06/17/2024 revealing vasogenic edema within the left parietaloccipital region, posterior centrum semioval left parietal lobe and inferior medial right occipital lobe; no underlying mass or lesions were reported. Physical exam: Vital signs reviewed and stable. General: Nontoxic, no distress and appears stated age. Derm: Skin warm and dry, normal coloration for ethnicity. Patient with multiple areas of significant bruising to bilateral upper and lower extremities in different stages of healing. Head: Atraumatic, normocephalic and symmetric. Eyes: EOM's intact, no lid lag, and anicteric sclera Mouth: no lip lesions, mucus membranes moist Cardiovascular: regular rate and rhythm with normal S1S2, no murmur, positive posterior tibial pulses bilaterally, and cap refill < 2 seconds. Lungs: Respirations even, regular, and unlabored on room air. Lungs CTA bilaterally, no rhonchi, no rales, no wheezing, and no accessory muscle usage. Abdominal: soft, nontender to palpation, no guarding, no appreciable organomegaly. PEG tube in place. Ext: ROM intact. No gross muscle atrophy, no edema, no contractures Neuro: Patient nonverbal and unable to follow commands. Bilateral upper extremities and facial tremor. Psych: Nonverbal, moaning, restless, and agitated and fidgety. Assessment and Plan of Care: Patient seen and fully evaluated at bedside this morning. Pt's mentation unc hanged. She was resting at time of assessment, RN reports continued episodes of severe agitation when moved or awoken. MRI with contrast results were reviewed and findings discussed in depth with neurologist. Also discussed case in detail with oncology, stated they have received records from patient's primary oncologist and will review this afternoon and will give additional recommendations at that time. Severe Metabolic encephalopathy, Secondary to multifocal areas of vasogenic edema believed to be from recent stroke Brain nodule, suspicious for metastasis Advanced dementia with agitation and aggressive behaviors History of recent CVA with multiple deficits History of seizure disorder -Hospice consulted, family declined hospice care at this time. -Neurology following and discussed case in detail with neurologist, Dr. Wray -MRI brain with contrast was completed 06/17/2024 showing vasogenic edema within the left parietaloccipital region -CT venogram with and without contrast completed showing no cerebral vein thrombosis with mid to multifocal areas, posterior centrum semimobile left parietal lobe and inferior medial right occipital lobe with no underlying lesions identified of vasogenic edema and there is a suggestion of an 8 mm enhancing nodule in the right occipital vasogenic edema concerning for metastatic process. -MRI brain without contrast was completed showing worsening vasogenic edema bilaterally left greater than right with a rim of curvilinear restricted diffusion bilaterally worse on the left concerning for cortical vein thrombosis and now with infarct versus metastasis -Per recommendations of neurology patient was started on Decadron 4 mg every 6 hours. -Continue neuro checks every 4 hours and as needed -Daily aspirin 81 mg daily and atorvastatin 40 mg daily. -calender wind up helper to remain at bedside secondary to agitation and confusion -Maintain Seizure and Fall precautions. -Patient to remain on continuous telemetry monitoring. -Patient to continue with Aricept 5 mg nightly droxidopa 400 mg 3 times daily, and Keppra 1000 mg twice daily. Continue to await family to bring in home droxidopa capsules for administration. Nitrite positive UTI Groundglass opacities right upper lobe -Urine culture was positive for E. coli. Patient completed 5-day course of IV antibiotics with Zosyn 3.375 g every 8 hours. Hypernatremia Non-anion gap Metabolic acidosis -Continue IV fluids with D5 0.45% normal saline and infusion rate increased to 100 cc/h. Reported fall at group home, possibly hitting head -CT head was negative for acute intracranial injury, no evidence of brain bleed or skull fracture. -Maintain fall precautions CLL Hx of renal cell carcinoma s/p nephrectomy with Stage IIIb CKD Bicytopenia, secondary to above Enlarged mediastinal lymph nodes with additional mildly prominent neck lymph nodes, likely secondary to metastatic process -Patient's son reports patient follows with site physician/oncologist and undergoes monthly transfusions. -Per patient's son site physician states patient is not to receive any blood thinners. -Hematology/oncology following and discussed case with both hematolog ist/oncologist and Heme/Onc PERFORMANCE REPORTER in detail, stating they have received records from oncologist and will review this afternoon and provide additional recommendations at that time.. Data and imaging reviewed: -Vitals reviewed. Blood pressure 126/40, heart rate 84, respiratory rate 16, temp 97.9 F, and SpO2 of 99% on room air. -Morning labs reviewed. CBC showing stable bicytopenia with hemoglobin of 8.6 and platelet count of 120. BMP showing resolution of hyponatremia with sodium of 144, mild hypokalemia with potassium of 3.4, chloride of 115, and renal function stable with BUN 72, GFR of 29. Magnesium 1.8. Liver profile normal findings. Patient with a very poor prognosis. CODE STATUS: DNR/DNI per discussion with patient's sonLuis DVT prophylaxis: DAMION andre and Linda as patient's son stated patient is not to receive any anticoagulation per her site physician as she has "severe reactions to any blood thinners". Anticipated discharge date: Pending clinical course Anticipated discharge place: Pending clinical course Patient was seen independently by Nurse Practitioner. This document was prepared using [employer] dictation software. Please allow for errors in hardwood floor finisher while rare they do occur. Hakeem Pleitez NP rendered care for this patient independently, reviewed the findi ngs and plan as documented in the note above and agree with plan. I did not physically speak with or examine the patient on this date. Objective - Vital Signs Vital signs: Vital Signs Temp 97.9 F 06/18/24 07:35 Pulse 84 06/18/24 07:35 Resp 16 06/18/24 07:35 BP 126/40 06/18/24 07:35 Pulse Ox 99 06/18/24 07:35 FiO2 Intake & Output 06/17/24 06/18/24 06/18/24 18:59 06:59 18:59 Intake Total 550 20 10 Output Total 50 700 Balance 500 -680 10 Weight 62 kg 61 kg Intake: IV 200 20 10 Invasive Line 4 20 Invasive Line 5 10 Intake, IV Titration 200 Amount Dextrose 5%-0.45% NaCl 1, 200 000 ml @ 100 mls/hr IV . Q10H [facility] Rx#:[id number] Oral 150 Output: Chest Tube Drainage 50 Right 50 Urine 700 Other: Voiding Method Indwelling Catheter Indwelling Catheter # Bowel Movements 1 - Labs CBC & Chem 7: 06/18/24 06:54 06/18/24 06:54 Labs: Abnormal Lab Results - Last 24 Hours (Table) 06/17/24 06/17/24 06/18/24 Range/Units 12:20 17:08 00:02 RBC (3.80-5.40) m/uL Hgb (11.4-16.0) gm/dL Hct (34.0-46.0) % MCV (80.0-100.0) fL Plt Count (150-450) k/uL Potassium (3.5-5.1) mmol/L Chloride (98-107) mmol/L BUN (7-17) mg/dL Creatinine (0.52-1.04) mg/dL Glucose (74-99) mg/dL POC Glucose (mg/dL) 184 H 130 H 140 H (70-110) mg/dL Total Protein (6.3-8.2) g/dL Albumin (3.5-5.0) g/dL 06/18/24 06/18/24 06/18/24 Range/Units 06:10 06:54 06:54 RBC 2.60 L (3.80-5.40) m/uL Hgb 8.6 L (11.4-16.0) gm/dL Hct 27.0 L (34.0-46.0) % MCV 103.8 H (80.0-100.0) fL Plt Count 120 L (150-450) k/uL Potassium 3.4 L (3.5-5.1) mmol/L Chloride 115 H (98-107) mmol/L BUN 28 H (7-17) mg/dL Creatinine 1.72 H (0.52-1.04) mg/dL Glucose 127 H (74-99) mg/dL POC Glucose (mg/dL) 129 H (70-110) mg/dL Total Protein 5.6 L (6.3-8.2) g/dL Albumin 3.4 L (3.5-5.0) g/dL
--- NOTE | 2024-06-18 13:50 | CDI ---
Documentation Clarification Form Date: 06/18/2024 From: Latisha Soto RN CCDS Phone: [phone] Admit Date: 06/12/2024 12:20:00 PM Patient Name: Raquel Fisher Visit Number: [id number] Discharge Date: ATTENTION: The Clinical Documentation Specialists (CDI) and [facility] Coding Staff appreciate your assistance in clarifying documentation. Please respond to the clarification below the line at the bottom and electronically sign. The CDI & [facility] Coding staff will review the response and follow-up if needed. Please note: Queries are made part of the Legal Health Record. If you have any questions, please contact the author of this message via ITS. Doctor/Provider: FRANK CristobalC: The Registered Dietitian assessment on 06/17 indicates this patient meets criteria for acute moderate malnutrition. Based on this information and the findings below, is there an additional diagnosis that is clinically appropriate for this patient? History/Risk Factors: 74-year-old female with a history of Dementia, CLL, HTN, and recent CVA, and CKD3b, who presents with agitation and worsening confusion Clinical Indicators: 06/17 RD Assessment: Height: 5ft 5in Weight: 62kg BMI: 22.7 06/17 RD Consult Assessment: "Nutrition Diagnosis: inadequate energy intake, acute moderate malnutrition as related to AMS as evidenced by <25% EEN x 5 days, moderate buccal fat pad loss" 06/17 Operative note: "Preoperative diagnosis: Malnutrition, Procedure: EGD with PEG tube placement" 06/12-06/18 Total Protein: 5.5, 5.8, 5.8, 5.6, 5.7, 5.7, 5.6 Treatment: PEG tube placement, Glucerna tube feeding, monitor total protein Is there an additional diagnosis that is clinically appropriate for this patient? [X ] Moderate Protein-Calorie Malnutrition [ ] No additional diagnosis/Not clinically significant [ ] Other condition, please specify [ ] Unable to Determine MTDD
--- NOTE | 2024-06-18 13:51 | P.PN ---
Subjective Progress Note Date: 06/19/24 SURGICAL PROGRESS NOTE CHIEF COMPLAINT: Malnutrition HISTORY OF PRESENT ILLNESS: Patient postop day# 1 status post EGD with PEG tube placement. Patient has been started on tube feeds. She is resting in bed comfortably. She has a bedside sitter. Afebrile. WBC 7.1 Hgb 8.6 potassium 3.4 and being replaced creatinine 1.17 PHYSICAL EXAM: VITAL SIGNS: Reviewed. GENERAL: no acute distress. ABDOMEN: Soft. Nondistended. Nontender. PEG tube site clean dry and intact NEUROLOGIC: Awake ASSESSMENT: 1. Moderate protein calorie malnutrition status post PEG tube placement 2. CVA 3. Advanced dementia PLAN: -Continue to titrate tube feeds -Continue to monitor Physician Animal Care Provider note has been reviewed by physician. Signing provider agrees with the documented findings, assessment, and plan of care. I have personally seen and examined the patient, reviewed the EXPLOSIVE ORDNANCE HANDLER /PAs history, exam and MDM and agree with the assessment and plan as written. Based on total visit time, I have performed more than 50% of the visit. As above: Patient is comfortable currently. Has been somewhat agitated thr oughout the day per the nursing staff however. Minimal tenderness at the PEG tube site. Continue slowly advancing tube feeds to goal. Objective - Vital Signs Vital signs: Vital Signs Temp 98 F 06/18/24 10:30 Pulse 83 06/18/24 10:30 Resp 18 06/18/24 10:30 BP 135/69 06/18/24 10:30 Pulse Ox 98 06/18/24 10:30 FiO2 Intake & Output 06/17/24 06/18/24 06/18/24 18:59 06:59 18:59 Intake Total 550 20 10 Output Total 50 700 800 Balance 500 -680 -790 Weight 62 kg 61 kg Intake: IV 200 20 10 Invasive Line 4 20 Invasive Line 5 10 Intake, IV Titration 200 Amount Dextrose 5%-0.45% NaCl 1, 200 000 ml @ 100 mls/hr IV . Q10H [facility] Rx#:[id number] Oral 150 Output: Chest Tube Drainage 50 Right 50 Urine 700 600 Stool 200 Other: Voiding Method Indwelling Catheter Indwelling Catheter Indwelling Catheter # Voids 1 # Bowel Movements 1 - Labs CBC & Chem 7: 06/18/24 06:54 06/18/24 06:54 Labs: Abnormal Lab Results - Last 24 Hours (Table) 06/17/24 06/18/24 06/18/24 Range/Units 17:08 00:02 06:10 RBC (3.80-5.40) m/uL Hgb (11.4-16.0) gm/dL Hct (34.0-46.0) % MCV (80.0-100.0) fL Plt Count (150-450) k/uL Potassium (3.5-5.1) mmol/L Chloride (98-107) mmol/L BUN (7-17) mg/dL Creatinine (0.52-1.04) mg/dL Glucose (74-99) mg/dL POC Glucose (mg/dL) 130 H 140 H 129 H (70-110) mg/dL Total Protein (6.3-8.2) g/dL Albumin (3.5-5.0) g/dL 06/18/24 06/18/24 Range/Units 06:54 06:54 RBC 2.60 L (3.80-5.40) m/uL Hgb 8.6 L (11.4-16.0) gm/dL Hct 27.0 L (34.0-46.0) % MCV 103.8 H (80.0-100.0) fL Plt Count 120 L (150-450) k/uL Potassium 3.4 L (3.5-5.1) mmol/L Chloride 115 H (98-107) mmol/L BUN 28 H (7-17) mg/dL Creatinine 1.72 H (0.52-1.04) mg/dL Glucose 127 H (74-99) mg/dL POC Glucose (mg/dL) (70-110) mg/dL Total Protein 5.6 L (6.3-8.2) g/dL Albumin 3.4 L (3.5-5.0) g/dL
[2024-06-18 16:54] LABS: Glucose,Whole Blood 146 mg/dL (70-110)
--- NOTE | 2024-06-18 17:54 | P.PN ---
Progress Note - Text Progress Note Date: 06/18/24 Reviewed available oncology records from her primary oncologist oncologist Dr. Tafoya. Patient had peripheral blood flow cytometry at [facility] on 10/06/2015 which revealed monoclonal B lymphocytes, consistent with chronic lymphocytic leukemia of B-cell type. FISH revealed 17P deletion and mono LEF deletion of 13 q. Patient has been on treatment in the past with ImbruvChapito zamarripa and is now on maintenance Rituxan every 8 weeks. Last treatment was on 04/01/24 Neurology considering possible PML. Discussed case with admitting team today. Rituxan does have potential rare side effect of increasing risk of PML.
[2024-06-18] MEDS: ZINC OXIDE PASTE (Z-GUARD) 1 APPLIC TOPICAL PRN (18:02)
[2024-06-18 20:16] LABS: Glucose,Whole Blood 143 mg/dL (70-110)
[2024-06-18] MEDS: ATORVASTATIN 40 MG TAB PEG/G-TUBE SCH (21:26)
[2024-06-18] MEDS: DONEPEZIL 5 MG TAB PEG/G-TUBE SCH (21:26)
[2024-06-19 00:14] LABS: Glucose,Whole Blood 173 mg/dL (70-110)
[2024-06-19 06:38] LABS: Glucose,Whole Blood 181 mg/dL (70-110)
[2024-06-19] MEDS: INSULIN ASPART (NovoLOG) 100 UNIT/ML VIAL SQ SCH (06:52)
[2024-06-19 09:17] VITALS: RESP 18
[2024-06-19 09:35] LABS: HCT 26.2 % (34.0-46.0); HGB 8.6 gm/dL (11.4-16.0); Hypochromasia Moderate; MCH 33.2 pg (25.0-35.0); MCHC 32.8 g/dL (31.0-37.0); MCV 101.3 fL (80.0-100.0); Macrocytosis Slight; Mean Platelet Volume 8.8; Platelet Count 117 k/uL (150-450); RBC 2.59 m/uL (3.80-5.40); RDW 15.4 % (11.5-15.5); WBC 7.8 k/uL (3.8-10.6)
[2024-06-19 09:43] LABS: Protein, Total 5.9 g/dL (6.2-8.2)
[2024-06-19] MEDS: FOLIC ACID 1 MG TAB PEG/G-TUBE SCH (09:44)
[2024-06-19] MEDS: FLUoxetine HCL 20 MG CAP PEG/G-TUBE SCH (09:44)
[2024-06-19] MEDS: MULTIVITAMINS, THERA 1 EACH TAB PEG/G-TUBE SCH (09:45)
[2024-06-19] MEDS: FAMOTIDINE 20 MG TAB PEG/G-TUBE SCH (09:45)
[2024-06-19] MEDS: ASPIRIN 81 MG PEG/G-TUBE SCH (09:45)
[2024-06-19 09:49] LABS: ALT 11 U/L (4-34); AST 15 U/L (14-36); African American GFR (CKD) 34 (>60 ml/min/1.73 sqM); Albumin 3.2 g/dL (3.5-5.0); Alkaline Phosphatase 41 U/L (38-126); Anion Gap 3 mmol/L; Blood Urea Nitrogen 25 mg/dL (7-17); Calcium 9.1 mg/dL (8.4-10.2); Carbon Dioxide 26 mmol/L (22-30); Chloride 111 mmol/L (98-107); Glucose 130 mg/dL (74-99); Magnesium 1.6 mg/dL (1.6-2.3); Non-African American GFR(CKD) 29 (>60 ml/min/1.73 sqM); Sodium 140 mmol/L (137-145); Total Bilirubin 0.3 mg/dL (0.2-1.3); Total Protein 5.2 g/dL (6.3-8.2)
--- NOTE | 2024-06-19 11:01 | P.PN ---
Subjective Progress Note Date: 06/18/24 06/18/2024: Patient was seen for a follow-up. Patient continues to be extremely confused, restless, mumbles, without any intelligible speech. Patient moans at times. Patient moves all 4 extremities. A sitter was also present. Family members were not present today. 06/17/2024: Patient initially seen by Dr. Magdy Vyas. Please refer to his note for details. Patient is a 74-year-old female with worsening mentation. Patient had an MRI of the brain with and without done and has vasogenic edema and was reported as stroke due to venous thrombosis. That head CT and CTV with and without reported as no venous thrombosis and has concern for brain mets. Initially the son wanted hospice per primary and now he wants to pursue with more medical management. [facility] has rejected for transfer. Patient was seen for a follow-up. Patient's son and [id number] were pres ent. They mentioned that patient fell out of the wheelchair when she tried to get up. He mentions that about a month ago, she was having conversation. She then started with forgetting the words and then forgetting sentences which progressed. For 7 to 8 days she was only seeing yes/no and mumbling. However in the last 4 days she has become completely nonverbal. She is not doing well, very uncomfortable, combative, altered mental status. She does have history of tremors for about 25 years. Some of the workup during this hospital visit consisted of: TSH is 7.83 and the free T4 is 0.98. Her creatinine is 2.1 and the BUN is 35. CT of the head and cervical spine is reported as no acute intracranial bleed. Region of low-attenuation in the left frontal left parietal and right occipital lobe were preservation of the cortices. There is slightly more prominent from prior exam may represent evolving infarct with underlying demyelination or neoplastic process is not excluded. Further evaluation with MRI with IV contrast is recommended. Nonspecific white matter changes, likely secondary due to chronic small vessel ischemic disease. No evidence of cervical spine fracture. Multilevel degenerative disc disease. Postsurgical changes from ACDF C4-C7. Hardware appears intact. Visualized right upper lung patchy groundglass opacity which may represent developing infection process. I personally reviewed the CT do not appreciate any acute or subacute stroke. Patient has old strokes predominantly left more than the right. Its predominantly in the posterior region bilaterally but the left also involves the left frontal as well. MRI Brain w/o: MRI of the brain without is reported as extensive motion limited exam. Worsening vasogenic edema bilaterally, left greater than the right. There is rim of curvilinear restriction diffusion bilaterally worse on the left. Correlating with prior imaging of suggested cortical vein thrombosis and now with infarct is the favored diagnosis. Mass effect excluded given motion lack of IV contracts. Other etiologies could be considered such as press. CTV: No cerebral vein thrombosis. Mild to multifocal area of vasogenic edema as described above. There is suggestion of 8 mm enhancing nodule in the right o ccipital vasogenic edema raising the question of metastatic disease. MRI of the brain with contrast is recommended for further evaluation. Routine EEG: Is abnormal. The background slowing is suggestive of moderate to severe encephalopathy. Otherwise there is no focal slowing, OptiForm discharge or seizure on the EEG. Objective - Vital Signs Vital signs: Vital Signs Temp 98 F 06/18/24 10:30 Pulse 83 06/18/24 10:30 Resp 18 06/18/24 10:30 BP 135/69 06/18/24 10:30 Pulse Ox 98 06/18/24 10:30 FiO2 Intake & Output 06/17/24 06/18/24 06/18/24 18:59 06:59 18:59 Intake Total 550 20 10 Output Total 50 700 800 Balance 500 -680 -790 Weight 62 kg 61 kg Intake: IV 200 20 10 Invasive Line 4 20 Invasive Line 5 10 Intake, IV Titration 200 Amount Dextrose 5%-0.45% NaCl 1, 200 000 ml @ 100 mls/hr IV . Q10H [facility] Rx#:[id number] Oral 150 Output: Chest Tube Drainage 50 Right 50 Urine 700 600 Stool 200 Other: Voiding Method Indwelling Catheter Indwelling Catheter Indwelling Catheter # Voids 1 # Bowel Movements 1 - Exam On examination patient is severely encephalopathic, appears uncomfortable, rolling in the bed [id number], has bruises in the legs. Patient not able to answer any question, just some moaning. Her face is symmetric, pupils are equal. She moves her extremities equally. She is not following any commands. - Labs CBC & Chem 7: 06/19/24 09:11 06/19/24 09:11 Labs: Abnormal Lab Results - Last 24 Hours (Table) 06/17/24 06/18/24 06/18/24 Range/Units 17:08 00:02 06:10 RBC (3.80-5.40) m/uL Hgb (11.4-16.0) gm/dL Hct (34.0-46.0) % MCV (80.0-100.0) fL Plt Count (150-450) k/uL Potassium (3.5-5.1) mmol/L Chloride (98-107) mmol/L BUN (7-17) mg/dL Creatinine (0.52-1.04) mg/dL Glucose (74-99) mg/dL POC Glucose (mg/dL) 130 H 140 H 129 H (70-110) mg/dL Total Protein (6.3-8.2) g/dL Albumin (3.5-5.0) g/dL 06/18/24 06/18/24 Range/Units 06:54 06:54 RBC 2.60 L (3.80-5.40) m/uL Hgb 8.6 L (11.4-16.0) gm/dL Hct 27.0 L (34.0-46.0) % MCV 103.8 H (80.0-100.0) fL Plt Count 120 L (150-450) k/uL Potassium 3.4 L (3.5-5.1) mmol/L Chloride 115 H (98-107) mmol/L BUN 28 H (7-17) mg/dL Creatinine 1.72 H (0.52-1.04) mg/dL Glucose 127 H (74-99) mg/dL POC Glucose (mg/dL) (70-110) mg/dL Total Protein 5.6 L (6.3-8.2) g/dL Albumin 3.4 L (3.5-5.0) g/dL Assessment and Plan Assessment: * Rapidly progressive cognitive decline since March 2024. This has rapidly got worse in the last 4 weeks and has been nonverbal, moaning only for the last 3 to 4 days. MRI of the brain with and without contrast revealed vasogenic edema within the left parietal occipital region, posterior centrum semiovale left parietal lobe and inferior medial right occipital lobe. Underlying enhancing lesions are not identified. 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 * Recent history of left nephrectomy for renal cell carcinoma, in October 2023 * History of CLL, in remission * History of recurrent falls * Status post PEG tube placement 06/17/2024 * History of seizures in 1980s, has been in remission for 30 years, off medication, but had recurrence of seizure x 1, about 8 months ago. Patient started on Keppra. No seizures recurrence thereafter. * Acute on chronic renal insufficiency * Hypertension * Ex tobacco use Plan: Patient's MRI of the brain was reviewed by myself. Patient has progressive multifocal leukoencephalopathy. 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 Will discuss with hematology. Also discussed with primary team and the nursing staff. MRI of the brain with contrast revealed vasogenic edema within the left parietal occipital region, posterior centrum semiovale left parietal lobe and inferior medial right occipital lobe. Underlying enhancing lesions are not identified. Correlate with patient's blood pressure recommended. Hypertensive crisis could be considered. ADM also considered by radiologist. 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 MRI of the brain without is reported as extensive motion limited exam. Worsening vasogenic edema bilaterally, left greater than the right. There is rim of curvilinear restriction diffusion bilaterally worse on the left. Correlating with prior imaging of suggested cortical vein thrombosis and now with infarct is the favored diagnosis. Mass effect excluded given motion lack of IV contracts. Other etiologies could be considered such as press. CTV: No cerebral vein thrombosis. Mild to multifocal area of vasogenic edema as described above. There is suggestion of 8 mm enhancing nodule in the right occipital vasogenic edema raising the question of metastatic disease. MRI of the brain with contrast is recommended for further evaluation. Keppra from 500 to 1000 mg twice daily on 06/13/2024 for concern about seizure and route is IV for now. On seizure precaution and pads. Patient is on aspirin 81 mg, Lipitor 40 mg nightly. Oncology is consulted for patient CLL. Awaiting outside records. We will check stratify JCV virus antibody titer. Consider lumbar puncture. Discussed with primary team. Family is interested in hospice, once they receive court appointed power of trademark attorney status.
[2024-06-19 11:03] VITALS: BP 122/62; PULSE 64; TEMP 96.3
[2024-06-19 12:03] LABS: Glucose,Whole Blood 182 mg/dL (70-110)
--- NOTE | 2024-06-19 12:23 | P.PN ---
Subjective Progress Note Date: 06/19/24 Hospital course: Patient is a pleasant 74-year-old female with a past medical history of advanced dementia, CLL, renal cell carcinoma status post nephrectomy, hypertension, hyperlipidemia, recent CVA with right sided deficits along with visual and speech deficits, CKD stage IIIb, and seizure disorder. Patient recently suffered from a left frontal stroke with right sided deficits along with visual and speech deficits in April 2024 and has been at [facility] for group home rehab. She presented to our facility with reports of agitation and worsening confusion status post fall from bed at nursing facility. Patient with advanced dementia and significant aphasia and information was obtained from ED provider, documentation in chart, and via telephone conversation with patient's son Matt. Pt's son Matt reports his mother has had rapid deterioration of her mental status since suffering her stroke 2 months ago On arrival to our facility, patient underwent evaluation in the emergency department. Vital signs upon arrival show blood pressure 100/59, heart rate 79, respiratory rate 18, temp 97.9 F, and SpO2 of 90% on room air. EKG completed showing normal sinus rhythm at [address] head and cervical spine showing regions of low-attenuation within the left frontal, left parietal, right occipital lobes with preservation of the cortices reported to be more prominent from prior exams possibly representing evolving infarcts with underlying demyelination however neoplastic process cannot be ruled out. CT cervical spine negative for acute process showing no evidence of cervical spine fracture revealing multiple nonspecific mildly enlarged mediastinal lymph nodes with additional mildly prominent neck lymph nodes and concerns of right upper lung patchy groundglass opacities. Labs completed and reviewed. CBC showing bicytopenia with hemoglobin of 8.3 and platelet count of 103. BMP showing hypokalemia with potassium of 3.4 and elevated renal function with BUN of 35, creatinine 2.10, GFR of 23 at baseline. Blood glucose 143. Lactic acid 1.7. Magnesium 1.8. Liver profile unremarkable. Troponin less than 0.012. Urinalysis positive for nitrites. Patient started on antibiotics with Zosyn. She was admitted under our services with consultation to neurology and hematology/oncology. Patient's condition continued to decline she was restless, agitated, and appeared uncomfortable. MRI brain without contrast was completed showing worsening vasogenic edema bilaterally left greater than right with a rim of curvilinear restricted diffusion bilaterally worse on the left concerning for cortical vein thrombosis and now with infarct versus metastasis. Initially MRI with and without contrast was ordered but unable to be completed at this facility until 06/17/24 and patient's son requeted transfer to [facility], attempts made at transfer however pt was not accepted for transfer at their facility. Discussed with pt's son and pt to remain at our facility and undergo CT venogram. CT venogram with and without contrast completed showing no cerebral vein thrombosis with mid to multifocal areas of vasogenic edema and there is a suggestion of an 8 mm enhancing nodule in the right occipital vasogenic edema concerning for metastatic process. Discussed these findings with neurologist and patient's son, patient's son initially in agreement to hospice and scheduled meeting on 06/15/24 to discuss options. Pt's son cancelled this meeting and scheduled a new meeting with hospice was rescheduled on 06/16/24. Pt's son made the decision not to sign onto Hospice at this itpr. He is requesting a peg tube to be placed and for patient to begin tube feedings and wants the MRI to be completed prior to making any other decisions. He was informed of pt's very poor prognosis and verbalized understanding. Order was placed for NG tube feeds, however pt's son did not consent to this stating he wants Peg Tube placed and did not want NG tube place d. General Surgeon was consulted and patient underwent placement of Peg Tube on 06/17/2024. MRI brain with contrast was completed on 06/17/2024 revealing vasogenic edema within the left parietaloccipital region, posterior centrum semioval left parietal lobe and inferior medial right occipital lobe; no underlying mass or lesions were reported. Physical exam: Patient seen and fully evaluated at bedside this morning. Her mentation remains unchanged and she remains restless and agitated with a sitter at bedside. Patient being medicated for comfort at this time. Vital signs reviewed and stable. General: Nontoxic, no distress and appears stated age. Derm: Skin warm and dry, normal coloration for ethnicity. Patient with multiple areas of significant bruising to bilateral upper and lower extremities in different stages of healing. Head: Atraumatic, normocephalic and symmetric. Eyes: EOM's intact, no lid lag, and anicteric sclera Mouth: no lip lesions, mucus membranes moist Cardiovascular: regular rate and rhythm with normal S1S2, no murmur, positive posterior tibial pulses bilaterally, and cap refill < 2 seconds. Lungs: Respirations even, regular, and unlabored on room air. Lungs CTA bilatera lly, no rhonchi, no rales, no wheezing, and no accessory muscle usage. Abdominal: soft, nontender to palpation, no guarding, no appreciable organomegaly. PEG tube in place. Ext: ROM intact. No gross muscle atrophy, no edema, no contractures Neuro: Patient nonverbal and unable to follow commands. Bilateral upper extremities and facial tremor. Psych: Nonverbal, moaning, restless, and agitated and fidgety. Assessment and Plan of Care: Severe Metabolic encephalopathy, Secondary to multifocal areas of vasogenic edema believed to be from recent stroke vs possible Progressive Multifocal Leukoencephalopathy Brain nodule, suspicious for metastasis Advanced dementia with agitation and aggressive behaviors History of recent CVA with multiple deficits History of seizure disorder -Hospice consulted, family declined hospice care at this time. -Neurology following and discussed case in detail with neurologist, Dr. Wray expressing concerns for possible PML -Heme-onc following discussed with hematology [employer] that neurologist is reporting concerns for possible progressive multifocal leukoencephalopathy. Oncology [employer] states yes patient has been confirmed to have CLL (B type) and has been on Rituxan and a rare side effect of less than 1% is PML. -MRI brain with contrast was completed 06/17/2024 showing vasogenic edema within the left parietaloccipital region -CT venogram with and without contrast completed showing no cerebral vein thrombosis with mid to multifocal areas, posterior centrum semimobile left parietal lobe and inferior medial right occipital lobe with no underlying lesions identified of vasogenic edema and there is a suggestion of an 8 mm enhancing nodule in the right occipital vasogenic edema concerning for metastatic process. -MRI brain without contrast was completed showing worsening vasogenic edema bila terally left greater than right with a rim of curvilinear restricted diffusion bilaterally worse on the left concerning for cortical vein thrombosis and now with infarct versus metastasis -Per recommendations of neurology patient was started on Decadron 4 mg every 6 hours. -Continue neuro checks every 4 hours and as needed -Daily aspirin 81 mg daily and atorvastatin 40 mg daily. -administrative judge to remain at bedside secondary to agitation and confusion -Maintain Seizure and Fall precautions. -Patient to remain on continuous telemetry monitoring. -Patient to continue with Aricept 5 mg nightly droxidopa 400 mg 3 times daily, and Keppra 1000 mg twice daily. Continue to await family to bring in home droxidopa capsules for administration. Nitrite positive UTI Groundglass opacities right upper lobe -Urine culture was positive for E. coli. Patient completed 5-day course of IV antibiotics with Zosyn 3.375 g every 8 hours. Hypernatremia Non-anion gap Metabolic acidosis -Continue IV fluids with D5 0.45% normal saline and infusion rate increased to 100 cc/h. [facility], possibly [facility] head -CT head was negative for acute intracranial injury, no evidence of brain bleed or skull fracture. -Maintain fall precautions CLL Hx of renal cell carcinoma s/p nephrectomy with Stage IIIb CKD Bicytopenia, secondary to above Enlarged mediastinal lymph nodes with additional mildly prominent neck lymph nodes, likely secondary to metastatic process -Patient's son reports patient follows with federal java developer/oncologist and undergoes monthly transfusions. -Per patient's son federal java developer states patient is not to receive any blood thinners. -Hematology/oncology following and discussed case with both federal java developer/oncologist and Heme/Onc [employer] in detail, stating they have received records from oncologist and will review this afternoon and provide additional recommendations at that time.. Data and imaging reviewed: -Vitals reviewed. Blood pressure 126/40, heart rate 84, respiratory rate 16, temp 97.9 F, and SpO2 of 99% on room air. -Morning labs reviewed. CBC showing stable bicytopenia with hemoglobin of 8.6 and platelet count of 117. BMP showing hyperchloremia with chloride of 111, BUN 25, creatinine 1.72, GFR of 29. Blood glucose 130. Magnesium slightly low at 1.6. Patient with a very poor prognosis. CODE STATUS: DNR/DNI per discussion with patient's sonLuis DVT prophylaxis: DAMION andre and SCDs as patient's son stated patient is not to receive any anticoagulation per her federal java developer as she has "severe reactions to any blood thinners". Anticipated discharge date: Pending clinical course Anticipated discharge place: Pending clinical course Patient was seen independently by Nurse Practitioner. This document was prepared using [employer] dictation software. Please allow for errors in auto striper while rare they do occur. Hakeem Pleitez NP rendered care for this patient independently, reviewed the findings and plan as documented in the note above and agree with plan. I did not physically speak with or examine the patient on this date. Objective - Vital Signs Vital signs: Vital Signs Temp 96.1 F L 06/19/24 07:20 Pulse 78 06/19/24 07:20 Resp 20 06/19/24 07:20 BP 145/81 06/19/24 07:20 Pulse Ox 100 06/19/24 07:20 FiO2 Intake & Output 06/18/24 06/19/24 06/19/24 18:59 06:59 18:59 Intake Total 10 140 Output Total 1000 Balance -990 140 Intake: IV 10 20 Invasive Line 5 10 20 Tube Feeding 120 Output: Urine 800 Stool 200 Other: Voiding Method Indwelling Catheter Indwelling Catheter # Voids 1 # Bowel Movements 1 - Labs CBC & Chem 7: 06/19/24 09:11 06/19/24 09:11 Labs: Abnormal Lab Results - Last 24 Hours (Table) 06/18/24 06/18/24 06/19/24 Range/Units 16:52 20:14 00:13 POC Glucose (mg/dL) 146 H 143 H 173 H (70-110) mg/dL 06/19/24 Range/Units 06:37 POC Glucose (mg/dL) 181 H (70-110) mg/dL
[2024-06-19] MEDS: THIAMINE 100 MG TAB PEG/G-TUBE SCH (12:24)
--- NOTE | 2024-06-19 12:33 | P.PN ---
Subjective Progress Note Date: 06/19/24 S/p peg placement. Pt remains confused and agitated. Spoke with nursing, pt has been placed on hospice Objective - Vital Signs Vital signs: Vital Signs Temp 96.3 F L 06/19/24 11:02 Pulse 64 06/19/24 11:02 Resp 18 06/19/24 11:02 BP 122/62 06/19/24 11:02 Pulse Ox 98 06/19/24 11:02 FiO2 Intake & Output 06/18/24 06/19/24 06/19/24 18:59 06:59 18:59 Intake Total 10 140 20 Output Total 1000 Balance -990 140 20 Intake: IV 10 20 Invasive Line 5 10 20 Tube Feeding 120 20 Output: Urine 800 Stool 200 Other: Voiding Method Indwelling Catheter Indwelling Catheter Indwelling Catheter # Voids 1 # Bowel Movements 1 - Constitutional General appearance: Present: no acute distress - Respiratory Details: breathing is even and unlabored - Cardiovascular Details: skin warm and dry - Neurologic Neurologic Comment(s): somnolent - Labs CBC & Chem 7: 06/19/24 09:11 06/19/24 09:11 Labs: Abnormal Lab Results - Last 24 Hours (Table) 06/18/24 06/18/24 06/18/24 Range/Units 08:42 16:52 20:14 RBC (3.80-5.40) m/uL Hgb (11.4-16.0) gm/dL Hct (34.0-46.0) % MCV (80.0-100.0) fL Plt Count (150-450) k/uL Chloride (98-107) mmol/L BUN (7-17) mg/dL Creatinine (0.52-1.04) mg/dL Glucose (74-99) mg/dL POC Glucose (mg/dL) 146 H 143 H (70-110) mg/dL Total Protein (6.3-8.2) g/dL Total Protein (PEP) 5.9 L (6.2-8.2) g/dL Albumin (3.5-5.0) g/dL 06/19/24 06/19/24 06/19/24 Range/Units 00:13 06:37 09:11 RBC 2.59 L (3.80-5.40) m/uL Hgb 8.6 L (11.4-16.0) gm/dL Hct 26.2 L (34.0-46.0) % MCV 101.3 H (80.0-100.0) fL Plt Count 117 L (150-450) k/uL Chloride (98-107) mmol/L BUN (7-17) mg/dL Creatinine (0.52-1.04) mg/dL Glucose (74-99) mg/dL POC Glucose (mg/dL) 173 H 181 H (70-110) mg/dL Total Protein (6.3-8.2) g/dL Total Protein (PEP) (6.2-8.2) g/dL Albumin (3.5-5.0) g/dL 06/19/24 Range/Units 09:11 RBC (3.80-5.40) m/uL Hgb (11.4-16.0) gm/dL Hct (34.0-46.0) % MCV (80.0-100.0) fL Plt Count (150-450) k/uL Chloride 111 H (98-107) mmol/L BUN 25 H (7-17) mg/dL Creatinine 1.72 H (0.52-1.04) mg/dL Glucose 130 H (74-99) mg/dL POC Glucose (mg/dL) (70-110) mg/dL Total Protein 5.2 L (6.3-8.2) g/dL Total Protein (PEP) (6.2-8.2) g/dL Albumin 3.2 L (3.5-5.0) g/dL Assessment and Plan (1) AMS (altered mental status) Current Visit: Yes Status: Acute Priority: High Code(s): R41.82 - ALTERED MENTAL STATUS, UNSPECIFIED SNOMED Code(s): 155750105 (2) CLL (chronic lymphocytic leukemia) Current Visit: Yes Status: Acute Priority: Medium Code(s): C91.10 - CHRONIC LYMPHOCYTIC LEUK OF B-CELL TYPE NOT ACHIEVE REMIS SNOMED Code(s): 72220862 (3) CVA (cerebral vascular accident) Current Visit: Yes Status: Acute Priority: High Code(s): I63.9 - CEREBRAL INFARCTION, UNSPECIFIED SNOMED Code(s): 304754149 (4) UTI (urinary tract infection) Current Visit: Yes Status: Acute Priority: High Code(s): N39.0 - URINARY TRACT INFECTION, SITE NOT SPECIFIED SNOMED Code(s): 59971722 Plan: Altered mental status: Presented for altered mental status, agitation, fall. Patient was admitted two months ago for confusion, CVA - On admission CT head and cervical spine showed no acute intracranial bleed. Regions of low-attenuation within the left frontal, left parietal, right occipital lobes with preservation of the cortices. Slightly more prominent from prior exams. May represent evolving infarcts with underlying demyelination or neoplastic process. Nonspecific white matter changes. No evidence of cervical spine fracture. Multiple nonspecific mildly enlarged mediastinal lymph nodes with additional mildly prominent neck lymph nodes. Visualized right upper lobe patchy groundglass opacities. -Noted lympadenopathy is non-specific, and can be related to infectious/inflammatory processes. Would recommend repeat imaging in 2-3 months to reevaluate -Urine culture positive for E. coli, abx completed -During last admission MRI brain revealed high T1 signal lesions in the dural space as well as multiple lesions along the dura on the left which demonstrate high FLAIR signal. And findings within the left posterior parietal region is felt to represent ischemia. MRV brain was then obtained showing no evidence of venous sinus thrombosis. There remains high signal along the cerebral cortex on the left possibly related to slow flow within the cortical veins. -Neurology following. MRI brain and EEG obtained. Considering possible PML. Discussed case with admitting team today. Rituxan does have potential rare side effect of increasing risk of PML. -Continues on IV decadron without meaningful improvement in mentation CLL During last admit, patient reported a history of CLL, and follows with Dr. Tafoya at [facility]. She stated she follows up every couple months, and her disease has been stable, but stated, "my blood counts are always low." She was not sure if she has been on treatment for her CLL. -Labs reviewed,WBC 4.8, hemoglobin 8.4, platelets 113,000. Differential showing no significant abnormalities or lymphocytosis. Upon trending labs, no previous lymphocytosis has been noted, so not sure at this time, if patient actually has CLL. Will request records from her test conductor to further clarify -During previous workup in 04/2024, no nutritional deficiencies were noted, consistent with anemia of inflammation r/t CKD. Creatinine 1.98, GFR 25. Will start aranesp injections once weekly -Immunofixation showed IgM kappa paraprotein, small M spike 0.14, elevated kappa lambda ratio 8.26. -Reviewed oncology records from her primary oncologist Dr. Tafoya. Patient had peripheral blood flow cytometry at [facility] on 10/06/2015 which revealed monoclonal B lymphocytes, consistent with chronic lymphocytic leukemia of B-cell type. FISH revealed 17P deletion and mono LEF deletion of 13 q. Patient has been on treatment in the past with [facility] and is now on maintenance Rituxan every 8 weeks. Last treatment was on 04/01/24 Case discussed with admitting team. Appears hospice has been consulted and spoke with son, but he has not decided to pursue comfort care measures at this time. However he is awaiting pending court case to obtain DPOA. Agree that hospice would be appropriate at this time Hospice is following and has given son contact information
--- NOTE | 2024-06-19 12:52 | P.PN ---
Subjective Progress Note Date: 06/19/24 SURGICAL PROGRESS NOTE CHIEF COMPLAINT: Malnutrition HISTORY OF PRESENT ILLNESS: Patient postop day# 2 status post EGD with PEG tube placement. Patient is tolerating tube feeds. Tube feeds currently at 30 mL/h. She is lying in bed comfortably. Afebrile. WBC 7.8 Dr. Vivas is covering for Dr. Heath PHYSICAL EXAM: VITAL SIGNS: Reviewed. GENERAL: no acute distress. ABDOMEN: Soft. Nondistended. PEG tube site clean dry and intact NEUROLOGIC: Awake ASSESSMENT: 1. Moderate protein calorie malnutrition status post PEG tube placement 2. CVA 3. Advanced dementia PLAN: -Continue to titrate tube feeds per dietitian -Continue to monitor Physician Digital Marketing Officer note has been reviewed by physician. Signing provider agrees with the documented findings, assessment, and plan of care. Objective - Vital Signs Vital signs: Vital Signs Temp 96.3 F L 06/19/24 11:02 Pulse 64 06/19/24 11:02 Resp 18 06/19/24 11:02 BP 122/62 06/19/24 11:02 Pulse Ox 98 06/19/24 11:02 FiO2 Intake & Output 06/18/24 06/19/24 06/19/24 18:59 06:59 18:59 Intake Total 10 140 20 Output Total 1000 Balance -990 140 20 Intake: IV 10 20 Invasive Line 5 10 20 Tube Feeding 120 20 Output: Urine 800 Stool 200 Other: Voiding Method Indwelling Catheter Indwelling Catheter Indwelling Catheter # Voids 1 # Bowel Movements 1 1 - Labs CBC & Chem 7: 06/19/24 09:11 06/19/24 09:11 Labs: Abnormal Lab Results - Last 24 Hours (Table) 06/18/24 06/18/24 06/18/24 Range/Units 08:42 16:52 20:14 RBC (3.80-5.40) m/uL Hgb (11.4-16.0) gm/dL Hct (34.0-46.0) % MCV (80.0-100.0) fL Plt Count (150-450) k/uL Chloride (98-107) mmol/L BUN (7-17) mg/dL Creatinine (0.52-1.04) mg/dL Glucose (74-99) mg/dL POC Glucose (mg/dL) 146 H 143 H (70-110) mg/dL Total Protein (6.3-8.2) g/dL Total Protein (PEP) 5.9 L (6.2-8.2) g/dL Albumin (3.5-5.0) g/dL 06/19/24 06/19/24 06/19/24 Range/Units 00:13 06:37 09:11 RBC 2.59 L (3.80-5.40) m/uL Hgb 8.6 L (11.4-16.0) gm/dL Hct 26.2 L (34.0-46.0) % MCV 101.3 H (80.0-100.0) fL Plt Count 117 L (150-450) k/uL Chloride (98-107) mmol/L BUN (7-17) mg/dL Creatinine (0.52-1.04) mg/dL Glucose (74-99) mg/dL POC Glucose (mg/dL) 173 H 181 H (70-110) mg/dL Total Protein (6.3-8.2) g/dL Total Protein (PEP) (6.2-8.2) g/dL Albumin (3.5-5.0) g/dL 06/19/24 06/19/24 Range/Units 09:11 11:57 RBC (3.80-5.40) m/uL Hgb (11.4-16.0) gm/dL Hct (34.0-46.0) % MCV (80.0-100.0) fL Plt Count (150-450) k/uL Chloride 111 H (98-107) mmol/L BUN 25 H (7-17) mg/dL Creatinine 1.72 H (0.52-1.04) mg/dL Glucose 130 H (74-99) mg/dL POC Glucose (mg/dL) 182 H (70-110) mg/dL Total Protein 5.2 L (6.3-8.2) g/dL Total Protein (PEP) (6.2-8.2) g/dL Albumin 3.2 L (3.5-5.0) g/dL
[2024-06-19 13:47] VITALS: BMI 22.4
--- NOTE | 2024-06-19 14:56 | P.DS ---
Providers Date of admission: 06/12/24 12:20 Expected date of discharge: 06/19/24 Attending physician: Mario Owens MD Consults: 06/12/24 13:06 Consult Physician Urgent Consulting Provider: Magdy Vyas Consult Reason/Comments: CVA, AMS Do you want consulting provider notified?: Yes 06/12/24 18:31 Consult Physician Routine Consulting Provider: Lillie eGnao Consult Reason/Comments: CLL, Enlarged mediastinal lymph nodes with additional mildly prominent neck Do you want consulting provider notified?: Yes 06/16/24 13:22 Consult Physician Routine Consulting Provider: David Vivas Consult Reason/Comments: peg tube placement Do you want consulting provider notified?: Yes Primary care physician: Physician Nonstaff Hospital Course: Discharge Diagnosis: Severe Metabolic encephalopathy, Secondary to multifocal areas of vasogenic edema believed to be from recent stroke vs possible Progressive Multifocal Leukoencephalopathy Brain nodule, MRI ruled out brain nodule Advanced dementia with agitation and aggressive behaviors History of recent CVA with multiple deficits History of seizure disorder Nitrite positive UTI Groundglass opacities right upper lobe Hypernatremia Non-anion gap Metabolic acidosis Reported fall at longterm, possibly hitting head CLL Hx of renal cell carcinoma s/p nephrectomy with Stage IIIb CKD Bicytopenia, secondary to above Enlarged mediastinal lymph nodes with additional mildly prominent neck lymph nodes, likely secondary to metastatic process Hospital course: Patient is a pleasant 74-year-old female with a past medical history of advanced dementia, CLL, renal cell carcinoma status post nephrectomy, hypertension, hyperlipidemia, recent CVA with right sided deficits along with visual and speech deficits, CKD stage IIIb, and seizure disorder. Patient recently suffered from a left frontal stroke with right sided deficits along with visual and speech deficits in April 2024 and has been at [facility] [place] [facility]. She presented to our facility with reports of agitation and worsening confusion status post fall from bed at nursing facility. Patient with advanced dementia and significant aphasia and information was obtained from ED provider, documentation in chart, and via telephone conversation with patient's son Matt. Pt's son Matt reports his mother has had rapid deterioration of her mental status since suffering her stroke 2 months ago On arrival to our facility, patient underwent evaluation in the emergency department. Vital signs upon arrival show blood pressure 100/59, heart rate 79, respiratory rate 18, temp 97.9 F, and SpO2 of 90% on room air. EKG completed showing normal sinus rhythm at [address] head and cervical spine showing regions of low-attenuation within the left frontal, left parietal, right occipital lobes with preservation of the cortices reported to be more prominent from prior exams possibly representing evolving infarcts with underlying demyelination however neoplastic process cannot be ruled out. CT cervical spine negative for acute process sh owing no evidence of cervical spine fracture revealing multiple nonspecific mildly enlarged mediastinal lymph nodes with additional mildly prominent neck lymph nodes and concerns of right upper lung patchy groundglass opacities. Labs completed and reviewed. CBC showing bicytopenia with hemoglobin of 8.3 and platelet count of 103. BMP showing hypokalemia with potassium of 3.4 and elevated renal function with BUN of 35, creatinine 2.10, GFR of 23 at baseline. Blood glucose 143. Lactic acid 1.7. Magnesium 1.8. Liver profile unremarkable. Troponin less than 0.012. Urinalysis positive for nitrites. Patient started on antibiotics with Zosyn. She was admitted under our services with consultation to neurology and hematology/oncology. Patient's condition continued to decline she was restless, agitated, and appeared uncomfortable. MRI brain without contrast was completed showing worsening vasogenic edema bilaterally left greater than right with a rim of curvilinear restricted diffusi on bilaterally worse on the left concerning for cortical vein thrombosis and now with infarct versus metastasis. Initially MRI with and without contrast was ordered but unable to be completed at this facility until 06/17/24 and patient's son requeted transfer to [facility], attempts made at transfer however pt was not accepted for transfer at their facility. Discussed with pt's son and pt to remain at our facility and undergo CT venogram. CT venogram with and without contrast completed showing no cerebral vein thrombosis with mid to multifocal areas of vasogenic edema and there is a suggestion of an 8 mm enhancing nodule in the right occipital vasogenic edema concerning for metastatic process. Discussed these findings with neurologist and patient's son, patient's son initially in agreement to hospice and scheduled meeting on 06/15/24 to discuss options. Pt's son cancelled this meeting and scheduled a new meeting with hospice was rescheduled on 06/16/24. Pt's son made the decision not to sign onto Hospice at this itnd. He is requesting a peg tube to be placed and for patient to begin tube feedings and wants the MRI to be completed prior to making any other decisions. He was informed of pt's very poor prognosis and verbalized understanding. Order was placed for NG tube feeds, however pt's son did not consent to this stating he wants Peg Tube placed and did not want NG tube placed. General Surgeon was consulted and patient underwent placement of Peg Tube on 06/17/2024. MRI brain with contrast was completed on 06/17/2024 revealing vasogenic edema within the left parietaloccipital region, posterior centrum semioval left parietal lobe and inferior medial right occipital lobe; no underlying mass or lesions were reported. Notified by [facility] hospice team that patient's son made the decision to make his mother hospice at this time, signed consents and requesting initiating end-of-life care. Patient being discharged to [facility] hospice at this time. Physical exam: Vital signs reviewed and stable. General: Nontoxic, no distress and appears stated age. Derm: Skin warm and dry, normal coloration for ethnicity. Patient with multiple areas of significant bruising to bilateral upper and lower extremities in different stages of healing. Head: Atraumatic, normocephalic and symmetric. Eyes: EOM's intact, no lid lag, and anicteric sclera Mouth: no lip lesions, mucus membranes moist Cardiovascular: regular rate and rhythm with normal S1S2, no murmur, positive posterior tibial pulses bilaterally, and cap refill < 2 seconds. Lungs: Respirations even, regular, and unlabored on room air. Lungs CTA bilaterally, no rhonchi, no rales, no wheezing, and no accessory muscle usage. Abdominal: soft, nontender to palpation, no guarding, no appreciable organomegaly. PEG tube in place. Ext: ROM intact. No gross muscle atrophy, no edema, no contractures Neuro: Patient nonverbal and unable to follow commands. Bilateral upper extremities and facial tremor. Psych: Nonverbal, moaning, restless, and agitated and fidgety. Patient discharged to inpatient hospice at this time. Patient was seen independently by Nurse Practitioner. This document was prepared using [employer] dictation software. Please allow for er rors in business education teacher while rare they do occur. Hakeem Pleitez NP rendered care for this patient independently, reviewed the findings and plan as documented in the note above. I did not physically speak with or examine the patient on this date. Patient Condition at Discharge: Stable Plan - Discharge Summary Discharge Rx Participant: No New Discharge Prescriptions: No Action Famotidine [Pepcid] 20 mg PO BID@0900,1700 FLUoxetine HCL 80 mg PO DAILY Donepezil [Aricept] 5 mg PO HS Multivitamins, Thera Liquid [Theragran Liquid (formulary)] 15 ml PO DAILY ml Lactose-Reduced Food [Ensure Plus] 1 can PO BID@0900,1700 Droxidopa 400 mg PO TID@0800,1400,2200 levETIRAcetam [Keppra] 500 mg PO BID@0900,1700 Midodrine HCl [ProAmatine] 10 mg PO TID@0700,1300,1800 Albuterol Inhaler [Ventolin Hfa Inhaler] 2 puff INHALATION RT-Q6H PRN PRN Reason: Shortness Of Breath Aspirin 81 mg PO DAILY #90 tab Atorvastatin [Lipitor] 40 mg PO HS Folic Acid 1 mg PO DAILY #30 tablet Thiamine [Vitamin B-1] 100 mg PO DAILY #30 tablet Diphenoxylate HCl/Atropine [Lomotil 2.5-0.025 mg Tablet] 1 tab PO QID PRN #2 tab PRN Reason: Diarrhea Discharge Medication List Albuterol Inhaler [Ventolin Hfa Inhaler] 2 puff INHALATION RT-Q6H PRN 04/08/24 [History] Donepezil [Aricept] 5 mg PO HS 04/08/24 [History] Droxidopa 400 mg PO TID@0800,1400,2200 04/08/24 [History] FLUoxetine HCL 80 mg PO DAILY 04/08/24 [History] Famotidine [Pepcid] 20 mg PO BID@0900,1700 04/08/24 [History] Midodrine HCl [ProAmatine] 10 mg PO TID@0700,1300,1800 04/08/24 [History] levETIRAcetam [Keppra] 500 mg PO BID@0900,1700 04/08/24 [History] Aspirin 81 mg PO DAILY #90 tab 04/13/24 [Rx] Atorvastatin [Lipitor] 40 mg PO HS 05/16/24 [History] Diphenoxylate HCl/Atropine [Lomotil 2.5-0.025 mg Tablet] 1 tab PO QID PRN #2 tab 05/21/24 [Rx] Folic Acid 1 mg PO DAILY #30 tablet 05/21/24 [Rx] Multivitamins, Thera Liquid [Theragran Liquid (formulary)] 15 ml PO DAILY ml 05/21/24 [Rx] Thiamine [Vitamin B-1] 100 mg PO DAILY #30 tablet 05/21/24 [Rx] Lactose-Reduced Food [Ensure Plus] 1 can PO BID@0900,1700 06/12/24 [History] Follow up Appointment(s)/Referral(s): Nonstaff,Physician [Primary Care Provider] - 1-2 days Patient Instructions/Handouts: Seizure/Epilepsy Discharge Instructions & Follow-Up, Epilepsy (DC) Discharge Disposition: DISCH TO [facility]
[2024-06-19 15:35] LABS: Free Kappa Lt Chain Qnt, Serum 11.16 mg/dL (0.33-1.94); Free Lambda Lt Chain Qnt, Seru 0.96 mg/dL (0.57-2.63)
--- NOTE | 2024-06-20 11:18 | P.PN ---
Subjective Progress Note Date: 06/19/24 06/19/2024: Patient was seen for a follow-up. Family have decided patient to undergo hospice. Patient's son has obtained guardianship and now has control over her finances. Patient on morphine drip. Continues to be very restless, aphasic, mumbles at times. She has some weakness of the right side more than the left. No seizure-like activity noted. 06/18/2024: Patient was seen for a follow-up. Patient continues to be extremely confused, restless, mumbles, without any intelligible speech. Patient moans at times. Patient moves all 4 extremities. A sitter was also present. Family members were not present today. 06/17/2024: Patient initially seen by Dr. Magdy Vyas. Please refer to his note for details. Patient is a 74-year-old female with worsening mentation. Patient had an MRI of the brain with and without done and has vasogenic edema and was reported as stroke due to venous thrombosis. That head CT and CTV with and without reported as no venous thrombosis and has concern for brain mets. Initially the son wanted hospice per primary and now he wants to pursue with more medical management. [facility] has rejected for transfer. Patient was seen for a follow-up. Patient's son and [id number] were present. They mentioned that patient fell out of the wheelchair when she tried to get up. He mentions that about a month ago, she was having conversation. She then started with forgetting the words and then forgetting sentences which progressed. For 7 to 8 days she was only seeing yes/no and mumbling. However in the last 4 days she has become completely nonverbal. She is not doing well, very uncomfortable, combative, altered mental status. She does have history of tremors for about 25 years. Some of the workup during this hospital visit consisted of: TSH is 7.83 and the free T4 is 0.98. Her creatinine is 2.1 and the BUN is 35. CT of the head and cervical spine is reported as no acute intracranial bleed. Region of low-attenuation in the left frontal left parietal and right occipital lobe were preservation of the cortices. There is slightly more prominent from prior exam may represent evolving infarct with underlying demyelination or neoplastic process is not excluded. Further evaluation with MRI with IV contrast is recommended. Nonspecific white matter changes, likely secondary due to chronic small vessel ischemic disease. No evidence of cervical spine fracture. Multilevel degenerative disc disease. Postsurgical changes from ACDF C4-C7. Hardware appears intact. Visualized right upper lung patchy groundglass opacity which may represent developing infection process. I personally reviewed the CT do not appreciate any acute or subacute stroke. Patient has old strokes predominantly left more than the right. Its predominantly in the posterior region bilaterally but the left also involves the left frontal as well. MRI Brain w/o: MRI of the brain without is reported as extensive motion limited exam. Worsening vasogenic edema bilaterally, left greater than the right. There is rim of curvilinear restriction diffusion bilaterally worse on the left. Correlating with prior imaging of suggested cortical vein thrombosis and now with infarct is the favored diagnosis. Mass effect excluded given motion lack of IV contracts. Other etiologies could be considered such as press. CTV: No cerebral vein thrombosis. Mild to multifocal area of vasogenic edema as described above. There is suggestion of 8 mm enhancing nodule in the right occipital vasogenic edema raising the question of metastatic disease. MRI of the brain with contrast is recommended for further evaluation. Routine EEG: Is abnormal. The background slowing is suggestive of moderate to severe encephalopathy. Otherwise there is no focal slowing, OptiForm discharge or seizure on the EEG. Objective - Vital Signs Vital signs: Vital Signs Temp 96.3 F L 06/19/24 11:02 Pulse 64 06/19/24 11:02 Resp 18 06/19/24 11:02 BP 122/62 06/19/24 11:02 Pulse Ox 98 06/19/24 11:02 FiO2 Intake & Output 06/19/24 06/20/24 06/20/24 18:59 06:59 18:59 Intake Total 20 Balance 20 Weight 61 kg Intake: Tube Feeding 20 Other: Voiding Method Indwelling Catheter # Bowel Movements 1 - Exam On examination patient is severely encephalopathic, appears uncomfortable, rolling in the bed [id number], has bruises in the legs. Patient not able to answer any question, just some moaning. Her face is symmetric, pupils are equal. She moves her extremities equally. She is not following any commands. - Labs CBC & Chem 7: 06/19/24 09:11 06/19/24 09:11 Labs: Abnormal Lab Results - Last 24 Hours (Table) 06/18/24 06/19/24 Range/Units 08:42 11:57 POC Glucose (mg/dL) 182 H (70-110) mg/dL Free [place] LC, Quant 11.16 H (0.33-1.94) mg/dL Assessment and Plan Assessment: * Rapidly progressive cognitive decline since March 2024. This has rapidly got worse in the last 4 weeks and has been nonverbal, moaning only for the last 3 to 4 days. MRI of the brain with and without contrast revealed vasogenic edema within the left parietal occipital region, posterior centrum semiovale left parietal lobe and inferior medial right occipital lobe. Underlying enhancing lesions are not identified. 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 * Recent history of left nephrectomy for renal cell carcinoma, in October 2023 * History of CLL, in remission * History of recurrent falls * Status post PEG tube placement 06/17/2024 * History of seizures in , has been in remission for 30 years, off medication, but had recurrence of seizure x 1, about 8 months ago. Patient started on Keppra. No seizures recurrence thereafter. * Acute on chronic renal insufficiency * Hypertension * Ex tobacco use Plan: Patient's MRI of the brain was reviewed by myself. 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 Hematology has confirmed patient's diagnosis of CLL. Patient also has received Rituxan, which has risk of developing PML. MRI of the brain with contrast revealed vasogenic edema within the left parietal occipital region, posterior centrum semiovale left parietal lobe and inferior medial right occipital lobe. Underlying enhancing lesions are not identified. Correlate with patient's blood pressure recommended. Hypertensive crisis could be considered. ADM also considered by radiologist. 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 MRI of the brain without is reported as extensive motion limited exam. Worsening vasogenic edema bilaterally, left greater than the right. There is rim of curvilinear restriction diffusion bilaterally worse on the left. Correlating with prior imaging of suggested cortical vein thrombosis and now with infarct is the favored diagnosis. Mass effect excluded given motion lack of IV contracts. Other etiologies could be considered such as press. CTV: No cerebral vein thrombosis. Mild to multifocal area of vasogenic edema as described above. There is suggestion of 8 mm enhancing nodule in the right occipital vasogenic edema raising the question of metastatic disease. MRI of the brain with contrast is recommended for further evaluation. Keppra from 500 to 1000 mg twice daily on 06/13/2024 for concern about seizure and route is IV for now. On seizure precaution and pads. Patient is on aspirin 81 mg, Lipitor 40 mg nightly. Oncology is consulted for patient CLL. Awaiting outside records. Await stratify JCV virus antibody titer. Consider lumbar puncture. However family has made patient hospice, after patient's son has obtained guardianship. Patient on morphine drip. Discussed with primary team. Neurology will sign off.
[2024-06-25 15:38] LABS: Albumin 3.71 g/dL (3.80-4.90); Gamma Globulin 0.44 g/dL (0.70-1.50)
== END 2024-06-19 13:53 | disposition hospice, inpatient (51) | DRG 70 ==
LOC: EC 10:21 → 3SCARD 12:20
PROVIDERS: ADMIT Family Medicine; ATTEND Family Medicine
PROC: 0DH63UZ Insertion of Feeding Device into Stomach, Percutaneous Approach (ICD-10-PCS; principal; 2024-06-17 07:30)
PROC: 3E0G76Z Introduction of Nutritional Substance into Upper GI, Via Natural or Artificial Opening (ICD-10-PCS; principal; 2024-06-17 07:30)
DX: G93.41 Metabolic encephalopathy (principal); I69.398 Other sequelae of cerebral infarction; G93.6 Cerebral edema; N39.0 Urinary tract infection, site not specified; C77.9 Secondary and unspecified malignant neoplasm of lymph node, unspecified; C92.11 Chronic myeloid leukemia, BCR/ABL-positive, in remission; E44.0 Moderate protein-calorie malnutrition; E87.0 Hyperosmolality and hypernatremia; E87.20 Acidosis, unspecified; F03.911 Unspecified dementia, unspecified severity, with agitation; F03.93 Unspecified dementia, unspecified severity, with mood disturbance; R47.01 Aphasia; G37.9 Demyelinating disease of central nervous system, unspecified; I12.9 Hypertensive chronic kidney disease with stage 1 through stage 4 chronic kidney disease, or unspecified chronic kidney disease; H53.8 Other visual disturbances; Z51.5 Encounter for palliative care; Z66 Do not resuscitate; E11.22 Type 2 diabetes mellitus with diabetic chronic kidney disease; G40.909 Epilepsy, unspecified, not intractable, without status epilepticus; M50.30 Other cervical disc degeneration, unspecified cervical region; F32.A Depression, unspecified; Y92.129 Unspecified place in nursing home as the place of occurrence of the external cause; W06.XXXA Fall from bed, initial encounter; W05.0XXA Fall from non-moving wheelchair, initial encounter; R29.6 Repeated falls; R45.1 Restlessness and agitation; K21.9 Gastro-esophageal reflux disease without esophagitis; E78.5 Hyperlipidemia, unspecified; E87.6 Hypokalemia; N18.32 Chronic kidney disease, stage 3b; Z68.22 Body mass index [BMI] 22.0-22.9, adult; Z87.820 Personal history of traumatic brain injury; Z91.81 History of falling; Z79.82 Long term (current) use of aspirin; Z79.899 Other long term (current) drug therapy; Z85.528 Personal history of other malignant neoplasm of kidney; Z87.891 Personal history of nicotine dependence; Z90.5 Acquired absence of kidney; Z88.1 Allergy status to other antibiotic agents; Z88.2 Allergy status to sulfonamides; Z88.8 Allergy status to other drugs, medicaments and biological substances
CPT/HCPCS: 36415; 43246; 70450; 70496; 70551; 70552; 71045; 72125; 80053; 81001; 83036; 83605; 83735; 83883; 84165; 84439; 84443; 84484; 85025; 85027; 85810; 86334; 87077; 87086; 87186; 93005; 95816; 96365; 96366; 96372; 96375; 99285

== ENCOUNTER 2024-06-19 09:53 | Inpatient (IN) | payer MEDICAID ==
[2024-06-19] MEDS: MORPHINE SULFATE (100 MG/2 ML) 100 MG in SODIUM CHLORIDE 0.9% 100 ML IV SCH (14:22)
[2024-06-19] MEDS ORDERED: ONDANSETRON 4 MG/2 ML VIAL IVP PRN (15:07)
--- NOTE | 2024-06-19 15:07 | P.HPIM ---
History of Present Illness H&P Date: 06/19/24 History of Presenting Illness: Patient is a pleasant 74-year-old female with a past medical history of advanced dementia, CLL, renal cell carcinoma status post nephrectomy, hypertension, hyperlipidemia, recent CVA with right sided deficits along with visual and speech deficits, CKD stage IIIb, and seizure disorder. Patient recently suffered from a left frontal stroke with right sided deficits along with visual and speech deficits in April 2024 and has been at [facility] for snf rehab. She initially presented to our facility on 06/12/2024 with reports of agitation and worsening confusion status post fall from bed at nursing facility. Patient with advanced dementia and significant aphasia and information was obtained from ED provider, documentation in chart, and via telephone conversation with patient's son Matt. Pt's son Matt reports his mother has had rapid deterioration of her mental status since suffering her stroke 2 months ago On arrival to our facility, patient underwent evaluation in the emergency department. Vital signs upon arrival show blood pressure 100/59, heart rate 79, respiratory rate 18, temp 97.9 F, and SpO2 of 90% on room air. EKG completed showing normal sinus rhythm at [address] head and cervical spine showing regions of low-attenuation within the left frontal, left parietal, right occipital lobes with preservation of the cortices reported to be more prominent from prior exams possibly representing evolving infarcts with underlying demyelination however neoplastic process cannot be ruled out. CT cervical spine negative for acute process showing no evidence of cervical spine fracture reve aling multiple nonspecific mildly enlarged mediastinal lymph nodes with additional mildly prominent neck lymph nodes and concerns of right upper lung patchy groundglass opacities. Labs completed and reviewed. CBC showing bicytopenia with hemoglobin of 8.3 and platelet count of 103. BMP showing hypokalemia with potassium of 3.4 and elevated renal function with BUN of 35, creatinine 2.10, GFR of 23 at baseline. Blood glucose 143. Lactic acid 1.7. Magnesium 1.8. Liver profile unremarkable. Troponin less than 0.012. Urinalysis positive for nitrites. Patient started on antibiotics with Zosyn. She was admitted under our services with consultation to neurology and hematology/oncology. Patient's condition continued to decline she was restless, agitated, and appeared uncomfortable. MRI brain without contrast was completed showing worsening vasogenic edema bilaterally left greater than right with a rim of curvilinear restricted diffusion bilaterally worse on the left concerning for cortical vein thrombosis and now with infarct versus metastasis. Initially MRI with and without contrast was ordered but unable to be completed at this facility until 06/17/24 and patient's son requeted transfer to [facility], attempts made at transfer however pt was not accepted for transfer at their facility. Discussed with pt's son and pt to remain at our facility and undergo CT venogram. CT venogram with and without contrast completed showing no cerebral vein thrombosis with mid to multifocal areas of vasogenic edema and there is a suggestion of an 8 mm enhancing nodule in the right occipital vasogenic edema concerning for metastatic process. Discussed these findings with neurologist and patient's son, patient's son initially in agreement to hospice and scheduled meeting on 06/15/24 to discuss options. Pt's son cancelled this meeting and scheduled a new meeting with hospice was rescheduled on 06/16/24. Pt's son made the decision not to sign onto Hospice at this itme. He is requesting a peg tube to be placed and for patient to begin tube feedings and wants the MRI to be completed prior to making any other decisions. He was informed of pt's very poor prognosis and verbalized understanding. Order was placed for NG tube feeds, however pt's son did not consent to this stating he wants Peg Tube placed and did not want NG tube placed. General Surgeon was consulted and patient underwent placement of Peg Tube on 06/17/2024. MRI brain with contrast was completed on 06/17/2024 revealing vasogenic edema within the left parietaloccipital region, posterior centrum semioval left parietal lobe and inferior medial right occipital lobe; no underlying mass or lesions were reported. Notified by [facility] team on 06/19/24 at 1:56 PM that patient's son made the decision to make his mother hospice and requesting initiation of comfort measures only with end-of-life care. Patient admitted to [facility] Hospice at this time. Review of systems: Pertinent positives and negatives as discussed in HPI, a complete review of systems was performed and all other systems are negative. Physical exam: Vital signs reviewed and stable. General: Nontoxic, no distress and appears stated age. Derm: Skin warm and dry, normal coloration for ethnicity. Patient with multiple areas of significant bruising to bilateral upper and lower extremities in different stages of healing and old appearing bruise to right side of forehead . Head: Atraumatic, normocephalic and symmetric. Eyes: EOM's intact, no lid lag, and anicteric sclera Mouth: no lip lesions, mucus membranes moist Cardiovascular: regular rate and rhythm with normal S1S2, no murmur, positive posterior tibial pulses bilaterally, and cap refill < 2 seconds. Lungs: Respirations even, regular, and unlabored on room air. Lungs CTA bilaterally, no rhonchi, no rales, no wheezing, and no accessory muscle usage. Abdominal: soft, nontender to palpation, no guarding, no appreciable organomegaly. PEG tube in place. Ext: ROM intact. No gross muscle atrophy, no edema, no contractures Neuro: Patient nonverbal and unable to follow commands. Bilateral upper extremities and facial tremor. Psych: Nonverbal, moaning, restless, and agitated and fidgety. Assessment and Plan of Care: Severe Metabolic encephalopathy, Secondary to multifocal areas of vasogenic edema believed to be from recent stroke vs possible Progressive Multifocal Leukoencephalopathy Brain nodule, MRI ruled out brain nodule Advanced dementia with agitation and aggressive behaviors History of recent CVA with multiple deficits History of seizure disorder Nitrite positive UTI Groundglass opacities right upper lobe Hypernatremia Non-anion gap Metabolic acidosis Reported fall at [facility], possibly hitting head CLL Hx of renal cell carcinoma s/p nephrectomy with Stage IIIb CKD Bicytopenia, secondary to above Enlarged mediastinal lymph nodes with additional mildly prominent neck lymph nodes, likely secondary to metastatic process -Comfort measures only. -Symptomatic care and pain management. -Tylenol suppository 650 mg rectally every 4 hours as needed for fever and/or mild pain. -Artificial teardrops to bilateral eyes every 2 hours as needed for dry eyes. -Scopolamine patch. -Order placed for sublingual atropine drops and Robinul for excess secretions. -Zofran as needed for nausea and/or vomiting. -Initiate morphine infusion 1 mg/h and titrate as needed to maintain patient's comfort. -Morphine 4 mg IVP every 15 minutes as needed for severe uncontrolled breakthrough pain. -Ativan 1 mg IVP every 6 hours as needed for agitation or acute anxiety. Patient was seen independently by Nurse Practitioner. This document was prepared using [employer] dictation software. Please allow for errors in trimmer climber while rare they do occur. Hakeem Pleitez NP rendered care for this patient independently, reviewed the findings and plan as documented in the note above and agree with plan. I did not physically speak with or examine the patient on this date. Past Medical History Past Medical History: Cancer, CVA/TIA, Dementia, Diabetes Mellitus, GERD/Reflux, Hyperlipidemia, Hypertension, Seizure Disorder Additional Past Medical History / Comment(s): tremors, traumatic brain injury, metabolic encephalopathy, CLL B cell Type, R sided weakness History of Any Multi-Drug Resistant Organisms: None Reported Past Surgical History: Appendectomy, Cholecystectomy, Hysterectomy Additional Past Surgical History / Comment(s): left kidney removed Past Anesthesia/Blood Transfusion Reactions: No Reported Reaction Smoking Status: Former smoker Medications and Allergies Home Medications Medication Instructions Recorded Confirmed Type Albuterol Inhaler [Ventolin Hfa 2 puff INHALATION RT-Q6H PRN 04/08/24 06/19/24 History Inhaler] Donepezil [Aricept] 5 mg PO HS 04/08/24 06/19/24 History Droxidopa 400 mg PO TID@0800,1400,2200 04/08/24 06/19/24 History FLUoxetine HCL 80 mg PO DAILY 04/08/24 06/19/24 History Famotidine [Pepcid] 20 mg PO BID@0900,1700 04/08/24 06/19/24 History Midodrine HCl [ProAmatine] 10 mg PO TID@0700,1300,1800 04/08/24 06/19/24 History levETIRAcetam [Keppra] 500 mg PO BID@0900,1700 04/08/24 06/19/24 History Aspirin 81 mg PO DAILY #90 tab 04/13/24 06/19/24 Rx Atorvastatin [Lipitor] 40 mg PO HS 05/16/24 06/19/24 History Diphenoxylate HCl/Atropine 1 tab PO QID PRN #2 tab 05/21/24 06/19/24 Rx [Lomotil 2.5-0.025 mg Tablet] Folic Acid 1 mg PO DAILY #30 tablet 05/21/24 06/19/24 Rx Multivitamins, Thera Liquid 15 ml PO DAILY ml 05/21/24 06/19/24 Rx [Theragran Liquid (formulary)] Thiamine [Vitamin B-1] 100 mg PO DAILY #30 tablet 05/21/24 06/19/24 Rx Lactose-Reduced Food [Ensure Plus] 1 can PO BID@0900,1700 06/12/24 06/19/24 History Allergies Allergy/AdvReac Type Severity Reaction Status Date / Time cephalexin [From Keflex] Allergy Rash/Hives Verified 06/19/24 14:42 ciprofloxacin [From Cipro] Allergy Rash/Hives Verified 06/19/24 14:42 clopidogrel [From Plavix] Allergy Unknown Verified 06/19/24 14:42 iodine Allergy Rash/Hives Verified 06/19/24 14:42 Sulfa (Sulfonamide Allergy Unknown Verified 06/19/24 14:42 Antibiotics) Physical Exam Vitals: Intake and Output 06/18/24 06/19/24 06/19/24 22:59 06:59 14:59 Intake Total 0.119 Balance 0.119 Intake: Intake, IV Titration 0.119 Amount Morphine Sulfate (100 mg/ 0.119 2 ml) 100 mg In Sodium Chloride 0.9% 100 ml @ 1 MG/HR 1.02 mls/hr IV . Q24H ON LICENSE OF [facility] Rx#:[id number] Other: Weight 61 kg
[2024-06-19] MEDS: SCOPOLAMINE 1 MG/72 HR PATCH TRANSDERM SCH (17:34)
--- NOTE | 2024-06-20 11:07 | P.PN ---
Subjective Progress Note Date: 06/20/24 Hospital course: Patient is a pleasant 74-year-old female with a past medical history of advanced dementia, CLL, renal cell carcinoma status post nephrectomy, hypertension, hyperlipidemia, recent CVA with right sided deficits along with visual and speech deficits, CKD stage IIIb, and seizure disorder. Patient recently suffered from a left frontal stroke with right sided deficits along with visual and speech deficits in April [address] [facility] for halfway rehab. She initially presented to our facility on 06/12/2024 with reports of agitation and worsening confusion status post fall from bed at nursing facility. Patient with advanced dementia and significant aphasia and information was obtained from ED provider, documentation in chart, and via telephone conversation with patient's son Matt. Pt's son Matt reports his mother has had rapid deterioration of her mental status since suffering her stroke [address] head and cervical spine showing regions of low- attenuation within the left frontal, left parietal, right occipital lobes with preservation of the cortices reported to be more prominent from prior exams possibly representing evolving infarcts with underlying demyelination however neoplastic process cannot be ruled out. CT cervical spine negative for acute process showing no evidence of cervical spine fracture revealing multiple nonspecific mildly enlarged mediastinal lymph nodes with additional mildly pro minent neck lymph nodes and concerns of right upper lung patchy groundglass opacities. Labs completed and reviewed. CBC showing bicytopenia with hemoglobin of 8.3 and platelet count of 103. BMP showing hypokalemia with potassium of 3.4 and elevated renal function with BUN of 35, creatinine 2.10, GFR of 23 at baseline. Blood glucose 143. Lactic acid 1.7. Magnesium 1.8. Liver profile unremarkable. Troponin less than 0.012. Urinalysis positive for nitrites. Patient started on antibiotics with Zosyn. She was admitted under our services with consultation to neurology and hematology/oncology. Patient's condition continued to decline she was restless, agitated, and appeared uncomfortable. MRI brain without contrast was completed showing worsening vasogenic edema bilaterally left greater than right with a rim of curvilinear restricted diffusion bilaterally worse on the left concerning for cortical vein thrombosis and now with infarct versus metastasis. Initially MRI with and withou t contrast was ordered but unable to be completed at this facility until 06/17/24 and patient's son requeted transfer to [facility], attempts made at transfer however pt was not accepted for transfer at their facility. Discussed with pt's son and pt to remain at our facility and undergo CT venogram. CT venogram with and without contrast completed showing no cerebral vein thrombosis with mid to multifocal areas of vasogenic edema and there is a suggestion of an 8 mm enhancing nodule in the right occipital vasogenic edema concerning for metastatic process. Discussed these findings with neurologist and patient's son, patient's son initially in agreement to hospice and scheduled meeting on 06/15/24 to discuss options. Pt's son cancelled this meeting and scheduled a new meeting with hospice was rescheduled on 06/16/24. Pt's son made the decision not to sign onto Hospice at this itil. He requested a peg tube to be placed and for patient to begin tube feedings and wants the MRI to be completed prior to making any other decisions. He was informed of pt's very poor prognosis and verbalized understanding. Order was placed for NG tube feeds, however pt's son did not consent to this stating he wants Peg Tube placed and did not want NG tube placed. General Surgeon was consulted and patient underwent placement of Peg Tube on 06/17/2024. MRI brain with contrast was then completed on 06/17/2024 revealing vasogenic edema within the left parietaloccipital region, posterior centrum semioval left parietal lobe and inferior medial right occipital lobe; no underlying mass or lesions were reported. This was discussed in detail with patient's son, and on 06/19/2024, he made the decision for comfort measures only and requested inpatient admission for hospice. Patient admitted to [facility] hospice on 06/19/2024. Physical exam: Patient seen and fully evaluated at bedside this morning. She appeared comfortable. She remains on morphine infusion. Her respirations are agonal at this time. Oreilly catheter is in place. No family at bedside at this time. Derm: Skin warm and dry, normal coloration for ethnicity. Patient with multiple areas of significant bruising to bilateral upper and lower extremities in different stages of healing and old appearing bruise to right side of head/forehead . Head: Atraumatic, normocephalic and symmetric. Eyes: EOM's intact, no lid lag, and anicteric sclera Mouth: no lip lesions, mucus membranes moist Cardiovascular: regular rate and rhythm with normal S1S2, no murmur, positive posterior tibial pulses bilaterally, and cap refill < 2 seconds. Lungs: Agonal respirations Abdominal: soft, nontender to palpation, no guarding, no appreciable organomegaly. PEG tube in place. Ext: No gross muscle atrophy, no edema, no contractures Neuro/Psych: Pt unresponsive at this time. Assessment and Plan of Care: Severe Metabolic encephalopathy, Secondary to multifocal areas of vasogenic edema believed to be from recent stroke vs possible Progressive Multifocal Leukoencephalopathy Brain nodule, MRI ruled out brain nodule Advanced dementia with agitation and aggressive behaviors History of recent CVA with multiple deficits History of seizure disorder Nitrite positive UTI Groundglass opacities right upper lobe Hypernatremia Non-anion gap Metabolic acidosis Reported fall at [facility], possibly hitting head CLL Hx of renal cell carcinoma s/p nephrectomy with Stage IIIb CKD Bicytopenia, secondary to above Enlarged mediastinal lymph nodes with additional mildly prominent neck lymph nodes, likely secondary to metastatic process -Comfort measures only. -Symptomatic care and pain management. -Tylenol suppository 650 mg rectally every 4 hours as needed for fever and/or mild pain. -Artificial teardrops to bilateral eyes every 2 hours as needed for dry eyes. -Scopolamine patch. -Order placed for sublingual atropine drops and Robinul for excess secretions. -Zofran as needed for nausea and/or vomiting. -Continue morphine infusion and titrate as needed to maintain patient's comfort. Currently on 8 mg/h -Morphine 4 mg IVP every 15 minutes as needed for severe uncontrolled breakthrough pain. -Ativan 1 mg IVP every 6 hours as needed for agitation or acute anxiety. Patient was seen independently by Nurse Practitioner. This document was prepared using [employer] dictation software. Please allow for errors in weather forcaster while rare they do occur. Hakeem Pleitez NP rendered care for this patient independently, reviewed the findings and plan as documented in the note above and agree with plan. I did not physically speak with or examine the patient on this date. Objective - Vital Signs Vital signs: Vital Signs Temp Pulse 58 L 06/20/24 03:29 Resp 6 L 06/20/24 03:29 BP 137/71 06/19/24 16:00 Pulse Ox FiO2 Intake & Output 06/19/24 06/20/24 06/20/24 18:59 06:59 18:59 Intake Total 10.493 67.184 Balance 10.493 67.184 Weight 61 kg Intake: Intake, IV Titration 10.493 67.184 Amount Morphine Sulfate (100 mg/ 10.493 67.184 2 ml) 100 mg In Sodium Chloride 0.9% 100 ml @ 1 MG/HR 1.02 mls/hr IV . Q24H [facility] Rx#:[id number] Other: Voiding Method Indwelling Catheter
--- NOTE | 2024-06-21 10:35 | P.PN ---
Subjective Progress Note Date: 06/21/24 Hospital course: Patient is a pleasant 74-year-old female with a past medical history of advanced dementia, CLL, renal cell carcinoma status post nephrectomy, hypertension, hyperlipidemia, recent CVA with right sided deficits along with visual and speech deficits, CKD stage IIIb, and seizure disorder. Patient recently suffered from a left frontal stroke with right sided deficits along with visual and speech deficits in April 2024 and has been at [facility] for skilled nurs ing rehab. She initially presented to our facility on 06/12/2024 with reports of agitation and worsening confusion status post fall from bed at nursing facility. Patient with advanced dementia and significant aphasia and information was obtained from ED provider, documentation in chart, and via telephone conversation with patient's son Matt. Pt's son Matt reports his mother has had rapid deterioration of her mental status since suffering her stroke [address] head and cervical spine showing regions of low-attenuation within the left frontal, left parietal, right occipital lobes with preservation of the cortices reported to be more prominent from prior exams possibly representing evolving infarcts with underlying demyelination however neoplastic process cannot be ruled out. CT cervical spine negative for acute process showing no evidence of cervical spine fracture revealing multiple nonspecific mildly enlarged mediastinal lymph nodes with additional mildly prominent neck lymph nodes and concerns of right upper lung patchy groundglass opacities. Labs completed and reviewed. CBC showing bicytopenia with hemoglobin of 8.3 and platelet count of 103. BMP showing hypokalemia with potassium of 3.4 and elevated renal function with BUN of 35, creatinine 2.10, GFR of 23 at baseline. Blood glucose 143. Lactic acid 1.7. Magnesium 1.8. Liver profile unremarkable. Troponin less than 0.012. Urinalysis positive for nitrites. Patient started on antibiotics with Zosyn. She was admitted under our services with consultation to neurology and hematology/oncology. Patient's condition continued to decline she was restless, agitated, and appeared uncomfortable. MRI brain without contrast was completed showing worsening vasogenic edema bilaterally left greater than right with a rim of curvilinear restricted diffusion bilaterally worse on the left concerning for cortical vein thrombosis and now with infarct versus metastasis. Initially MRI with and without contrast was ordered but unable to be completed at this facility until 06/17/24 and patient's son requeted transfer to [facility], attempts made at transfer however pt was not accepted for transfer at their facility. Discussed with pt's son and pt to remain at our facility and undergo CT venogram. CT venogram with and without contrast completed showing no cerebral vein thrombosis with mid to multifocal areas of vasogenic edema and there is a suggestion of an 8 mm enhancing nodule in the right occipital vasogenic edema concerning for metastatic process. Discussed these findings with neurologist and patient's son, patient's son initially in agreement to hospice and scheduled meeting on 06/15/24 to discuss options. Pt's son cancelled this meeting and scheduled a new meeting with hospice was rescheduled on 06/16/24. Pt's son made the decision not to sign onto Hospice at this [facility]. He requested a peg tube to be placed and for patient to begin tube feedings and wants the MRI to be completed prior to making any other decisions. He was informed of pt's very poor prognosis and verbalized understanding. Order was placed for NG tube feeds, however pt's son did not consent to this stating he wants Peg Tube placed and did not want NG tube placed. General Surgeon was consulted and patient underwent placement of Peg Tube on 06/17/2024. MRI brain with contrast was then completed on 06/17/2024 revealing vasogenic edema within the left parietaloccipital region, posterior centrum semioval left parietal lobe and inferior medial right occipital lobe; no underlying mass or lesions were reported. This was discussed in detail with patient's son, and on 06/19/2024, he made the decision for comfort measures only and requested inpatient admission for hospice. Patient admitted to [facility] hospice on 06/19/2024. Patient seen this morning. Patient resting in bed comfortably. She is on 8 cc/h on morphine drip. He is breathing at 4 respirations per minute. Physical exam: Patient lying in bed comfortably with no acute distress. Patient appears critically ill. She has agonal breathing. Abdomen rising with breath. Patient's eyes are closed. Assessment and Plan of Care: Severe Metabolic encephalopathy, Secondary to multifocal areas of vasogenic edema believed to be from recent stroke vs possible Progressive Multifocal Leukoencephalopathy Brain nodule, MRI ruled out brain nodule Advanced dementia with agitation and aggressive behaviors History of recent CVA with multiple deficits History of seizure disorder Nitrite positive UTI Groundglass opacities right upper lobe Hypernatremia Non-anion gap Metabolic acidosis Reported fall at senior living, possibly hitting head CLL Hx of renal cell carcinoma s/p nephrectomy with Stage IIIb CKD Bicytopenia, secondary to above Enlarged mediastinal lymph nodes with additional mildly prominent neck lymph nodes, likely secondary to metastatic process -Comfort measures only. -Symptomatic care and pain management. -Tylenol suppository 650 mg rectally every 4 hours as needed for fever and/or mild pain. -Artificial teardrops to bilateral eyes every 2 hours as needed for dry eyes. -Scopolamine patch. -Order placed for sublingual atropine drops and Robinul for excess secretions. -Zofran as needed for nausea and/or vomiting. -Continue morphine infusion and titrate as needed to maintain patient's comfort. Currently on 8 mg/h -Morphine 4 mg IVP every 15 minutes as needed for severe uncontrolled breakthrough pain. -Ativan 1 mg IVP every 6 hours as needed for agitation or acute anxiety. Objective - Vital Signs Vital signs: Vital Signs Temp Pulse 74 06/20/24 19:39 Resp 6 L 06/21/24 08:00 BP 137/71 06/19/24 16:00 Pulse Ox FiO2 Intake & Output 06/20/24 06/21/24 06/21/24 18:59 06:59 18:59 Intake Total 102 75.733 Output Total 500 100 Balance -398 -24.267 Weight 66.5 kg Intake: Intake, IV Titration 102 75.733 Amount Morphine Sulfate (100 mg/ 102 75.733 2 ml) 100 mg In Sodium Chloride 0.9% 100 ml @ 1 MG/HR 1.02 mls/hr IV . Q24H COUNTS INCLUDE 234 BEDS AT THE [facility] Rx#:[id number] Output: Urine 500 100 Other: Voiding Method Indwelling Catheter # Voids 0 # Bowel Movements 1
[2024-06-21] MEDS: LORazepam 2 MG/ML INJ IV PRN (16:14)
[2024-06-21] MEDS ORDERED: SCOPOLAMINE 1 MG/72 HR PATCH TRANSDERM SCH (20:00)
--- NOTE | 2024-06-22 12:31 | P.PN ---
Subjective Progress Note Date: 06/22/24 Hospital course: Patient is a pleasant 74-year-old female with a past medical history of advanced dementia, CLL, renal cell carcinoma status post nephrectomy, hypertension, hyperlipidemia, recent CVA with right sided deficits along with visual and speech deficits, CKD stage IIIb, and seizure disorder. Patient recently suffered from a left frontal stroke with right sided deficits along with visual and speech deficits in April 2024 and has been at [facility] for fdc rehab. She initially presented to our facility on 06/12/2024 with reports of agitation and worsening confusion status post fall from bed at nursing facility. Patient with advanced dementia and significant aphasia and information was obtained from ED provider, documentation in chart, and via telephone conversation with patient's son Matt. Pt's son Matt reports his mother has had rapid deterioration of her mental status since suffering her stroke [address] head and cervical spine showing regions of low- attenuation within the left frontal, left parietal, right occipital lobes with preservation of the cortices reported to be more prominent from prior exams possibly representing evolving infarcts with underlying demyelination however neoplastic process cannot be ruled out. CT cervical spine negative for acute process showing no evidence of cervical spine fracture revealing multiple nonspecific mildly enlarged mediastinal lymph nodes with additional mildly prominent neck lymph nodes and concerns of right upper lung patchy groundglass opacities. Labs completed and reviewed. CBC showing bicytopenia with hemoglobin of 8.3 and platelet count of 103. BMP showing hypokalemia with potassium of 3.4 and elevated renal function with BUN of 35, creatinine 2.10, GFR of 23 at baseline. Blood glucose 143. Lactic acid 1.7. Magnesium 1.8. Liver profile unremarkable. Troponin less than 0.012. Urinalysis positive for nitrites. Patient started on antibiotics with Zosyn. She was admitted under our services with consultation to neurology and hematology/oncology. Patient's condition continued to decline she was restless, agitated, and appeared uncomfortable. MRI brain without contrast was completed showing worsening vasogenic edema bilaterally left greater than right with a rim of curvilinear restricted diffusion bilaterally worse on the left concerning for cortical vein thrombosis and now with infarct versus metastasis. Initially MRI with and without contrast was ordered but unable to be completed at this facility until 06/17/24 and patient's son requeted transfer to [facility], attempts made at transfer however pt was not accepted for transfer at their facility. Discussed with pt's son and pt to remain at our facility and undergo CT venogram. CT venogram with and without contrast completed showing no cerebral vein thrombosis with mid to multifocal areas of vasogenic edema and there is a suggestion of an 8 mm enhancing nodule in the right occipital vasogenic edema concerning for metastatic process. Discussed these findings with neurologist and patient's son, patient's son initially in agreement to hospice and scheduled meeting on 06/15/24 to discuss options. Pt's son cancelled this meeting and scheduled a new meeting with hospice was rescheduled on 06/16/24. Pt's son made the decision not to sign onto Hospice at this [facility]. He requested a peg tube to be placed and for patient to begin tube feedings and wants the MRI to be completed prior to making any other decisions. He was informed of pt's very poor prognosis and verbalized understanding. Order was placed for NG tube feeds, however pt's son did not consent to this stating he wants Peg Tube placed and did not want NG tube placed. General Surgeon was consulted and patient underwent placement of Peg Tube on 06/17/2024. MRI brain with contrast was then completed on 06/17/2024 revealing vasogenic edema within the left parietaloccipital region, posterior centrum semioval left parietal lobe and inferior medial right occipital lobe; no underlying mass or lesions were reported. This was discussed in detail with patient's son, and on 06/19/2024, he made the decision for comfort measures only and requested inpatient admission for hospice. Patient admitted to [facility] hospice on 06/19/2024. Patient seen this morning. Patient resting in bed comfortably. She is on 10 cc/h on morphine drip. He is breathing at 8 respirations per minute. Physical exam: Patient lying in bed comfortably with no acute distress. Patient appears critically ill. She has agonal breathing. Abdomen rising with breath. Patient's eyes are closed. Assessment and Plan of Care: Severe Metabolic encephalopathy, Secondary to multifocal areas of vasogenic edema believed to be from recent stroke vs possible Progressive Multifocal Leukoencephalopathy Brain nodule, MRI ruled out brain nodule Advanced dementia with agitation and aggressive behaviors History of recent CVA with multiple deficits History of seizure disorder Nitrite positive UTI Groundglass opacities right upper lobe Hypernatremia Non-anion gap Metabolic acidosis Reported fall at halfway, possibly hitting head CLL Hx of renal cell carcinoma s/p nephrectomy with Stage IIIb CKD Bicytopenia, secondary to above Enlarged mediastinal lymph nodes with additional mildly prominent neck lymph nodes, likely secondary to metastatic process -Comfort measures only. -Symptomatic care and pain management. -Tylenol suppository 650 mg rectally every 4 hours as needed for fever and/or mild pain. -Artificial teardrops to bilateral eyes every 2 hours as needed for dry eyes. -Scopolamine patch. -Continue sublingual atropine drops and Robinul for excess secretions. -Zofran as needed for nausea and/or vomiting. -Continue morphine infusion and titrate as needed to maintain patient's comfort -Morphine 4 mg IVP every 15 minutes as needed for severe uncontrolled breakthrough pain. -Ativan 1 mg IVP every 6 hours as needed for agitation or acute anxiety. Patient expected to pass away during this hospitalization. Objective - Vital Signs Vital signs: Vital Signs Temp Pulse 78 06/22/24 08:00 Resp 6 L 06/22/24 08:00 BP 137/71 06/19/24 16:00 Pulse Ox FiO2 Intake & Output 06/21/24 06/22/24 06/22/24 18:59 06:59 18:59 Intake Total 110.0 61.5 112.50 Output Total 200 650 Balance -90.0 -588.5 112.50 Weight 66 kg Intake: Intake, IV Titration 110.0 61.5 112.50 Amount Morphine Sulfate (100 mg/ 110.0 61.5 112.50 2 ml) 100 mg In Sodium Chloride 0.9% 100 ml @ 1 MG/HR 1.02 mls/hr IV . Q24H [facility] Rx#:[id number] Output: Urine 200 650 Other: Voiding Method Indwelling Catheter
[2024-06-22] MEDS: MORPHINE SULFATE 2 MG/ML SYRINGE IV PRN (13:37)
--- NOTE | 2024-06-23 10:38 | P.PN ---
Subjective Progress Note Date: 06/23/24 Hospital course: Patient is a pleasant 74-year-old female with a past medical history of advanced dementia, CLL, renal cell carcinoma status post nephrectomy, hypertension, hyperlipidemia, recent CVA with right sided deficits along with visual and speech deficits, CKD stage IIIb, and seizure disorder. Patient recently suffered from a left frontal stroke with right sided deficits along with visual and speech deficits in April 2024 and has been at [facility] for [facility] rehab. She initially presented to our facility on 06/12/2024 with reports of agitation and worsening confusion status post fall from bed at nursing facility. Patient with advanced dementia and significant aphasia and information was obtained from ED provider, documentation in chart, and via telephone conversation with patient's son Matt. Pt's son Matt reports his mother has had rapid deterioration of her mental status since suffering her stroke [address] head and cervical spine showing regions of low- attenuation within the left frontal, left parietal, right occipital lobes with preservation of the cortices reported to be more prominent from prior exams possibly representing evolving infarcts with underlying demyelination however neoplastic process cannot be ruled out. CT cervical spine negative for acute process showing no evidence of cervical spine fracture revealing multiple nonspecific mildly enlarged mediastinal lymph nodes with additional mildly prominent neck lymph nodes and concerns of right upper lung patchy groundglass opacities. Labs completed and reviewed. CBC showing bicytopenia with hemoglobin of 8.3 and platelet count of 103. BMP showing hypokalemia with potassium of 3.4 and elevated renal function with BUN of 35, creatinine 2.10, GFR of 23 at baseline. Blood glucose 143. Lactic acid 1.7. Magnesium 1.8. Liver profile unremarkable. Troponin less than 0.012. Urinalysis positive for nitrites. Patient started on antibiotics with Zosyn. She was admitted under our services with consultation to neurology and hematology/oncology. Patient's condition continued to decline she was restless, agitated, and appeared uncomfortable. MRI brain without contrast was completed showing worsening vasogenic edema bilaterally left greater than right with a rim of curvilinear restricted diffusion bilaterally worse on the left concerning for cortical vein thrombosis and now with infarct versus metastasis. Initially MRI with and without contrast was ordered but unable to be completed at this facility until 06/17/24 and patient's son requeted transfer to [facility], attempts made at transfer however pt was not accepted for transfer at their facility. Discussed with pt's son and pt to remain at our facility and undergo CT venogram. CT venogram with and without contrast completed showing no cerebral vein thrombosis with mid to multifocal areas of vasogenic edema and there is a suggestion of an 8 mm enhancing nodule in the right occipital vasogenic edema concerning for metastatic process. Discussed these findings with neurologist and patient's son, patient's son initially in agreement to hospice and scheduled meeting on 06/15/24 to discuss options. Pt's son cancelled this meeting and scheduled a new meeting with hospice was rescheduled on 06/16/24. Pt's son made the decision not to sign onto Hospice at this [facility]. He requested a peg tube to be placed and for patient to begin tube feedings and wants the MRI to be completed prior to making any other decisions. He was informed of pt's very poor prognosis and verbalized understanding. Order was placed for NG tube feeds, however pt's son did not consent to this stating he wants Peg Tube placed and did not want NG tube placed. General Surgeon was consulted and patient underwent placement of Peg Tube on 06/17/2024. MRI brain with contrast was then completed on 06/17/2024 revealing vasogenic edema within the left parietaloccipital region, posterior centrum semioval left parietal lobe and inferior medial right occipital lobe; no underlying mass or lesions were reported. This was discussed in detail with patient's son, and on 06/19/2024, he made the decision for comfort measures only and requested inpatient admission for hospice. Patient admitted to [facility] hospice on 06/19/2024. Patient seen this morning. Patient resting in bed comfortably. She is on 10 cc/h on morphine drip. He is breathing at 8 respirations per minute. Physical exam: Patient lying in bed comfortably with no acute distress. Patient appears critically ill. She has agonal breathing. Abdomen rising with breath. Patient's eyes are closed. Assessment and Plan of Care: Severe Metabolic encephalopathy, Secondary to multifocal areas of vasogenic edema believed to be from recent stroke vs possible Progressive Multifocal Leukoencephalopathy Brain nodule, MRI ruled out brain nodule Advanced dementia with agitation and aggressive behaviors History of recent CVA with multiple deficits History of seizure disorder Nitrite positive UTI Groundglass opacities right upper lobe Hypernatremia Non-anion gap Metabolic acidosis Reported fall at alf, possibly hitting head CLL Hx of renal cell carcinoma s/p nephrectomy with Stage IIIb CKD Bicytopenia, secondary to above Enlarged mediastinal lymph nodes with additional mildly prominent neck lymph nodes, likely secondary to metastatic process -Comfort measures only. -Symptomatic care and pain management. -Tylenol suppository 650 mg rectally every 4 hours as needed for fever and/or mild pain. -Artificial teardrops to bilateral eyes every 2 hours as needed for dry eyes. -Scopolamine patch. -Continue sublingual atropine drops and Robinul for excess secretions. -Zofran as needed for nausea and/or vomiting. -Continue morphine infusion and titrate as needed to maintain patient's comfort -Morphine 4 mg IVP every 15 minutes as needed for severe uncontrolled breakthrough pain. -Ativan 1 mg IVP every 6 hours as needed for agitation or acute anxiety. Patient expected to pass away during this hospitalization. Objective - Vital Signs Vital signs: Vital Signs Temp Pulse 79 06/23/24 08:55 Resp 8 L 06/23/24 08:55 BP 137/71 06/19/24 16:00 Pulse Ox FiO2 Intake & Output 06/22/24 06/23/24 06/23/24 18:59 06:59 18:59 Intake Total 112.50 178.834 Output Total 500 1200 Balance -387.50 -1021.166 Weight 64 kg Intake: Intake, IV Titration 112.50 178.834 Amount Morphine Sulfate (100 mg/ 112.50 178.834 2 ml) 100 mg In Sodium Chloride 0.9% 100 ml @ 1 MG/HR 1.02 mls/hr IV . Q24H [facility] Rx#:[id number] Output: Urine 500 1200 Other: Voiding Method Indwelling Catheter
--- NOTE | 2024-06-24 14:33 | P.PN ---
Subjective Progress Note Date: 06/24/24 74-year-old female with a PMH of advanced dementia, CLL, renal cell carcinoma status post nephrectomy, HTN, HLD, recent CVA with right sided deficits along with visual and speech deficits, CKD stage IIIb, and seizure disorder. Patient recently suffered from a left frontal stroke with right sided deficits along with visual and speech deficits in April 2024 and has been at [facility] for SNF. She initially presented to our facility on 06/12/2024 with reports of agitation and worsening confusion status post fall from bed at nursing facility. Patient with advanced dementia and significant aphasia and information was obtained from ED provider, documentation in chart, and via telephone conversation with patient's son Matt. Matt reports his mother has had rapid deterioration of her mental status since suffering her stroke [address] head and cervical spine showing regions of low-attenuation within the left frontal, left parietal, right occipital lobes with preservation of the cortices reported to be more prominent from prior exams possibly representing evolving infarcts with underlying demyelination however neoplastic process cannot be ruled out. CT cervical spine negative for acute process showing no evidence of cervical spine fracture revealing multiple nonspecific mildly enlarged mediastinal lymph nodes with additional mildly prominent neck lymph nodes and concerns of right upper lung patchy groundglass opacities. CBC showing bicytopenia with hemoglobin of 8.3 and platelet count of 103. BMP showing hypokalemia with potassium of 3.4 and elevated renal function with BUN of 35, creatinine 2.10, GFR of 23 at baseline. Blood glucose 143. Lactic acid 1.7. Magnesium 1.8. Liver profile unremarkable. Troponin less than 0.012. Urinalysis positive for nitrites. Patient started on antibiotics with Zosyn. She was admitted under our services with consultation to neurology and hematology/oncology. Patient's condition continued to decline she was restless, agitated, and appeared uncomfortable. MRI brain without contrast was completed showing worsening vasogenic edema bilaterally left greater than right with a rim of curvilinear restricted diffusion bilaterally worse on the left concerning for cortical vein thrombosis and now with infarct versus metastasis. Initially MRI with and without contrast was ordered but unable to be completed at this facility until 06/17/24 and patient's son requested transfer to [facility]. Attempts made at transfer however patient was not accepted for transfer at their facility. CT venogram with and without contrast completed showing no cerebral vein thrombosis with mid to multifocal areas of vasogenic edema and there is a suggestion of an 8 mm enhancing nodule in the right occipital vasogenic edema concerning for metastatic process. Discussed these findings with neurologist and patient's son, patient's son initially in agreement to hospice and scheduled meeting on 06/15/24 to discuss options. Patient's son made the decision not to sign onto Hospice at this time. He requested a PEG tube to be placed and for patient to begin tube feedings and wants the MRI to be completed prior to making any other decisions. General Surgeon was consulted and patient underwent placement of PEG tube on 06/17/2024. MRI brain with contrast was then completed on 06/17/2024 revealing vasogenic edema within the left parietaloccipital region, posterior centrum semioval left parietal lobe and inferior medial right occipital lobe; no underlying mass or lesions were reported. This was discussed in detail with patient's son, and on 06/19/2024, he made the decision for comfort measures only and requested inpatient admission for hospice. Patient admitted to [facility] hospice on 06/19/2024. 06/24 Patient was seen and examined. No acute events overnight. Patient lying in bed comfortably with no acute distress. Patient appears critically ill. She has agonal breathing. Abdomen rising with breath. Patient's eyes are closed. Severe Metabolic encephalopathy, Secondary to multifocal areas of vasogenic edema believed to be from recent stroke vs possible Progressive Multifocal Leukoencephalopathy Brain nodule, MRI ruled out brain nodule Advanced dementia with agitation and aggressive behaviors History of recent CVA with multiple deficits History of seizure disorder Nitrite positive UTI Groundglass opacities right upper lobe Hypernatremia Non-anion gap Metabolic acidosis Reported fall at group home, possibly hitting head CLL Hx of renal cell carcinoma s/p nephrectomy with Stage IIIb CKD Bicytopenia, secondary to above Enlarged mediastinal lymph nodes with additional mildly prominent neck lymph nodes, likely secondary to metastatic process -Comfort measures only. -Symptomatic care and pain management. -Tylenol suppository 650 mg rectally every 4 hours as needed for fever and/or mild pain. -Artificial teardrops to bilateral eyes every 2 hours as needed for dry eyes. -Scopolamine patch. -Continue sublingual atropine drops and Robinul for excess secretions. -Zofran as needed for nausea and/or vomiting. -Continue morphine infusion and titrate as needed to maintain patient's comfort -Morphine 4 mg IVP every 15 minutes as needed for severe uncontrolled breakthrough pain. -Ativan 1 mg IVP every 6 hours as needed for agitation or acute anxiety. Objective - Vital Signs Vital signs: Vital Signs Temp Pulse 93 06/24/24 03:15 Resp 5 L 06/24/24 11:45 BP 137/71 06/19/24 16:00 Pulse Ox 96 06/24/24 03:15 FiO2 Intake & Output 06/23/24 06/24/24 06/24/24 18:59 06:59 18:59 Intake Total 99.833 90 102 Output Total 600 425 Balance -500.167 -335 102 Intake: Intake, IV Titration 99.833 90 102 Amount Morphine Sulfate (100 mg/ 99.833 90 102 2 ml) 100 mg In Sodium Chloride 0.9% 100 ml @ 1 MG/HR 1.02 mls/hr IV . Q24H [facility] Rx#:[id number] Output: Urine 600 425 Other: Voiding Method Indwelling Catheter # Bowel Movements 0
[2024-06-24] MEDS: ATROPINE OPHTH SOLN 1% 5ML BTL SUBLINGUAL PRN (20:59)
[2024-06-25] MEDS: GLYCOPYRROLATE 0.2 MG/ML 2 ML VIAL IVP PRN (00:20)
--- NOTE | 2024-06-25 11:09 | P.PN ---
Subjective Progress Note Date: 06/25/24 Hospital course: Patient is a pleasant 74-year-old female with a past medical history of advanced dementia, CLL, renal cell carcinoma status post nephrectomy, hypertension, hyperlipidemia, recent CVA with right sided deficits along with visual and speech deficits, CKD stage IIIb, and seizure disorder. Patient recently suffered from a left frontal stroke with right sided deficits along with visual and speech deficits in April 2024 and has been at [facility] for correction rehab. She initially presented to our facility on 06/12/2024 with reports of agitation and worsening confusion status post fall from bed at nursing facility. Patient with advanced dementia and significant aphasia and information was obtained from ED provider, documentation in chart, and via telephone conversation with patient's son Matt. Pt's son Matt reports his mother has had rapid deterioration of her mental status since suffering her stroke [address] head and cervical spine showing regions of low- attenuation within the left frontal, left parietal, right occipital lobes with preservation of the cortices reported to be more prominent from prior exams possibly representing evolving infarcts with underlying demyelination however neoplastic process cannot be ruled out. CT cervical spine negative for acute process showing no evidence of cervical spine fracture revealing multiple nonspecific mildly enlarged mediastinal lymph nodes with additional mildly pro minent neck lymph nodes and concerns of right upper lung patchy groundglass opacities. Labs completed and reviewed. CBC showing bicytopenia with hemoglobin of 8.3 and platelet count of 103. BMP showing hypokalemia with potassium of 3.4 and elevated renal function with BUN of 35, creatinine 2.10, GFR of 23 at baseline. Blood glucose 143. Lactic acid 1.7. Magnesium 1.8. Liver profile unremarkable. Troponin less than 0.012. Urinalysis positive for nitrites. Patient started on antibiotics with Zosyn. She was admitted under our services with consultation to neurology and hematology/oncology. Patient's condition continued to decline she was restless, agitated, and appeared uncomfortable. MRI brain without contrast was completed showing worsening vasogenic edema bilaterally left greater than right with a rim of curvilinear restricted diffusion bilaterally worse on the left concerning for cortical vein thrombosis and now with infarct versus metastasis. CT venogram with and without contrast completed showing no cerebral vein thrombosis with mid to multifocal areas of vasogenic edema and there is a suggestion of an 8 mm enhancing nodule in the right occipital vasogenic edema concerning for metastatic process. Secondary to continued decline in patient's status, patient's son requested a peg tube to be placed and for patient to begin tube feedings He was informed of pt's very poor prognosis and verbalized understanding. Order was placed for NG tube feeds, however pt's son did not consent to this stating he wants Peg Tube placed and did not want NG tube placed. General Surgeon was consulted and patient underwent placement of Peg Tube on 06/17/2024. MRI brain with contrast was then completed on 06/17/2024 revealing vasogenic edema within the left parietaloccipital region, posterior centrum semioval left parietal lobe and inferior medial right occipital lobe; no underlying mass or lesions were reported. This was discussed in detail with patient's son, and on 06/19/2024, patient's son made the decision for comfort measures only and requested inpatient admission for hospice. Patient admitted to [facility] hospice on 06/19/2024. Physical exam: Patient seen and fully evaluated at bedside this morning. She remains on morphine infusion currently at 20 mg/h and although she is awake and occasionally moving the left leg and right arm, she appeared comfortable. She remains nonverbal. Oreilly catheter is in place. No family at bedside at this time. Derm: Skin warm and dry, normal coloration for ethnicity. Patient with multiple areas of significant bruising to bilateral upper and lower extremities in different stages of healing and old appearing bruise to right side of head/forehead . Head: Atraumatic, normocephalic and symmetric. Eyes: EOM's intact, no lid lag, and anicteric sclera Mouth: no lip lesions, mucus membranes moist Cardiovascular: regular rate and rhythm with normal S1S2, no murmur, positive posterior tibial pulses bilaterally, and cap refill < 2 seconds. Lungs: Agonal respirations Abdominal: soft, nontender to palpation, no guarding, no appreciable orga nomegaly. PEG tube in place. Ext: No gross muscle atrophy, no edema, no contractures Neuro/Psych: Pt awake, but nonverbal. Assessment and Plan of Care: Severe Metabolic encephalopathy, Secondary to multifocal areas of vasogenic edema believed to be from recent stroke vs possible Progressive Multifocal Leukoencephalopathy Brain nodule, MRI ruled out brain nodule Advanced dementia with agitation and aggressive behaviors History of recent CVA with multiple deficits History of seizure disorder Nitrite positive UTI Groundglass opacities right upper lobe Hypernatremia Non-anion gap Metabolic acidosis [facility]orted [facility] at [facility], possibly [facility] head CLL Hx of renal cell carcinoma s/p nephrectomy with Stage IIIb CKD Bicytopenia, secondary to above Enlarged mediastinal lymph nodes with additional mildly prominent neck lymph nodes, likely secondary to metastatic process -Comfort measures only. -Symptomatic care and pain management. -Tylenol suppository 650 mg rectally every 4 hours as needed for fever and/or mild pain. -Artificial teardrops to bilateral eyes every 2 hours as needed for dry eyes. -Scopolamine patch. -Order placed for sublingual atropine drops and Robinul for excess secretions. -Zofran as needed for nausea and/or vomiting. -Continue morphine infusion and titrate as needed to maintain patient's comfort. Currently on 20 mg/h -Morphine 4 mg IVP every 15 minutes as needed for severe uncontrolled breakthrough pain. -Ativan 1 mg IVP every 6 hours as needed for agitation or acute anxiety. Morning vitals reviewed. Heart rate 97, respiratory rate 7 and patient remains on room air. Patient was seen independently by Nurse Practitioner. This document was prepared using [employer] dictation software. Please allow for errors in veneer jointer while rare they do occur. Hakeem Pleitez NP rendered care for this patient independently, reviewed the findings and plan as documented in the note above and agree with plan. I did not physically speak with or examine the patient on this date. Objective - Vital Signs Vital signs: Vital Signs Temp Pulse 99 06/25/24 03:43 Resp 5 L 06/25/24 03:43 BP 137/71 06/19/24 16:00 Pulse Ox 96 06/24/24 03:15 FiO2 Intake & Output 06/24/24 06/25/24 06/25/24 18:59 06:59 18:59 Intake Total 204.000 190.927 Output Total 325 400 Balance -121.000 -209.073 Weight 64 kg Intake: Intake, IV Titration 204.000 190.927 Amount Morphine Sulfate (100 mg/ 204.000 190.927 2 ml) 100 mg In Sodium Chloride 0.9% 100 ml @ 1 MG/HR 1.02 mls/hr IV . Q24H [facility] Rx#:[id number] Output: Urine 325 400 Other: # Bowel Movements 0
[2024-06-26] MEDS: DRY MOUTH SPRAY 44.3 SPRAY/44.3 ML SPRAY MUCOUS MEM PRN (10:42)
--- NOTE | 2024-06-26 11:42 | P.PN ---
Subjective Progress Note Date: 06/26/24 Hospital course: Patient is a pleasant 74-year-old female with a past medical history of advanced dementia, CLL, renal cell carcinoma status post nephrectomy, hypertension, hyperlipidemia, recent CVA with right sided deficits along with visual and speech deficits, CKD stage IIIb, and seizure disorder. Patient recently suffered from a left frontal stroke with right sided deficits along with visual and speech deficits in April 2024 and has been at [facility] for alf rehab. She initially presented to our facility on 06/12/2024 with reports of agitation and worsening confusion status post fall from bed at nursing facility. Patient with advanced dementia and significant aphasia and information was obtained from ED provider, documentation in chart, and via telephone conversation with patient's son Matt. Pt's son Matt reports his mother has had rapid deterioration of her mental status since suffering her stroke [address] head and cervical spine showing regions of low- attenuation within the left frontal, left parietal, right occipital lobes with preservation of the cortices reported to be more prominent from prior exams possibly representing evolving infarcts with underlying demyelination however neoplastic process cannot be ruled out. CT cervical spine negative for acute process showing no evidence of cervical spine fracture revealing multiple nonspecific mildly enlarged mediastinal lymph nodes with additional mildly pro minent neck lymph nodes and concerns of right upper lung patchy groundglass opacities. Labs completed and reviewed. CBC showing bicytopenia with hemoglobin of 8.3 and platelet count of 103. BMP showing hypokalemia with potassium of 3.4 and elevated renal function with BUN of 35, creatinine 2.10, GFR of 23 at baseline. Blood glucose 143. Lactic acid 1.7. Magnesium 1.8. Liver profile unremarkable. Troponin less than 0.012. Urinalysis positive for nitrites. Patient started on antibiotics with Zosyn. She was admitted under our services with consultation to neurology and hematology/oncology. Patient's condition continued to decline she was restless, agitated, and appeared uncomfortable. MRI brain without contrast was completed showing worsening vasogenic edema bilaterally left greater than right with a rim of curvilinear restricted diffusion bilaterally worse on the left concerning for cortical vein thrombosis and now with infarct versus metastasis. CT venogram with and without contrast completed showing no cerebral vein thrombosis with mid to multifocal areas of vasogenic edema and there is a suggestion of an 8 mm enhancing nodule in the right occipital vasogenic edema concerning for metastatic process. Secondary to continued decline in patient's status, patient's son requested a peg tube to be placed and for patient to begin tube feedings He was informed of pt's very poor prognosis and verbalized understanding. Order was placed for NG tube feeds, however pt's son did not consent to this stating he wants Peg Tube placed and did not want NG tube placed. General Surgeon was consulted and patient underwent placement of Peg Tube on 06/17/2024. MRI brain with contrast was then completed on 06/17/2024 revealing vasogenic edema within the left parietaloccipital region, posterior centrum semioval left parietal lobe and inferior medial right occipital lobe; no underlying mass or lesions were reported. This was discussed in detail with patient's son, and on 06/19/2024, patient's son made the decision for comfort measures only and requested inpatient admission for hospice. Patient admitted to [facility] hospice on 06/19/2024. Physical exam: Patient seen and fully evaluated at bedside this morning. She remains on morphine infusion currently at 27 mg/h and although she is awake and continues to have periodical moving the left leg and bilateral arms, she currently appears comfortable. She remains nonverbal. Oreilly catheter is in place. No family at bedside at this time. Derm: Skin warm and dry, normal coloration for ethnicity. Patient with multiple areas of significant bruising to bilateral upper and lower extremities in different stages of healing and old appearing bruise to right side of head/forehead . Head: Atraumatic, normocephalic and symmetric. Eyes: EOM's intact, no lid lag, and anicteric sclera Mouth: no lip lesions, mucus membranes moist Cardiovascular: regular rate and rhythm with normal S1S2, no murmur, positive posterior tibial pulses bilaterally, and cap refill < 2 seconds. Lungs: Agonal respirations Abdominal: soft, nontender to palpation, no guarding, no appreciable organomegaly. PEG tube in place. Ext: No gross muscle atrophy, no edema, no contractures Neuro/Psych: Pt awake, but nonverbal. Assessment and Plan of Care: Severe Metabolic encephalopathy, Secondary to multifocal areas of vasogenic edema believed to be from recent stroke vs possible Progressive Multifocal Leukoencephalopathy Brain nodule, MRI ruled out brain nodule Advanced dementia with agitation and aggressive behaviors History of recent CVA with multiple deficits History of seizure disorder Nitrite positive UTI Groundglass opacities right upper lobe Hypernatremia Non-anion gap Metabolic acidosis Reported fall at longterm, possibly hitting head CLL Hx of renal cell carcinoma s/p nephrectomy with Stage IIIb CKD Bicytopenia, secondary to above Enlarged mediastinal lymph nodes with additional mildly prominent neck lymph nodes, likely secondary to metastatic process -Comfort measures only. -Symptomatic care and pain management. -Tylenol suppository 650 mg rectally every 4 hours as needed for fever and/or mild pain. -Artificial teardrops to bilateral eyes every 2 hours as needed for dry eyes. -Scopolamine patch. -Order placed for sublingual atropine drops and Robinul for excess secretions. -Zofran as needed for nausea and/or vomiting. -Continue morphine infusion and titrate as needed to maintain patient's comfort. Currently on 27 mg/h -Morphine 4 mg IVP every 15 minutes as needed for severe uncontrolled breakthrough pain. -Ativan 1 mg IVP every 6 hours as needed for agitation or acute anxiety. Morning vitals reviewed. Vital signs reviewed blood pressure 126/72, heart rate 100, respiratory rate 6, temp 100.3 F, and SpO2 of 93% on room air.. Patient was seen independently by Nurse Practitioner. This document was prepared using [employer] dictation software. Please allow for errors in wood block artist while rare they do occur. Hakeem Pleitez NP rendered care for this patient independently, reviewed the findings and plan as documented in the note above and agree with plan. I did not physically speak with or examine the patient on this date. Objective - Vital Signs Vital signs: Vital Signs Temp Pulse 96 06/25/24 18:04 Resp 4 L 06/26/24 04:00 BP 137/71 06/19/24 16:00 Pulse Ox 96 06/24/24 03:15 FiO2 Intake & Output 06/25/24 06/26/24 06/26/24 18:59 06:59 18:59 Intake Total 296.242 304.419 Output Total 350 480 Balance -53.758 -175.581 Intake: Intake, IV Titration 296.242 304.419 Amount Morphine Sulfate (100 mg/ 296.242 304.419 2 ml) 100 mg In Sodium Chloride 0.9% 100 ml @ 1 MG/HR 1.02 mls/hr IV . Q24H [facility] Rx#:[id number] Output: Urine 350 480 Other: Voiding Method Indwelling Catheter Indwelling Catheter
[2024-06-26] MEDS: ACETAMINOPHEN TAB 325 MG TAB PEG/G-TUBE PRN (13:32)
[2024-06-26] MEDS: MORPHINE SULFATE IV SCH (14:43)
[2024-06-26] MEDS: SODIUM CHLORIDE 0.9% IV SCH (14:43)
--- NOTE | 2024-06-27 10:09 | P.PN ---
Subjective Progress Note Date: 06/27/24 Hospital course: Patient is a pleasant 74-year-old female with a past medical history of advanced dementia, CLL, renal cell carcinoma status post nephrectomy, hypertension, hyperlipidemia, recent CVA with right sided deficits along with visual and speech deficits, CKD stage IIIb, and seizure disorder. Patient recently suffered from a left frontal stroke with right sided deficits along with visual and speech deficits in April 2024 and has been at [facility] for senior care rehab. She initially presented to our facility on 06/12/2024 with reports of agitation and worsening confusion status post fall from bed at nursing facility. Patient with advanced dementia and significant aphasia and information was obtained from ED provider, documentation in chart, and via telephone conversation with patient's son Matt. Pt's son Matt reports his mother has had rapid deterioration of her mental status since suffering her stroke [address] head and cervical spine showing regions of low- attenuation within the left frontal, left parietal, right occipital lobes with preservation of the cortices reported to be more prominent from prior exams possibly representing evolving infarcts with underlying demyelination however neoplastic process cannot be ruled out. CT cervical spine negative for acute process showing no evidence of cervical spine fracture revealing multiple nonspecific mildly enlarged mediastinal lymph nodes with additional mildly pro minent neck lymph nodes and concerns of right upper lung patchy groundglass opacities. Labs completed and reviewed. CBC showing bicytopenia with hemoglobin of 8.3 and platelet count of 103. BMP showing hypokalemia with potassium of 3.4 and elevated renal function with BUN of 35, creatinine 2.10, GFR of 23 at baseline. Blood glucose 143. Lactic acid 1.7. Magnesium 1.8. Liver profile unremarkable. Troponin less than 0.012. Urinalysis positive for nitrites. Patient started on antibiotics with Zosyn. She was admitted under our services with consultation to neurology and hematology/oncology. Patient's condition continued to decline she was restless, agitated, and appeared uncomfortable. MRI brain without contrast was completed showing worsening vasogenic edema bilaterally left greater than right with a rim of curvilinear restricted diffusion bilaterally worse on the left concerning for cortical vein thrombosis and now with infarct versus metastasis. CT venogram with and without contrast completed showing no cerebral vein thrombosis with mid to multifocal areas of vasogenic edema and there is a suggestion of an 8 mm enhancing nodule in the right occipital vasogenic edema concerning for metastatic process. Secondary to continued decline in patient's status, patient's son requested a peg tube to be placed and for patient to begin tube feedings He was informed of pt's very poor prognosis and verbalized understanding. Order was placed for NG tube feeds, however pt's son did not consent to this stating he wants Peg Tube placed and did not want NG tube placed. General Surgeon was consulted and patient underwent placement of Peg Tube on 06/17/2024. MRI brain with contrast was then completed on 06/17/2024 revealing vasogenic edema within the left parietaloccipital region, posterior centrum semioval left parietal lobe and inferior medial right occipital lobe; no underlying mass or lesions were reported. This was discussed in detail with patient's son, and on 06/19/2024, patient's son made the decision for comfort measures only and requested inpatient admission for hospice. Patient admitted to [facility] hospice on 06/19/2024. Physical exam: Patient seen and fully evaluated at bedside this morning. She remains on morphine infusion currently at 27 mg/h and currently nonverbal and resting. Patient remains arousable via verbal or tactile stimuli by opening her eyes and shaking lightly and then going back to sleep. Derm: Skin warm and dry, normal coloration for ethnicity. Patient with multiple areas of significant bruising to bilateral upper and lower extremities in different stages of healing and old appearing bruise to right side of head/forehead . Head: Atraumatic, normocephalic and symmetric. Eyes: EOM's intact, no lid lag, and anicteric sclera Mouth: no lip lesions, mucus membranes moist Cardiovascular: regular rate and rhythm with normal S1S2, no murmur, positive posterior tibial pulses bilaterally, and cap refill < 2 seconds. Lungs: Agonal respirations Abdominal: soft, nontender to palpation, no guarding, no appreciable organomegaly. PEG tube in place. Ext: No gross muscle atrophy, no edema, no contractures. Mild anasarca in upper extremities Neuro/Psych: Pt resting comfortably at this time. Assessment and Plan of Care: Severe Metabolic encephalopathy, Secondary to multifocal areas of vasogenic edema believed to be from recent stroke vs possible Progressive Multifocal Leukoencephalopathy Brain nodule, MRI ruled out brain nodule Advanced dementia with agitation and aggressive behaviors History of recent CVA with multiple deficits History of seizure disorder Nitrite positive UTI Groundglass opacities right upper lobe Hypernatremia Non-anion gap Metabolic acidosis Reported fall at group home, possibly hitting head CLL Hx of renal cell carcinoma s/p nephrectomy with Stage IIIb CKD Bicytopenia, secondary to above Enlarged mediastinal lymph nodes with additional mildly prominent neck lymph nodes, likely secondary to metastatic process -Comfort measures only. -Symptomatic care and pain management. -Tylenol suppository 650 mg rectally every 4 hours as needed for fever and/or mild pain. -Artificial teardrops to bilateral eyes every 2 hours as needed for dry eyes. -Scopolamine patch. -Order placed for sublingual atropine drops and Robinul for excess secretions. -Zofran as needed for nausea and/or vomiting. -Continue morphine infusion and titrate as needed to maintain patient's comfort. Currently on 27 mg/h -Morphine 4 mg IVP every 15 minutes as needed for severe uncontrolled breakthrough pain. -Ativan 1 mg IVP every 6 hours as needed for agitation or acute anxiety. Patient was seen independently by Nurse Practitioner. This document was prepared using [employer] dictation software. Please allow for errors in top screw while rare they do occur. Hakeem Pleitez NP rendered care for this patient independently, reviewed the findings and plan as documented in the note above and agree with plan. I did not physically speak with or examine the patient on this date. Objective - Vital Signs Vital signs: Vital Signs Temp 98.9 F 06/26/24 15:55 Pulse 100 06/26/24 12:33 Resp 4 L 06/27/24 06:53 BP 126/72 06/26/24 12:33 Pulse Ox 93 L 06/26/24 12:33 FiO2 Intake & Output 06/26/24 06/27/24 06/27/24 18:59 06:59 18:59 Intake Total 112 396.90 Output Total 400 350 Balance -288 46.90 Intake: IV 10 Invasive Line 2 10 Intake, IV Titration 102 396.90 Amount Morphine Sulfate (100 mg/ 102 2 ml) 100 mg In Sodium Chloride 0.9% 100 ml @ 1 MG/HR 1.02 mls/hr IV . Q24H [facility] Rx#:[id number] Morphine Sulfate 200 mg 396.90 In Sodium Chloride 0.9% 180 ml @ 27 MG/HR 27 mls/ hr IV .Q7H25M [facility] Rx#: [id number] Output: Urine 400 350 Other: Voiding Method Indwelling Catheter Indwelling Catheter
[2024-06-28] MEDS ORDERED: SODIUM CHLORIDE 0.9% IV SCH (12:00)
[2024-06-28] MEDS ORDERED: MORPHINE SULFATE IV SCH (12:00)
--- NOTE | 2024-06-28 13:09 | P.PN ---
Subjective Progress Note Date: 06/28/24 Hospital course: Patient is a pleasant 74-year-old female with a past medical history of advanced dementia, CLL, renal cell carcinoma status post nephrectomy, hypertension, hyperlipidemia, recent CVA with right sided deficits along with visual and speech deficits, CKD stage IIIb, and seizure disorder. Patient recently suffered from a left frontal stroke with right sided deficits along with visual and speech deficits in April 2024 and has been at [facility] for prison rehab. She initially presented to our facility on 06/12/2024 with reports of agitation and worsening confusion status post fall from bed at nursing facility. Patient with advanced dementia and significant aphasia and information was obtained from ED provider, documentation in chart, and via telephone conversation with patient's son Matt. Pt's son Matt reports his mother has had rapid deterioration of her mental status since suffering her stroke [address] head and cervical spine showing regions of low- attenuation within the left frontal, left parietal, right occipital lobes with preservation of the cortices reported to be more prominent from prior exams possibly representing evolving infarcts with underlying demyelination however neoplastic process cannot be ruled out. CT cervical spine negative for acute process showing no evidence of cervical spine fracture revealing multiple nonspecific mildly enlarged mediastinal lymph nodes with additional mildly pro minent neck lymph nodes and concerns of right upper lung patchy groundglass opacities. Labs completed and reviewed. CBC showing bicytopenia with hemoglobin of 8.3 and platelet count of 103. BMP showing hypokalemia with potassium of 3.4 and elevated renal function with BUN of 35, creatinine 2.10, GFR of 23 at baseline. Blood glucose 143. Lactic acid 1.7. Magnesium 1.8. Liver profile unremarkable. Troponin less than 0.012. Urinalysis positive for nitrites. Patient started on antibiotics with Zosyn. She was admitted under our services with consultation to neurology and hematology/oncology. Patient's condition continued to decline she was restless, agitated, and appeared uncomfortable. MRI brain without contrast was completed showing worsening vasogenic edema bilaterally left greater than right with a rim of curvilinear restricted diffusion bilaterally worse on the left concerning for cortical vein thrombosis and now with infarct versus metastasis. CT venogram with and without contrast completed showing no cerebral vein thrombosis with mid to multifocal areas of vasogenic edema and there is a suggestion of an 8 mm enhancing nodule in the right occipital vasogenic edema concerning for metastatic process. Secondary to continued decline in patient's status, patient's son requested a peg tube to be placed and for patient to begin tube feedings He was informed of pt's very poor prognosis and verbalized understanding. Order was placed for NG tube feeds, however pt's son did not consent to this stating he wants Peg Tube placed and did not want NG tube placed. General Surgeon was consulted and patient underwent placement of Peg Tube on 06/17/2024. MRI brain with contrast was then completed on 06/17/2024 revealing vasogenic edema within the left parietaloccipital region, posterior centrum semioval left parietal lobe and inferior medial right occipital lobe; no underlying mass or lesions were reported. This was discussed in detail with patient's son, and on 06/19/2024, patient's son made the decision for comfort measures only and requested inpatient admission for hospice. Patient admitted to [facility] hospice on 06/19/2024. Physical exam: Patient seen and fully evaluated at bedside this morning. She was awake and slightly restless and agitated moving left upper and lower extremity. She remains nonverbal. No family present. Discussed with hospice team states they were able to talk with son on . Derm: Skin warm and dry, normal coloration for ethnicity. Patient with multiple areas of significant bruising to bilateral upper and lower extremities in different stages of healing and old appearing bruise to right side of head/forehead . Head: Atraumatic, normocephalic and symmetric. Eyes: EOM's intact, no lid lag, and anicteric sclera Mouth: no lip lesions, mucus membranes moist Cardiovascular: regular rate and rhythm with normal S1S2, no murmur, positive p osterior tibial pulses bilaterally, and cap refill < 2 seconds. Lungs: Agonal respirations Abdominal: soft, nontender to palpation, no guarding, no appreciable organomegaly. PEG tube in place. Ext: No gross muscle atrophy, no edema, no contractures. Mild anasarca in upper extremities Neuro/Psych: Pt awake but nonverbal at this time. She appeared restless and had tremors noted in left upper and lower extremity.. Assessment and Plan of Care: Severe Metabolic encephalopathy, Secondary to multifocal areas of vasogenic edema believed to be from recent stroke vs possible Progressive Multifocal Leukoencephalopathy Brain nodule, MRI ruled out brain nodule Advanced dementia with agitation and aggressive behaviors History of recent CVA with multiple deficits History of seizure disorder Nitrite positive UTI Groundglass opacities right upper lobe Hypernatremia Non-anion gap Metabolic acidosis Reported fall at snf, possibly hitting head CLL Hx of renal cell carcinoma s/p nephrectomy with Stage IIIb CKD Bicytopenia, secondary to above Enlarged mediastinal lymph nodes with additional mildly prominent neck lymph nodes, likely secondary to metastatic process -Comfort measures only. -Symptomatic care and pain management. -Tylenol suppository 650 mg rectally every 4 hours as needed for fever and/or mild pain. -Artificial teardrops to bilateral eyes every 2 hours as needed for dry eyes. -Scopolamine patch. -Order placed for sublingual atropine drops and Robinul for excess secretions. -Zofran as needed for nausea and/or vomiting. -Continue morphine infusion and titrate as needed to maintain patient's comfort. Currently on 32 mg/h -Morphine 4 mg IVP every 15 minutes as needed for severe uncontrolled breakthrough pain. -Ativan 1 mg IVP every 6 hours as needed for agitation or acute anxiety. Vital signs reviewed. Blood pressure 122/65, respiratory rate respiratory rate5, heart rate 85, temp 98.1 F, and SpO2 of 95% on room air. Patient was seen independently by Nurse Practitioner. This document was prepared using [employer] dictation software. Please allow for errors in census enumerator while rare they do occur. Hakeem Pleitez NP rendered care for this patient independently, reviewed the findings and plan as documented in the note above and agree with plan. I did not physically speak with or examine the patient on this date. Objective - Vital Signs Vital signs: Vital Signs Temp 98.1 F 06/28/24 07:36 Pulse 85 06/28/24 07:36 Resp 5 L 06/28/24 07:36 BP 122/65 06/28/24 07:36 Pulse Ox 95 06/28/24 07:36 FiO2 Intake & Output 06/27/24 06/28/24 06/28/24 18:59 06:59 18:59 Intake Total 376.850 200.000 Output Total 400 400 Balance -23.150 -200.000 Intake: Intake, IV Titration 376.850 200.000 Amount Morphine Sulfate 200 mg 376.850 200.000 In Sodium Chloride 0.9% 180 ml @ 27 MG/HR 27 mls/ hr IV .Q7H25M [facility] Rx#: [id number] Oral 0 0 Output: Urine 400 400 Other: Voiding Method Indwelling Catheter Indwelling Catheter
[2024-06-28] MEDS: LORazepam 2 MG/ML INJ IV STA (13:27)
[2024-06-28] MEDS: SODIUM CHLORIDE 0.9% IV SCH (17:11)
[2024-06-28] MEDS: MORPHINE SULFATE IV SCH (17:11)
--- NOTE | 2024-06-29 10:02 | P.PN ---
Subjective Progress Note Date: 06/29/24 Hospital course: Patient is a pleasant 74-year-old female with a past medical history of advanced dementia, CLL, renal cell carcinoma status post nephrectomy, hypertension, hyperlipidemia, recent CVA with right sided deficits along with visual and speech deficits, CKD stage IIIb, and seizure disorder. Patient recently suffered from a left frontal stroke with right sided deficits along with visual and speech deficits in April 2024 and has been at [facility] for jail rehab. She initially presented to our facility on 06/12/2024 with reports of agitation and worsening confusion status post fall from bed at nursing facility. Patient with advanced dementia and significant aphasia and information was obtained from ED provider, documentation in chart, and via telephone conversation with patient's son Matt. Pt's son Matt reports his mother has had rapid deterioration of her mental status since suffering her stroke [address] head and cervical spine showing regions of low- attenuation within the left frontal, left parietal, right occipital lobes with preservation of the cortices reported to be more prominent from prior exams possibly representing evolving infarcts with underlying demyelination however neoplastic process cannot be ruled out. CT cervical spine negative for acute process showing no evidence of cervical spine fracture revealing multiple nonspecific mildly enlarged mediastinal lymph nodes with additional mildly pro minent neck lymph nodes and concerns of right upper lung patchy groundglass opacities. Labs completed and reviewed. CBC showing bicytopenia with hemoglobin of 8.3 and platelet count of 103. BMP showing hypokalemia with potassium of 3.4 and elevated renal function with BUN of 35, creatinine 2.10, GFR of 23 at baseline. Blood glucose 143. Lactic acid 1.7. Magnesium 1.8. Liver profile unremarkable. Troponin less than 0.012. Urinalysis positive for nitrites. Patient started on antibiotics with Zosyn. She was admitted under our services with consultation to neurology and hematology/oncology. Patient's condition continued to decline she was restless, agitated, and appeared uncomfortable. MRI brain without contrast was completed showing worsening vasogenic edema bilaterally left greater than right with a rim of curvilinear restricted diffusion bilaterally worse on the left concerning for cortical vein thrombosis and now with infarct versus metastasis. CT venogram with and without contrast completed showing no cerebral vein thrombosis with mid to multifocal areas of vasogenic edema and there is a suggestion of an 8 mm enhancing nodule in the right occipital vasogenic edema concerning for metastatic process. Secondary to continued decline in patient's status, patient's son requested a peg tube to be placed and for patient to begin tube feedings He was informed of pt's very poor prognosis and verbalized understanding. Order was placed for NG tube feeds, however pt's son did not consent to this stating he wants Peg Tube placed and did not want NG tube placed. General Surgeon was consulted and patient underwent placement of Peg Tube on 06/17/2024. MRI brain with contrast was then completed on 06/17/2024 revealing vasogenic edema within the left parietaloccipital region, posterior centrum semioval left parietal lobe and inferior medial right occipital lobe; no underlying mass or lesions were reported. This was discussed in detail with patient's son, and on 06/19/2024, patient's son made the decision for comfort measures only and requested inpatient admission for hospice. Patient admitted to [facility] hospice on 06/19/2024. Physical exam: Patient seen and fully evaluated at bedside this morning. She was resting and continues to be slightly restless and agitated moving/jerking extremities when touched or spoken to. Movements more full to left upper and lower extremities. She remains nonverbal. No family present. Derm: Skin warm and dry, normal coloration for ethnicity. Patient with multiple areas of significant bruising to bilateral upper and lower extremities in different stages of healing and old appearing bruise to right side of head/forehead . Head: Atraumatic, normocephalic and symmetric. Eyes: EOM's intact, no lid lag, and anicteric sclera Mouth: no lip lesions, mucus membranes moist Cardiovascular: regular rate and rhythm with normal S1S2, no murmur, positive posterior tibial pulses bilaterally, and cap refill < 2 seconds. Lungs: Agonal respirations Abdominal: soft, nontender to palpation, no guarding, no appreciable organomegaly. PEG tube in place. Ext: No gross muscle atrophy, no edema, no contractures. Mild anasarca in upper extremities Neuro/Psych: Pt awake but nonverbal at this time. She appeared restless and had tremors noted in left upper and lower extremity.. Assessment and Plan of Care: Severe Metabolic encephalopathy, Secondary to multifocal areas of vasogenic edema believed to be from recent stroke vs possible Progressive Multifocal Leukoencephalopathy Brain nodule, MRI ruled out brain nodule Advanced dementia with agitation and aggressive behaviors History of recent CVA with multiple deficits History of seizure disorder Nitrite positive UTI Groundglass opacities right upper lobe Hypernatremia Non-anion gap Metabolic acidosis Reported fall at [facility], possibly hitting head CLL Hx of renal cell carcinoma s/p nephrectomy with Stage IIIb CKD Bicytopenia, secondary to above Enlarged mediastinal lymph nodes with additional mildly prominent neck lymph nodes, likely secondary to metastatic process -Comfort measures only. -Symptomatic care and pain management. -Tylenol suppository 650 mg rectally every 4 hours as needed for fever and/or mild pain. -Artificial teardrops to bilateral eyes every 2 hours as needed for dry eyes. -Scopolamine patch. -Order placed for sublingual atropine drops and Robinul for excess secretions. -Zofran as needed for nausea and/or vomiting. -Continue morphine infusion and titrate as needed to maintain patient's comfort. Currently on 50 mg/h -Morphine 4 mg IVP every 15 minutes as needed for severe uncontrolled breakthrough pain. -Ativan 1 mg IVP every 6 hours as needed for agitation or acute anxiety. Vital signs reviewed. Blood pressure 138/80, heart rate 98, respiratory rate 4, and SpO2 of 99% on 2 L. Patient was seen independently by Nurse Practitioner. This document was prepared using [employer] dictation software. Please allow for errors in echocardiograph tech while rare they do occur. Hakeem Pleitez NP rendered care for this patient independently, reviewed the findings and plan as documented in the note above and agree with plan. I did not physically speak with or examine the patient on this date. Objective - Vital Signs Vital signs: Vital Signs Temp 99.9 F H 06/28/24 13:59 Pulse 98 06/29/24 01:59 Resp 12 06/29/24 07:34 BP 138/80 06/29/24 01:59 Pulse Ox 100 06/29/24 08:24 FiO2 Intake & Output 06/28/24 06/29/24 06/29/24 18:59 06:59 18:59 Intake Total 329.067 596.667 Output Total 350 500 Balance -20.933 96.667 Intake: Intake, IV Titration 329.067 596.667 Amount Morphine Sulfate 200 mg 329.067 In Sodium Chloride 0.9% 180 ml @ 27 MG/HR 27 mls/ hr IV .Q7H25M [facility] Rx#: [id number] Morphine Sulfate 200 mg 596.667 In Sodium Chloride 0.9% 180 ml @ 27 MG/HR 27 mls/ hr IV .Q7H25M [facility] Rx#: [id number] Output: Urine 350 500 Other: Voiding Method Indwelling Catheter Indwelling Catheter
[2024-06-29] MEDS: HYDROmorphone (PF) 50 MG in SODIUM CHLORIDE 0.9% 45 ML IV SCH (14:48)
--- NOTE | 2024-06-30 15:08 | P.PN ---
Subjective Progress Note Date: 06/30/24 Hospital course: Patient is a pleasant 74-year-old female with a past medical history of advanced dementia, CLL, renal cell carcinoma status post nephrectomy, hypertension, hyperlipidemia, recent CVA with right sided deficits along with visual and speech deficits, CKD stage IIIb, and seizure disorder. Patient recently suffered from a left frontal stroke with right sided deficits along with visual and speech deficits in April 2024 and has been at [facility] for assisted rehab. She initially presented to our facility on 06/12/2024 with reports of agitation and worsening confusion status post fall from bed at nursing facility. Patient with advanced dementia and significant aphasia and information was obtained from ED provider, documentation in chart, and via telephone conversation with patient's son Matt. Pt's son Matt reports his mother has had rapid deterioration of her mental status since suffering her stroke [address] head and cervical spine showing regions of low- attenuation within the left frontal, left parietal, right occipital lobes with preservation of the cortices reported to be more prominent from prior exams possibly representing evolving infarcts with underlying demyelination however neoplastic process cannot be ruled out. CT cervical spine negative for acute process showing no evidence of cervical spine fracture revealing multiple nonspecific mildly enlarged mediastinal lymph nodes with additional mildly pro minent neck lymph nodes and concerns of right upper lung patchy groundglass opacities. Labs completed and reviewed. CBC showing bicytopenia with hemoglobin of 8.3 and platelet count of 103. BMP showing hypokalemia with potassium of 3.4 and elevated renal function with BUN of 35, creatinine 2.10, GFR of 23 at baseline. Blood glucose 143. Lactic acid 1.7. Magnesium 1.8. Liver profile unremarkable. Troponin less than 0.012. Urinalysis positive for nitrites. Patient started on antibiotics with Zosyn. She was admitted under our services with consultation to neurology and hematology/oncology. Patient's condition continued to decline she was restless, agitated, and appeared uncomfortable. MRI brain without contrast was completed showing worsening vasogenic edema bilaterally left greater than right with a rim of curvilinear restricted diffusion bilaterally worse on the left concerning for cortical vein thrombosis and now with infarct versus metastasis. CT venogram with and without contrast completed showing no cerebral vein thrombosis with mid to multifocal areas of vasogenic edema and there is a suggestion of an 8 mm enhancing nodule in the right occipital vasogenic edema concerning for metastatic process. Secondary to continued decline in patient's status, patient's son requested a peg tube to be placed and for patient to begin tube feedings He was informed of pt's very poor prognosis and verbalized understanding. Order was placed for NG tube feeds, however pt's son did not consent to this stating he wants Peg Tube placed and did not want NG tube placed. General Surgeon was consulted and patient underwent placement of Peg Tube on 06/17/2024. MRI brain with contrast was then completed on 06/17/2024 revealing vasogenic edema within the left parietaloccipital region, posterior centrum semioval left parietal lobe and inferior medial right occipital lobe; no underlying mass or lesions were reported. This was discussed in detail with patient's son, and on 06/19/2024, patient's son made the decision for comfort measures only and requested inpatient admission for hospice. Patient admitted to [facility] hospice on 06/19/2024. Physical exam: Patient seen and fully evaluated at bedside this morning. She appears to be more comfortable since discontinuing morphine infusion and starting patient on Dilaudid infusion. She continues to have mild intermittent jerking of left foot and left upper extremity and will occasionally moan when touched or spoken to. She otherwise remains nonverbal. No family present. Derm: Skin warm and dry, normal coloration for ethnicity. Patient with multiple areas of significant bruising to bilateral upper and lower extremities in different stages of healing and old appearing bruise to right side of head/forehead . Head: Atraumatic, normocephalic and symmetric. Eyes: EOM's intact, no lid lag, and anicteric sclera Mouth: no lip lesions, mucus membranes moist Cardiovascular: regular rate and rhythm with normal S1S2, no murmur, positive posterior tibial pulses bilaterally, and cap refill < 2 seconds. Lungs: Agonal respirations Abdominal: soft, nontender to palpation, no guarding, no appreciable organomegaly. PEG tube in place. Ext: No gross muscle atrophy, no edema, no contractures. Mild anasarca in upper extremities Neuro/Psych: Pt awake but nonverbal at this time. She appeared restless and had tremors noted in left upper and lower extremity.. Assessment and Plan of Care: Severe Metabolic encephalopathy, Secondary to multifocal areas of vasogenic edema believed to be from recent stroke vs possible Progressive Multifocal Leukoencephalopathy Brain nodule, MRI ruled out brain nodule Advanced dementia with agitation and aggressive behaviors History of recent CVA with multiple deficits History of seizure disorder Nitrite positive UTI Groundglass opacities right upper lobe Hypernatremia Non-anion gap Metabolic acidosis Reported fall at senior living, possibly hitting head CLL Hx of renal cell carcinoma s/p nephrectomy with Stage IIIb CKD Bicytopenia, secondary to above Enlarged mediastinal lymph nodes with additional mildly prominent neck lymph nodes, likely secondary to metastatic process -Comfort measures only. -Symptomatic care and pain management. -Tylenol suppository 650 mg rectally every 4 hours as needed for fever and/or mild pain. -Artificial teardrops to bilateral eyes every 2 hours as needed for dry eyes. -Scopolamine patch. -Order placed for sublingual atropine drops and Robinul for excess secretions. -Zofran as needed for nausea and/or vomiting. -Morphine infusion was discontinued and patient was started on titratable Dilaudid infusion. Currently patient on 7.5 mg/h and appears to be comfortable at this time. -Morphine 4 mg IVP every 15 minutes as needed for severe uncontrolled breakthrough pain. -Ativan 1 mg IVP every 6 hours as needed for agitation or acute anxiety. Vital signs reviewed. Blood pressure 103/59, heart rate 95, respiratory rate 12, temp 100.2 F, and SpO2 of 99% on 2 L. Patient was seen independently by Nurse Practitioner. This document was prepared using [employer] dictation software. Please allow for errors in review scheduling coordinator while rare they do occur. Hakeem Pleitez NP rendered care for this patient independently, reviewed the findings and plan as documented in the note above and agree with plan. I did not physically speak with or examine the patient on this date. Objective - Vital Signs Vital signs: Vital Signs Temp 100.0 F H 06/29/24 20:00 Pulse 95 06/29/24 20:00 Resp 11 L 06/30/24 06:48 BP 103/59 06/29/24 20:00 Pulse Ox 96 06/30/24 08:18 FiO2 Intake & Output 06/29/24 06/30/24 06/30/24 18:59 06:59 18:59 Intake Total 226.375 23.625 44.5 Output Total 400 50 Balance -173.625 -26.375 44.5 Intake: Intake, IV Titration 226.375 23.625 44.5 Amount HYDROmorphone (PF) 50 mg 26.375 23.625 44.5 In Sodium Chloride 0.9% 45 ml @ 7.5 MG/HR 7.5 mls /hr IV .Q6H40M [facility] Rx#: [id number] Morphine Sulfate 200 mg 200 In Sodium Chloride 0.9% 180 ml @ 27 MG/HR 27 mls/ hr IV .Q7H25M [facility] Rx#: [id number] Oral 0 Output: Urine 400 50 Other: Voiding Method Indwelling Catheter Indwelling Catheter Indwelling Catheter
[2024-07-01] MEDS: LORazepam 2 MG/ML INJ IV PRN (10:40)
--- NOTE | 2024-07-01 12:00 | P.PN ---
Subjective Progress Note Date: 07/01/24 Hospital course: Patient is a pleasant 74-year-old female with a past medical history of advanced dementia, CLL, renal cell carcinoma status post nephrectomy, hypertension, hyperlipidemia, recent CVA with right sided deficits along with visual and speech deficits, CKD stage IIIb, and seizure disorder. Patient recently suffered from a left frontal stroke with right sided deficits along with visual and speech deficits in April 2024 and has been at [facility] for group home rehab. She initially presented to our facility on 06/12/2024 with reports of agitation and worsening confusion status post fall from bed at nursing facility. Patient with advanced dementia and significant aphasia and information was obtained from ED provider, documentation in chart, and via telephone conversation with patient's son Matt. Pt's son Matt reports his mother has had rapid deterioration of her mental status since suffering her stroke [address] head and cervical spine showing regions of low- attenuation within the left frontal, left parietal, right occipital lobes with preservation of the cortices reported to be more prominent from prior exams possibly representing evolving infarcts with underlying demyelination however neoplastic process cannot be ruled out. CT cervical spine negative for acute process showing no evidence of cervical spine fracture revealing multiple nonspecific mildly enlarged mediastinal lymph nodes with additional mildly pro minent neck lymph nodes and concerns of right upper lung patchy groundglass opacities. Labs completed and reviewed. CBC showing bicytopenia with hemoglobin of 8.3 and platelet count of 103. BMP showing hypokalemia with potassium of 3.4 and elevated renal function with BUN of 35, creatinine 2.10, GFR of 23 at baseline. Blood glucose 143. Lactic acid 1.7. Magnesium 1.8. Liver profile unremarkable. Troponin less than 0.012. Urinalysis positive for nitrites. Patient started on antibiotics with Zosyn. She was admitted under our services with consultation to neurology and hematology/oncology. Patient's condition continued to decline she was restless, agitated, and appeared uncomfortable. MRI brain without contrast was completed showing worsening vasogenic edema bilaterally left greater than right with a rim of curvilinear restricted diffusion bilaterally worse on the left concerning for cortical vein thrombosis and now with infarct versus metastasis. CT venogram with and without contrast completed showing no cerebral vein thrombosis with mid to multifocal areas of vasogenic edema and there is a suggestion of an 8 mm enhancing nodule in the right occipital vasogenic edema concerning for metastatic process. Secondary to continued decline in patient's status, patient's son requested a peg tube to be placed and for patient to begin tube feedings He was informed of pt's very poor prognosis and verbalized understanding. Order was placed for NG tube feeds, however pt's son did not consent to this stating he wants Peg Tube placed and did not want NG tube placed. General Surgeon was consulted and patient underwent placement of Peg Tube on 06/17/2024. MRI brain with contrast was then completed on 06/17/2024 revealing vasogenic edema within the left parietaloccipital region, posterior centrum semioval left parietal lobe and inferior medial right occipital lobe; no underlying mass or lesions were reported. This was discussed in detail with patient's son, and on 06/19/2024, patient's son made the decision for comfort measures only and requested inpatient admission for hospice. Patient admitted to [facility] hospice on 06/19/2024. Physical exam: Patient seen and fully evaluated at bedside this morning. She was slightly agitated this morning and jerking her arms and legs, occasionally moaning. Dilaudid [employer] was increased from 7.5 mg/h to 10 mg/h at this time. She continues to receive as needed Ativan for agitation addition to as needed breakthrough medication with morphine. Derm: Skin warm and dry, normal coloration for ethnicity. Patient with multiple areas of significant bruising to bilateral upper and lower extremities in different stages of healing and old appearing bruise to right side of head/forehead . Head: Atraumatic, normocephalic and symmetric. Eyes: EOM's intact, no lid lag, and anicteric sclera Mouth: no lip lesions, mucus membranes moist Cardiovascular: regular rate and rhythm with normal S1S2, no murmur, positive posterior tibial pulses bilaterally, and cap refill < 2 seconds. Lungs: Agonal respirations Abdominal: soft, nontender to palpation, no guarding, no appreciable organomegaly. PEG tube in place. Ext: No gross muscle atrophy, no edema, no contractures. Mild anasarca in upper extremities Neuro/Psych: Pt awake but nonverbal at this time. She appeared restless and had tremors noted in left upper and lower extremity.. Assessment and Plan of Care: Severe Metabolic encephalopathy, Secondary to multifocal areas of vasogenic edema believed to be from recent stroke vs possible Progressive Multifocal Leukoencephalopathy Brain nodule, MRI ruled out brain nodule Advanced dementia with agitation and aggressive behaviors History of recent CVA with multiple deficits History of seizure disorder Nitrite positive UTI Groundglass opacities right upper lobe Hypernatremia Non-anion gap Metabolic acidosis Reported fall at [facility], possibly hitting head CLL Hx of renal cell carcinoma s/p nephrectomy with Stage IIIb CKD Bicytopenia, secondary to above Enlarged mediastinal lymph nodes with additional mildly prominent neck lymph nodes, likely secondary to metastatic process -Comfort measures only. -Symptomatic care and pain management. -Tylenol suppository 650 mg rectally every 4 hours as needed for fever and/or mild pain. -Artificial teardrops to bilateral eyes every 2 hours as needed for dry eyes. -Scopolamine patch. -Order placed for sublingual atropine drops and Robinul for excess secretions. -Zofran as needed for nausea and/or vomiting. -Dilaudid infusion and titrate for comfort. Patient currently on 10 mg/h. -Morphine 4 mg IVP every 15 minutes as needed for severe uncontrolled breakthrough pain. -Ativan 1 mg IVP every 6 hours as needed for agitation or acute anxiety. Vital signs reviewed. Respiratory rate 8 on 2 L O2 via nasal cannula with SpO2 of 98%. Patient was seen independently by Nurse Practitioner. This document was prepared using [employer] dictation software. Please allow for errors in rivet tester while rare they do occur. Hakeem Pleitez NP rendered care for this patient independently, reviewed the findings and plan as documented in the note above and agree with plan. I did not physically speak with or examine the patient on this date. Objective - Vital Signs Vital signs: Vital Signs Temp 100.0 F H 06/29/24 20:00 Pulse 95 06/29/24 20:00 Resp 11 L 07/01/24 02:00 BP 103/59 06/29/24 20:00 Pulse Ox 96 06/30/24 08:18 FiO2 Intake & Output 06/30/24 07/01/24 07/01/24 18:59 06:59 18:59 Intake Total 124.125 44.75 Output Total 50 550 Balance 74.125 -505.25 Intake: Intake, IV Titration 124.125 44.75 Amount HYDROmorphone (PF) 50 mg 124.125 44.75 In Sodium Chloride 0.9% 45 ml @ 7.5 MG/HR 7.5 mls /hr IV .Q6H40M [facility] Rx#: [id number] Oral 0 Output: Urine 50 550 Other: Voiding Method Indwelling Catheter Indwelling Catheter
[2024-07-01] MEDS ORDERED: HYDROmorphone 1 MG/ML 1 ML SYRINGE IVP PRN (14:37)
[2024-07-01] MEDS ORDERED: HALOPERIDOL LACTATE 5 MG/ML 1 ML VIAL IVP PRN (15:15)
--- NOTE | 2024-07-02 13:24 | P.PN ---
Subjective Progress Note Date: 07/02/24 Hospital course: Patient is a pleasant 74-year-old female with a past medical history of advanced dementia, CLL, renal cell carcinoma status post nephrectomy, hypertension, hyperlipidemia, recent CVA with right sided deficits along with visual and speech deficits, CKD stage IIIb, and seizure disorder. Patient recently suffered from a left frontal stroke with right sided deficits along with visual and speech deficits in April 2024 and has been at [facility] for care home rehab. She initially presented to our facility on 06/12/2024 with reports of agitation and worsening confusion status post fall from bed at nursing facility. Patient with advanced dementia and significant aphasia and information was obtained from ED provider, documentation in chart, and via telephone conversation with patient's son Matt. Pt's son Matt reports his mother has had rapid deterioration of her mental status since suffering her stroke [address] head and cervical spine showing regions of low- attenuation within the left frontal, left parietal, right occipital lobes with preservation of the cortices reported to be more prominent from prior exams possibly representing evolving infarcts with underlying demyelination however neoplastic process cannot be ruled out. CT cervical spine negative for acute process showing no evidence of cervical spine fracture revealing multiple nonspecific mildly enlarged mediastinal lymph nodes with additional mildly pro minent neck lymph nodes and concerns of right upper lung patchy groundglass opacities. Labs completed and reviewed. CBC showing bicytopenia with hemoglobin of 8.3 and platelet count of 103. BMP showing hypokalemia with potassium of 3.4 and elevated renal function with BUN of 35, creatinine 2.10, GFR of 23 at baseline. Blood glucose 143. Lactic acid 1.7. Magnesium 1.8. Liver profile unremarkable. Troponin less than 0.012. Urinalysis positive for nitrites. Patient started on antibiotics with Zosyn. She was admitted under our services with consultation to neurology and hematology/oncology. Patient's condition continued to decline she was restless, agitated, and appeared uncomfortable. MRI brain without contrast was completed showing worsening vasogenic edema bilaterally left greater than right with a rim of curvilinear restricted diffusion bilaterally worse on the left concerning for cortical vein thrombosis and now with infarct versus metastasis. CT venogram with and without contrast completed showing no cerebral vein thrombosis with mid to multifocal areas of vasogenic edema and there is a suggestion of an 8 mm enhancing nodule in the right occipital vasogenic edema concerning for metastatic process. Secondary to continued decline in patient's status, patient's son requested a peg tube to be placed and for patient to begin tube feedings He was informed of pt's very poor prognosis and verbalized understanding. Order was placed for NG tube feeds, however pt's son did not consent to this stating he wants Peg Tube placed and did not want NG tube placed. General Surgeon was consulted and patient underwent placement of Peg Tube on 06/17/2024. MRI brain with contrast was then completed on 06/17/2024 revealing vasogenic edema within the left parietaloccipital region, posterior centrum semioval left parietal lobe and inferior medial right occipital lobe; no underlying mass or lesions were reported. This was discussed in detail with patient's son, and on 06/19/2024, patient's son made the decision for comfort measures only and requested inpatient admission for hospice. Patient admitted to [facility] hospice on 06/19/2024. Physical exam: Patient seen and fully evaluated at bedside this morning. She appeared more comfortable this morning when compared to yesterday but continues to have episodes of moaning out or shaking of extremity when arm or leg is touched or she is spoken to. Derm: Skin warm and dry, normal coloration for ethnicity. Patient with multiple areas of significant bruising to bilateral upper and lower extremities in different stages of healing and old appearing bruise to right side of head/forehead . Head: Atraumatic, normocephalic and symmetric. Eyes: EOM's intact, no lid lag, and anicteric sclera Mouth: no lip lesions, mucus membranes moist Cardiovascular: regular rate and rhythm with normal S1S2, no murmur, positive posterior tibial pulses bilaterally, and cap refill < 2 seconds. Lungs: Agonal respirations Abdominal: soft, nontender to palpation, no guarding, no appreciable organomegaly. PEG tube in place. Ext: No gross muscle atrophy, no edema, no contractures. Mild anasarca in upper extremities Neuro/Psych: Pt awake but nonverbal at this time. She appeared restless and had tremors noted in left upper and lower extremity.. Assessment and Plan of Care: Severe Metabolic encephalopathy, Secondary to multifocal areas of vasogenic edema believed to be from recent stroke vs possible Progressive Multifocal Leukoencephalopathy Brain nodule, MRI ruled out brain nodule Advanced dementia with agitation and aggressive behaviors History of recent CVA with multiple deficits History of seizure disorder Nitrite positive UTI Groundglass opacities right upper lobe Hypernatremia Non-anion gap Metabolic acidosis [facility]orted [facility] at [facility], possibly hitting head CLL Hx of renal cell carcinoma s/p nephrectomy with Stage IIIb CKD Bicytopenia, secondary to above Enlarged mediastinal lymph nodes with additional mildly prominent neck lymph nodes, likely secondary to metastatic process -Comfort measures only. -Symptomatic care and pain management. -Tylenol suppository 650 mg rectally every 4 hours as needed for fever and/or mild pain. -Artificial teardrops to bilateral eyes every 2 hours as needed for dry eyes. -Scopolamine patch. -Order placed for sublingual atropine drops and Robinul for excess secretions. -Zofran as needed for nausea and/or vomiting. -Dilaudid infusion and titrate for comfort. Patient currently on 11.25 mg/h. -Morphine 4 mg IVP every 15 minutes as needed for severe uncontrolled breakthrough pain. -Ativan 1 mg IVP every 6 hours as needed for agitation or acute anxiety. Patient was seen independently by Nurse Practitioner. This document was prepared using [employer] dictation software. Please allow for errors in automotive product specialist while rare they do occur. Hakeem Pleitez NP rendered care for this patient independently, reviewed the findings and plan as documented in the note above and agree with plan. I did not physically speak with or examine the patient on this date. Objective - Vital Signs Vital signs: Vital Signs Temp 100.0 F H 06/29/24 20:00 Pulse 95 06/29/24 20:00 Resp 7 L 07/02/24 08:00 BP 103/59 06/29/24 20:00 Pulse Ox 94 L 07/01/24 19:24 FiO2 Intake & Output 07/01/24 07/02/24 07/02/24 18:59 06:59 18:59 Intake Total 107.833 139.792 Output Total 0 300 Balance 107.833 -160.208 Intake: Intake, IV Titration 107.833 139.792 Amount HYDROmorphone (PF) 50 mg 107.833 139.792 In Sodium Chloride 0.9% 45 ml @ 7.5 MG/HR 7.5 mls /hr IV .Q6H40M [facility] Rx#: [id number] Output: Urine 0 300 Other: Voiding Method Indwelling Catheter Indwelling Catheter
[2024-07-02] MEDS: SODIUM CHLORIDE 0.9% IV SCH (15:13)
[2024-07-02] MEDS: HYDROMORPHONE IV SCH (15:13)
--- NOTE | 2024-07-03 09:00 | P.PN ---
Subjective Progress Note Date: 07/03/24 Hospital course: Patient is a pleasant 74-year-old female with a past medical history of advanced dementia, CLL, renal cell carcinoma status post nephrectomy, hypertension, hyperlipidemia, recent CVA with right sided deficits along with visual and speech deficits, CKD stage IIIb, and seizure disorder. Patient recently suffered from a left frontal stroke with right sided deficits along with visual and speech deficits in April 2024 and has been at [facility] for senior care rehab. She initially presented to our facility on 06/12/2024 with reports of agitation and worsening confusion status post fall from bed at nursing facility. Patient with advanced dementia and significant aphasia and information was obtained from ED provider, documentation in chart, and via telephone conversation with patient's son Matt. Pt's son Matt reports his mother has had rapid deterioration of her mental status since suffering her stroke [address] head and cervical spine showing regions of low- attenuation within the left frontal, left parietal, right occipital lobes with preservation of the cortices reported to be more prominent from prior exams possibly representing evolving infarcts with underlying demyelination however neoplastic process cannot be ruled out. CT cervical spine negative for acute process showing no evidence of cervical spine fracture revealing multiple nonspecific mildly enlarged mediastinal lymph nodes with additional mildly pro minent neck lymph nodes and concerns of right upper lung patchy groundglass opacities. Labs completed and reviewed. CBC showing bicytopenia with hemoglobin of 8.3 and platelet count of 103. BMP showing hypokalemia with potassium of 3.4 and elevated renal function with BUN of 35, creatinine 2.10, GFR of 23 at baseline. Blood glucose 143. Lactic acid 1.7. Magnesium 1.8. Liver profile unremarkable. Troponin less than 0.012. Urinalysis positive for nitrites. Patient started on antibiotics with Zosyn. She was admitted under our services with consultation to neurology and hematology/oncology. Patient's condition continued to decline she was restless, agitated, and appeared uncomfortable. MRI brain without contrast was completed showing worsening vasogenic edema bilaterally left greater than right with a rim of curvilinear restricted diffusion bilaterally worse on the left concerning for cortical vein thrombosis and now with infarct versus metastasis. CT venogram with and without contrast completed showing no cerebral vein thrombosis with mid to multifocal areas of vasogenic edema and there is a suggestion of an 8 mm enhancing nodule in the right occipital vasogenic edema concerning for metastatic process. Secondary to continued decline in patient's status, patient's son requested a peg tube to be placed and for patient to begin tube feedings He was informed of pt's very poor prognosis and verbalized understanding. Order was placed for NG tube feeds, however pt's son did not consent to this stating he wants Peg Tube placed and did not want NG tube placed. General Surgeon was consulted and patient underwent placement of Peg Tube on 06/17/2024. MRI brain with contrast was then completed on 06/17/2024 revealing vasogenic edema within the left parietaloccipital region, posterior centrum semioval left parietal lobe and inferior medial right occipital lobe; no underlying mass or lesions were reported. This was discussed in detail with patient's son, and on 06/19/2024, patient's son made the decision for comfort measures only and requested inpatient admission for hospice. Patient admitted to [facility] hospice on 06/19/2024. Physical exam: Patient seen and fully evaluated at bedside this morning. She appeared comfortable this morning, no tremors noted. No moaning or agitation noted. No family present at bedside. Derm: Skin warm and dry, normal coloration for ethnicity. Patient with multiple areas of significant bruising to bilateral upper and lower extremities in different stages of healing and old appearing bruise to right side of head/forehead . Head: Atraumatic, normocephalic and symmetric. Eyes: EOM's intact, no lid lag, and anicteric sclera Mouth: no lip lesions, mucus membranes moist Cardiovascular: regular rate and rhythm with normal S1S2, no murmur, positive posterior tibial pulses bilaterally, and cap refill < 2 seconds. Lungs: Agonal respirations Abdominal: soft, nontender to palpation, no guarding, no appreciable organomegaly. PEG tube in place. Ext: No gross muscle atrophy, no edema, no contractures. Mild anasarca in upper extremities Neuro/Psych: Pt awake but nonverbal at this time. She appeared restless and had tremors noted in left upper and lower extremity.. Assessment and Plan of Care: Severe Metabolic encephalopathy, Secondary to multifocal areas of vasogenic edema believed to be from recent stroke vs possible Progressive Multifocal Leukoencephalopathy Brain nodule, MRI ruled out brain nodule Advanced dementia with agitation and aggressive behaviors History of recent CVA with multiple deficits History of seizure disorder Nitrite positive UTI Groundglass opacities right upper lobe Hypernatremia Non-anion gap Metabolic acidosis Reported fall at residential, possibly hitting head CLL Hx of renal cell carcinoma s/p nephrectomy with Stage IIIb CKD Bicytopenia, secondary to above Enlarged mediastinal lymph nodes with additional mildly prominent neck lymph nodes, likely secondary to metastatic process -Comfort measures only. -Symptomatic care and pain management. -Tylenol suppository 650 mg rectally every 4 hours as needed for fever and/or mild pain. -Artificial teardrops to bilateral eyes every 2 hours as needed for dry eyes. -Scopolamine patch. -Order placed for sublingual atropine drops and Robinul for excess secretions. -Zofran as needed for nausea and/or vomiting. -Dilaudid infusion and titrate for comfort. Patient currently on 7.5 mg/h. -Morphine 4 mg IVP every 15 minutes as needed for severe uncontrolled breakthrough pain. -Ativan 1 mg IVP every 6 hours as needed for agitation or acute anxiety. Patient was seen independently by Nurse Practitioner. This document was prepared using [employer] dictation software. Please allow for errors in lead accountant while rare they do occur. Hakeem Pleitez NP rendered care for this patient independently, reviewed the findings and plan as documented in the note above and agree with plan. I did not physically speak with or examine the patient on this date. Objective - Vital Signs Vital signs: Vital Signs Temp 100.0 F H 06/29/24 20:00 Pulse 95 06/29/24 20:00 Resp 8 L 07/03/24 08:00 BP 103/59 06/29/24 20:00 Pulse Ox 94 L 07/01/24 19:24 FiO2 Intake & Output 07/02/24 07/03/24 07/03/24 18:59 06:59 18:59 Intake Total 99.688 47.25 Output Total 450 200 Balance -350.312 -152.75 Intake: Intake, IV Titration 99.688 47.25 Amount HYDROmorphone (PF) 50 mg 49.688 In Sodium Chloride 0.9% 45 ml @ 7.5 MG/HR 7.5 mls /hr IV .Q6H40M [facility] Rx#: [id number] HYDROmorphone 50 mg In 50 47.25 Sodium Chloride 0.9% 25 ml @ 7.5 MG/HR 7.5 mls/hr IV .Q6H40M [facility] Rx#: [id number] Output: Urine 450 200 Other: Voiding Method Indwelling Catheter Indwelling Catheter
[2024-07-04] MEDS: LORazepam 2 MG/ML INJ IV SCH (12:50)
--- NOTE | 2024-07-04 13:07 | P.PN ---
Subjective Progress Note Date: 07/04/24 Hospital course: Patient is a pleasant 74-year-old female with a past medical history of advanced dementia, CLL, renal cell carcinoma status post nephrectomy, hypertension, hyperlipidemia, recent CVA with right sided deficits along with visual and speech deficits, CKD stage IIIb, and seizure disorder. Patient recently suffered from a left frontal stroke with right sided deficits along with visual and speech deficits in April 2024 and has been at [facility] for fpc rehab. She initially presented to our facility on 06/12/2024 with reports of agitation and worsening confusion status post fall from bed at nursing facility. Patient with advanced dementia and significant aphasia and information was obtained from ED provider, documentation in chart, and via telephone conversation with patient's son Matt. Pt's son Matt reports his mother has had rapid deterioration of her mental status since suffering her stroke [address] head and cervical spine showing regions of low- attenuation within the left frontal, left parietal, right occipital lobes with preservation of the cortices reported to be more prominent from prior exams possibly representing evolving infarcts with underlying demyelination however neoplastic process cannot be ruled out. CT cervical spine negative for acute process showing no evidence of cervical spine fracture revealing multiple nonspecific mildly enlarged mediastinal lymph nodes with additional mildly prominent neck lymph nodes and concerns of right upper lung patchy groundglass opacities. Labs completed and reviewed. CBC showing bicytopenia with hemoglobin of 8.3 and platelet count of 103. BMP showing hypokalemia with potassium of 3.4 and elevated renal function with BUN of 35, creatinine 2.10, GFR of 23 at baseline. Blood glucose 143. Lactic acid 1.7. Magnesium 1.8. Liver profile unremarkable. Troponin less than 0.012. Urinalysis positive for nitrites. Patient started on antibiotics with Zosyn. She was admitted under our services with consultation to neurology and hematology/oncology. Patient's condition continued to decline she was restless, agitated, and appeared uncomfortable. MRI brain without contrast was completed showing worsening vasogenic edema bilaterally left greater than right with a rim of curvilinear restricted diffusion bilaterally worse on the left concerning for cortical vein thrombosis and now with infarct versus metastasis. CT venogram with and without contrast completed showing no cerebral vein thrombosis with mid to multifocal areas of vasogenic edema and there is a suggestion of an 8 mm enhancing nodule in the right occipital vasogenic edema concerning for metastatic process. Secondary to continued decline in patient's status, patient's son requested a peg tube to be placed and for patient to begin tube feedings He was informed of pt's very poor prognosis and verbalized understanding. Order was placed for NG tube feeds, however pt's son did not consent to this stating he wants Peg Tube placed and did not want NG tube placed. General Surgeon was consulted and patient underwent placement of Peg Tube on 06/17/2024. MRI brain with contrast was then completed on 06/17/2024 revealing vasogenic edema within the left parietaloccipital region, posterior centrum semioval left parietal lobe and inferior medial right occipital lobe; no underlying mass or lesions were reported. This was discussed in detail with patient's son, and on 06/19/2024, patient's son made the decision for comfort measures only and requested inpatient admission for hospice. Patient admitted to [facility] hospice on 06/19/2024. Physical exam: Patient seen and fully evaluated at bedside this morning. She appeared comfortable this morning, no tremors noted. No moaning or agitation noted. No family present at bedside. Derm: Skin warm and dry, normal coloration for ethnicity. Patient with multiple areas of significant bruising to bilateral upper and lower extremities in different stages of healing and old appearing bruise to right side of head/forehead . Head: Atraumatic, normocephalic and symmetric. Eyes: EOM's intact, no lid lag, and anicteric sclera Mouth: no lip lesions, mucus membranes moist Cardiovascular: regular rate and rhythm with normal S1S2, no murmur, positive posterior tibial pulses bilaterally, and cap refill < 2 seconds. Lungs: Agonal respirations Abdominal: soft, nontender to palpation, no guarding, no appreciable organomegaly. PEG tube in place. Ext: No gross muscle atrophy, no edema, no contractures. Mild anasarca in upper extremities Neuro/Psych: Pt awake but nonverbal at this time. She appeared restless and had tremors noted in left upper and lower extremity.. Assessment and Plan of Care: Severe Metabolic encephalopathy, Secondary to multifocal areas of vasogenic edema believed to be from recent stroke vs possible Progressive Multifocal Leukoencephalopathy Brain nodule, MRI ruled out brain nodule Advanced dementia with agitation and aggressive behaviors History of recent CVA with multiple deficits History of seizure disorder Nitrite positive UTI Groundglass opacities right upper lobe Hypernatremia Non-anion gap Metabolic acidosis Reported fall at long-term, possibly hitting head CLL Hx of renal cell carcinoma s/p nephrectomy with Stage IIIb CKD Bicytopenia, secondary to above Enlarged mediastinal lymph nodes with additional mildly prominent neck lymph nodes, likely secondary to metastatic process -Comfort measures only. -Symptomatic care and pain management. -Tylenol suppository 650 mg rectally every 4 hours as needed for fever and/or mild pain. -Artificial teardrops to bilateral eyes every 2 hours as needed for dry eyes. -Scopolamine patch. -Order placed for sublingual atropine drops and Robinul for excess secretions. -Zofran as needed for nausea and/or vomiting. -Dilaudid infusion and titrate for comfort. Patient currently on 15 mg/h. -Morphine 4 mg IVP every 15 minutes as needed for severe uncontrolled breakthrough pain. -Ativan 1 mg IV push scheduled to 1 hours given persistent signs of discomfort Objective - Vital Signs Vital signs: Vital Signs Temp 100.0 F H 06/29/24 20:00 Pulse 95 06/29/24 20:00 Resp 9 L 07/04/24 08:00 BP 103/59 06/29/24 20:00 Pulse Ox 94 L 07/01/24 19:24 FiO2 Intake & Output 07/03/24 07/04/24 07/04/24 18:59 06:59 18:59 Intake Total 100.000 143.667 54.333 Output Total 600 10 Balance -500.000 133.667 54.333 Intake: Intake, IV Titration 100.000 143.667 54.333 Amount HYDROmorphone 50 mg In 100.000 143.667 54.333 Sodium Chloride 0.9% 25 ml @ 7.5 MG/HR 7.5 mls/hr IV .Q6H40M [facility] Rx#: [id number] Output: Urine 600 10 Other: Voiding Method Indwelling Catheter Indwelling Catheter Indwelling Catheter # Bowel Movements 0
[2024-07-04 13:31] VITALS: BP 92/61; PULSE 86; TEMP 97
[2024-07-05 13:23] VITALS: RESP 22
--- NOTE | 2024-07-05 15:27 | P.PN ---
Subjective Progress Note Date: 07/05/24 Hospital course: Patient is a pleasant 74-year-old female with a past medical history of advanced dementia, CLL, renal cell carcinoma status post nephrectomy, hypertension, hyperlipidemia, recent CVA with right sided deficits along with visual and speech deficits, CKD stage IIIb, and seizure disorder. Patient recently suffered from a left frontal stroke with right sided deficits along with visual and speech deficits in April 2024 and has been at [facility] for fdc rehab. She initially presented to our facility on 06/12/2024 with reports of agitation and worsening confusion status post fall from bed at nursing facility. Patient with advanced dementia and significant aphasia and information was obtained from ED provider, documentation in chart, and via telephone conversation with patient's son Matt. Pt's son Matt reports his mother has had rapid deterioration of her mental status since suffering her stroke [address] head and cervical spine showing regions of low- attenuation within the left frontal, left parietal, right occipital lobes with preservation of the cortices reported to be more prominent from prior exams possibly representing evolving infarcts with underlying demyelination however neoplastic process cannot be ruled out. CT cervical spine negative for acute process showing no evidence of cervical spine fracture revealing multiple nonspecific mildly enlarged mediastinal lymph nodes with additional mildly prominent neck lymph nodes and concerns of right upper lung patchy groundglass opacities. Labs completed and reviewed. CBC showing bicytopenia with hemoglobin of 8.3 and platelet count of 103. BMP showing hypokalemia with potassium of 3.4 and elevated renal function with BUN of 35, creatinine 2.10, GFR of 23 at baseline. Blood glucose 143. Lactic acid 1.7. Magnesium 1.8. Liver profile unremarkable. Troponin less than 0.012. Urinalysis positive for nitrites. Patient started on antibiotics with Zosyn. She was admitted under our services with consultation to neurology and hematology/oncology. Patient's condition continued to decline she was restless, agitated, and appeared uncomfortable. MRI brain without contrast was completed showing worsening vasogenic edema bilaterally left greater than right with a rim of curvilinear re stricted diffusion bilaterally worse on the left concerning for cortical vein thrombosis and now with infarct versus metastasis. CT venogram with and without contrast completed showing no cerebral vein thrombosis with mid to multifocal areas of vasogenic edema and there is a suggestion of an 8 mm enhancing nodule in the right occipital vasogenic edema concerning for metastatic process. Secondary to continued decline in patient's status, patient's son requested a peg tube to be placed and for patient to begin tube feedings He was informed of pt's very poor prognosis and verbalized understanding. Order was placed for NG tube feeds, however pt's son did not consent to this stating he wants Peg Tube placed and did not want NG tube placed. General Surgeon was consulted and patient underwent placement of Peg Tube on 06/17/2024. MRI brain with contrast was then completed on 06/17/2024 revealing vasogenic edema within the left parietaloccipital region, posterior centrum semioval left parietal lobe and inferior medial right occipital lobe; no underlying mass or lesions were reported. This was discussed in detail with patient's son, and on 06/19/2024, patient's son made the decision for comfort measures only and requested inpatient admission for hospice. Patient admitted to [facility] hospice on 06/19/2024. Physical exam: Patient seen and fully evaluated at bedside this morning. She appeared comfortable this morning, no tremors noted. No moaning or agitation noted. No family present at bedside. Derm: Skin warm and dry, normal coloration for ethnicity. Patient with multiple areas of significant bruising to bilateral upper and lower extremities in different stages of healing and old appearing bruise to right side of head/forehead . Head: Atraumatic, normocephalic and symmetric. Eyes: EOM's intact, no lid lag, and anicteric sclera Mouth: no lip lesions, mucus membranes moist Cardiovascular: regular rate and rhythm with normal S1S2, no murmur, positive posterior tibial pulses bilaterally, and cap refill < 2 seconds. Lungs: Agonal respirations Abdominal: soft, nontender to palpation, no guarding, no appreciable organomegaly. PEG tube in place. Ext: No gross muscle atrophy, no edema, no contractures. Mild anasarca in upper extremities Neuro/Psych: Pt awake but nonverbal at this time. She appeared restless and had tremors noted in left upper and lower extremity.. Assessment and Plan of Care: Severe Metabolic encephalopathy, Secondary to multifocal areas of vasogenic edema believed to be from recent stroke vs possible Progressive Multifocal Leukoencephalopathy Brain nodule, MRI ruled out brain nodule Advanced dementia with agitation and aggressive behaviors History of recent CVA with multiple deficits History of seizure disorder Nitrite positive UTI Groundglass opacities right upper lobe Hypernatremia Non-anion gap Metabolic acidosis Reported fall at intermediate, possibly hitting head CLL Hx of renal cell carcinoma s/p nephrectomy with Stage IIIb CKD Bicytopenia, secondary to above Enlarged mediastinal lymph nodes with additional mildly prominent neck lymph nodes, likely secondary to metastatic process -Comfort measures only. -Symptomatic care and pain management. -Tylenol suppository 650 mg rectally every 4 hours as needed for fever and/or mild pain. -Artificial teardrops to bilateral eyes every 2 hours as needed for dry eyes. -Scopolamine patch. -Order placed for sublingual atropine drops and Robinul for excess secretions. -Zofran as needed for nausea and/or vomiting. -Dilaudid infusion and titrate for comfort. Patient currently on 15 mg/h. -Morphine 4 mg IVP every 15 minutes as needed for severe uncontrolled breakthrough pain. -Ativan 1 mg IV push scheduled to 1 hours given persistent signs of discomfort Objective - Vital Signs Vital signs: Vital Signs Temp 97 F L 07/04/24 13:25 Pulse 86 07/04/24 13:25 Resp 22 07/05/24 12:15 BP 92/61 07/04/24 13:25 Pulse Ox 94 L 07/04/24 13:25 FiO2 Intake & Output 07/04/24 07/05/24 07/05/24 18:59 06:59 18:59 Intake Total 147.750 188.75 100.000 Output Total 50 200 Balance 97.750 -11.25 100.000 Intake: Intake, IV Titration 147.750 188.75 100.000 Amount HYDROmorphone 50 mg In 147.750 188.75 100.000 Sodium Chloride 0.9% 25 ml @ 7.5 MG/HR 7.5 mls/hr IV .Q6H40M [facility] Rx#: [id number] Output: Urine 50 200 Other: Voiding Method Indwelling Catheter Indwelling Catheter Indwelling Catheter
[2024-07-05] MEDS: SODIUM CHLORIDE 0.9% IV SCH (21:19)
[2024-07-05] MEDS: HYDROMORPHONE IV SCH (21:19)
[2024-07-06] MEDS: fentaNYL (PF) 50 MCG/ML 2 ML AMP IVP PRN (11:56)
--- NOTE | 2024-07-06 15:44 | P.DS ---
Providers Date of admission: 06/19/24 13:54 Expected date of discharge: 07/06/24 Attending physician: Alvarez Zamudio Primary care physician: Kathi Ortega [facility] Course: Severe Metabolic encephalopathy, Secondary to multifocal areas of vasogenic edema believed to be from recent stroke vs possible Progressive Multifocal Leukoencephalopathy Brain nodule, MRI ruled out brain nodule Advanced dementia with agitation and aggressive behaviors History of recent CVA with multiple deficits History of seizure disorder Nitrite positive UTI Groundglass opacities right upper lobe Hypernatremia Non-anion gap Metabolic acidosis Reported fall at longterm, possibly hitting head CLL Hx of renal cell carcinoma s/p nephrectomy with Stage IIIb CKD Bicytopenia, secondary to above Enlarged mediastinal lymph nodes with additional mildly prominent neck lymph nodes, likely secondary to metastatic process Hospital course: Patient is a pleasant 74-year-old female with a past medical history of advanced dementia, CLL, renal cell carcinoma status post nephrectomy, hypertension, hyperlipidemia, recent CVA with right sided deficits along with visual and speech deficits, CKD stage IIIb, and seizure disorder. Patient recently suffered from a left frontal stroke with right sided deficits along with visual and speech deficits in April 2024 and has been at [facility] for longterm rehab. She initially presented to our facility on 06/12/2024 with reports of agitation and worsening confusion status post fall from bed at nursing facility. Patient with advanced dementia and significant aphasia and information was obtained from ED provider, documentation in chart, and via telephone conversation with patient's son Matt. Pt's son Matt reports his mother has had rapid deterioration of her mental status since suffering her stroke [address] head and cervical spine showing regions of low- attenuation within the left frontal, left parietal, right occipital lobes with preservation of the cortices reported to be more prominent from prior exams possibly representing evolving infarcts with underlying demyelination however neoplastic process cannot be ruled out. CT cervical spine negative for acute process showing no evidence of cervical spine fracture revealing multiple nonspecific mildly enlarged mediastinal lymph nodes with additional mildly prominent neck lymph nodes and concerns of right upper lung patchy groundglass opacities. Labs completed and reviewed. CBC showing bicytopenia with hemoglobin of 8.3 and platelet count of 103. BMP showing hypokalemia with potassium of 3.4 and elevated renal function with BUN of 35, creatinine 2.10, GFR of 23 at baseline. Blood glucose 143. Lactic acid 1.7. Magnesium 1.8. Liver profile unremarkable. Troponin less than 0.012. Urinalysis positive for nitrites. Patient started on antibiotics with Zosyn. She was admitted under our services with consultation to neurology and hematology/oncology. Patient's condition continued to decline she was restless, agitated, and appeared uncomfortable. MRI brain without contrast was completed showing worsening vasogenic edema bilaterally left greater than right with a rim of curvilinear restricted diffusion bilaterally worse on the left concerning for cortical vein thrombosis and now with infarct versus metastasis. CT venogram with and without contrast completed showing no cerebral vein thrombosis with mid to multifocal areas of vasogenic edema and there is a suggestion of an 8 mm enhancing nodule in the right occipital vasogenic edema concerning for metastatic process. Secondary to continued decline in patient's status, patient's son requested a peg tube to be placed and for patient to begin tube feedings He was informed of pt's very poor prognosis and verbalized understanding. Order was placed for NG tube feeds, however pt's son did not consent to this stating he wants Peg Tube placed and did not want NG tube placed. General Surgeon was consulted and patient underwent placement of Peg Tube on 06/17/2024. MRI brain with contrast was then completed on 06/17/2024 revealing vasogenic edema within the left parietaloccipital region, posterior centrum semioval left parietal lobe and inferior medial right occipital lobe; no underlying mass or lesions were reported. This was discussed in detail with patient's son, and on 06/19/2024, patient's son made the decision for comfort measures only and requested inpatient admission for hospice. Patient admitted to [facility] hospice on 06/19/2024. Pt on 07/06 on comfort measures. Plan - Discharge Summary New Discharge Prescriptions: No Action RX: Famotidine [Pepcid] 20 mg PO BID@0900,1700 RX: FLUoxetine HCL 80 mg PO DAILY RX: Donepezil [Aricept] 5 mg PO HS RX: Multivitamins, Thera Liquid [Theragran Liquid (formulary)] 15 ml PO DAILY ml Lactose-Reduced Food [Ensure Plus] 1 can PO BID@0900,1700 RX: Droxidopa 400 mg PO TID@0800,1400,2200 RX: levETIRAcetam [Keppra] 500 mg PO BID@0900,1700 RX: Midodrine HCl [ProAmatine] 10 mg PO TID@0700,1300,1800 RX: Albuterol Inhaler [Ventolin Hfa Inhaler] 2 puff INHALATION RT-Q6H PRN PRN Reason: Shortness Of Breath RX: Aspirin 81 mg PO DAILY #90 tab RX: Atorvastatin [Lipitor] 40 mg PO HS RX: Folic Acid 1 mg PO DAILY #30 tablet RX: Thiamine [Vitamin B-1] 100 mg PO DAILY #30 tablet RX: Diphenoxylate HCl/Atropine [Lomotil 2.5-0.025 mg Tablet] 1 tab PO QID PRN #2 tab PRN Reason: Diarrhea Discharge Medication List RX: Albuterol Inhaler [Ventolin Hfa Inhaler] 2 puff INHALATION RT-Q6H PRN 04/08/24 [History] RX: Donepezil [Aricept] 5 mg PO HS 04/08/24 [History] RX: Droxidopa 400 mg PO TID@0800,1400,2200 04/08/24 [History] RX: FLUoxetine HCL 80 mg PO DAILY 04/08/24 [History] RX: Famotidine [Pepcid] 20 mg PO BID@0900,1700 04/08/24 [History] RX: Midodrine HCl [ProAmatine] 10 mg PO TID@0700,1300,1800 04/08/24 [History] RX: levETIRAcetam [Keppra] 500 mg PO BID@0900,1700 04/08/24 [History] RX: Aspirin 81 mg PO DAILY #90 tab 04/13/24 [Rx] RX: Atorvastatin [Lipitor] 40 mg PO HS 05/16/24 [History] RX: Diphenoxylate HCl/Atropine [Lomotil 2.5-0.025 mg Tablet] 1 tab PO QID PRN #2 tab 05/21/24 [Rx] RX: Folic Acid 1 mg PO DAILY #30 tablet 05/21/24 [Rx] RX: Multivitamins, Thera Liquid [Theragran Liquid (formulary)] 15 ml PO DAILY ml 05/21/24 [Rx] RX: Thiamine [Vitamin B-1] 100 mg PO DAILY #30 tablet 05/21/24 [Rx] Lactose-Reduced Food [Ensure Plus] 1 can PO BID@0900,1700 06/12/24 [History]
== END 2024-07-06 17:01 | disposition expired | DRG 951 ==
LOC: 3SCARD 13:54 → EEVIPCON 13:54 → 6NMEDSUR 06-27 00:12 → 5NMEDONC 07-05 08:39
PROVIDERS: ADMIT Student in an Organized Health Care Education/Training Program; ATTEND Student in an Organized Health Care Education/Training Program
DX: Z51.5 Encounter for palliative care (principal); G93.41 Metabolic encephalopathy; G93.6 Cerebral edema; A81.2 Progressive multifocal leukoencephalopathy; E87.0 Hyperosmolality and hypernatremia; E87.20 Acidosis, unspecified; N39.0 Urinary tract infection, site not specified; C77.1 Secondary and unspecified malignant neoplasm of intrathoracic lymph nodes; F03.911 Unspecified dementia, unspecified severity, with agitation; Z66 Do not resuscitate; I69.351 Hemiplegia and hemiparesis following cerebral infarction affecting right dominant side; C91.10 Chronic lymphocytic leukemia of B-cell type not having achieved remission; N18.32 Chronic kidney disease, stage 3b; G40.909 Epilepsy, unspecified, not intractable, without status epilepticus; Z93.1 Gastrostomy status; I12.9 Hypertensive chronic kidney disease with stage 1 through stage 4 chronic kidney disease, or unspecified chronic kidney disease; I69.398 Other sequelae of cerebral infarction; I69.320 Aphasia following cerebral infarction; H53.9 Unspecified visual disturbance; E78.5 Hyperlipidemia, unspecified; E87.6 Hypokalemia; R25.1 Tremor, unspecified; Z90.5 Acquired absence of kidney; Z87.891 Personal history of nicotine dependence; Z85.528 Personal history of other malignant neoplasm of kidney; Z79.899 Other long term (current) drug therapy; Z79.82 Long term (current) use of aspirin; Z91.81 History of falling; Z87.820 Personal history of traumatic brain injury
CPT/HCPCS: 94760